=== PATIENT | female | born 1945 | race Caucasian/White ===

== ENCOUNTER 2020-04-29 12:00 | Emergency (ER) | payer MEDICARE, OTHER, SELFPAY ==
[2020-04-29] VITALS (7 sets, daily range): BP systolic 111–165; BP diastolic 67–82; PULSE 95–105; RESP 16–18; TEMP 36.4; O2SAT 97–100; BMI 23.5
--- NOTE | 2020-04-29 12:30 | CT_ITS ---
WS: [id number] CT HEAD TECHNIQUE: Noncontrast CT of the head obtained from the skullbase to the vertex. CLINICAL INFORMATION: fall COMPARISON: None. DLP: 806.[address] scans at [facility] use at least one of these dose optimization techniques: automat ed exposure control; mA and/or kV adjustment per patient size (includes targeted exams where dose is matched to clinical indication); or iterative reconstruction. FINDINGS: Tiny amount of subdural hematoma overlying the left parasagittal frontal lobe. No significant mass ef fect or midline shift. No other evidence of hemorrhage Mild small vessel changes with moderate parenchymal volume loss. Chronic lacunar infarcts in the rig ht frontal periventricular white matter. Paranasal sinuses and mastoid air cells are well aerated. .Normal visualized soft tissues. CT/CT head wo con* [id number] IMPRESSION: 1. Tiny serpiginous subdural hematoma overlying the left parasagittal frontal lobe. No mass effect or midline shift. No other visualized hemorrhage. 2. Mild small vessel changes. Moderate parenchymal volume loss. 3. Chronic lacunar infarcts in the right frontal periventricular white matter Notified MALLORIE Kirkland at 04/29/2020 1:14 PM.
--- NOTE | 2020-04-29 12:30 | ECG_ITS ---
[facility] Test Date: 2020-04-29 Pat Name: Cara Schrader Department: Room: Gender: Female Complex Manager: : 1945 Requested By: Indra Simeon Order Number: [id number] Jian MD: Og So M.D. Measurements Intervals [place] Rate: 94 P: 76 KS: 116 QRS: 67 QRSD: 133 T: 9 QT: 405 QTc: 509 Interpretive Statements SINUS RHYTHM WITH SHORT [place] INTERVAL INDETERMINATE AXIS INTRAVENTRICULAR CONDUCTION DELAY [130+ ms QRS DURATION] INFERIOR MYOCARDIAL INFARCTION , OF INDETERMINATE AGE [40+ ms Q WAVE AND/OR ST/T ABNORMALITY IN II/aVF] Compared to ECG 03/26/2016 13:47:13 Short [place] interval now present Intraventricular conduction delay now present Myocardial infarct finding now present Right bundle-branch block no longer present Electronically Signed On 04-29-2020 23:58:37 CDT by Og So M.D. [id number]
--- NOTE | 2020-04-29 12:31 | ED_ITS ---
Documented by User: MALLORIE Kirkland 04/29/20 15:56 HPI - Fall General: Chief Complaint: Fall Stated Complaint: FELL,UNSURE OF INJURIES Time Seen by Provider: 04/29/20 12:20 History of Present Illness: HPI Narrative: This pleasant lady was brought in by her granddaughter due to being found on the floor this morning in her urine. Patient denies any problems at all. Patient is emotional. Patient lost her in September and granddaughter says she has just been down and depressed since then. Patient cannot give a good reason for why she was found in her urine. She just says she can get up from floor while she was scrubbing it and get to the bathroom in time. She said she feels fine. Later on during stay patient now complain about left hip pain granddaughter said they had to help her get up in wheelchair to get here. Also has right elbow hurts MD complaint: other Onset (ago): hour(s) Severity: mild Associated symptoms-after fall: Denies abdominal pain, chest pain or headache(s) Review of Systems Narrative: Patient can give me a reason for why she was found on floor in her urine. She says she just could not get up and go to the bathroom. Which is unusual for her she has difficult time tell me story. She becomes emotional and crying when we talk about her in September Const: Denies: fever(s), chills or body aches Eyes: Denies: change in vision or blurry vision ENMT: Denies: throat pain or nasal congestion Card: Denies: chest pain or dyspnea on exertion Resp: Denies: dyspnea, productive cough or non-productive cough GI: Denies: abdominal pain, nausea or vomiting Musc: Reports: extremity pain (Right elbow) and joint pain (left hip) Skin/Breast: Denies: rash Neuro: Denies: headache(s) Psych: Reports: depression (It was shared later after exam that patient might have taken more of her te), loss of interest, change in appetite and other (Taken were temazepam that she should have, patient denies); Denies: anxiety Wang/Lymph: Denies: easy bruising Physical Exam Narrative: EXAM NARRATIVE: Slightly poor hygiene. Hair is unkept nails are thick fingernails are slightly dirty Const: COMMON NORMALS: no acute distress, average body habitus and patient oriented x3 HENMT: COMMON NORMALS: normocephalic HEAD & SCALP: normal to inspection and normocephalic FACE & SINUS: normal facial exam Eye: COMMON NORMALS: conjunctivae normal CONJUNCTIVA: Yes conjunctivae normal PUPIL: Yes Irregular pupils on the right (Chronic dilated pupil under care of Dr. Mccrary) Neck/C-Spine: COMMON NORMALS: no JVD Chest: COMMONS NORMALS: normal inspection of the chest Resp: COMMON NORMALS: normal respiratory effort and clear to auscultation bilaterally AUSCULTATION: clear to auscultation bilaterally Cardio: COMMON NORMALS: no JVD, regular rate and regular rhythm RATE: regular rate RHYTHM: regular rhythm GI: COMMON NORMALS: Normal to inspection, nondistended, normoactive bowel sounds present Extremity: COMMON NORMALS: full ROM RIGHT UPPER EXTREMITY: Yes elbow joint (No redness of swelling does have an abrasion has full range of motion) LEFT LOWER EXTREMITY: Yes hip joint (Slightly tender to palpation good range of motion) Neuro: COMMON NORMALS: patient oriented x3, CN's II-XII intact bilaterally, moves all extremities, no focal motor deficits and no sensory deficits noted Psych: COMMON NORMALS: mental status grossly normal, Normal thought process present, cooperative, normal affect, denies homicidal ideation and denies suicidal ideation APPEARANCE: Yes disheveled ATTITUDE: Yes calm ACTIVITY/MOTOR BEHAVIOR: Yes appropriate eye contact SPEECH: Yes soft MOOD & AFFECT: Yes depressed mood THOUGHT PROCESS: Normal thought process present ATTENTION/CONCENTRATION: Yes attention grossly intact MEMORY/COGNITION: Yes memory grossly intact JUDGEMENT: Good judgement present (Psych) Course Vital Signs: Vital signs: Vital Signs Temperature 97.5 F L 04/29/20 12:03 Pulse Rate 105 H 04/29/20 18:20 Respiratory Rate 16 04/29/20 18:20 Blood Pressure 111/67 04/29/20 18:20 Pulse Oximetry 100 04/29/20 18:20 MDM - Fall MDM Narrative: Medical decision making narrative: Spoke with care at the call center at [facility] after patient stated that we can either go to [facility] or [facility]. Care said neurosurgeon wanted to go ER to ER. I spoke with Dario ER physician at [facility] agrees accept patient for transfer level care not available here. Patient stable go by ground ambulance. Discussed care of patient with Dr. Pal Lab Data: Labs: Lab Results 04/29/20 04/29/20 04/29/20 Range/Units 13:20 13:20 14:08 WBC (4.0-10.0) 10^3/ uL RBC (4.1-5.3) 10^6/u L Hgb (11.5-15.3) g/dL Hct (37.0-47.0) % MCV (81-99) fL MCH (28.0-34.0) pg MCHC (30.0-36.0) g/dL RDW (12.1-15.1) % Plt Count (130-400) 10^3/c mm MPV (7.4-10.4) fL Neut % (Auto) % Lymph % (Auto) % [place] % (Auto) % Eos % (Auto) % Baso % (Auto) % Neut # (Auto) (1.8-7.7) 10^3/u L Lymph # (Auto) (0.8-4.8) 10^3/u L [place] # (Auto) (0.2-0.9) 10^3/u L Eos # (Auto) (0.0-0.8) 10^3/u L Baso # (Auto) (0.0-0.1) 10^3/u L Nucleated RBC % (a uto) % Nucleated RBCs # /100WBC Specimen Type Sample Site ABG pH (7.35-7.45) ABG pCO2 (35-45) mmHg ABG pO2 (80.0-100.0) mmH g ABG HCO3 (22-26) mmol/L ABG Base Excess (-2.0-2.0) mmol/ L Aron Test Hematocrit (37-47) % O2 Delivery Device Bill Cutter ID Sodium (136-145) mmol/L Potassium (3.5-5.1) mmol/L Chloride (98-107) mmol/L Carbon Dioxide (22-29) mmol/L Anion Gap (5-19) BUN (8-23) mg/dL Creatinine (0.5-0.9) mg/dL GFR Calculation Glucose (65-115) mg/dL POC Glucose 472 H (70-110) mg/dL Calculated Osmolal ity (285-295) mOsm/k g Lactate (0.5-2.2) mmol/L Calcium (8.5-10.5) mg/dL Total Bilirubin (0.15-1.2) mg/dL AST (0-32) U/L ALT (0-33) U/L Alkaline Phosphata se (35-105) IU/L Troponin T Baselin e (0-10) ng/L Troponin T 120 Min qagan tayagungin (0-10) ng/L Delta Troponin T (0-10) ABS# C-Reactive Protein (0.0-4.9) mg/L Total Protein (6.6-8.7) g/dL Albumin (3.5-5.2) g/dL Globulin (1.3-4.6) g/dL TSH (0.27-4.20) uIU/ mL Urine Color Yellow (Yellow) Urine Appearance Clear (CLEAR) Urine pH 5 (5-7) Ur Specific Gravit y 1.025 (1.005-1.030) Urine Protein Neg (Negative) Urine Glucose (UA) 4+ H (Normal) Urine Ketones 3+ H (Negative) Urine Blood Neg (Negative) Urine Nitrate Negative (Negative) Urine Bilirubin Neg (Negative) Urine Urobilinogen Norm (Negative) mg/dL Ur Leukocyte Mireya ase Negative (Negative) Urine Opiates Scre en Negative (Negative) ng/mL Ur Barbiturates Sc reen Negative (Negative) ng/mL Ur Phencyclidine S crn Negative (Negative) ng/mL Ur Amphetamines Sc reen Negative (Negative) ng/mL U Benzodiazepines Scrn Positive H (Negative) ng/mL Urine Cocaine Scre en Negative (Negative) ng/mL U Marijuana (THC) Screen Negative (Negative) ng/mL Serum Ketones (Negative) 04/29/20 04/29/20 04/29/20 Range/Units 14:45 14:45 14:45 WBC 17.0 H (4.0-10.0) 10^3/ uL RBC 4.55 (4.1-5.3) 10^6/u L Hgb 13.7 (11.5-15.3) g/dL Hct 42.6 (37.0-47.0) % MCV 93.6 (81-99) fL MCH 30.1 (28.0-34.0) pg MCHC 32.2 (30.0-36.0) g/dL RDW 13.0 (12.1-15.1) % Plt Count 391 (130-400) 10^3/c mm MPV 9.9 (7.4-10.4) fL Neut % (Auto) 84.1 % Lymph % (Auto) 8.7 % [place] % (Auto) 5.9 % Eos % (Auto) 0.0 % Baso % (Auto) 0.4 % Neut # (Auto) 14.28 H (1.8-7.7) 10^3/u L Lymph # (Auto) 1.5 (0.8-4.8) 10^3/u L [place] # (Auto) 1.0 H (0.2-0.9) 10^3/u L Eos # (Auto) 0.0 (0.0-0.8) 10^3/u L Baso # (Auto) 0.1 (0.0-0.1) 10^3/u L Nucleated RBC % (a uto) 0 % Nucleated RBCs # 0.0 /100WBC Specimen Type Sample Site ABG pH (7.35-7.45) ABG pCO2 (35-45) mmHg ABG pO2 (80.0-100.0) mmH g ABG HCO3 (22-26) mmol/L ABG Base Excess (-2.0-2.0) mmol/ L Aron Test Hematocrit (37-47) % O2 Delivery Device Bill Cutter ID Sodium 135 L (136-145) mmol/L Potassium 4.2 (3.5-5.1) mmol/L Chloride 99 (98-107) mmol/L Carbon Dioxide 9 L (22-29) mmol/L Anion Gap 31.2 H (5-19) BUN 16 (8-23) mg/dL Creatinine 0.7 (0.5-0.9) mg/dL GFR Calculation Not Reportable Glucose 467 H (65-115) mg/dL POC Glucose (70-110) mg/dL Calculated Osmolal ity 302 H (285-295) mOsm/k g Lactate 0.9 (0.5-2.2) mmol/L Calcium 8.5 (8.5-10.5) mg/dL Total Bilirubin 0.4 (0.15-1.2) mg/dL AST 17 (0-32) U/L ALT 11 (0-33) U/L Alkaline Phosphata se 89 (35-105) IU/L Troponin T Baselin e (0-10) ng/L Troponin T 120 Min qagan tayagungin (0-10) ng/L Delta Troponin T (0-10) ABS# C-Reactive Protein 29.2 H (0.0-4.9) mg/L Total Protein 6.8 (6.6-8.7) g/dL Albumin 3.7 (3.5-5.2) g/dL Globulin 3.1 (1.3-4.6) g/dL TSH 0.56 (0.27-4.20) uIU/ mL Urine Color (Yellow) Urine Appearance (CLEAR) Urine pH (5-7) Ur Specific Gravit y (1.005-1.030) Urine Protein (Negative) Urine Glucose (UA) (Normal) Urine Ketones (Negative) Urine Blood (Negative) Urine Nitrate (Negative) Urine Bilirubin (Negative) Urine Urobilinogen (Negative) mg/dL Ur Leukocyte Mireya ase (Negative) Urine Opiates Scre en (Negative) ng/mL Ur Barbiturates Sc reen (Negative) ng/mL Ur Phencyclidine S crn (Negative) ng/mL Ur Amphetamines Sc reen (Negative) ng/mL U Benzodiazepines Scrn (Negative) ng/mL Urine Cocaine Scre en (Negative) ng/mL U Marijuana (THC) Screen (Negative) ng/mL Serum Ketones (Negative) 04/29/20 04/29/20 04/29/20 Range/Units 14:45 14:45 15:40 WBC (4.0-10.0) 10^3/ uL RBC (4.1-5.3) 10^6/u L Hgb (11.5-15.3) g/dL Hct (37.0-47.0) % MCV (81-99) fL MCH (28.0-34.0) pg MCHC (30.0-36.0) g/dL RDW (12.1-15.1) % Plt Count (130-400) 10^3/c mm MPV (7.4-10.4) fL Neut % (Auto) % Lymph % (Auto) % [place] % (Auto) % Eos % (Auto) % Baso % (Auto) % Neut # (Auto) (1.8-7.7) 10^3/u L Lymph # (Auto) (0.8-4.8) 10^3/u L [place] # (Auto) (0.2-0.9) 10^3/u L Eos # (Auto) (0.0-0.8) 10^3/u L Baso # (Auto) (0.0-0.1) 10^3/u L Nucleated RBC % (a uto) % Nucleated RBCs # /100WBC Specimen Type Arterial Sample Site Radial, left ABG pH 7.26 L (7.35-7.45) ABG pCO2 22.0 L (35-45) mmHg ABG pO2 98.6 (80.0-100.0) mmH g ABG HCO3 9.9 L (22-26) mmol/L ABG Base Excess -15.1 L (-2.0-2.0) mmol/ L Aron Test Pos Hematocrit 44.1 (37-47) % O2 Delivery Device Room air Bill Cutter ID Gd Sodium (136-145) mmol/L Potassium (3.5-5.1) mmol/L Chloride (98-107) mmol/L Carbon Dioxide (22-29) mmol/L Anion Gap (5-19) BUN (8-23) mg/dL Creatinine (0.5-0.9) mg/dL GFR Calculation Glucose (65-115) mg/dL POC Glucose (70-110) mg/dL Calculated Osmolal ity (285-295) mOsm/k g Lactate (0.5-2.2) mmol/L Calcium (8.5-10.5) mg/dL Total Bilirubin (0.15-1.2) mg/dL AST (0-32) U/L ALT (0-33) U/L Alkaline Phosphata se (35-105) IU/L Troponin T Baselin e 20 H (0-10) ng/L Troponin T 120 Min qagan tayagung[place] (0-10) ng/L Delta Troponin T (0-10) ABS# C-Reactive Protein (0.0-4.9) mg/L Total Protein (6.6-8.7) g/dL Albumin (3.5-5.2) g/dL Globulin (1.3-4.6) g/dL TSH (0.27-4.20) uIU/ mL Urine Color (Yellow) Urine Appearance (CLEAR) Urine pH (5-7) Ur Specific Gravit y (1.005-1.030) Urine Protein (Negative) Urine Glucose (UA) (Normal) Urine Ketones (Negative) Urine Blood (Negative) Urine Nitrate (Negative) Urine Bilirubin (Negative) Urine Urobilinogen (Negative) mg/dL Ur Leukocyte Mireya ase (Negative) Urine Opiates Scre en (Negative) ng/mL Ur Barbiturates Sc reen (Negative) ng/mL Ur Phencyclidine S crn (Negative) ng/mL Ur Amphetamines Sc reen (Negative) ng/mL U Benzodiazepines Scrn (Negative) ng/mL Urine Cocaine Scre en (Negative) ng/mL U Marijuana (THC) Screen (Negative) ng/mL Serum Ketones Positive H (Negative) 04/29/20 04/29/20 Range/Units 16:37 19:10 WBC (4.0-10.0) 10^3/ uL RBC (4.1-5.3) 10^6/u L Hgb (11.5-15.3) g/dL Hct (37.0-47.0) % MCV (81-99) fL MCH (28.0-34.0) pg MCHC (30.0-36.0) g/dL RDW (12.1-15.1) % Plt Count (130-400) 10^3/c mm MPV (7.4-10.4) fL Neut % (Auto) % Lymph % (Auto) % [place] % (Auto) % Eos % (Auto) % Baso % (Auto) % Neut # (Auto) (1.8-7.7) 10^3/u L Lymph # (Auto) (0.8-4.8) 10^3/u L [place] # (Auto) (0.2-0.9) 10^3/u L Eos # (Auto) (0.0-0.8) 10^3/u L Baso # (Auto) (0.0-0.1) 10^3/u L Nucleated RBC % (a uto) % Nucleated RBCs # /100WBC Specimen Type Sample Site ABG pH (7.35-7.45) ABG pCO2 (35-45) mmHg ABG pO2 (80.0-100.0) mmH g ABG HCO3 (22-26) mmol/L ABG Base Excess (-2.0-2.0) mmol/ L Aron Test Hematocrit (37-47) % O2 Delivery Device Bill Cutter ID Sodium (136-145) mmol/L Potassium (3.5-5.1) mmol/L Chloride (98-107) mmol/L Carbon Dioxide (22-29) mmol/L Anion Gap (5-19) BUN (8-23) mg/dL Creatinine (0.5-0.9) mg/dL GFR Calculation Glucose (65-115) mg/dL POC Glucose 396 H (70-110) mg/dL Calculated Osmolal ity (285-295) mOsm/k g Lactate (0.5-2.2) mmol/L Calcium (8.5-10.5) mg/dL Total Bilirubin (0.15-1.2) mg/dL AST (0-32) U/L ALT (0-33) U/L Alkaline Phosphata se (35-105) IU/L Troponin T Baselin e (0-10) ng/L Troponin T 120 Min qagan tayagungin 20.50 H (0-10) ng/L Delta Troponin T 0.5 (0-10) ABS# C-Reactive Protein (0.0-4.9) mg/L Total Protein (6.6-8.7) g/dL Albumin (3.5-5.2) g/dL Globulin (1.3-4.6) g/dL TSH (0.27-4.20) uIU/ mL Urine Color (Yellow) Urine Appearance (CLEAR) Urine pH (5-7) Ur Specific Gravit y (1.005-1.030) Urine Protein (Negative) Urine Glucose (UA) (Normal) Urine Ketones (Negative) Urine Blood (Negative) Urine Nitrate (Negative) Urine Bilirubin (Negative) Urine Urobilinogen (Negative) mg/dL Ur Leukocyte Mireya ase (Negative) Urine Opiates Scre en (Negative) ng/mL Ur Barbiturates Sc reen (Negative) ng/mL Ur Phencyclidine S crn (Negative) ng/mL Ur Amphetamines Sc reen (Negative) ng/mL U Benzodiazepines Scrn (Negative) ng/mL Urine Cocaine Scre en (Negative) ng/mL U Marijuana (THC) Screen (Negative) ng/mL Serum Ketones (Negative) Discharge Plan Discharge Patient Disposition: Transfer to ED Clinical Impression: Acute subdural hematoma, Acute hyperglycemia Depression Qualifiers: Depression Type: reactive depression Qualified Code(s): F32.9 - Major depressive disorder, single episode, unspecified Condition: Stable Prescriptions: No Action venlafaxine 75 mg capsule,extended release 24hr 75 mg PO DAILY RF: 0 glipizide 10 mg tablet 10 mg PO BID RF: 0 temazepam 30 mg capsule 60 mg PO BEDTIME RF: 0 Lotemax 0.5 % drops,gel 1 drp ophthalmic (eye) DAILY RF: 0 Referrals: Christin Bolaños DO [Primary Care Provider] - Sign Out Sign Out Data: Patient Sign Out occurred on 04/29/20 at 17:07. Patient's care was discussed, and care was transferred from to PAPO Mukherjee. Coding Level of Care Code ED Glove Turner And Former Automatic for Chg Fwd Exam Comprehensive Documented by User: PAPO Mukherjee 04/30/20 03:01 HPI - Fall General: Chief Complaint: Fall Stated Complaint: FELL,UNSURE OF INJURIES Time Seen by Provider: 04/29/20 12:20 Course Vital Signs: Vital signs: Vital Signs Temperature 97.5 F L 04/29/20 12:03 Pulse Rate 105 H 04/29/20 18:20 Respiratory Rate 16 04/29/20 18:20 Blood Pressure 111/67 04/29/20 18:20 Pulse Oximetry 100 04/29/20 18:20 MDM - Fall MDM Narrative: Medical decision making narrative: I took over patient care from Blanco's nurse practitioner at [address] Marie was placing a central line on patient and Blanco's told me he already had transfer set up for [facility] in [place]. I was not involved in any patient care or decision making of patient. I signed up on patient, just in case patient needs some orders placed while waiting for transfer.-Sid Shelley PA-C Lab Data: Labs: Lab Results 04/29/20 04/29/20 04/29/20 Range/Units 13:20 13:20 14:08 WBC (4.0-10.0) 10^3/ uL RBC (4.1-5.3) 10^6/u L Hgb (11.5-15.3) g/dL Hct (37.0-47.0) % MCV (81-99) fL MCH (28.0-34.0) pg MCHC (30.0-36.0) g/dL RDW (12.1-15.1) % Plt Count (130-400) 10^3/c mm MPV (7.4-10.4) fL Neut % (Auto) % Lymph % (Auto) % [place] % (Auto) % Eos % (Auto) % Baso % (Auto) % Neut # (Auto) (1.8-7.7) 10^3/u L Lymph # (Auto) (0.8-4.8) 10^3/u L [place] # (Auto) (0.2-0.9) 10^3/u L Eos # (Auto) (0.0-0.8) 10^3/u L Baso # (Auto) (0.0-0.1) 10^3/u L Nucleated RBC % (a uto) % Nucleated RBCs # /100WBC Specimen Type Sample Site ABG pH (7.35-7.45) ABG pCO2 (35-45) mmHg ABG pO2 (80.0-100.0) mmH g ABG HCO3 (22-26) mmol/L ABG Base Excess (-2.0-2.0) mmol/ L Aron Test Hematocrit (37-47) % O2 Delivery Device Bill Cutter ID Sodium (136-145) mmol/L Potassium (3.5-5.1) mmol/L Chloride (98-107) mmol/L Carbon Dioxide (22-29) mmol/L Anion Gap (5-19) BUN (8-23) mg/dL Creatinine (0.5-0.9) mg/dL GFR Calculation Glucose (65-115) mg/dL POC Glucose 472 H (70-110) mg/dL Calculated Osmolal ity (285-295) mOsm/k g Lactate (0.5-2.2) mmol/L Calcium (8.5-10.5) mg/dL Total Bilirubin (0.15-1.2) mg/dL AST (0-32) U/L ALT (0-33) U/L Alkaline Phosphata se (35-105) IU/L Troponin T Baselin e (0-10) ng/L Troponin T 120 Min qagan tayagungin (0-10) ng/L Delta Troponin T (0-10) ABS# C-Reactive Protein (0.0-4.9) mg/L Total Protein (6.6-8.7) g/dL Albumin (3.5-5.2) g/dL Globulin (1.3-4.6) g/dL TSH (0.27-4.20) uIU/ mL Urine Color Yellow (Yellow) Urine Appearance Clear (CLEAR) Urine pH 5 (5-7) Ur Specific Gravit y 1.025 (1.005-1.030) Urine Protein Neg (Negative) Urine Glucose (UA) 4+ H (Normal) Urine Ketones 3+ H (Negative) Urine Blood Neg (Negative) Urine Nitrate Negative (Negative) Urine Bilirubin Neg (Negative) Urine Urobilinogen Norm (Negative) mg/dL Ur Leukocyte Mireya ase Negative (Negative) Urine Opiates Scre en Negative (Negative) ng/mL Ur Barbiturates Sc reen Negative (Negative) ng/mL Ur Phencyclidine S crn Negative (Negative) ng/mL Ur Amphetamines Sc reen Negative (Negative) ng/mL U Benzodiazepines Scrn Positive H (Negative) ng/mL Urine Cocaine Scre en Negative (Negative) ng/mL U Marijuana (THC) Screen Negative (Negative) ng/mL Serum Ketones (Negative) 04/29/20 04/29/20 04/29/20 Range/Units 14:45 14:45 14:45 WBC 17.0 H (4.0-10.0) 10^3/ uL RBC 4.55 (4.1-5.3) 10^6/u L Hgb 13.7 (11.5-15.3) g/dL Hct 42.6 (37.0-47.0) % MCV 93.6 (81-99) fL MCH 30.1 (28.0-34.0) pg MCHC 32.2 (30.0-36.0) g/dL RDW 13.0 (12.1-15.1) % Plt Count 391 (130-400) 10^3/c mm MPV 9.9 (7.4-10.4) fL Neut % (Auto) 84.1 % Lymph % (Auto) 8.7 % [place] % (Auto) 5.9 % Eos % (Auto) 0.0 % Baso % (Auto) 0.4 % Neut # (Auto) 14.28 H (1.8-7.7) 10^3/u L Lymph # (Auto) 1.5 (0.8-4.8) 10^3/u L [place] # (Auto) 1.0 H (0.2-0.9) 10^3/u L Eos # (Auto) 0.0 (0.0-0.8) 10^3/u L Baso # (Auto) 0.1 (0.0-0.1) 10^3/u L Nucleated RBC % (a uto) 0 % Nucleated RBCs # 0.0 /100WBC Specimen Type Sample Site ABG pH (7.35-7.45) ABG pCO2 (35-45) mmHg ABG pO2 (80.0-100.0) mmH g ABG HCO3 (22-26) mmol/L ABG Base Excess (-2.0-2.0) mmol/ L Aron Test Hematocrit (37-47) % O2 Delivery Device Bill Cutter ID Sodium 135 L (136-145) mmol/L Potassium 4.2 (3.5-5.1) mmol/L Chloride 99 (98-107) mmol/L Carbon Dioxide 9 L (22-29) mmol/L Anion Gap 31.2 H (5-19) BUN 16 (8-23) mg/dL Creatinine 0.7 (0.5-0.9) mg/dL GFR Calculation Not Reportable Glucose 467 H (65-115) mg/dL POC Glucose (70-110) mg/dL Calculated Osmolal ity 302 H (285-295) mOsm/k g Lactate 0.9 (0.5-2.2) mmol/L Calcium 8.5 (8.5-10.5) mg/dL Total Bilirubin 0.4 (0.15-1.2) mg/dL AST 17 (0-32) U/L ALT 11 (0-33) U/L Alkaline Phosphata se 89 (35-105) IU/L Troponin T Baselin e (0-10) ng/L Troponin T 120 Min qagan tayag[place] (0-10) ng/L Delta Troponin T (0-10) ABS# C-Reactive Protein 29.2 H (0.0-4.9) mg/L Total Protein 6.8 (6.6-8.7) g/dL Albumin 3.7 (3.5-5.2) g/dL Globulin 3.1 (1.3-4.6) g/dL TSH 0.56 (0.27-4.20) uIU/ mL Urine Color (Yellow) Urine Appearance (CLEAR) Urine pH (5-7) Ur Specific Gravit y (1.005-1.030) Urine Protein (Negative) Urine Glucose (UA) (Normal) Urine Ketones (Negative) Urine Blood (Negative) Urine Nitrate (Negative) Urine Bilirubin (Negative) Urine Urobilinogen (Negative) mg/dL Ur Leukocyte Mireya ase (Negative) Urine Opiates Scre en (Negative) ng/mL Ur Barbiturates Sc reen (Negative) ng/mL Ur Phencyclidine S crn (Negative) ng/mL Ur Amphetamines Sc reen (Negative) ng/mL U Benzodiazepines Scrn (Negative) ng/mL Urine Cocaine Scre en (Negative) ng/mL U Marijuana (THC) Screen (Negative) ng/mL Serum Ketones (Negative) 04/29/20 04/29/20 04/29/20 Range/Units 14:45 14:45 15:40 WBC (4.0-10.0) 10^3/ uL RBC (4.1-5.3) 10^6/u L Hgb (11.5-15.3) g/dL Hct (37.0-47.0) % MCV (81-99) fL MCH (28.0-34.0) pg MCHC (30.0-36.0) g/dL RDW (12.1-15.1) % Plt Count (130-400) 10^3/c mm MPV (7.4-10.4) fL Neut % (Auto) % Lymph % (Auto) % [place] % (Auto) % Eos % (Auto) % Baso % (Auto) % Neut # (Auto) (1.8-7.7) 10^3/u L Lymph # (Auto) (0.8-4.8) 10^3/u L [place] # (Auto) (0.2-0.9) 10^3/u L Eos # (Auto) (0.0-0.8) 10^3/u L Baso # (Auto) (0.0-0.1) 10^3/u L Nucleated RBC % (a uto) % Nucleated RBCs # /100WBC Specimen Type Arterial Sample Site Radial, left ABG pH 7.26 L (7.35-7.45) ABG pCO2 22.0 L (35-45) mmHg ABG pO2 98.6 (80.0-100.0) mmH g ABG HCO3 9.9 L (22-26) mmol/L ABG Base Excess -15.1 L (-2.0-2.0) mmol/ L Aron Test Pos Hematocrit 44.1 (37-47) % O2 Delivery Device Room air Bill Cutter ID Gd Sodium (136-145) mmol/L Potassium (3.5-5.1) mmol/L Chloride (98-107) mmol/L Carbon Dioxide (22-29) mmol/L Anion Gap (5-19) BUN (8-23) mg/dL Creatinine (0.5-0.9) mg/dL GFR Calculation Glucose (65-115) mg/dL POC Glucose (70-110) mg/dL Calculated Osmolal ity (285-295) mOsm/k g Lactate (0.5-2.2) mmol/L Calcium (8.5-10.5) mg/dL Total Bilirubin (0.15-1.2) mg/dL AST (0-32) U/L ALT (0-33) U/L Alkaline Phosphata se (35-105) IU/L Troponin T Baselin e 20 H (0-10) ng/L Troponin T 120 Min q[place] (0-10) ng/L Delta Troponin T (0-10) ABS# C-Reactive Protein (0.0-4.9) mg/L Total Protein (6.6-8.7) g/dL Albumin (3.5-5.2) g/dL Globulin (1.3-4.6) g/dL TSH (0.27-4.20) uIU/ mL Urine Color (Yellow) Urine Appearance (CLEAR) Urine pH (5-7) Ur Specific Gravit y (1.005-1.030) Urine Protein (Negative) Urine Glucose (UA) (Normal) Urine Ketones (Negative) Urine Blood (Negative) Urine Nitrate (Negative) Urine Bilirubin (Negative) Urine Urobilinogen (Negative) mg/dL Ur Leukocyte Mireya ase (Negative) Urine Opiates Scre en (Negative) ng/mL Ur Barbiturates Sc reen (Negative) ng/mL Ur Phencyclidine S crn (Negative) ng/mL Ur Amphetamines Sc reen (Negative) ng/mL U Benzodiazepines Scrn (Negative) ng/mL Urine Cocaine Scre en (Negative) ng/mL U Marijuana (THC) Screen (Negative) ng/mL Serum Ketones Positive H (Negative) 04/29/20 04/29/20 Range/Units 16:37 19:10 WBC (4.0-10.0) 10^3/ uL RBC (4.1-5.3) 10^6/u L Hgb (11.5-15.3) g/dL Hct (37.0-47.0) % MCV (81-99) fL MCH (28.0-34.0) pg MCHC (30.0-36.0) g/dL RDW (12.1-15.1) % Plt Count (130-400) 10^3/c mm MPV (7.4-10.4) fL Neut % (Auto) % Lymph % (Auto) % [place] % (Auto) % Eos % (Auto) % Baso % (Auto) % Neut # (Auto) (1.8-7.7) 10^3/u L Lymph # (Auto) (0.8-4.8) 10^3/u L [place] # (Auto) (0.2-0.9) 10^3/u L Eos # (Auto) (0.0-0.8) 10^3/u L Baso # (Auto) (0.0-0.1) 10^3/u L Nucleated RBC % (a uto) % Nucleated RBCs # /100WBC Specimen Type Sample Site ABG pH (7.35-7.45) ABG pCO2 (35-45) mmHg ABG pO2 (80.0-100.0) mmH g ABG HCO3 (22-26) mmol/L ABG Base Excess (-2.0-2.0) mmol/ L Aron Test Hematocrit (37-47) % O2 Delivery Device Bill Cutter ID Sodium (136-145) mmol/L Potassium (3.5-5.1) mmol/L Chloride (98-107) mmol/L Carbon Dioxide (22-29) mmol/L Anion Gap (5-19) BUN (8-23) mg/dL Creatinine (0.5-0.9) mg/dL GFR Calculation Glucose (65-115) mg/dL POC Glucose 396 H (70-110) mg/dL Calculated Osmolal ity (285-295) mOsm/k g Lactate (0.5-2.2) mmol/L Calcium (8.5-10.5) mg/dL Total Bilirubin (0.15-1.2) mg/dL AST (0-32) U/L ALT (0-33) U/L Alkaline Phosphata se (35-105) IU/L Troponin T Baselin e (0-10) ng/L Troponin T 120 Min q[place] 20.50 H (0-10) ng/L Delta Troponin T 0.5 (0-10) ABS# C-Reactive Protein (0.0-4.9) mg/L Total Protein (6.6-8.7) g/dL Albumin (3.5-5.2) g/dL Globulin (1.3-4.6) g/dL TSH (0.27-4.20) uIU/ mL Urine Color (Yellow) Urine Appearance (CLEAR) Urine pH (5-7) Ur Specific Gravit y (1.005-1.030) Urine Protein (Negative) Urine Glucose (UA) (Normal) Urine Ketones (Negative) Urine Blood (Negative) Urine Nitrate (Negative) Urine Bilirubin (Negative) Urine Urobilinogen (Negative) mg/dL Ur Leukocyte Mireya ase (Negative) Urine Opiates Scre en (Negative) ng/mL Ur Barbiturates Sc reen (Negative) ng/mL Ur Phencyclidine S crn (Negative) ng/mL Ur Amphetamines Sc reen (Negative) ng/mL U Benzodiazepines Scrn (Negative) ng/mL Urine Cocaine Scre en (Negative) ng/mL U Marijuana (THC) Screen (Negative) ng/mL Serum Ketones (Negative) Discharge Plan Discharge Patient Disposition: Transfer to ED Clinical Impression: Acute subdural hematoma, Acute hyperglycemia Depression Qualifiers: Depression Type: reactive depression Qualified Code(s): F32.9 - Major depressive disorder, single episode, unspecified Condition: Stable Prescriptions: No Action venlafaxine 75 mg capsule,extended release 24hr 75 mg PO DAILY RF: 0 glipizide 10 mg tablet 10 mg PO BID RF: 0 temazepam 30 mg capsule 60 mg PO BEDTIME RF: 0 Lotemax 0.5 % drops,gel 1 drp ophthalmic (eye) DAILY RF: 0 Referrals: Christin Bolaños DO [Primary Care Provider] - Sign Out Sign Out Data: Patient Sign Out occurred on 04/29/20 at 17:07. Patient's care was discussed, and care was transferred from to [facility] Mukherjee. Coding Level of Care Code ED Glove Turner And Former Automatic for Chg Fwd Exam Comprehensive Documented by User: Gianluca Marie DO 04/29/20 18:39 HPI - Fall General: Chief Complaint: Fall Stated Complaint: FELL,UNSURE OF INJURIES Time Seen by Provider: 04/29/20 12:20 Procedures Central Line Placement Right SC: Time Out Performed: Yes Patient Placed on Monitor/Pulse Ox: Yes MD Prep: mask, gown and gloves Central Line Prep: Chlorhexidine scrub Local Anesthetic: lidocaine 1% Amount of anesthesia used (mL): 5 Ultrasound Used for Placement: Yes Central Line Lumen Inserted: triple Additional Comments: Despite using Ativan were unable to get the patient to remain still made several attempts could visualize on ultrasound but could not cannulized subclavian vein due to continuous motion. At one point it was concerned that we had actually created a pneumothorax got what appeared to be air back in the syringe and the syringe followed when the patient jumped while we are trying to cannulized the subclavian vein. I did check of the neck for a right internal jugular however that was even more difficult to get the patient to remain still. At that point abandon attempts and contacted anesthesia to attempt venous access. Anesthesia also was unable to obtain access and ultimately put a saphenous vein IV in the leg. Course Vital Signs: Vital signs: Vital Signs Temperature 97.5 F L 04/29/20 12:03 Pulse Rate 105 H 04/29/20 18:20 Respiratory Rate 16 04/29/20 18:20 Blood Pressure 111/67 04/29/20 18:20 Pulse Oximetry 100 04/29/20 18:20 - Fall Lab Data: Labs: Lab Results 04/29/20 04/29/20 04/29/20 Range/Units 13:20 13:20 14:08 WBC (4.0-10.0) 10^3/ uL RBC (4.1-5.3) 10^6/u L Hgb (11.5-15.3) g/dL Hct (37.0-47.0) % MCV (81-99) fL MCH (28.0-34.0) pg MCHC (30.0-36.0) g/dL RDW (12.1-15.1) % Plt Count (130-400) 10^3/c mm MPV (7.4-10.4) fL Neut % (Auto) % Lymph % (Auto) % [place] % (Auto) % Eos % (Auto) % Baso % (Auto) % Neut # (Auto) (1.8-7.7) 10^3/u L Lymph # (Auto) (0.8-4.8) 10^3/u L [place] # (Auto) (0.2-0.9) 10^3/u L Eos # (Auto) (0.0-0.8) 10^3/u L Baso # (Auto) (0.0-0.1) 10^3/u L Nucleated RBC % (a uto) % Nucleated RBCs # /100WBC Specimen Type Sample Site ABG pH (7.35-7.45) ABG pCO2 (35-45) mmHg ABG pO2 (80.0-100.0) mmH g ABG HCO3 (22-26) mmol/L ABG Base Excess (-2.0-2.0) mmol/ L Aron Test Hematocrit (37-47) % O2 Delivery Device Bill Cutter ID Sodium (136-145) mmol/L Potassium (3.5-5.1) mmol/L Chloride (98-107) mmol/L Carbon Dioxide (22-29) mmol/L Anion Gap (5-19) BUN (8-23) mg/dL Creatinine (0.5-0.9) mg/dL GFR Calculation Glucose (65-115) mg/dL POC Glucose 472 H (70-110) mg/dL Calculated Osmolal ity (285-295) mOsm/k g Lactate (0.5-2.2) mmol/L Calcium (8.5-10.5) mg/dL Total Bilirubin (0.15-1.2) mg/dL AST (0-32) U/L ALT (0-33) U/L Alkaline Phosphata se (35-105) IU/L Troponin T Baselin e (0-10) ng/L Troponin T 120 Min qagan tayagungin (0-10) ng/L Delta Troponin T (0-10) ABS# C-Reactive Protein (0.0-4.9) mg/L Total Protein (6.6-8.7) g/dL Albumin (3.5-5.2) g/dL Globulin (1.3-4.6) g/dL TSH (0.27-4.20) uIU/ mL Urine Color Yellow (Yellow) Urine Appearance Clear (CLEAR) Urine pH 5 (5-7) Ur Specific Gravit y 1.025 (1.005-1.030) Urine Protein Neg (Negative) Urine Glucose (UA) 4+ H (Normal) Urine Ketones 3+ H (Negative) Urine Blood Neg (Negative) Urine Nitrate Negative (Negative) Urine Bilirubin Neg (Negative) Urine Urobilinogen Norm (Negative) mg/dL Ur Leukocyte Mireya ase Negative (Negative) Urine Opiates Scre en Negative (Negative) ng/mL Ur Barbiturates Sc reen Negative (Negative) ng/mL Ur Phencyclidine S crn Negative (Negative) ng/mL Ur Amphetamines Sc reen Negative (Negative) ng/mL U Benzodiazepines Scrn Positive H (Negative) ng/mL Urine Cocaine Scre en Negative (Negative) ng/mL U Marijuana (THC) Screen Negative (Negative) ng/mL Serum Ketones (Negative) 04/29/20 04/29/20 04/29/20 Range/Units 14:45 14:45 14:45 WBC 17.0 H (4.0-10.0) 10^3/ uL RBC 4.55 (4.1-5.3) 10^6/u L Hgb 13.7 (11.5-15.3) g/dL Hct 42.6 (37.0-47.0) % MCV 93.6 (81-99) fL MCH 30.1 (28.0-34.0) pg MCHC 32.2 (30.0-36.0) g/dL RDW 13.0 (12.1-15.1) % Plt Count 391 (130-400) 10^3/c mm MPV 9.9 (7.4-10.4) fL Neut % (Auto) 84.1 % Lymph % (Auto) 8.7 % [place] % (Auto) 5.9 % Eos % (Auto) 0.0 % Baso % (Auto) 0.4 % Neut # (Auto) 14.28 H (1.8-7.7) 10^3/u L Lymph # (Auto) 1.5 (0.8-4.8) 10^3/u L [place] # (Auto) 1.0 H (0.2-0.9) 10^3/u L Eos # (Auto) 0.0 (0.0-0.8) 10^3/u L Baso # (Auto) 0.1 (0.0-0.1) 10^3/u L Nucleated RBC % (a uto) 0 % Nucleated RBCs # 0.0 /100WBC Specimen Type Sample Site ABG pH (7.35-7.45) ABG pCO2 (35-45) mmHg ABG pO2 (80.0-100.0) mmH g ABG HCO3 (22-26) mmol/L ABG Base Excess (-2.0-2.0) mmol/ L Aron Test Hematocrit (37-47) % O2 Delivery Device Bill Cutter ID Sodium 135 L (136-145) mmol/L Potassium 4.2 (3.5-5.1) mmol/L Chloride 99 (98-107) mmol/L Carbon Dioxide 9 L (22-29) mmol/L Anion Gap 31.2 H (5-19) BUN 16 (8-23) mg/dL Creatinine 0.7 (0.5-0.9) mg/dL GFR Calculation Not Reportable Glucose 467 H (65-115) mg/dL POC Glucose (70-110) mg/dL Calculated Osmolal ity 302 H (285-295) mOsm/k g Lactate 0.9 (0.5-2.2) mmol/L Calcium 8.5 (8.5-10.5) mg/dL Total Bilirubin 0.4 (0.15-1.2) mg/dL AST 17 (0-32) U/L ALT 11 (0-33) U/L Alkaline Phosphata se 89 (35-105) IU/L Troponin T Baselin e (0-10) ng/L Troponin T 120 Min qagan tayagungin (0-10) ng/L Delta Troponin T (0-10) ABS# C-Reactive Protein 29.2 H (0.0-4.9) mg/L Total Protein 6.8 (6.6-8.7) g/dL Albumin 3.7 (3.5-5.2) g/dL Globulin 3.1 (1.3-4.6) g/dL TSH 0.56 (0.27-4.20) uIU/ mL Urine Color (Yellow) Urine Appearance (CLEAR) Urine pH (5-7) Ur Specific Gravit y (1.005-1.030) Urine Protein (Negative) Urine Glucose (UA) (Normal) Urine Ketones (Negative) Urine Blood (Negative) Urine Nitrate (Negative) Urine Bilirubin (Negative) Urine Urobilinogen (Negative) mg/dL Ur Leukocyte Mireya ase (Negative) Urine Opiates Scre en (Negative) ng/mL Ur Barbiturates Sc reen (Negative) ng/mL Ur Phencyclidine S crn (Negative) ng/mL Ur Amphetamines Sc reen (Negative) ng/mL U Benzodiazepines Scrn (Negative) ng/mL Urine Cocaine Scre en (Negative) ng/mL U Marijuana (THC) Screen (Negative) ng/mL Serum Ketones (Negative) 04/29/20 04/29/20 04/29/20 Range/Units 14:45 14:45 15:40 WBC (4.0-10.0) 10^3/ uL RBC (4.1-5.3) 10^6/u L Hgb (11.5-15.3) g/dL Hct (37.0-47.0) % MCV (81-99) fL MCH (28.0-34.0) pg MCHC (30.0-36.0) g/dL RDW (12.1-15.1) % Plt Count (130-400) 10^3/c mm MPV (7.4-10.4) fL Neut % (Auto) % Lymph % (Auto) % [place] % (Auto) % Eos % (Auto) % Baso % (Auto) % Neut # (Auto) (1.8-7.7) 10^3/u L Lymph # (Auto) (0.8-4.8) 10^3/u L [place] # (Auto) (0.2-0.9) 10^3/u L Eos # (Auto) (0.0-0.8) 10^3/u L Baso # (Auto) (0.0-0.1) 10^3/u L Nucleated RBC % (a uto) % Nucleated RBCs # /100WBC Specimen Type Arterial Sample Site Radial, left ABG pH 7.26 L (7.35-7.45) ABG pCO2 22.0 L (35-45) mmHg ABG pO2 98.6 (80.0-100.0) mmH g ABG HCO3 9.9 L (22-26) mmol/L ABG Base Excess -15.1 L (-2.0-2.0) mmol/ L Aron Test Pos Hematocrit 44.1 (37-47) % O2 Delivery Device Room air Bill Cutter ID Gd Sodium (136-145) mmol/L Potassium (3.5-5.1) mmol/L Chloride (98-107) mmol/L Carbon Dioxide (22-29) mmol/L Anion Gap (5-19) BUN (8-23) mg/dL Creatinine (0.5-0.9) mg/dL GFR Calculation Glucose (65-115) mg/dL POC Glucose (70-110) mg/dL Calculated Osmolal ity (285-295) mOsm/k g Lactate (0.5-2.2) mmol/L Calcium (8.5-10.5) mg/dL Total Bilirubin (0.15-1.2) mg/dL AST (0-32) U/L ALT (0-33) U/L Alkaline Phosphata se (35-105) IU/L Troponin T Baselin e 20 H (0-10) ng/L Troponin T 120 Min qagan tayag[place] (0-10) ng/L Delta Troponin T (0-10) ABS# C-Reactive Protein (0.0-4.9) mg/L Total Protein (6.6-8.7) g/dL Albumin (3.5-5.2) g/dL Globulin (1.3-4.6) g/dL TSH (0.27-4.20) uIU/ mL Urine Color (Yellow) Urine Appearance (CLEAR) Urine pH (5-7) Ur Specific Gravit y (1.005-1.030) Urine Protein (Negative) Urine Glucose (UA) (Normal) Urine Ketones (Negative) Urine Blood (Negative) Urine Nitrate (Negative) Urine Bilirubin (Negative) Urine Urobilinogen (Negative) mg/dL Ur Leukocyte Mireya ase (Negative) Urine Opiates Scre en (Negative) ng/mL Ur Barbiturates Sc reen (Negative) ng/mL Ur Phencyclidine S crn (Negative) ng/mL Ur Amphetamines Sc reen (Negative) ng/mL U Benzodiazepines Scrn (Negative) ng/mL Urine Cocaine Scre en (Negative) ng/mL U Marijuana (THC) Screen (Negative) ng/mL Serum Ketones Positive H (Negative) 04/29/20 04/29/20 Range/Units 16:37 19:10 WBC (4.0-10.0) 10^3/ uL RBC (4.1-5.3) 10^6/u L Hgb (11.5-15.3) g/dL Hct (37.0-47.0) % MCV (81-99) fL MCH (28.0-34.0) pg MCHC (30.0-36.0) g/dL RDW (12.1-15.1) % Plt Count (130-400) 10^3/c mm MPV (7.4-10.4) fL Neut % (Auto) % Lymph % (Auto) % [place] % (Auto) % Eos % (Auto) % Baso % (Auto) % Neut # (Auto) (1.8-7.7) 10^3/u L Lymph # (Auto) (0.8-4.8) 10^3/u L [place] # (Auto) (0.2-0.9) 10^3/u L Eos # (Auto) (0.0-0.8) 10^3/u L Baso # (Auto) (0.0-0.1) 10^3/u L Nucleated RBC % (a uto) % Nucleated RBCs # /100WBC Specimen Type Sample Site ABG pH (7.35-7.45) ABG pCO2 (35-45) mmHg ABG pO2 (80.0-100.0) mmH g ABG HCO3 (22-26) mmol/L ABG Base Excess (-2.0-2.0) mmol/ L Aron Test Hematocrit (37-47) % O2 Delivery Device Bill Cutter ID Sodium (136-145) mmol/L Potassium (3.5-5.1) mmol/L Chloride (98-107) mmol/L Carbon Dioxide (22-29) mmol/L Anion Gap (5-19) BUN (8-23) mg/dL Creatinine (0.5-0.9) mg/dL GFR Calculation Glucose (65-115) mg/dL POC Glucose 396 H (70-110) mg/dL Calculated Osmolal ity (285-295) mOsm/k g Lactate (0.5-2.2) mmol/L Calcium (8.5-10.5) mg/dL Total Bilirubin (0.15-1.2) mg/dL AST (0-32) U/L ALT (0-33) U/L Alkaline Phosphata se (35-105) IU/L Troponin T Baselin e (0-10) ng/L Troponin T 120 Min qagan tayagung[place] 20.50 H (0-10) ng/L Delta Troponin T 0.5 (0-10) ABS# C-Reactive Protein (0.0-4.9) mg/L Total Protein (6.6-8.7) g/dL Albumin (3.5-5.2) g/dL Globulin (1.3-4.6) g/dL TSH (0.27-4.20) uIU/ mL Urine Color (Yellow) Urine Appearance (CLEAR) Urine pH (5-7) Ur Specific Gravit y (1.005-1.030) Urine Protein (Negative) Urine Glucose (UA) (Normal) Urine Ketones (Negative) Urine Blood (Negative) Urine Nitrate (Negative) Urine Bilirubin (Negative) Urine Urobilinogen (Negative) mg/dL Ur Leukocyte Mireya ase (Negative) Urine Opiates Scre en (Negative) ng/mL Ur Barbiturates Sc reen (Negative) ng/mL Ur Phencyclidine S crn (Negative) ng/mL Ur Amphetamines Sc reen (Negative) ng/mL U Benzodiazepines Scrn (Negative) ng/mL Urine Cocaine Scre en (Negative) ng/mL U Marijuana (THC) Screen (Negative) ng/mL Serum Ketones (Negative) Discharge Plan Discharge Patient Disposition: Transfer to ED Clinical Impression: Acute subdural hematoma, Acute hyperglycemia Depression Qualifiers: Depression Type: reactive depression Qualified Code(s): F32.9 - Major depressive disorder, single episode, unspecified Condition: Stable Prescriptions: No Action venlafaxine 75 mg capsule,extended release 24hr 75 mg PO DAILY RF: 0 glipizide 10 mg tablet 10 mg PO BID RF: 0 temazepam 30 mg capsule 60 mg PO BEDTIME RF: 0 Lotemax 0.5 % drops,gel 1 drp ophthalmic (eye) DAILY RF: 0 Referrals: Christin Bolaños DO [Primary Care Provider] - Sign Out Sign Out Data: Patient Sign Out occurred on 04/29/20 at 17:07. Patient's care was discussed, and care was transferred from to [facility] Mukherjee. Coding Level of Care Code ED Glove Turner And Former Automatic for Chg Fwd Exam Comprehensive Documented by User: Gregg Muñoz MD 05/05/20 22:16 HPI - Fall General: Chief Complaint: Fall Stated Complaint: FELL,UNSURE OF INJURIES Time Seen by Provider: 04/29/20 12:20 Course Vital Signs: Vital signs: Vital Signs Temperature 97.5 F L 04/29/20 12:03 Pulse Rate 105 H 04/29/20 18:20 Respiratory Rate 16 04/29/20 18:20 Blood Pressure 111/67 04/29/20 18:20 Pulse Oximetry 100 04/29/20 18:20 MDM - Fall MDM Narrative: Medical decision making narrative: Toni: I followed the care of this patient after Indra arrange transfer to [facility]. Dr. Marie dealt with the central line and anesthesia finally placed a saphenous vein IV. She was given insulin and fluids and her hyperglycemia did improve some. She was also sent there for a subdural hematoma seen on CT. She was stable from that standpoint. Lab Data: Labs: Lab Results 04/29/20 04/29/20 04/29/20 Range/Units 13:20 13:20 14:08 WBC (4.0-10.0) 10^3/ uL RBC (4.1-5.3) 10^6/u L Hgb (11.5-15.3) g/dL Hct (37.0-47.0) % MCV (81-99) fL MCH (28.0-34.0) pg MCHC (30.0-36.0) g/dL RDW (12.1-15.1) % Plt Count (130-400) 10^3/c mm MPV (7.4-10.4) fL Neut % (Auto) % Lymph % (Auto) % [place] % (Auto) % Eos % (Auto) % Baso % (Auto) % Neut # (Auto) (1.8-7.7) 10^3/u L Lymph # (Auto) (0.8-4.8) 10^3/u L [place] # (Auto) (0.2-0.9) 10^3/u L Eos # (Auto) (0.0-0.8) 10^3/u L Baso # (Auto) (0.0-0.1) 10^3/u L Nucleated RBC % (a uto) % Nucleated RBCs # /100WBC Specimen Type Sample Site ABG pH (7.35-7.45) ABG pCO2 (35-45) mmHg ABG pO2 (80.0-100.0) mmH g ABG HCO3 (22-26) mmol/L ABG Base Excess (-2.0-2.0) mmol/ L Aron Test Hematocrit (37-47) % O2 Delivery Device Bill Cutter ID Sodium (136-145) mmol/L Potassium (3.5-5.1) mmol/L Chloride (98-107) mmol/L Carbon Dioxide (22-29) mmol/L Anion Gap (5-19) BUN (8-23) mg/dL Creatinine (0.5-0.9) mg/dL GFR Calculation Glucose (65-115) mg/dL POC Glucose 472 H (70-110) mg/dL Calculated Osmolal ity (285-295) mOsm/k g Lactate (0.5-2.2) mmol/L Calcium (8.5-10.5) mg/dL Total Bilirubin (0.15-1.2) mg/dL AST (0-32) U/L ALT (0-33) U/L Alkaline Phosphata se (35-105) IU/L Troponin T Baselin e (0-10) ng/L Troponin T 120 Min qagan tayag[place] (0-10) ng/L Delta Troponin T (0-10) ABS# C-Reactive Protein (0.0-4.9) mg/L Total Protein (6.6-8.7) g/dL Albumin (3.5-5.2) g/dL Globulin (1.3-4.6) g/dL TSH (0.27-4.20) uIU/ mL Urine Color Yellow (Yellow) Urine Appearance Clear (CLEAR) Urine pH 5 (5-7) Ur Specific Gravit y 1.025 (1.005-1.030) Urine Protein Neg (Negative) Urine Glucose (UA) 4+ H (Normal) Urine Ketones 3+ H (Negative) Urine Blood Neg (Negative) Urine Nitrate Negative (Negative) Urine Bilirubin Neg (Negative) Urine Urobilinogen Norm (Negative) mg/dL Ur Leukocyte Mireya ase Negative (Negative) Urine Opiates Scre en Negative (Negative) ng/mL Ur Barbiturates Sc reen Negative (Negative) ng/mL Ur Phencyclidine S crn Negative (Negative) ng/mL Ur Amphetamines Sc reen Negative (Negative) ng/mL U Benzodiazepines Scrn Positive H (Negative) ng/mL Urine Cocaine Scre en Negative (Negative) ng/mL U Marijuana (THC) Screen Negative (Negative) ng/mL Serum Ketones (Negative) 04/29/20 04/29/20 04/29/20 Range/Units 14:45 14:45 14:45 WBC 17.0 H (4.0-10.0) 10^3/ uL RBC 4.55 (4.1-5.3) 10^6/u L Hgb 13.7 (11.5-15.3) g/dL Hct 42.6 (37.0-47.0) % MCV 93.6 (81-99) fL MCH 30.1 (28.0-34.0) pg MCHC 32.2 (30.0-36.0) g/dL RDW 13.0 (12.1-15.1) % Plt Count 391 (130-400) 10^3/c mm MPV 9.9 (7.4-10.4) fL Neut % (Auto) 84.1 % Lymph % (Auto) 8.7 % [place] % (Auto) 5.9 % Eos % (Auto) 0.0 % Baso % (Auto) 0.4 % Neut # (Auto) 14.28 H (1.8-7.7) 10^3/u L Lymph # (Auto) 1.5 (0.8-4.8) 10^3/u L [place] # (Auto) 1.0 H (0.2-0.9) 10^3/u L Eos # (Auto) 0.0 (0.0-0.8) 10^3/u L Baso # (Auto) 0.1 (0.0-0.1) 10^3/u L Nucleated RBC % (a uto) 0 % Nucleated RBCs # 0.0 /100WBC Specimen Type Sample Site ABG pH (7.35-7.45) ABG pCO2 (35-45) mmHg ABG pO2 (80.0-100.0) mmH g ABG HCO3 (22-26) mmol/L ABG Base Excess (-2.0-2.0) mmol/ L Aron Test Hematocrit (37-47) % O2 Delivery Device Bill Cutter ID Sodium 135 L (136-145) mmol/L Potassium 4.2 (3.5-5.1) mmol/L Chloride 99 (98-107) mmol/L Carbon Dioxide 9 L (22-29) mmol/L Anion Gap 31.2 H (5-19) BUN 16 (8-23) mg/dL Creatinine 0.7 (0.5-0.9) mg/dL GFR Calculation Not Reportable Glucose 467 H (65-115) mg/dL POC Glucose (70-110) mg/dL Calculated Osmolal ity 302 H (285-295) mOsm/k g Lactate 0.9 (0.5-2.2) mmol/L Calcium 8.5 (8.5-10.5) mg/dL Total Bilirubin 0.4 (0.15-1.2) mg/dL AST 17 (0-32) U/L ALT 11 (0-33) U/L Alkaline Phosphata se 89 (35-105) IU/L Troponin T Baselin e (0-10) ng/L Troponin T 120 Min qagan t[place] (0-10) ng/L Delta Troponin T (0-10) ABS# C-Reactive Protein 29.2 H (0.0-4.9) mg/L Total Protein 6.8 (6.6-8.7) g/dL Albumin 3.7 (3.5-5.2) g/dL Globulin 3.1 (1.3-4.6) g/dL TSH 0.56 (0.27-4.20) uIU/ mL Urine Color (Yellow) Urine Appearance (CLEAR) Urine pH (5-7) Ur Specific Gravit y (1.005-1.030) Urine Protein (Negative) Urine Glucose (UA) (Normal) Urine Ketones (Negative) Urine Blood (Negative) Urine Nitrate (Negative) Urine Bilirubin (Negative) Urine Urobilinogen (Negative) mg/dL Ur Leukocyte Mireya ase (Negative) Urine Opiates Scre en (Negative) ng/mL Ur Barbiturates Sc reen (Negative) ng/mL Ur Phencyclidine S crn (Negative) ng/mL Ur Amphetamines Sc reen (Negative) ng/mL U Benzodiazepines Scrn (Negative) ng/mL Urine Cocaine Scre en (Negative) ng/mL U Marijuana (THC) Screen (Negative) ng/mL Serum Ketones (Negative) 04/29/20 04/29/2021 Range/Units 14:45 14:45 15:40 WBC (4.0-10.0) 10^3/ uL RBC (4.1-5.3) 10^6/u L Hgb (11.5-15.3) g/dL Hct (37.0-47.0) % MCV (81-99) fL MCH (28.0-34.0) pg MCHC (30.0-36.0) g/dL RDW (12.1-15.1) % Plt Count (130-400) 10^3/c mm MPV (7.4-10.4) fL Neut % (Auto) % Lymph % (Auto) % [place] % (Auto) % Eos % (Auto) % Baso % (Auto) % Neut # (Auto) (1.8-7.7) 10^3/u L Lymph # (Auto) (0.8-4.8) 10^3/u L [place] # (Auto) (0.2-0.9) 10^3/u L Eos # (Auto) (0.0-0.8) 10^3/u L Baso # (Auto) (0.0-0.1) 10^3/u L Nucleated RBC % (a uto) % Nucleated RBCs # /100WBC Specimen Type Arterial Sample Site Radial, left ABG pH 7.26 L (7.35-7.45) ABG pCO2 22.0 L (35-45) mmHg ABG pO2 98.6 (80.0-100.0) mmH g ABG HCO3 9.9 L (22-26) mmol/L ABG Base Excess -15.1 L (-2.0-2.0) mmol/ L Aron Test Pos Hematocrit 44.1 (37-47) % O2 Delivery Device Room air Bill Cutter ID Gd Sodium (136-145) mmol/L Potassium (3.5-5.1) mmol/L Chloride (98-107) mmol/L Carbon Dioxide (22-29) mmol/L Anion Gap (5-19) BUN (8-23) mg/dL Creatinine (0.5-0.9) mg/dL GFR Calculation Glucose (65-115) mg/dL POC Glucose (70-110) mg/dL Calculated Osmolal ity (285-295) mOsm/k g Lactate (0.5-2.2) mmol/L Calcium (8.5-10.5) mg/dL Total Bilirubin (0.15-1.2) mg/dL AST (0-32) U/L ALT (0-33) U/L Alkaline Phosphata se (35-105) IU/L Troponin T Baselin e 20 H (0-10) ng/L Troponin T 120 Min qagan tayagung[place] (0-10) ng/L Delta Troponin T (0-10) ABS# C-Reactive Protein (0.0-4.9) mg/L Total Protein (6.6-8.7) g/dL Albumin (3.5-5.2) g/dL Globulin (1.3-4.6) g/dL TSH (0.27-4.20) uIU/ mL Urine Color (Yellow) Urine Appearance (CLEAR) Urine pH (5-7) Ur Specific Gravit y (1.005-1.030) Urine Protein (Negative) Urine Glucose (UA) (Normal) Urine Ketones (Negative) Urine Blood (Negative) Urine Nitrate (Negative) Urine Bilirubin (Negative) Urine Urobilinogen (Negative) mg/dL Ur Leukocyte Mireya ase (Negative) Urine Opiates Scre en (Negative) ng/mL Ur Barbiturates Sc reen (Negative) ng/mL Ur Phencyclidine S crn (Negative) ng/mL Ur Amphetamines Sc reen (Negative) ng/mL U Benzodiazepines Scrn (Negative) ng/mL Urine Cocaine Scre en (Negative) ng/mL U Marijuana (THC) Screen (Negative) ng/mL Serum Ketones Positive H (Negative) 04/29/20 04/29/20 Range/Units 16:37 19:10 WBC (4.0-10.0) 10^3/ uL RBC (4.1-5.3) 10^6/u L Hgb (11.5-15.3) g/dL Hct (37.0-47.0) % MCV (81-99) fL MCH (28.0-34.0) pg MCHC (30.0-36.0) g/dL RDW (12.1-15.1) % Plt Count (130-400) 10^3/c mm MPV (7.4-10.4) fL Neut % (Auto) % Lymph % (Auto) % [place] % (Auto) % Eos % (Auto) % Baso % (Auto) % Neut # (Auto) (1.8-7.7) 10^3/u L Lymph # (Auto) (0.8-4.8) 10^3/u L [place] # (Auto) (0.2-0.9) 10^3/u L Eos # (Auto) (0.0-0.8) 10^3/u L Baso # (Auto) (0.0-0.1) 10^3/u L Nucleated RBC % (a uto) % Nucleated RBCs # /100WBC Specimen Type Sample Site ABG pH (7.35-7.45) ABG pCO2 (35-45) mmHg ABG pO2 (80.0-100.0) mmH g ABG HCO3 (22-26) mmol/L ABG Base Excess (-2.0-2.0) mmol/ L Aron Test Hematocrit (37-47) % O2 Delivery Device Bill Cutter ID Sodium (136-145) mmol/L Potassium (3.5-5.1) mmol/L Chloride (98-107) mmol/L Carbon Dioxide (22-29) mmol/L Anion Gap (5-19) BUN (8-23) mg/dL Creatinine (0.5-0.9) mg/dL GFR Calculation Glucose (65-115) mg/dL POC Glucose 396 H (70-110) mg/dL Calculated Osmolal ity (285-295) mOsm/k g Lactate (0.5-2.2) mmol/L Calcium (8.5-10.5) mg/dL Total Bilirubin (0.15-1.2) mg/dL AST (0-32) U/L ALT (0-33) U/L Alkaline Phosphata se (35-105) IU/L Troponin T Baselin e (0-10) ng/L Troponin T 120 Min qagan [place] 20.50 H (0-10) ng/L Delta Troponin T 0.5 (0-10) ABS# C-Reactive Protein (0.0-4.9) mg/L Total Protein (6.6-8.7) g/dL Albumin (3.5-5.2) g/dL Globulin (1.3-4.6) g/dL TSH (0.27-4.20) uIU/ mL Urine Color (Yellow) Urine Appearance (CLEAR) Urine pH (5-7) Ur Specific Gravit y (1.005-1.030) Urine Protein (Negative) Urine Glucose (UA) (Normal) Urine Ketones (Negative) Urine Blood (Negative) Urine Nitrate (Negative) Urine Bilirubin (Negative) Urine Urobilinogen (Negative) mg/dL Ur Leukocyte Mireya ase (Negative) Urine Opiates Scre en (Negative) ng/mL Ur Barbiturates Sc reen (Negative) ng/mL Ur Phencyclidine S crn (Negative) ng/mL Ur Amphetamines Sc reen (Negative) ng/mL U Benzodiazepines Scrn (Negative) ng/mL Urine Cocaine Scre en (Negative) ng/mL U Marijuana (THC) Screen (Negative) ng/mL Serum Ketones (Negative) Discharge Plan Discharge Patient Disposition: Transfer to ED Clinical Impression: Acute subdural hematoma, Acute hyperglycemia Depression Qualifiers: Depression Type: reactive depression Qualified Code(s): F32.9 - Major depressive disorder, single episode, unspecified Condition: Stable Prescriptions: No Action venlafaxine 75 mg capsule,extended release 24hr 75 mg PO DAILY RF: 0 glipizide 10 mg tablet 10 mg PO BID RF: 0 temazepam 30 mg capsule 60 mg PO BEDTIME RF: 0 Lotemax 0.5 % drops,gel 1 drp ophthalmic (eye) DAILY RF: 0 Referrals: Christin Bolaños DO [Primary Care Provider] - Sign Out Sign Out Data: Patient Sign Out occurred on 04/29/20 at 17:07. Patient's care was discussed, and care was transferred from to PAPO Mukherjee. Coding Level of Care Code ED Glove Turner And Former Automatic for Veronika Fwmisty Exam Comprehensive
--- NOTE | 2020-04-29 13:53 | XR_ITS ---
WS: [id number] XR hip LT 2-3V wo/w pel* [id number] REASON FOR EXAM: pain FINDINGS: No fracture or dislocation of the proximal femur. Superior pubic ramus and inferior pubic ramus are i ntact. There is mild narrowing of the joint space with mild spurring of the acetabulum and femoral head. XR/XR hip LT 2-3V wo/w pel* [id number] IMPRESSION: No acute abnormality. Mild changes of osteoarthropathy.
[2020-04-29 14:23] LABS: Add Urine Microscopic? NO
[2020-04-29 14:29] LABS: Bilirubin Urine Neg (Negative); Blood Urine Neg (Negative); Glucose Urine UA 4+ (Normal); Ketones Urine 3+ (Negative); Leukocyte Esterase Urine Negative (Negative); Nitrate Urine Negative (Negative); Protein Urine Neg (Negative); Specific Gravity, Urine 1.025 (1.005-1.030); Urine Appearance Clear (CLEAR); Urine Color Yellow (Yellow); Urobilinogen Urine Norm (Negative); pH Urine 5 (5-7)
[2020-04-29 14:54] LABS: Basophils # 0.1 10^3/uL (0.0-0.1); Basophils % 0.4 %; Hematocrit 42.6 % (37.0-47.0); Hemoglobin 13.7 g/dL (11.5-15.3); Lymphocytes # 1.5 10^3/uL (0.8-4.8); Lymphocytes % 8.7 %; Mean Corpuscular HGB Conc 32.2 g/dL (30.0-36.0); Mean Corpuscular Hemoglobin 30.1 pg (28.0-34.0); Mean Corpuscular Volume 93.6 fL (81-99); Mean Platelet Volume 9.9 fL (7.4-10.4); Monocytes % 5.9 %; Neutrophils # 14.28 10^3/uL (1.8-7.7); Neutrophils % 84.1 %; Nucleated Red Blood Cells % 0 %; Platelet Count 391 10^3/cmm (130-400); Red Blood Count 4.55 10^6/uL (4.1-5.3)
[2020-04-29 15:14] LABS: Lactate (Lactic Acid level) 0.9 mmol/L (0.5-2.2)
[2020-04-29 15:16] LABS: Troponin(5th) Baseline 20 ng/L (0-10)
[2020-04-29 15:24] LABS: Alanine Aminotransferase 11 U/L (0-33); Albumin Level 3.7 g/dL (3.5-5.2); Alkaline Phosphatase 89 IU/L (35-105); Anion Gap 31.2 (5-19); Aspartate Amino Transferase 17 U/L (0-32); Blood Urea Nitrogen 16 mg/dL (8-23); C Reactive Protein 29.2 mg/L (0.0-4.9); Calcium 8.5 mg/dL (8.5-10.5); Chloride 99 mmol/L (98-107); Creatinine Clr Calc Pharmacy 56.1748; Globulin 3.1 g/dL (1.3-4.6); Glucose 467 mg/dL (65-115); Osmolality Calculated 302 mOsm/kg (285-295); Potassium 4.2 mmol/L (3.5-5.1); Sodium 135 mmol/L (136-145); Thyroid Stimulating Hormone 0.56 uIU/mL (0.27-4.20); Total Bilirubin 0.4 mg/dL (0.15-1.2); Total Protein 6.8 g/dL (6.6-8.7)
[2020-04-29 15:26] LABS: Carbon Dioxide 9 mmol/L (22-29)
--- NOTE | 2020-04-29 15:27 | ECG_ITS ---
[facility] Test Date: 2020-04-29 Pat Name: Cara Schrader Department: Room: Gender: Female Resolution Analyst: : 1945 Requested By: Indra Simeon Order Number: [id number] Jian MD: Courtney Carrera M.D. Measurements Intervals Isabella Rate: 101 P: 81 NC: 140 QRS: 71 QRSD: 133 T: 23 QT: 374 QTc: 485 Interpretive Statements SINUS TACHYCARDIA POSSIBLE LEFT ATRIAL ENLARGEMENT [-0.1mV P WAVE IN V1/V2] INDETERMINATE AXIS RIGHT BUNDLE BRANCH BLOCK [120+ ms QRS DURATION, UPRIGHT V1, 40+ ms S IN I/aVL/V4/V5/V6] Compared to ECG 04/29/2020 13:22:20 Right bundle-branch block now present Sinus rhythm no longer present Short NC interval no longer present Intraventricular conduction delay no longer present Myocardial infarct finding no longer present Electronically Signed On 05-01-2020 8:02:37 CDT by Courtney Carrera M.D. [id number]
[2020-04-29 15:41] LABS: Glucose Point of Care 472 mg/dL (70-110)
[2020-04-29 15:55] LABS: ABG PH Result 7.26 (7.35-7.45); Arterial Blood Gas Hematocrit 44.1 % (37-47); Base Excess ABG -15.1 mmol/L (-2.0-2.0); Blood Gas Allen Test Pos; Blood Gas Operator Identificat GD; Blood Gas Sample Site Radial, left; Blood Gas Sample Type Arterial; HCO3 ABG 9.9 mmol/L (22-26); Oxygen Device ROOM AIR; PO2 ABG 98.6 mmHg (80.0-100.0)
[2020-04-29 15:59] LABS: Amphetamines Screen Urine Negative (Negative); Barbiturates Screen Urine Negative (Negative); Benzodiazepines Screen Urine Positive (Negative); Cocaine Screen Urine Negative (Negative); Opiate Screen Urine Negative (Negative); PCP Screen Urine Negative (Negative); THC Screen Urine Negative (Negative)
[2020-04-29 16:31] LABS: Ketone (Acetest) Serum Positive (Negative)
[2020-04-29 16:41] LABS: Glucose Point of Care 396 mg/dL (70-110)
[2020-04-29] MEDS: sodium chloride 0.9% 1,000 ML 999 ML IV (17:19)
[2020-04-29] MEDS: LORazepam 2 mg/mL INJ 1 mL 1 MG IVP (17:20)
--- NOTE | 2020-04-29 17:22 | PC.NURSE ---
Physician at bedside attempting central line placement. Unable to place US guided IV after multiple attempts and unable to obtain peripheral IVs.
--- NOTE | 2020-04-29 17:35 | XR_ITS ---
WS: [id number] XR chest 1V portable [id number] REASON FOR EXAM: post procedure FINDINGS: Mild tortuosity of the thoracic aorta without aneurysmal dilatation. Moderate hiatal hernia. Normal h eart size. Calcified granulomatous disease in both hemithoraces. No active pulmonary parenchymal disease. Blunting of the right costophrenic angle which may be associated with a fracture of the right eighth rib anteriorly. XR/XR chest 1V portable [id number] IMPRESSION: Possible subacute right rib fracture with pleural reaction and a small amount o f pleural fluid. The findings could be chronic in nature and clinical correlati on should be made.
--- NOTE | 2020-04-29 18:21 | PC.NURSE ---
After several unsuccessful attempts at a central line by anesthesia, anesthesia placed an IV to the right ankle.
--- NOTE | 2020-04-29 18:24 | ANES.PROC ---
Anesthesia Procedures Procedure/Date: 04/29/20 PIV insertion Procedure Narrative: Multiple sticks to LUE, success with 18g 1.5 right saphenous vein. Flushed and taped. Patient tolerated well.
[2020-04-29] MEDS: insulin regular-human 100 units/1 mL 5 UNIT IVP (20:01)
[2020-04-29 20:03] LABS: Troponin 5 2HR Delta 0.5 ABS# (0-10)
== END 2020-04-29 20:03 ==
PROVIDERS: Emergency Provider Nurse Practitioner Family; PCP Family Medicine
DX: F32.9 Major depressive disorder, single episode, unspecified (principal); S06.5X9A Traumatic subdural hemorrhage with loss of consciousness of unspecified duration, initial encounter; W19.XXXA Unspecified fall, initial encounter; R73.9 Hyperglycemia, unspecified
CPT/HCPCS: 36410; 36416; 36600; 70450; 71045; 73502; 80053; 80306; 81003; 82009; 82803; 82962; 83605; 84443; 84484; 85025; 86140; 93005; 96361; 96372; 96374; 96375; 99285; J1815; J2060; J7030

== ENCOUNTER → 2020-12-16 13:53 | Outpatient (BNVA) | payer MEDICARE, OTHER, SELFPAY | PROVIDERS: PCP Family Medicine; Visit Provider Internal Medicine | DX: E11.40 Type 2 diabetes mellitus with diabetic neuropathy, unspecified (principal); E11.65 Type 2 diabetes mellitus with hyperglycemia; E16.0 Drug-induced hypoglycemia without coma; T38.3X5A Adverse effect of insulin and oral hypoglycemic [antidiabetic] drugs, initial encounter; Z86.39 Personal history of other endocrine, nutritional and metabolic disease; Z79.4 Long term (current) use of insulin; Z87.891 Personal history of nicotine dependence | CPT/HCPCS: 36415; 80061; 83036; 99214 ==

== ENCOUNTER 2020-12-16 15:53 | Outpatient (CLI) | payer MEDICARE, OTHER, SELFPAY ==
[2020-12-16 17:07] LABS: Estmated Average Glucose 252; Hemoglobin A1C 10.4 % (4.0-6.0)
[2020-12-16 17:28] LABS: Chol HDL Ratio 2.67 mg/dL (0.0-4.40); Cholesterol 176 mg/dL (0-200); HDL Cholesterol 66 mg/dL (60-100); LDL Cholesterol Calculated 89 mg/dL (50-129); LDL HDL Ratio 1.35 RATIO (0.00-3.22); Triglycerides 105 mg/dL (0-150)
== END 2020-12-16 15:54 | disposition home or self-care (01) ==
LOC: LAB 15:59
PROVIDERS: PCP Family Medicine; Visit Provider Internal Medicine
DX: E11.40 Type 2 diabetes mellitus with diabetic neuropathy, unspecified (principal)
CPT/HCPCS: 36415; 80061; 83036

== ENCOUNTER 2021-01-15 14:01 | Outpatient (CLI) | payer MEDICARE, OTHER, SELFPAY ==
--- NOTE | 2021-01-15 18:38 | ONC CON_ITS ---
Dr. Mata New Patient Note Patient: Cara Schrader Unit #: [id number]: 1945 Dicatated By: Bereket Mata M.D.Date of Visit: Jan 15, 2021 Onc MED New Patient/Consult Referring Physician: Dr. PHILIP GOMEZ MD Chief Complaint: Colon cancer. 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 She has type 2 diabetes with peripheral neuropathy. On 12/29/2020 she was admitted to the [facility] with evidence of large bowel obstruction. She had presented to the emergency room with a 1 to 2-week history of recurrent vomiting. Her CT abdomen/pelvis showed irregular nodule short segment thickening of the hepatic flexure extending for a length of 4 cm. There was associated proximal dilatation of the cecal pole and small bowel, consistent with colonic malignancy causing upstream bowel obstruction. There was associated stranding of the adjacent pericolonic fat concerning for peritoneal involvement. Small volume pericolonic lymph nodes were noted and a borderline enlarged lymph node was noted at the area of caval region. There was no other evidence for metastatic disease. On 12/30/2020 she underwent exploratory laparotomy with right hemicolectomy and with primary [id number] anastomosis. The operative findings included an obstructing colon mass at the hepatic flexure. The tumor was densely attached to the duodenum and right kidney, but it was able to be dissected free of those structures. Enlarged lymph nodes at the ascending colon mesentery were removed en bloc. There is no evidence of other metastatic disease. Pathology showed moderately differentiated mucinous adenocarcinoma (grade 2) measuring 5.5 cm in greatest dimension. There was invasion through the muscularis propria into the pericolorectal tissue. The margins were noted to be negative, but with the mesenteric margin measuring less than 1 mm. There was involvement in 12/17 lymph nodes, the largest measuring up to 1.2 x 1 x 1 cm. Pathologic staging was pT3, pN2b. She had uneventful postop recovery. Her further evaluation in the hospital included a staging chest CT which showed moderate upper lobe predominant centrilobular and paraseptal emphysema with small bilateral pleural effusions. Patchy multifocal airspace opacities were noted, predominantly in the lower lobes bilaterally, felt to be suspicious for aspiration or pneumonia. A borderline enlarged right hilar lymph node measuring 1.2 cm appeared to be likely reactive. Overall there was no definite CT evidence for metastatic disease in the chest. She is seen for further management of the colon cancer. She has been feeling much better since her surgery. She still has limited activity, but she is up and around, and she says she is getting her strength back. Her ECOG score is 2. She has good appetite, though her weight is still down in the range of 10 to 15 pounds. She does not have fever or night sweats. She has not had sore mouth or throat, and she does not have difficulty swallowing. She does not complain of cough, and she has not had shortness of breath or chest pain. She currently has no GI or complaints. In particular, she is having no problems with bowel function. She had not been aware of having any blood in the stool. 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 She has no other joint or bone pain. She has neuropathy in her legs and feet, which has been significant enough to limit her activity. She has chronic anxiety and chronic insomnia. She has had some depression following the of her a year and a half ago. They had been for 50 years. Past Medical History: Her medical history includes chronic anxiety, chronic insomnia, peripheral neuropathy, and type II diabetes. She has a history of ascending cholangitis. Past Surgical History: She underwent exploratory laparotomy with right hemicolectomy and with primary [id number] anastomosis on 12/30/2020. Her other surgical/procedural history includes appendectomy, bilateral cataract excisions, cholecystectomy, left ankle surgery, right arm surgery, and right wrist surgery. Medications: HumaLOG Subcutaneous PRN, Lantus 15 Unit(s) (of 100 Units/mL) Subcutaneous daily, Temazepam 1 Capsule (of 30 mg) Oral at bedtime Allergies: Cyclobenzaprine HCl, Methocarbamol, traMADol HCl, and traZODone HCl. Social History: Ms. Schrader is . She has a history of smoking 1 pack daily for about 55 years. She quit smoking a couple of years ago. She does not drink alcohol, and she has had just very occasional alcohol use in the past. Family History: Father in a motor vehicle accident at age 61. Mother with kidney cancer at age 81. A brother with mesothelioma and a sister with complications of diabetes. A son also has diabetes. Review Of Symptoms: Constitutional - She has felt much better generally since her surgery. She still has limited activity, but she is up and around and she is starting to get her strength back. Her appetite is good, though her weight is down in the range of 10 to 15 pounds. She does not have fever or night sweats. 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 She sees Dr. Mccrary, [facility] - No hearing loss or tinnitus. No sinus congestion/drainage. No mouth sores. No sore throat or difficulty swallowing, Hematologic/Lymphatic - No abnormal bruising or bleeding, Respiratory - No shortness of breath. No cough. No pleuritic pain or hemoptysis, Cardiovascular - No angina pain. No palpitations, Gastrointestinal - No nausea or vomiting. No heartburn or acid reflux. Bowel function is okay now. She has not been aware of any blood in the stool or black stools, Genitourinary (F) - No dysuria or hematuria. No urinary frequency. No urgency or incontinence, Musculoskeletal - She has arthritis pain in both knees, Integumentary - No skin rash or other skin changes, Neurologic - No headache or dizziness. She has neuropathy in her legs and feet, Psychiatric - She has chronic anxiety and she has chronic insomnia. She has had some depression since her a year and a half ago. Vital Signs: Performed on Jan 15, 2021 15:31: 2, 0, 22.96, 1.61 sq.m, 63 in, 98 %, 100 /min, 20 /min, 165/79 mm(hg) (HIGH), 98.7 F, and 129.6 lbs (HIGH). Physical Examination: Constitutional - She appears somewhat frail generally. She has limited mobility, Eyes - Sclerae nonicteric. Conjunctivae clear, ENMT - No lesions noted in the oral cavity, Neck - No mass or thyromegaly, Hematologic/Lymphatic - No cervical, clavicular, or axillary adenopathy, Respiratory - Lungs are clear with good air movement bilaterally, Cardiovascular - Heart rhythm is regular. There is no murmur, gallop, or rub noted, Abdomen - Soft. She does have some tenderness in the incisional area, but it appears well-healed. Liver and spleen are not enlarged. There is no abdominal mass or ascites noted and there is no inguinal adenopathy, Back/Spine - No spine or CVA tenderness noted, Extremities - No edema. Pedal pulses are palpable bilaterally, Integumentary - No rashes. No suspicious skin lesions noted, Neurologic - She is tremulous. There is some weakness and some muscle atrophy in the lower legs. Problem List: 1. 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 2. Type 2 diabetes. 3. Peripheral neuropathy. 4. Chronic anxiety. 5. Chronic insomnia. 6. History of ascending cholangitis. 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 She had presented with large bowel obstruction. She underwent exploratory laparotomy with right hemicolectomy and with primary anastomosis on 12/30/2020. Her tumor was locally advanced. It showed invasion into the pericolonic fat and was densely attached to the duodenum and right kidney. It was able to be completely resected, but there was involvement in 12/17 lymph nodes and the mesenteric margin was less than 1 mm. There was no evidence, though, of metastatic disease. The pathology findings were reviewed with the patient and her family, and we discussed the clinic implications. Given the extent of lymph node involvement and the close surgical margin, she is at significant risk for recurrence of the colon cancer, and she would potentially benefit with adjuvant chemotherapy. However, she does have underlying diabetes and peripheral neuropathy which will potentially put her at increased risk for chemotherapy related toxicities. The neuropathy appears to be significant enough to preclude any consideration for use of an oxaliplatin based regimen. With that in mind, I think the best option for her would be single agent capecitabine. I reviewed anticipated side effects with that treatment which may include nausea/vomiting, weakness/fatigue, mucositis, diarrhea, low blood counts, and hand/foot syndrome, among others. We discussed the fact that some patients can be very sensitive to the effects of capecitabine, so that in some cases the toxicities may be quite severe. We also discussed the fact that even with treatment there will still be significant risk for recurrence of the cancer, but that the highest risk period for that will be in the range of 2 to 3 years from now. As such, expectant management may not be a bad option in her situation. At least for now she will be given additional time for recovery from the surgery. Her rafaela are being removed today, as her incision does appear to be well-healed. She will be scheduled for a follow-up visit in 2 weeks. She will have baseline laboratory studies at that time to include CBC, comprehensive metabolic profile, and CEA level, and we will then have further discussion regarding her adjuvant chemotherapy. Signed By: Bereket Mata M.D. <<Signature on File>>
== END 2021-01-15 14:02 | disposition home or self-care (01) ==
LOC: ONCMED 14:11
PROVIDERS: PCP Family Medicine; Visit Provider Internal Medicine Medical Oncology
DX: C18.3 Malignant neoplasm of hepatic flexure (principal); E11.42 Type 2 diabetes mellitus with diabetic polyneuropathy; F41.9 Anxiety disorder, unspecified; F51.04 Psychophysiologic insomnia; K83.09 Other cholangitis; Z79.899 Other long term (current) drug therapy
CPT/HCPCS: 99205

== ENCOUNTER 2021-01-28 12:39 | Outpatient (CLI) | payer MEDICARE, OTHER, SELFPAY ==
[2021-01-28 13:37] LABS: Basophils # 0.1 10^3/uL (0.0-0.1); Basophils % 0.7 %; Eosinophils # 0.2 10^3/uL (0.0-0.8); Eosinophils % 2.8 %; Hematocrit 37.5 % (37.0-47.0); Hemoglobin 12.4 g/dL (11.5-15.3); Lymphocytes # 2.7 10^3/uL (0.8-4.8); Lymphocytes % 37.1 %; Mean Corpuscular HGB Conc 33.1 g/dL (30.0-36.0); Mean Corpuscular Hemoglobin 28.8 pg (28.0-34.0); Mean Platelet Volume 10.7 fL (7.4-10.4); Monocytes # 0.6 10^3/uL (0.2-0.9); Monocytes % 8.9 %; Neutrophils % 49.9 %; Nucleated Red Blood Cells % 0 %; Platelet Count 305 10^3/cmm (130-400); Red Blood Count 4.31 10^6/uL (4.1-5.3); Red Cell Distribution Width 13.7 % (12.1-15.1); White Blood Count 7.2 10^3/uL (4.0-10.0)
[2021-01-28 14:08] LABS: Carcinoembryonic Antigen 2.1 ng/mL (0.0-4.7)
[2021-01-28 14:19] LABS: Alanine Aminotransferase < 5 U/L (0-33); Albumin Level 3.9 g/dL (3.5-5.2); Alkaline Phosphatase 62 IU/L (35-105); Anion Gap 17.4 (5-19); Aspartate Amino Transferase 10 U/L (0-32); Blood Urea Nitrogen 11 mg/dL (8-23); Calcium 8.9 mg/dL (8.5-10.5); Carbon Dioxide 22 mmol/L (22-29); Chloride 101 mmol/L (98-107); Glucose 213 mg/dL (65-115); Osmolality Calculated 288 mOsm/kg (285-295); Potassium 4.4 mmol/L (3.5-5.1); Sodium 136 mmol/L (136-145); Total Bilirubin 0.2 mg/dL (0.15-1.2); Total Protein 6.9 g/dL (6.6-8.7)
--- NOTE | 2021-01-29 07:19 | ONC FU_ITS ---
Dr. Mata Patient Follow-Up Note Patient: Cara Schrader Unit #: [id number]: 1945 Dicatated By: Bereket Mata M.D.Date of Visit:Jan 28, 2021 Onc Med Follow-up/Prog Note Chief Complaint: Colon cancer. 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 She has type 2 diabetes and peripheral neuropathy. On 12/29/2020 she was admitted to the [facility] with evidence of large bowel obstruction. She had presented to the emergency room with a 1 to 2-week history of recurrent vomiting. Her CT abdomen/pelvis showed irregular nodule short segment thickening of the hepatic flexure extending for a length of 4 cm. There was associated proximal dilatation of the cecal pole and small bowel, consistent with colonic malignancy causing upstream bowel obstruction. There was associated stranding of the adjacent pericolonic fat concerning for peritoneal involvement. Small volume pericolonic lymph nodes were noted and a borderline enlarged lymph node was noted at the area of caval region. There was no other evidence for metastatic disease. On 12/30/2020 she underwent exploratory laparotomy with right hemicolectomy and with primary [id number] anastomosis. The operative findings included an obstructing colon mass at the hepatic flexure. The tumor was densely attached to the duodenum and right kidney, but it was able to be dissected free of those structures. Enlarged lymph nodes at the ascending colon mesentery were removed en bloc. There is no evidence of other metastatic disease. Pathology showed moderately differentiated mucinous adenocarcinoma (grade 2) measuring 5.5 cm in greatest dimension. There was invasion through the muscularis propria into the pericolorectal tissue. The margins were noted to be negative, but with the mesenteric margin measuring less than 1 mm. There was involvement in 12/17 lymph nodes, the largest measuring up to 1.2 x 1 x 1 cm. Pathologic staging was pT3, pN2b. She had uneventful postop recovery. Her further evaluation in the hospital included a staging chest CT which showed moderate upper lobe predominant centrilobular and paraseptal emphysema with small bilateral pleural effusions. Patchy multifocal airspace opacities were noted, predominantly in the lower lobes bilaterally, felt to be suspicious for aspiration or pneumonia. A borderline enlarged right hilar lymph node measuring 1.2 cm appeared to be likely reactive. Overall there was no definite CT evidence for metastatic disease in the chest. I had seen her initially on 01/15/2021. I reviewed options for further management. As her peripheral neuropathy appeared to be severe enough to preclude any consideration of an oxaliplatin based adjuvant chemotherapy regimen, I discussed the possibility of adjuvant therapy with Xeloda versus observation/expectant management. Her medical illnesses, in addition to the diabetes and peripheral neuropathy, include chronic anxiety and chronic insomnia. She has a history of a sending cholangitis. She has a history of smoking 1 pack of cigarettes daily for about 55 years. She quit smoking a couple of years ago. She is seen now for a follow-up visit. She has been feeling a little better generally with gradual improvement in her activity tolerance. She is able to do some light work now. ECOG score is 1. Her appetite is pretty good, but her weight is down another pound. She does not have fever or night sweats. She has not had sore mouth or throat. She does not complain of cough, and she has not been having shortness of breath or chest pain. She currently has no GI or complaints. Bowel function is good now. She has some pain in her right wrist, which is chronic. She has no other joint or bone pain. She has numbness in her legs and feet associated with the neuropathy, and she says her balance is very poor. Medications: HumaLOG Subcutaneous PRN, Lantus 15 Unit(s) (of 100 Units/mL) Subcutaneous daily, Temazepam 1 Capsule (of 30 mg) Oral at bedtime Allergies: Cyclobenzaprine HCl, Methocarbamol, traMADol HCl, and traZODone HCl. Vital Signs: Performed on Jan 28, 2021 16:02 Height - 63.00 in Weight - 128.4 lbs (LOW) BSA - 1.60 sq.m BMI - 22.75 Temperature - 97.6 F (LOW) Pulse - 96 /min Respiration - 16 /min BP - 159/78 mm(hg) (HIGH) O2 Sat - 99 % Pain - 0 Fatigue - 2 Physical Examination: Constitutional - She still appears somewhat frail generally, Eyes - Sclerae nonicteric. Conjunctivae clear, ENMT - No lesions noted in the oral cavity, Hematologic/Lymphatic - No cervical, clavicular, or axillary adenopathy, Respiratory - Lungs are clear with good air movement bilaterally, Cardiovascular - Heart rhythm is regular. There is no murmur, gallop, or rub noted, Abdomen - Soft. The incision appears well-healed. Liver and spleen are not enlarged. There is no abdominal mass or ascites noted and there is no inguinal adenopathy, Extremities - No edema, Neurologic - There is some weakness and some muscle atrophy in the lower legs. Lab/Imaging: CBC shows hemoglobin 12.4 g, white blood cell count 7200, and platelet count 305,000. Comprehensive metabolic profile shows normal renal function with BUN 11 and creatinine 0.5 mg/dL. Bilirubin and liver enzymes are normal. The CEA level is 2.1 ng/mL. Problem List: 1. 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 2. Type 2 diabetes. 3. Peripheral neuropathy. 4. Chronic anxiety. 5. Chronic insomnia. 6. History of ascending cholangitis. 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 She had presented with large bowel obstruction. She underwent exploratory laparotomy with right hemicolectomy and with primary anastomosis on 12/30/2020. Her tumor was locally advanced. It showed invasion into the pericolonic fat and was densely attached to the duodenum and right kidney. It was able to be completely resected, but there was involvement in 12/17 lymph nodes and the mesenteric margin was less than 1 mm. There was no evidence, though, of metastatic disease. Since her initial visit, she has been showing some improvement in her activity tolerance/performance status. I again reviewed options for further management of the colon cancer. With her underlying peripheral neuropathy, I would not consider use of an oxaliplatin based adjuvant chemotherapy regimen. She would, though, have the option to try adjuvant chemotherapy with capecitabine, administered on a 2 weeks on/1 week off schedule for up to 8 cycles. The potential side effects would include nausea/vomiting, weakness/fatigue, mouth sores, diarrhea, low blood counts, and hand/foot syndrome, among others. The other option is to just continue with expectant management. She has going to take some additional time to discuss this with her family before she makes a decision. If she does opt for treatment, I anticipate starting it sometime after the . Signed By: Bereket Mata M.D. <<Signature on File>>
== END 2021-01-28 12:40 | disposition home or self-care (01) ==
PROVIDERS: PCP Family Medicine; Visit Provider Nurse Practitioner Family
DX: C18.3 Malignant neoplasm of hepatic flexure (principal); G62.9 Polyneuropathy, unspecified; E11.42 Type 2 diabetes mellitus with diabetic polyneuropathy; F41.9 Anxiety disorder, unspecified; G47.00 Insomnia, unspecified; Z79.4 Long term (current) use of insulin; Z79.899 Other long term (current) drug therapy; Z87.891 Personal history of nicotine dependence
CPT/HCPCS: 36415; 80053; 82378; 85025; 99214

== ENCOUNTER 2021-05-13 12:28 | Outpatient (CLI) | payer MEDICARE, OTHER, SELFPAY ==
[2021-05-13 13:02] LABS: Basophils # 0.1 10^3/uL (0.0-0.1); Basophils % 0.5 %; Eosinophils # 0.2 10^3/uL (0.0-0.8); Eosinophils % 1.7 %; Hematocrit 36.8 % (37.0-47.0); Hemoglobin 12.2 g/dL (11.5-15.3); Lymphocytes # 2.3 10^3/uL (0.8-4.8); Lymphocytes % 23.6 %; Mean Corpuscular HGB Conc 33.2 g/dL (30.0-36.0); Mean Corpuscular Hemoglobin 28.9 pg (28.0-34.0); Mean Corpuscular Volume 87.2 fl (81-99); Mean Platelet Volume 9.2 fL (7.4-10.4); Monocytes # 0.7 10^3/uL (0.2-0.9); Monocytes % 7.3 %; Neutrophils # 6.57 10^3/uL (1.8-7.7); Neutrophils % 66.5 %; Nucleated Red Blood Cells % 0 %; Platelet Count 397 10^3/cmm (130-400); Red Blood Count 4.22 10^6/uL (4.1-5.3); Red Cell Distribution Width 13.5 % (12.1-15.1); White Blood Count 9.9 10^3/uL (4.0-10.0)
[2021-05-13 13:38] LABS: Carcinoembryonic Antigen 2.8 ng/mL (0.0-4.7)
[2021-05-13 13:49] LABS: Alanine Aminotransferase 7 U/L (0-33); Albumin Level 4.3 g/dL (3.5-5.2); Alkaline Phosphatase 70 IU/L (35-105); Aspartate Amino Transferase 10 U/L (0-32); Blood Urea Nitrogen 16 mg/dL (8-23); Calcium 9.6 mg/dL (8.5-10.5); Carbon Dioxide 22 mmol/L (22-29); Chloride 100 mmol/L (98-107); Globulin 3.3 g/dL (1.3-4.6); Glucose 253 mg/dL (65-115); Osmolality Calculated 282 mOsm/kg (285-295); Sodium 131 mmol/L (136-145); Total Bilirubin 0.2 mg/dL (0.15-1.2); Total Protein 7.6 g/dL (6.6-8.7)
--- NOTE | 2021-05-13 15:41 | ONC FU_ITS ---
Ami Gerard Progress Note Patient: aCra Schrader Unit #: [id number]: 1945 Dicatated By: Ami Gerard N.P.Date of Visit:May 13, 2021 Onc MED Follow-up/Prog Note Chief Complaint: Colon cancer. 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 She has type 2 diabetes and peripheral neuropathy. On 12/29/2020 she was admitted to the [facility] with evidence of large bowel obstruction. She had presented to the emergency room with a 1 to 2-week history of recurrent vomiting. Her CT abdomen/pelvis showed irregular nodule short segment thickening of the hepatic flexure extending for a length of 4 cm. There was associated proximal dilatation of the cecal pole and small bowel, consistent with colonic malignancy causing upstream bowel obstruction. There was associated stranding of the adjacent pericolonic fat concerning for peritoneal involvement. Small volume pericolonic lymph nodes were noted and a borderline enlarged lymph node was noted at the area of caval region. There was no other evidence for metastatic disease. On 12/30/2020 she underwent exploratory laparotomy with right hemicolectomy and with primary hgzc-sj-bepi anastomosis. The operative findings included an obstructing colon mass at the hepatic flexure. The tumor was densely attached to the duodenum and right kidney, but it was able to be dissected free of those structures. Enlarged lymph nodes at the ascending colon mesentery were removed en bloc. There is no evidence of other metastatic disease. Pathology showed moderately differentiated mucinous adenocarcinoma (grade 2) measuring 5.5 cm in greatest dimension. There was invasion through the muscularis propria into the pericolorectal tissue. The margins were noted to be negative, but with the mesenteric margin measuring less than 1 mm. There was involvement in 12/17 lymph nodes, the largest measuring up to 1.2 x 1 x 1 cm. Pathologic staging was pT3, pN2b. She had uneventful postop recovery. Her further evaluation in the hospital included a staging chest CT which showed moderate upper lobe predominant centrilobular and paraseptal emphysema with small bilateral pleural effusions. Patchy multifocal airspace opacities were noted, predominantly in the lower lobes bilaterally, felt to be suspicious for aspiration or pneumonia. A borderline enlarged right hilar lymph node measuring 1.2 cm appeared to be likely reactive. Overall there was no definite CT evidence for metastatic disease in the chest. I had seen her initially on 01/15/2021. I reviewed options for further management. As her peripheral neuropathy appeared to be severe enough to preclude any consideration of an oxaliplatin based adjuvant chemotherapy regimen, I discussed the possibility of adjuvant therapy with Xeloda versus observation/expectant management. Her medical illnesses, in addition to the diabetes and peripheral neuropathy, include chronic anxiety and chronic insomnia. She has a history of a sending cholangitis. She has a history of smoking 1 pack of cigarettes daily for about 55 years. She quit smoking a couple of years ago. Patient presents today for follow-up of her colon cancer. She was offered adjuvant therapy in January 2021 but did not return for follow-up appointment. She states that she is feeling fine. Her appetite has been good. She denies fever, chills, night sweats. No sinus drainage or sore throat. No shortness of breath, cough, chest pain. No nausea or vomiting. No heartburn. Her bowel function is good without diarrhea or constipation. No complaints of urinary problems. No joint or muscle pain. No headaches or dizziness. She does have some neuropathy in her bilateral lower extremities. Review Of Symptoms: See above. Past Medical History: Chronic anxiety Chronic insomnia History of ascending cholangitis Peripheral neuropathy Type II diabetes Past Surgical History: Appendectomy Bilateral cataract excisions Cholecystectomy Left ankle surgery Right arm surgery Right wrist surgery Exploratory laparotomy with right hemicolectomy and with primary esin-it-hqgr anastomosis in 2020 Allergies: Cyclobenzaprine HCl, Methocarbamol, traMADol HCl, and traZODone HCl. Medications: HumaLOG Subcutaneous PRN Lantus 15 Unit(s) (of 100 Units/mL) Subcutaneous daily Temazepam 1 Capsule (of 30 mg) Oral at bedtime Family History: Ms. Schrader's mother at age 81: renal cancer. Ms. Schrader's father at age 61: motor vehicle accident. Ms. Schrader has 1 sister who is : type ii diabetes. Social History: Ms. Shcrader is . Ms. Schrader no longer smokes. She has no history of drinking. She has a history of smoking 1 pack daily for about 55 years. She quit smoking a couple of years ago. She does not drink alcohol, and she has had just very occasional alcohol use in the past. Physical Examination: Performed on May 13, 2021 14:25: Height - 63.00 in, Weight - 144.8 lbs (HIGH), BSA - 1.69 sq.m, BMI - 25.65, Temperature - 97.8 F (LOW), Pulse - 88 /min, Respiration - 16 /min, BP - 204/79 mm(hg) (HIGH), O2 Sat - 90 % (LOW), Pain - 0, and Fatigue - 0. Performance Status: 1 - No physically strenuous activity, but ambulatory and able to carry out light or sedentary work (e.g. office work, light house work). (ECOG) Constitutional Alert, cooperative, oriented. Mood and affect appropriate. Appears close to chronological age. Well nourished. Well developed. Head Normocephalic; no scars. Respiratory Lungs are clear to auscultation without rhonchi or wheezing. Cardiovascular Regular rate and rhythm of heart without murmurs, gallops or rubs. Abdomen Non-tender, non-distended, no masses, ascites or hepatosplenomegaly. Good bowel sounds. No guarding or rebound tenderness. Musculoskeletal No tenderness or swelling, normal range of motion without obvious weakness. Psychiatric Alert and oriented times three. Coherent speech. Verbalizes understanding of our discussions today. Laboratory: Test performed on May 13, 2021 12:53 Sodium 131 mmol/L Potassium 4.0 mmol/L Chloride 100 mmol/L CO2 22 mmol/L Anion Gap 13.0 BUN 16 mg/dL Creatinine 0.5 mg/dL Cr Clearance (Est) 100.80 mL/min Glucose 253 mg/dL Osmolality - Calculated 282 mOsm/kg Calcium 9.6 mg/dL Protein, Total 7.6 g/dL Albumin 4.3 g/dL Globulin 3.3 g/dL Bilirubin, Total 0.2 mg/dL ALT (SGPT) 7 U/L AST (SGOT) 10 U/L Alkaline Phosphatase 70 IU/L WBC 9.9 10 3/uL RBC 4.22 10 6/uL HGB 12.2 g/dL HCT 36.8 % MCV 87.2 fl MCH 28.9 pg MCHC 33.2 g/dL RDW 13.5 % Platelet Count 397 10 3/cmm MPV 9.2 fL Neutrophils 6.57 10 3/uL Lymphocytes 2.3 10 3/uL Monocytes 0.7 10 3/uL Eosinophils 0.2 10 3/uL Basophils 0.1 10 3/uL Neutrophil % 66.5 % Lymphocyte % 23.6 % Monocyte % 7.3 % Eosinophil % 1.7 % Basophils % 0.5 % NRBC % 0 % CEA 2.8 ng/mL Test performed on Jan 28, 2021 00:00 Manual Diff DUP ORDER Impression: 1. 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 2. Type 2 diabetes. 3. Peripheral neuropathy. 4. Chronic anxiety. 5. Chronic insomnia. 6. History of ascending cholangitis. 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 She had presented with large bowel obstruction. She underwent exploratory laparotomy with right hemicolectomy and with primary anastomosis on 12/30/2020. Her tumor was locally advanced. It showed invasion into the pericolonic fat and was densely attached to the duodenum and right kidney. It was able to be completely resected, but there was involvement in 12/17 lymph nodes and the mesenteric margin was less than 1 mm. There was no evidence, though, of metastatic disease. Patient presents today for follow-up and wants to know if her cancer is gone. She did not return for follow-up for adjuvant therapy. She states she does not want any type of treatment but wants to know if she has cancer. Her CEA at this visit is 2.8. She is not showing any signs of disease progression. We will obtain a CT scan of the abdomen pelvis and she will return in 1 month to discuss results. If everything looks good with the CT scan she will follow-up in 6 months with CBC CMP and CEA for surveillance. Signed By: Ami Gerard N.P. <<Signature on File>>
== END 2021-05-13 12:29 | disposition home or self-care (01) ==
PROVIDERS: PCP Family Medicine; Visit Provider Nurse Practitioner Family
DX: C18.3 Malignant neoplasm of hepatic flexure (principal); E11.42 Type 2 diabetes mellitus with diabetic polyneuropathy; F41.9 Anxiety disorder, unspecified; F51.04 Psychophysiologic insomnia; Z79.899 Other long term (current) drug therapy; Z79.4 Long term (current) use of insulin
CPT/HCPCS: 36415; 80053; 82378; 85025; 99214

== ENCOUNTER 2021-06-05 13:56 | Outpatient (CLI) | payer MEDICARE, OTHER, SELFPAY ==
--- NOTE | 2021-06-05 14:13 | CT_ITS ---
WS: [id number] CT ABDOMEN AND PELVIS WITH CONTRAST HISTORY: COLON CANCER TECHNIQUE: Imaging performed of the abdomen and pelvis with IV contrast. Single phase imaging of the abdomen. Coronal and sagittal reformats are submitted. All CT scans at [facility] use at [address] one of these dose optimization techniques: automated exposure control; mA and/or kV adjustment per patient size (includes targeted exams where dose is matched to clinical indication); or iterative re construction. IV CONTRAST: Omnipaque 350; 95 mL IV. Oral contrast: Yes. DLP: 1132.19 mGy.cm COMPARISON: None available. No prior evaluations by CT abdomen and pelvis are available for review. Lower thorax: Lung bases are clear. Heart is normal size. Large hiatal hernia. Approximately 50% of t he stomach is intrathoracic. Liver/biliary system: Normal size with no intrahepatic dilatation. Gallbladder: Prior cholecystectomy. There is significant amount of beam hardening artifact from numer ous clips at the gallbladder fossa. This is obscuring detail at the gallbladder fossa. The portal vei n is normal. Pancreas: Mild diffuse atrophy of the pancreas. No duct dilatation. Spleen: Normal size spleen. No mass or infarct. Adrenal glands: Normal. Right kidney: Normal. Left kidney: Normal. Aorta: Moderate atherosclerotic plaque within the abdominal aorta. There is intimal thickening and sc attered plaque. No aneurysm. Moderate atherosclerotic plaque continues into the proximal SMA. There i s no thrombus or occlusion at this time although there is a mild stenosis. Splenic artery is moderate ly calcified. Lymphadenopathy: None. Free fluid: None. GI tract: Stomach is not distended. The appendix has been removed. No small bowel obstruction. Surgic al anastomosis noted within the RIGHT abdomen. The anastomotic site there is some very mild wall thickening which will need additional evaluation. T he distal colon is moderately distended with fecal material. Tortuous colon with numerous diverticula distally. Abdominal wall: Unremarkable abdominal wall. No hernia. Pelvis: No free fluid in the pelvis. Markedly abnormal appearance to the uterus. The uterus is globul ar and of variable density. There is fluid distention of the endometrium and variable density within the endometrial cavity extending to the endocervical region. Neither ovary is definitely identified. Minimally distended urinary bladder. Bones: Mild anterior wedging of L3 and L5. CT/CT abdomen pelvis w con* [id number] IMPRESSION: 1. Abnormal uterus and endometrium. Variable density distending the endometriu m. Differential includes endometrial neoplasm. Recommend follow-up transvaginal pelvic ultrasound for further evaluation. 2. Minimal mucosal thickening at the site of the ileocolic anastomosis in the RIGHT abdomen which will need further evaluation. Follow-up by colonoscopy or s hort-term CT evaluation is recommended. 3. Moderate constipation and fecal retention and diverticular disease througho ut the remaining colon. 4. Status post cholecystectomy. 5. Moderate size hiatal hernia. 6. Atherosclerosis aorta and mesenteric arteries.
[2021-06-05] MEDS: iohexol 350 mg/mL 100 mL Btl IV (15:42)
== END 2021-06-05 13:57 | disposition home or self-care (01) ==
LOC: RAD 14:08
PROVIDERS: PCP Family Medicine; Visit Provider Nurse Practitioner Family
DX: C18.3 Malignant neoplasm of hepatic flexure (principal); K59.00 Constipation, unspecified; Z90.49 Acquired absence of other specified parts of digestive tract; K44.9 Diaphragmatic hernia without obstruction or gangrene; I70.0 Atherosclerosis of aorta
CPT/HCPCS: 74177

== ENCOUNTER 2021-06-13 12:27 | Outpatient (CLI) | payer MEDICARE, OTHER, SELFPAY ==
--- NOTE | 2021-06-13 12:42 | US_ITS ---
WS: [id number] TRANSABDOMINAL PELVIC AND TRANSVAGINAL PELVIC ULTRASOUND HISTORY: MALIGNANT neoplasm hepatic flexure, ENDOMETRIUM IS ABNORMAL. COMPARISON: CT 06/05/2021 Uterus: 10.1 cm x 6.3 cm x 5.9 cm. Uterus is anteverted and enlarged. The entire uterus and endometri um are poorly visualized. There is a large amount shadowing on the transvaginal imaging probably due to fibroids and the calcifications in the periphery of the uterus. Endometrium: The endometrium is abnormal as also described by CT. There are solid and cystic componen ts as seen on transabdominal imaging. Approximately 2.3 cm in diameter is the endometrium. There is m ore focal soft tissue towards the endocervical region which may be a mass obstructing the canal of th e endometrium. Neither ovary is identified. No adnexal mass.No free fluid. US/US pelvic with transvaginal IMPRESSION: 1. Extremely limited evaluation of the uterus and adnexa. 2. The endometrium is abnormal as noted on a prior CT. There is both fluid com ponent and increased soft tissue. Evaluation for possible endometrial neoplasm should be obtained.
== END 2021-06-13 12:28 | disposition home or self-care (01) ==
LOC: RAD 12:33
PROVIDERS: PCP Family Medicine; Visit Provider Nurse Practitioner Family
DX: C18.3 Malignant neoplasm of hepatic flexure (principal); R93.89 Abnormal findings on diagnostic imaging of other specified body structures
CPT/HCPCS: 76830; 76856

== ENCOUNTER → 2021-06-24 13:17 | Outpatient (BNVA) | payer MEDICARE, OTHER, SELFPAY | PROVIDERS: PCP Family Medicine; Referring Provider Internal Medicine Medical Oncology; Visit Provider Surgery | DX: C18.9 Malignant neoplasm of colon, unspecified (principal) | CPT/HCPCS: 99203 ==

== ENCOUNTER 2021-07-18 16:08 | Inpatient (IN) | payer MEDICARE, OTHER, SELFPAY ==
[2021-07-18] VITALS (8 sets, daily range): BP systolic 158–219; BP diastolic 72–107; PULSE 79–94; RESP 16–20; TEMP 36.8–37; O2SAT 96–98; BMI 23.8
--- NOTE | 2021-07-18 16:09 | W.ED.FALL ---
HPI - Fall General: Chief Complaint: Extremity Injury, Lower Stated Complaint: TRIPPED/FALL Time Seen by Provider: 07/18/21 16:08 History of Present Illness: Ms Schrader is a 75-year-old lady with history of diabetes who presents to the emergency department due to fall. She reports she was carrying milk into her home when she tripped over the small lip on a ramp into her home. She fell landing on her right side. She adamantly denies head strike or loss of consciousness. She is not on anticoagulation. She called for help but no one heard her for approximately 1 hour. She was unable to ambulate. Intensity symptoms is severe and mildly improved with EMS administered fentanyl. Symptoms are worse with movement and palpation. No other specific changes in health, exacerbating, or alleviating factors identified. Onset (ago): hour(s) Fall from: standing Place fall occurred: home Loss of consciousness: None Prolonged down time: hour(s) (1) Symptoms prior to fall: none Context: tripped/slipped Location of injury - extremities: Right: thigh Severity: severe Quality: sharp, aching and spasming Review of Systems General: Reports: 10 or more systems reviewed and unremarkable except in HPI and below PFSH ED PFSH: Medical History Ascending cholangitis Colon cancer Depression with anxiety Diabetes mellitus with ketoacidosis without coma Diabetic neuropathy Gallstone H/O fracture of ankle left History of diabetic ketoacidosis Nail fungus Neuropathy Surgical History H/O partial resection of colon H/O wrist surgery right S/P appendectomy S/P cholecystectomy S/P tonsillectomy Family History Family/Other Diabetes maternal side, female Son Diabetes Father Heart disease Mother Thyroid disease Daughter Thyroid disease Other Hypertension Denies family history of Colon cancer Ovarian cancer Clotting disorder Hypercholesteremia Breast cancer Anesthesia complication Bleeding disorder Uterine cancer Stroke Social History Smoking and tobacco status: former smoker Physical Exam Const: COMMON NORMALS: alert GENERAL APPEARANCE: cooperative, well developed and ill appearing (Pain) HENMT: COMMON NORMALS: normocephalic and atraumatic HEAD & SCALP: normocephalic and atraumatic Eye: COMMON NORMALS: conjunctivae normal CONJUNCTIVA: Yes conjunctivae normal SCLERA: sclerae normal Neck/C-Spine: COMMON NORMALS: supple GENERAL: Yes trachea midline Resp: COMMON NORMALS: normal respiratory effort and clear to auscultation bilaterally EFFORT & INSPECTION: Yes able to speak in complete sentences AUSCULTATION: clear to auscultation bilaterally Cardio: COMMON NORMALS: regular rate and regular rhythm RATE: regular rate RHYTHM: regular rhythm GI: COMMON NORMALS: Soft to palpation PALPATION: Yes Soft to palpation and No Tenderness to palpation present (GI) PERCUSSION: normal to percussion Extremity: NARRATIVE EXTREMITY EXAM: Limited exam secondary to pain with likely deformity to mid to proximal right femur versus soft tissue swelling. Distal CMS is intact. GENERAL: Yes normal exam except as noted and No edema Neuro: COMMON NORMALS: moves all extremities SENSORIUM/ORIENTATION: Yes alert and No Orientation impaired Psych: COMMON NORMALS: mental status grossly normal and Normal thought process present THOUGHT PROCESS: Normal thought process present Course ED course: - Patient was seen and evaluated by me at bedside - Patient placed on cardiac monitors, IV access obtained - Initial evaluation notable for exam as above - Labs and xrays personally interpreted by me -Analgesia given - Labs notable for cytosis which is likely reactive, normocytic anemia. INR normal. Metabolic panel with evidence of ARNALDO and dehydration. - Imaging notable for right-sided intertrochanteric fracture - Upon serial reexamination after treatment the patient was transiently improved with analgesia - Based on patient history, evaluation, and testing as interpreted the most likely cause of the patient's condition is fall with a fracture. Discussed with orthopedics. - The results of ED evaluation were discussed with the patient including plan for admission due to requirement for level of care not available if discharged to prevent significant worsening/deterioration. - Admitting service was contacted and Dr Soto with the hospitalist service agreed to admit the patient - Patient was admitted without further deterioration or significant events. Note: Click bubbles or prepopulated khan in note writing are used for assistance with data collection and billing and are inherently more limited than narrative and other text portions of this note. Please use narrative for additional clinical history and defer to narrative/free test for any case of contradictory information. If information appears in only free text or click bubble it should be considered present or absent as reported. Please contact note television writer for clarifications of clinical information or contradictory information. MDM is a brief summary, contradictory or erroneous seeming information should be clarified and full note should be reviewed. Vital Signs: Vital signs: Vital Signs Temperature 97.9 F 07/22/21 13:19 Pulse Rate 92 07/22/21 13:19 Respiratory Rate 18 07/22/21 13:19 Blood Pressure 120/71 07/22/21 13:19 Pulse Oximetry 95 07/22/21 13:19 MDM - Fall Medical Decision Making 75-year-old lady presenting due to fall found to have right sided hip fracture. Admitted for further management. Medical Records I reviewed the patient's medical records. Lab Data I reviewed the patient's lab results. : 07/22/21 02:10 07/22/21 02:10 Radiology Impressions Femur X-Ray 07/18/21 16:26 IMPRESSION: Right inter trochanteric fracture. No fracture of the mid/distal femur. Limited single view exam. Hip/Pelvis X-Ray 07/19/21 00:00 IMPRESSION: Images obtained for intraoperative purposes. Laboratory Results WBC 13.8 10^3/uL (4.0-10.0) H 07/18/21 17:45 Corrected WBC Cancelled 07/18/21 16:45 RBC 3.75 10^6/uL (4.1-5.3) L 07/18/21 17:45 Hgb 10.6 g/dL (11.5-15.3) L 07/18/21 17:45 Hct 32.5 % (37.0-47.0) L 07/18/21 17:45 MCV 86.7 fl (81-99) 07/18/21 17:45 MCH 28.3 pg (28.0-34.0) 07/18/21 17:45 MCHC 32.6 g/dL (30.0-36.0) 07/18/21 17:45 RDW 12.4 % (12.1-15.1) 07/18/21 17:45 Plt Count 377 10^3/cmm (130-400) 07/18/21 17:45 MPV 9.4 fL (7.4-10.4) 07/18/21 17:45 Gran % Cancelled 07/18/21 16:45 Neut % (Auto) 87.7 % 07/18/21 17:45 Lymph % (Auto) 7.5 % 07/18/21 17:45 Blaine % (Auto) 3.5 % 07/18/21 17:45 Eos % (Auto) 0.3 % 07/18/21 17:45 Baso % (Auto) 0.4 % 07/18/21 17:45 Neut # (Auto) 12.13 10^3/uL (1.8-7.7) H 07/18/21 17:45 Lymph # (Auto) 1.0 10^3/uL (0.8-4.8) 07/18/21 17:45 Blaine # (Auto) 0.5 10^3/uL (0.2-0.9) 07/18/21 17:45 Eos # (Auto) 0.0 10^3/uL (0.0-0.8) 07/18/21 17:45 Baso # (Auto) 0.1 10^3/uL (0.0-0.1) 07/18/21 17:45 Absolute Gran (auto) Cancelled 07/18/21 16:45 Nucleated RBC % (auto) 0 % 07/18/21 17:45 Nucleated RBCs # 0.0 /100WBC 07/18/21 17:45 PT 12.80 SECONDS (12.1-14.9) 07/18/21 17:45 INR 0.93 (0.8-1.2) 07/18/21 17:45 Sodium 133 mmol/L (136-145) L 07/18/21 16:45 Potassium 4.1 mmol/L (3.5-5.1) 07/18/21 16:45 Chloride 96 mmol/L (98-107) L 07/18/21 16:45 Carbon Dioxide 20 mmol/L (22-29) L 07/18/21 16:45 Anion Gap 21.1 (5-19) H 07/18/21 16:45 BUN 45 mg/dL (8-23) H 07/18/21 16:45 Creatinine 1.5 mg/dL (0.5-0.9) H 07/18/21 16:45 GFR Calculation Not Reportable 07/18/21 16:45 Glucose 302 mg/dL (65-115) H 07/18/21 16:45 Calculated Osmolality 299 mOsm/kg (285-295) H 07/18/21 16:45 Calcium 9.0 mg/dL (8.5-10.5) 07/18/21 16:45 Iron 16 ug/dL (37-145) L 07/18/21 16:45 TIBC 290 mcg/dl 07/18/21 16:45 % Saturation 5.5 % (20-50) L 07/18/21 16:45 Unsat Iron Binding 274 ug/dL (112-347) 07/18/21 16:45 Total Bilirubin 0.2 mg/dL (0.15-1.2) 07/18/21 16:45 AST 11 U/L (0-32) 07/18/21 16:45 ALT 8 U/L (0-33) 07/18/21 16:45 Alkaline Phosphatase 95 IU/L (35-105) 07/18/21 16:45 Creatine Kinase 96 U/L (26-192) 07/18/21 16:45 Total Protein 7.4 g/dL (6.6-8.7) 07/18/21 16:45 Albumin 3.8 g/dL (3.5-5.2) 07/18/21 16:45 Globulin 3.6 g/dL (1.3-4.6) 07/18/21 16:45 Procalcitonin 0.16 ng/mL (0-0.5) 07/18/21 16:45 TSH 4.82 uIU/mL (0.27-4.20) H 07/18/21 16:45 Serum Ketones Positive (Negative) H 07/18/21 18:01 Discharge Plan Discharge Patient Disposition: Admitted As Inpatient Admit Provider: Isra Garcia Clinical Impression: Closed intertrochanteric fracture, ARNALDO (acute kidney injury) Condition: Stable Discharge Diet: Diabetic Discharge Activity: As per PT/OT instructions Coding Level of Care Code ED [place] [employer] Supervisor for [employer]enny[employer] Fwd Exam Comprehensive
--- NOTE | 2021-07-18 16:21 | XRR_ITS ---
PROCEDURE INFORMATION: Exam: XR Right Hip Exam date and time: 07/18/2021 4:45 PM Age: 75 years old Clinical indication: Injury or trauma; Fall; Blunt trauma (contusions or hematomas); Right; Hip; Additional info: Fall, pain, include pelvis TECHNIQUE: Imaging protocol: XR Right hip. Views: 1 view hip with pelvis when performed. COMPARISON: CT abdomen pelvis w con* [id number] 06/05/2021 3:38 PM FINDINGS: Bones/joints: Osteopenia. Acute comminuted right-sided inter trochanteric fracture with slight displacement. No dislocation. Well preserved hip joint space on this nonweightbearing exam. Minimal acetabular spurring bilaterally suggesting early degenerative disease. Soft tissues: Unremarkable. Other findings: Two views submitted. XR/XR hip RT 2-3V wo/w pel* [id number] IMPRESSION: Right-sided intratrochanteric fracture of femur.
--- NOTE | 2021-07-18 16:26 | XRR_ITS ---
PROCEDURE INFORMATION: Exam: XR Right Femur Exam date and time: 07/18/2021 4:45 PM Age: 75 years old Clinical indication: Injury or trauma; Fall; Blunt trauma; Thigh or upper leg; Right; Additional info: Fall, pain TECHNIQUE: Imaging protocol: XR Right femur. Views: 2 views. COMPARISON: CT abdomen pelvis w con* [id number] 06/05/2021 3:38 PM FINDINGS: Bones/joints: Osteopenia. No acute fracture dislocation of the mid/distal femur. Partially visualized inter trochanteric fracture of the right proximal femur as described on pelvis exam report. Soft tissues: Unremarkable. Other findings: Single view submitted. Arterial calcifications. XR/XR femur RT 1V [id number] IMPRESSION: Right inter trochanteric fracture. No fracture of the mid/distal femur. Limited single view exam.
[2021-07-18] MEDS: fentaNYL 50 mcg/mL INJ 2mL IVP (16:30)
[2021-07-18] MEDS: HYDROmorphone 1 mg/mL INJ 1 mL 0.5 MG IVP ×3 (17:19→19:33)
[2021-07-18 17:33] LABS: Alanine Aminotransferase 8 U/L (0-33); Albumin Level 3.8 g/dL (3.5-5.2); Alkaline Phosphatase 95 IU/L (35-105); Anion Gap 21.1 (5-19); Aspartate Amino Transferase 11 U/L (0-32); Blood Urea Nitrogen 45 mg/dL (8-23); Carbon Dioxide 20 mmol/L (22-29); Chloride 96 mmol/L (98-107); Creatine Phosphokinase 96 U/L (26-192); Globulin 3.6 g/dL (1.3-4.6); Glucose 302 mg/dL (65-115); Osmolality Calculated 299 mOsm/kg (285-295); Potassium 4.1 mmol/L (3.5-5.1); Sodium 133 mmol/L (136-145); Total Bilirubin 0.2 mg/dL (0.15-1.2); Total Protein 7.4 g/dL (6.6-8.7)
[2021-07-18 17:59] LABS: Basophils # 0.1 10^3/uL (0.0-0.1); Basophils % 0.4 %; Eosinophils % 0.3 %; Hematocrit 32.5 % (37.0-47.0); Hemoglobin 10.6 g/dL (11.5-15.3); Lymphocytes % 7.5 %; Mean Corpuscular HGB Conc 32.6 g/dL (30.0-36.0); Mean Corpuscular Hemoglobin 28.3 pg (28.0-34.0); Mean Corpuscular Volume 86.7 fl (81-99); Mean Platelet Volume 9.4 fL (7.4-10.4); Monocytes # 0.5 10^3/uL (0.2-0.9); Monocytes % 3.5 %; Neutrophils # 12.13 10^3/uL (1.8-7.7); Neutrophils % 87.7 %; Nucleated Red Blood Cells % 0 %; Platelet Count 377 10^3/cmm (130-400); Red Blood Count 3.75 10^6/uL (4.1-5.3); Red Cell Distribution Width 12.4 % (12.1-15.1); White Blood Count 13.8 10^3/uL (4.0-10.0)
[2021-07-18 18:15] LABS: INR 0.93 (0.8-1.2)
--- NOTE | 2021-07-18 18:38 | P.HP_ITS ---
Providers/Chief Complaint Primary Care Provider: Christin Bolaños DO Chief Complaint: TRIPPED/FALL History of Present Illness Cara Schrader is a 75 year old female with past medical history significant for colon cancer last year, postresection, type 2 diabetes mellitus who is due for colonoscopy and D&C to rule out uterine cancer for postmenopausal bleeding oncoming redness today presents to the ER today after having a mechanical fall at home while she was trying to go up a ramp and tripping. Post fall she started complaining of pain in the right leg so present to the ER. In the in the ER she was found to have closed intertrochanteric fracture of the right hip so hospital service was consulted for admission. Orthopedics and has been consulted from the ER. Blood work in the ER showed a white count 13.8, hemoglobin of 10.6, INR of 0.9, sodium 133, potassium of 4, BUN of 45, creatinine of 1.5 with UA concerning for 1+ leuk esterase. Blood glucose was 302. Review of Systems General: Reports: 10 or more systems reviewed and unremarkable except in HPI and below Const: Denies: fever(s), chills, body aches, change in appetite, change in weight, malaise, night sweats, diaphoresis, change in sleep pattern, daytime sleepiness or snoring Eyes: Denies: change in vision, blurry vision, photophobia, eye discomfort or eye discharge ENMT: Denies: throat pain, enlarged tonsils, hoarseness, mouth pain, oral sores, dry mouth, tinnitus, nasal congestion or post nasal drip Card: Denies: chest pain, palpitations, irregular heart rhythm, edema, swelling of feet/ankles, lightheadedness, syncope, pre-syncope, dyspnea on exert ion, orthopnea, leg pain with exertion or acrocyanosis Resp: Denies: dyspnea, productive cough, non-productive cough, wheezing, stridor, pain on inspiration, change in phlegm color, hemoptysis or chest congestion GI: Denies: abdominal pain, nausea, vomiting, hematemesis, coffee ground emesis, dysphagia, heartburn, diarrhea, constipation, bloating, GI cramping, change in bowel habits, pain on defecation, hematochezia or melena : Denies: flank pain, dysuria, urinary frequency, urinary urgency, urinary hesitancy, nocturia or hematuria Musc: Denies: neck pain, back pain, extremity pain, joint pain, joint swelling, joint redness, joint stiffness or limited range of motion Neuro: Denies: headache(s), numbness in extremities, weakness in extremities, sensory changes, lack of coordination, difficulty walking, frequent falls, dizziness, vertigo, confusion, Slurred speech present, difficulty communicating thoughts or seizure-like activity Psych: Denies: anxiety, depression, mood swings, panic attacks, hopelessness or irritability Endo: Denies: polyuria, polydipsia, tired all the time, cold intolerance, excessive sweating, flushing or heat intolerance Wang/Lymph: Denies: easy bruising or easy bleeding All/Imm: Denies: tongue swelling, facial swelling or acute wheezing Medications/Allergies Home Medications Medication Instructions Recorded Confirmed Last Taken Type temazepam 30 mg capsule 60 mg PO BEDTIME 04/29/20 07/18/21 07/17/21 History Diabetic shoes with 3 pairs of #1 ea 06/28/20 07/18/21 Unknown Rx inserts insulin lispro 100 unit/mL See Rx Instructions .ROUTE .COMPLEX 09/18/20 07/18/21 07/18/21 History subcutaneous solution (Humalog U-100 Insulin) blood-glucose meter,continuous #1 ea 06/16/21 07/18/21 Unknown Rx (Dexcom G6 Band Saw Operator Cake Cutting) blood-glucose sensor (Dexcom G6 #3 ea 06/16/21 07/18/21 Unknown Rx Sensor) blood-glucose transmitter (Dexcom #1 ea 06/16/21 07/18/21 Unknown Rx G6 Transmitter) acetaminophen 500 mg tablet 1,000 mg PO Q6H PRN tab 06/23/21 07/18/21 Unknown History (Tylenol Extra Strength) insulin glargine 100 unit/mL (3 20 unit SUBCUT DAILY ml 06/23/21 07/18/21 07/18/21 History mL) subcutaneous pen (Lantus Solostar U-100 Insulin) Allergies Allergy/AdvReac Type Severity Reaction Status Date / Time ketorolac [From Toradol] Allergy Severe see Verified 07/18/21 17:14 comment methocarbamol [From Robaxin] Allergy Intermediate see Verified 07/18/21 17:14 comment trazodone Allergy Intermediate see Verified 07/18/21 17:14 comment cyclobenzaprine Allergy see Verified 07/18/21 17:14 [From Flexeril] comment tramadol Allergy see Verified 07/18/21 17:14 comment PFSH Acute PFSH: Medical History (Updated 07/18/21 @ 18:41 by Isra Garcia MD) Ascending cholangitis Colon cancer Depression with anxiety Diabetes mellitus with ketoacidosis without coma Diabetic neuropathy Gallstone H/O fracture of ankle left History of diabetic ketoacidosis Nail fungus Neuropathy Surgical History (Updated 07/18/21 @ 18:41 by Isra Garcia MD) H/O partial resection of colon H/O wrist surgery right S/P appendectomy S/P cholecystectomy S/P tonsillectomy Family History Family/Other Diabetes maternal side, female Son Diabetes Father Heart disease Mother Thyroid disease Daughter Thyroid disease Other Hypertension Denies family history of Colon cancer Ovarian cancer Clotting disorder Hypercholesteremia Breast cancer Anesthesia complication Bleeding disorder Uterine cancer Stroke Social History Smoking and tobacco status: former smoker Vitals/I&O/Wt Last Vital Signs Temp 98.2 F 07/18/21 16:16 Pulse 93 07/18/21 16:16 Resp 18 07/18/21 18:32 BP 219/107 07/18/21 16:16 Pulse Ox 98 07/18/21 16:16 Weight last 48 hrs Weight 63.049 kg Physical Exam Narrative: General: AOx3, acute distress because of right hip pain HEENT: PERRLA, pupils bilaterally equal and reactive Chest: Normal vesicular breath sounds, no added sounds, equal good air entry bilaterally CVS: S1-S2 regular, no murmurs, no tachycardia, no gallops, no rubs Abdomen: Soft, nontender, no organomegaly, bowel sounds present Neuro: No focal deficits, no facial deformity, AO x3, power 5/5 in all limbs Extremity: Right leg externally rotated, bilateral pulses equal. Data : 07/18/21 17:45 07/18/21 16:45 A&P Assessment and plan (1) Closed intertrochanteric fracture: Orthopedics has been consulted from the ER. Plan for ORIF. Physical therapy, anticoagulation, pain medication as per OR team. Will monitor hemoglobin. Status: Acute (2) ARNALDO (acute kidney injury): Most likely secondary to dehydration. Normal saline at 75 cc/h. Monitor BMP daily. Urine lites, urine creatinine, urine eosinophils, renal ultrasound. Status: Acute (3) Uncontrolled type 2 diabetes mellitus: Check A1c. Continue with home dose of Lantus. Seeing sliding scale at moderate dose protocol. History of DKA. Status: Acute Plan Leukocytosis: Might be secondary to UTI. Patient denies dysuria. UA concerning with 1+ leuk esterase. Follow-up urine culture, blood culture. For now start patient on Rocephin. Analgesia: Mcintyre 5 mg every 6 hours as needed, morphine 2 mg every 4 hours as needed Glycemic control: Lantus, insulin sliding scale Nutrition: Diabetic diet, n.p.o. after midnight CODE STATUS: Full code PUD prophylaxis: Pepcid DVT prophylaxis: SCDs in view of OR. Discharge planning: Home with home health versus SNF depending on physical therapy postoperatively. Admit to [facility]. Attestations Medical Necessity Statement*: Admission for more than 2 midnights for m anagement of right hip fracture, acute kidney injury Time Spent in Patient Care: Greater than 35 minutes Coding Level of Care Code Acute Communications Advisor for [facility] Fwd Diagnoses Closed intertrochanteric fracture S72.143A ARNALDO (acute kidney injury) N17.9 Uncontrolled type 2 diabetes mellitus E11.65
[2021-07-18] MEDS: sodium chloride 0.9% 1,000 ML 999 ML IV (18:41)
[2021-07-18 19:13] LABS: Ketone (Acetest) Serum Positive (Negative)
[2021-07-18 19:31] LABS: Thyroid Stimulating Hormone 4.82 uIU/mL (0.27-4.20)
[2021-07-18] MEDS: diphenhydrAMINE 50 mg/mL SDV 1mL 25 MG IVP (19:33)
[2021-07-18 19:58] LABS: Influenza A by IFA Negative (Negative); Influenza B by IFA Negative (Negative)
[2021-07-18 19:59] LABS: Iron 16 ug/dL (37-145); Percent Saturation 5.5 % (20-50); Procalcitonin 0.16 ng/mL (0-0.5); Total Iron Binding Capacity 290 mcg/dl; Unsaturated Iron Binding 274 ug/dL (112-347)
[2021-07-18 20:01] LABS: Potassium, Radom Urine 49 mmol/L; SARS Covid-2 Antigen Negative (Negative); Urine Creatinine 114 mg/dL (28-217); Urine Random Chloride 33 mmol/L; Urine Random Sodium 58 mmol/L
[2021-07-18 20:28] LABS: Eosinophil Urine No Eosinophils Seen; Urine Eosinophil Count 0 (0-0)
[2021-07-18 21:01] LABS: Glucose Point of Care 331 mg/dL (70-110)
--- NOTE | 2021-07-18 21:14 | PC.PHAR ---
pharmacy concern over dose of Temazepam. Lillie stated granddaughter said she was on #2 capsules of Temazepam 30mg nightly. I did send a Voalte to Dr. Garcia about concern. Her EMR shows #60 quantity with a 60 day supply. Temazepam use in elderly not recommended as below. Dosing: Older Adult Insomnia: Oral: Initial: 7.5 mg once daily, as needed, at bedtime in elderly or debilitated patients. Avoid use (Beers Criteria [AGS 2019]) Thank you, [facility]
[2021-07-18] MEDS: sodium chloride 0.9% 1,000 ML 75 ML IV (21:26)
[2021-07-18] MEDS: cefTRIAXone 1,000 MG in sodium chloride 0.9% (plus) 50 ML 100 MG IV (21:28)
[2021-07-18] MEDS: temazepam 15 mg Capsule 60 MG PO (21:29)
[2021-07-18] MEDS: insulin lispro 100 unit/1 mL SUBCUT (21:29)
[2021-07-18] MEDS: HYDROcodone-acetaminophen 5-325 mg Tablet 1 TAB PO (21:37)
[2021-07-18] MEDS: insulin glargine 100 units/1 mL 10 UNIT SUBCUT (21:37)
[2021-07-18] MEDS: famotidine 20 mg/2 mL INJ IVP (21:49)
[2021-07-19] VITALS (21 sets, daily range): BP systolic 113–167; BP diastolic 36–90; PULSE 75–172; RESP 12–20; TEMP 36.4–38.1; O2SAT 96–100
--- NOTE | 2021-07-19 | XR_ITS ---
WS: [id number] INTRAOPERATIVE TECHNIQUE: 5 Spot fluoroscopic images for intraoperative purposes. FLUOROSCOPY TIME: 57.6 seconds CLINICAL INFORMATION: FX, ORIF RT HIP COMPARISON: None. FINDINGS: Intramedullary chayo and screw fixation RIGHT hip extending into the distal femur. XR/XR hip RT 2-3V wo/w pel* [id number] IMPRESSION: Images obtained for intraoperative purposes.
--- NOTE | 2021-07-19 | SCC_ITS ---
Procedure done: Open reduction internal fixation right hip with intramedullary device 57.6 seconds of fluoroscopic guidance, for a cumulative dose of 3.27 mGy, was provided to Dr. Conde by the radiology department. C-arm images of the RIGHT hip were saved for the patient's permanent record. [facility]
[2021-07-19] MEDS: morphine 4 mg/mL SDV 1 mL 1 MG IVP (03:38)
[2021-07-19] MEDS: HYDROcodone-acetaminophen 5-325 mg Tablet 1 TAB PO ×3 (03:39→20:55)
[2021-07-19 06:11] LABS: Basophils % 0.4 %; Eosinophils # 0.1 10^3/uL (0.0-0.8); Eosinophils % 1.6 %; Hematocrit 27.9 % (37.0-47.0); Hemoglobin 9.2 g/dL (11.5-15.3); Lymphocytes # 2.4 10^3/uL (0.8-4.8); Lymphocytes % 28.5 %; Mean Corpuscular Hemoglobin 28.3 pg (28.0-34.0); Mean Corpuscular Volume 85.8 fl (81-99); Mean Platelet Volume 10.6 fL (7.4-10.4); Monocytes # 0.8 10^3/uL (0.2-0.9); Monocytes % 9.6 %; Neutrophils # 4.96 10^3/uL (1.8-7.7); Neutrophils % 59.5 %; Nucleated Red Blood Cells % 0 %; Platelet Count 101 10^3/cmm (130-400); Red Blood Count 3.25 10^6/uL (4.1-5.3); Red Cell Distribution Width 12.4 % (12.1-15.1); White Blood Count 8.3 10^3/uL (4.0-10.0)
[2021-07-19 06:18] LABS: Alanine Aminotransferase 6 U/L (0-33); Albumin Level 3.2 g/dL (3.5-5.2); Alkaline Phosphatase 64 IU/L (35-105); Anion Gap 14.4 (5-19); Aspartate Amino Transferase 8 U/L (0-32); Blood Urea Nitrogen 37 mg/dL (8-23); Calcium 8.1 mg/dL (8.5-10.5); Carbon Dioxide 21 mmol/L (22-29); Chloride 104 mmol/L (98-107); Chol HDL Ratio 3.22 mg/dL (0.0-4.40); Cholesterol 119 mg/dL (0-200); Glucose 134 mg/dL (65-115); HDL Cholesterol 37 mg/dL (60-100); LDL Cholesterol Calculated 58 mg/dL (50-129); Magnesium 2.1 mg/dL (1.7-2.3); Osmolality Calculated 293 mOsm/kg (285-295); Phosphorus 3.6 mg/dL (2.5-4.5); Potassium 3.4 mmol/L (3.5-5.1); Sodium 136 mmol/L (136-145); Total Bilirubin 0.2 mg/dL (0.15-1.2); Total Protein 6.2 g/dL (6.6-8.7); Triglycerides 120 mg/dL (0-150); VLDL Cholestrol Calculation 24 mg/dL (0-30)
[2021-07-19 06:19] LABS: Glucose Point of Care 147 mg/dL (70-110)
[2021-07-19 07:37] LABS: Estmated Average Glucose 220; Hemoglobin A1C 9.3 % (4.0-6.0)
--- NOTE | 2021-07-19 09:11 | ANES.PREANE2 ---
Pre-Anesthetic Assessment Height/Weight: Height 1.63 m Weight 70.398 kg Temp Pulse Resp BP Pulse Ox 97.7 F 81 12 127/61 98 07/19/21 07:47 07/19/21 07:47 07/19/21 07:47 07/19/21 07:47 07/19/21 07:47 Preop Diagnosis: Right intertrochanteric hip fracture Operation Date: 07/19/21 10:40 Proposed Procedures p Trochanteric Femoral Nail(Right) - Harsha Conde MD Familial anesthetic complications: none Was Beta Mattie taken within 24 hours: N/A Was Clonidine taken within 24 hours: N/A Last intake: Intake Last Liquid Date 07/18/21 Last Liquid Time 23:30 Last Solid Date 07/18/21 Last Solid Time 12:00 Social No alcohol and No tobacco Exam alert, oriented x 3, clear to auscultation bilaterally and regular rate & rhythm Airway Submandibular: within normal limits Cervical ROM: within normal limits Mallampati: Class I Dentition: false Pulmonary None reported CV/HEM Anemia thickened endometrium ARNALDO Hepatic None reported GI gallstones hx of ascending cholangitis Metabolic Diabetes Mellitus [facility] [place] Lower Back Pain and Osteoarthritis/DJD acute fx no LOC Neuropsych Anxiety, Depression and Neuropathy (d/t DM ) Anesthetic Plan ASA status: 3 (75 year old female with hx of DM, depression and anxiety now with acute hip fx and ARNALDO ) Anesthesia: Anesthesia Evaluation and General Other: Discussed anesthetic with daughter and granddaughter as well as patient. We discussed risk and benefits of general anesthesia including PONV, sore throat (sometimes severe), corneal abrasion, positioning and peripheral nerve injuries, life threatening allergic reaction, post operative ICU admission requiring prolonged intubation, stroke, heart attack, , and rare incidences of recall. Patient consents to proceed with general anesthesia. Risk of > 500 ml blood loss (7ml/kg in children): No Medications/Allergies Home Medications Medication Instructions Recorded Confirmed Last Taken Type temazepam 30 mg capsule 60 mg PO BEDTIME 04/29/20 07/18/21 07/17/21 History Diabetic shoes with 3 pairs of #1 ea 06/28/20 07/18/21 Unknown Rx inserts insulin lispro 100 unit/mL See Rx Instructions .ROUTE .COMPLEX 09/18/20 07/18/21 07/18/21 History subcutaneous solution (Humalog U-100 Insulin) blood-glucose meter,continuous #1 ea 06/16/21 07/18/21 Unknown Rx (Dexcom G6 Box Car Loader) blood-glucose sensor (Dexcom G6 #3 ea 06/16/21 07/18/21 Unknown Rx Sensor) blood-glucose transmitter (Dexcom #1 ea 06/16/21 07/18/21 Unknown Rx G6 Transmitter) acetaminophen 500 mg tablet 1,000 mg PO Q6H PRN tab 06/23/21 07/18/21 Unknown History (Tylenol Extra Strength) insulin glargine 100 unit/mL (3 20 unit SUBCUT DAILY ml 06/23/21 07/18/21 07/18/21 History mL) subcutaneous pen (Lantus Solostar U-100 Insulin) Allergies Allergy/AdvReac Type Severity Reaction Status Date / Time ketorolac [From Toradol] Allergy Severe see Verified 07/18/21 17:14 comment methocarbamol [From Robaxin] Allergy Intermediate see Verified 07/18/21 17:14 comment trazodone Allergy Intermediate see Verified 07/18/21 17:14 comment cyclobenzaprine Allergy see Verified 07/18/21 17:14 [From Flexeril] comment tramadol Allergy see Verified 07/18/21 17:14 comment Current Medications Generic Name Dose Route Start Last Admin Trade Name Freq PRN Reason Stop Dose Admin Hydrocodone Bitart/Acetaminophen 1 tab 07/18/21 20:00 07/19/21 03:39 Hydrocodone-Acetaminophen 5-325 Mg Tablet PO 1 tab Q6H PRN Administration MODERATE TO SEVERE PAIN Famotidine 20 mg 07/18/21 20:00 07/18/21 21:49 Famotidine 20 Mg/2 Ml Inj IVP 20 mg Q12H NIURKA Administration Ceftriaxone Sodium 1,000 mg/ 50 mls @ 100 mls/hr 07/18/21 21:00 07/18/21 22:32 Sodium Chloride IV Infused Q24H NIURKA Infusion Protocol Sodium Chloride 1,000 mls @ 75 mls/hr 07/18/21 20:00 07/18/21 21:26 Sodium Chloride 0.9% IV 75 mls/hr .[id number] NIURKA Administration Insulin Glargine 10 unit 07/18/21 21:00 07/18/21 21:37 Insulin Glargine 100 Units/1 Ml SUBCUT 10 unit BEDTIME NIURKA Administration Insulin Human Lispro 0 unit 07/18/21 21:00 07/18/21 21:29 Insulin Lispro 100 Unit/1 Ml SUBCUT 12 unit WM&BEDTIME NIURKA Administration Protocol Morphine Sulfate 1 mg 07/18/21 20:00 07/19/21 03:38 Morphine 4 Mg/Ml Sdv 1 Ml IVP 1 mg Q4H PRN Administration SEVERE PAIN Temazepam 60 mg 07/18/21 21:20 07/18/21 21:29 Temazepam 15 Mg Capsule PO 60 mg BEDTIME NIURKA Administration PFSH Anesthesia Medical History Ascending cholangitis Colon cancer Depression with anxiety Diabetes mellitus with ketoacidosis without coma Diabetic neuropathy Gallstone H/O fracture of ankle left History of diabetic ketoacidosis Nail fungus Neuropathy Surgical History H/O partial resection of colon H/O wrist surgery right S/P appendectomy S/P cholecystectomy S/P tonsillectomy Family History Family/Other Diabetes maternal side, female Son Diabetes Father Heart disease Mother Thyroid disease Daughter Thyroid disease Other Hypertension Denies family history of Colon cancer Ovarian cancer Clotting disorder Hypercholesteremia Breast cancer Anesthesia complication Bleeding disorder Uterine cancer Stroke Social History Smoking and tobacco status: former smoker Data Anesthesia : 07/19/21 05:35 07/19/21 05:35 Short CBC 07/18/21 07/18/21 07/19/21 Range/Units 16:45 17:45 05:35 WBC Cancelled 13.8 H 8.3 Hgb Cancelled 10.6 L 9.2 L Hct Cancelled 32.5 L 27.9 L MCV Cancelled 86.7 85.8 Plt Count Cancelled 377 101 L D Neut % (Auto) Cancelled 87.7 59.5 Neut # (Auto) Cancelled 12.13 H 4.96 BMP 07/18/21 07/19/21 16:45 05:35 Sodium 133 L 136 Potassium 4.1 3.4 L Chloride 96 L 104 Carbon Dioxide 20 L 21 L BUN 45 H 37 H Creatinine 1.5 H 0.9 Glucose 302 H 134 H Calcium 9.0 8.1 L Cardiac Enzymes 07/18/21 Range/Units 16:45 Creatine Kinase 96 (26-192) U/L Liver Function 07/18/21 07/19/21 Range/Units 16:45 05:35 Total Bilirubin 0.2 0.2 (0.15-1.2) mg/dL AST 11 8 (0-32) U/L ALT 8 6 (0-33) U/L Alkaline Phosphatase 95 64 (35-105) IU/L Albumin 3.8 3.2 L (3.5-5.2) g/dL COVID Results 07/18/21 19:25 SARS-CoV-2 Ag (Rapid) Negative Coags 07/18/21 17:45 PT 12.80 INR 0.93 Microbiology 07/18/21 19:25 Bacterial Antigens - Final Urine Kidney 07/18/21 19:25 Legionella Urinary Antigen - Final Unknown Source Cardiac Studies: No Data to Display
[2021-07-19] MEDS: diphenhydrAMINE 50 mg/mL SDV 1mL 12.5 MG IVP (09:50)
--- NOTE | 2021-07-19 10:07 | SUR.PHASEI ---
0915 PT TO OPS BAY 8 PER BED PT AWAKE ALERT TALKATIVE,CONCERNED ABOUT BEING MOVED BEFORE GOING TO SLEEP , PT REASSURED WE WILL KEEP HER COMFORTABLE, PT 'S DAUGHTER AND GRANDDAUGHTER AT BEDSIDE, IV TO LT FOREARM #22 PATENT PIID, FLUSHED WITH 10 ML NS, DR WASHBURN AT BEDSIDE. 0930 VERBAL ORDERS RECIEVED FOR TYPE AND SCREEN AND GIVE BENEDRYL IV 12.5MG NOW IN OPS AND 0.3MG DILAUDID AFTER DR FALCON HAS SEEN PT. . DR WASHBURN REQUESTED A LARGER IV BE PLACED. PT WITH MULTIPLE POST IV SITE STICKS, BRUISING, PT STATES SHE IS A HARD STICK AND THAT THE NURSES TRIED MULTIPLE TIMES ON FLOOR. 0950 FLUIDS PULLED AND BENEDRYL GIVEN ORDERED.
--- NOTE | 2021-07-19 10:12 | PM.CONSULT ---
Providers/Reason For Consult Consulting Physician/Specialty*: Harsha Conde MD; orthopedic surgery Reason for Consult*: Right intratrochanteric hip fracture Attending Physician: Isra Garcia MD Primary Care Provider: Christin Bolaños DO History of Present Illness History of Present Illness Cara Schrader is a 75 year old female sustained a mechanical fall at home yesterday afternoon. The family reports that she was carrying a gallon of milk and lost her balance and a fall. She has peripheral neuropathy and poor balance. She has walkers and canes at home but does not use them. She had immediate right hip pain. She was seen in our emergency room where radiographs revealed a right intratrochanteric hip fracture. She is admitted for management of the fracture. She is here with daughter and granddaughter. She apparently lives alone. There is family in town but no one that can be with her continuously after discharge Medications/Allergies Home Medications Medication Instructions Recorded Confirmed Last Taken Type temazepam 30 mg capsule 60 mg PO BEDTIME 04/29/20 07/18/21 07/17/21 History Diabetic shoes with 3 pairs of #1 ea 06/28/20 07/18/21 Unknown Rx inserts insulin lispro 100 unit/mL See Rx Instructions .ROUTE .COMPLEX 09/18/20 07/18/21 07/18/21 History subcutaneous solution (Humalog U-100 Insulin) blood-glucose meter,continuous #1 ea 06/16/21 07/18/21 Unknown Rx (Dexcom G6 Supplier Quality Specialist) blood-glucose sensor (Dexcom G6 #3 ea 06/16/21 07/18/21 Unknown Rx Sensor) blood-glucose transmitter (Dexcom #1 ea 06/16/21 07/18/21 Unknown Rx G6 Transmitter) acetaminophen 500 mg tablet 1,000 mg PO Q6H PRN tab 06/23/21 07/18/21 Unknown History (Tylenol Extra Strength) insulin glargine 100 unit/mL (3 20 unit SUBCUT DAILY ml 06/23/21 07/18/21 07/18/21 History mL) subcutaneous pen (Lantus Solostar U-100 Insulin) Allergies Allergy/AdvReac Type Severity Reaction Status Date / Time ketorolac [From Toradol] Allergy Severe see Verified 07/18/21 17:14 comment methocarbamol [From Robaxin] Allergy Intermediate see Verified 07/18/21 17:14 comment trazodone Allergy Intermediate see Verified 07/18/21 17:14 comment cyclobenzaprine Allergy see Verified 07/18/21 17:14 [From Flexeril] comment tramadol Allergy see Verified 07/18/21 17:14 comment Current Medications Generic Name Dose Route Start Last Admin Trade Name Freq PRN Reason Stop Dose Admin Hydrocodone Bitart/Acetaminophen 1 tab 07/18/21 20:00 07/19/21 03:39 Hydrocodone-Acetaminophen 5-325 Mg Tablet PO 1 tab Q6H PRN Administration MODERATE TO SEVERE PAIN Diphenhydramine HCl 12.5 mg 07/19/21 09:45 07/19/21 09:50 Diphenhydramine 50 Mg/Ml Sdv 1ml IVP 07/19/21 09:46 12.5 mg ONCE ONE Administration Famotidine 20 mg 07/18/21 20:00 07/18/21 21:49 Famotidine 20 Mg/2 Ml Inj IVP 20 mg Q12H NIURKA Administration Ceftriaxone Sodium 1,000 mg/ 50 mls @ 100 mls/hr 07/18/21 21:00 07/18/21 22:32 Sodium Chloride IV Infused Q24H NIURKA Infusion Protocol Sodium Chloride 1,000 mls @ 75 mls/hr 07/18/21 20:00 07/18/21 21:26 Sodium Chloride 0.9% IV 75 mls/hr .[id number] NIURKA Administration Insulin Glargine 10 unit 07/18/21 21:00 07/18/21 21:37 Insulin Glargine 100 Units/1 Ml SUBCUT 10 unit BEDTIME NIURKA Administration Insulin Human Lispro 0 unit 07/18/21 21:00 07/18/21 21:29 Insulin Lispro 100 Unit/1 Ml SUBCUT 12 unit WM&BEDTIME NIURKA Administration Protocol Morphine Sulfate 1 mg 07/18/21 20:00 07/19/21 03:38 Morphine 4 Mg/Ml Sdv 1 Ml IVP 1 mg Q4H PRN Administration SEVERE PAIN Temazepam 60 mg 07/18/21 21:20 07/18/21 21:29 Temazepam 15 Mg Capsule PO 60 mg BEDTIME NIURKA Administration PFSH Acute PFSH: Medical History Ascending cholangitis Colon cancer Depression with anxiety Diabetes mellitus with ketoacidosis without coma Diabetic neuropathy Gallstone H/O fracture of ankle left History of diabetic ketoacidosis Nail fungus Neuropathy Surgical History H/O partial resection of colon H/O wrist surgery right S/P appendectomy S/P cholecystectomy S/P tonsillectomy Family History Family/Other Diabetes maternal side, female Son Diabetes Father Heart disease Mother Thyroid disease Daughter Thyroid disease Other Hypertension Denies family history of Colon cancer Ovarian cancer Clotting disorder Hypercholesteremia Breast cancer Anesthesia complication Bleeding disorder Uterine cancer Stroke Social History Smoking and tobacco status: former smoker Vitals/I&O/Wt Last Vital Signs Temp 98.6 F 07/19/21 09:15 Pulse 85 07/19/21 09:15 Resp 16 07/19/21 09:15 BP 157/61 07/19/21 09:15 Pulse Ox 96 07/19/21 09:15 07/18/21 07/19/21 07/19/21 22:59 06:59 14:59 Intake Total 1050 / 1050 300 / 1350 Output Total 1000 / 1000 Balance 1050 / 1050 -700 / 350 Weight last 48 hrs Weight 155 lb 3.2 oz Weight 139 lb Physical Exam Narrative: Patient has clear shortening external rotation of the right lower extremity She has exquisite pain with motion of the right hip I cannot feel a palpable dorsalis pedis or tibialis posterior pulse on either side although her toes are well-perfused. She will flex and extend her toes and ankle although she is limited on the right due to pain. Sensation is grossly intact to light touch Urinary Catheter Management: Boss: Cath Placed During This Visit: yes Reason for Continuing Indwelling Catheter: Perioperative Use in Selected Surgeries Urinary Catheter Date of Insertion: 07/18/21 Data : 07/19/21 05:35 07/19/21 05:35 Micro: Microbiology 07/18/21 19:25 MRSA Culture - Final Nose 07/18/21 19:25 Bacterial Antigens - Final Urine Kidney 07/18/21 19:25 Legionella Urinary Antigen - Final Unknown Source Xray Ortho: My impression: I reviewed radiographs of the right hip from 07/18/2021. The patient has a comminuted right intratrochanteric hip fracture with slight varus alignment and a 3 lesser trochanteric fragment A&P Assessment and plan (1) Closed intertrochanteric fracture: Options are discussed with Cara and her daughter and granddaughter. Cara was previously fully ambulatory. She has considerable pain. I discussed options with the patient.. I told the patient we could treat this nonoperatively but certainly they would be at risk for medical problems without surgery. They would have problems with pain that would require narcotics for pain control. They would require a long period of bedrest integrative medicine physician risk for pneumonia and skin breakdown. I discussed surgical intervention with the patient. I told them with open reduction internal fixation they should be able to be mobilized and resume ambulatory status. We can eliminate the problems associated with prolonged bed rest and would have better control of pain. Certainly there would be inherent risk with surgery. These would would include the risk of cardiac complications, stroke, infection, and even . I discussed risk of any orthopedic implant including nonunion, malunion, a component failure. I discussed the possible need for component removal. I discussed risk of deep venous thromboses and pulmonary emboli that are present with any treatment and the importance of DVT prophylaxis. The patient expressed good understanding of alternative treatments, seem to comprehend, and agrees to surgical intervention. Status: Acute Qualifiers: Encounter type: initial encounter Fracture alignment: displaced Laterality: right Qualified Code(s): S72.141A - Displaced intertrochanteric fracture of right femur, initial encounter for closed fracture Coding Level of Care Code Acute Hostel Parent for [facility] Diagnoses Closed intertrochanteric fracture S72.141A Encounter type: initial encounter Fracture alignment: displaced Laterality: right
--- NOTE | 2021-07-19 10:13 | SUR.PREOP ---
1006 PT READIED TO GO TO OR, DR FALCON TALKED WITH PT, KEON HELD PER A.HEIDI TRACK SERVICE WORKER,DILAUDID GIVEN TO TRACK SERVICE WORKER TO GIVE IN OR ROOM PER TRACK SERVICE WORKER REQUEST, PT TO OR PER BED FAMILY TO WAITING AREA.
--- NOTE | 2021-07-19 11:04 | PM.OP ---
Operative Report Date of procedure: July 19, 2021 Pre-op diagnosis: Preop Diagnosis Right intertrochanteric hip fracture Post-op diagnosis: same Post-op diagnosis: Same Procedure done: Open reduction internal fixation right hip with intramedullary device Implants: Phuong Gamma nail 11 mm x 340 mm, 10.5mm by 95 lag screw Pathology: none sent Surgeon: Harsha Conde Anesthesia: General Estimated blood loss (mL): 100 Complications: None Findings: The patient had a calm intratrochanteric fracture with a free lesser trochanteric fragment with varus displacement of the head and neck Condition: stable Disposition: PACU Procedure: The patient was taken to the operating room. They were given 1 g of Ancef. They were positioned on the fracture table with the right lower extremity in gentle traction. A timeout was performed. A 2 cm long incision was made proximal to the greater trochanter scalpel blade. Dissection was carried down to tip the greater trochanter. A guidepin was passed manually from the tip of the trochanter down the shaft. The proximal reamer was utilized to open up the proximal canal. An 11 mm by 340 Phuong gamma nail was passed down the canal without difficulty. Under visualization of fluoroscopy a guidepin was driven up into the head and neck at 125? angle. It was measured at 95 mm in length and a lag screw similar length was then placed and locked into place with the proximal locking screw. Intraoperative imaging was obtained verifying satisfactory position of the hardware and reduction of the fracture. Deep tissues were closed with 0 Vicryl as were subcutaneous tissues. The skin was closed with running 4-0 subcutaneous Monocryl suture. Sterile dressings were applied. The patient was extubated and taken to recovery room in stable condition.
[2021-07-19] MEDS: fentaNYL 50 mcg/mL INJ 2mL IVP (11:28)
--- NOTE | 2021-07-19 11:39 | SUR.PHASEI ---
1114 PT TO PACU 5 PT AWAKES ,ORAL AIRWAY OUT, GOOD RESP EFFORT NOTED PT MARY OUT WITH PAIN, STATING (OH IT HURTS) FACE SCALE 8/10 RT HIP DRESSING X 2 WITH OPSITE, UPPER DRESSING WITH APPROX GOLF SIZED SWELLING NOTED AROUND DRESSING BUT NO OBVIOUS BLEEDING OR SKIN BRUISING, DR FALCON CALLED WITH ABOVE INFORMATION, ORDERS RECIEVED TO KEEP AN EYE ON IT , ICE TO RT HIP SITES, DISTAL FOOT PINK WARM WITH PULSE NOTED +1 PT ABLE TO MOVE TOES TO COMMAND, CRESPO TO DD WITH STATLOCK TO LT INNER THIGH, YELLOW URINE NOTED TO TUBING AND BAG, IV TO LT WRIST PIID #[id number], IV TO RT WRIST #20 WITH NS 350ML UP AT MOD RATE,
--- NOTE | 2021-07-19 12:32 | ANE.PACU2 ---
Inpatient post-anesthesia follow up: Airway intact: Yes Vital signs: Temperature 97.5 F Pulse Rate 80 Respiratory Rate 12 Blood Pressure 116/65 Pulse Oximetry 100 Oxygen Delivery Me thod Nasal Cannula Oxygen Flow Rate 3 Fraction of Inspir ed Oxygen 21 Hydration adequate: Yes Nausea and vomiting: No Pain level: 2 Mental status: Baseline
[2021-07-19 12:54] LABS: Glucose Point of Care 183 mg/dL (70-110)
--- NOTE | 2021-07-19 14:28 | PC.NURSE ---
Hold lunch insulin for patient due to no lunch eaten and patient back from surgery after 12.
--- NOTE | 2021-07-19 14:59 | P.PN_ITS ---
Subjective Subjective: Seen postoperatively. Denies any nausea vomiting, headache. Tolerated procedure well. Hemodynamically stable and afebrile. Vitals/I&O/Wt Last Vital Signs Temp 97.6 F 07/19/21 14:05 Pulse 85 07/19/21 14:05 Resp 16 07/19/21 14:05 BP 120/64 07/19/21 14:05 Pulse Ox 98 07/19/21 14:05 07/18/21 07/19/21 07/19/21 22:59 06:59 14:59 Intake Total 1050 / 1050 300 / 1350 50 / 50 Output Total 1000 / 1000 125 / 125 Balance 1050 / 1050 -700 / 350 -75 / -75 Weight last 48 hrs Weight 70.398 kg Weight 63.049 kg Physical Exam Narrative: General: AOx3, no acute distress, slightly drowsy postoperatively HEENT: PERRLA, pupils bilaterally equal and reactive Chest: Normal vesicular breath sounds, no added sounds, equal good air entry bilaterally CVS: S1-S2 regular, no murmurs, no tachycardia, no gallops, no rubs Abdomen: Soft, nontender, no organomegaly, bowel sounds present Neuro: No focal deficits, no facial deformity, AO x3, power 5/5 in all limbs Extremity: Right hip surgically dressed. Urinary Catheter Management: Boss: Cath Placed During This Visit: yes Reason for Continuing Indwelling Catheter: Perioperative Use in Selected Surgeries Urinary Catheter Date of Insertion: 07/18/21 Data : 07/19/21 05:35 07/19/21 05:35 Micro: Microbiology 07/18/21 19:25 MRSA Culture - Final Nose 07/18/21 19:25 Bacterial Antigens - Final Urine Kidney 07/18/21 19:25 Legionella Urinary Antigen - Final Unknown Source A&P Assessment and plan (1) Closed intertrochanteric fracture: Post-ORIF day 0 Physical therapy, anticoagulation, pain medication as per OR team. Will monitor hemoglobin. Status: Acute Qualifiers: Encounter type: initial encounter Fracture alignment: displaced Laterality: right Qualified Code(s): S72.141A - Displaced intertrochanteric fracture of right femur, initial encounter for closed fracture (2) ARNALDO (acute kidney injury): Resolved. Most likely secondary to dehydration. Continue with normal saline at 75 cc/h. We will stop tomorrow if patient is taking oral well. Monitor BMP daily. Status: Acute (3) Uncontrolled type 2 diabetes mellitus: A1c more than 9. Continue with home dose of Lantus. Seeing sliding scale at moderate dose protocol. History of DKA. Status: Acute Plan Leukocytosis: Might be secondary to UTI. Patient denies dysuria. UA concerning with 1+ leuk esterase. Follow-up urine culture, blood culture. Continue with Rocephin. Analgesia: Hustler 5 mg every 6 hours as needed, Tylenol Glycemic control: Lantus, insulin sliding scale Nutrition: Diabetic diet, CODE STATUS: Full code PUD prophylaxis: Pepcid DVT prophylaxis: Lovenox postoperatively Discharge planning: Home with home health versus SNF depending on physical therapy postoperatively. [facility] Necessity Statement*: Requires further hospitalization of post-ORIF care Time Spent in Patient Care: Greater than 35 minutes Coding Level of Care Code Acute Supervisor Color Paste Mixing for [facility] Fwd Diagnoses Closed intertrochanteric fracture S72.141A Encounter type: initial encounter Fracture alignment: displaced Laterality: right ARNALDO (acute kidney injury) N17.9 Uncontrolled type 2 diabetes mellitus E11.65
[2021-07-19 16:58] LABS: Free T4 Free Thyroxine 1.03 ng/dL (0.82-1.77); T3 Free 2.5 PG/ML (2.0-4.4)
[2021-07-19] MEDS: ferrous gluconate 324 mg Tablet PO (18:42)
[2021-07-19] MEDS: docusate sodium 100 mg Capsule PO (18:42)
[2021-07-19] MEDS: temazepam 15 mg Capsule 30 MG PO (20:54)
[2021-07-19] MEDS: famotidine 20 mg/2 mL INJ IVP (21:03)
[2021-07-19 22:18] LABS: Glucose Point of Care 231 mg/dL (70-110)
[2021-07-19] MEDS: insulin lispro 100 unit/1 mL SUBCUT (22:22)
[2021-07-19] MEDS: sodium chloride 0.9% 1,000 ML 75 ML IV (23:40)
[2021-07-20] VITALS (20 sets, daily range): BP systolic 111–149; BP diastolic 57–71; PULSE 92–102; RESP 16–18; TEMP 36.6–37.7; O2SAT 96–99
[2021-07-20] MEDS: HYDROcodone-acetaminophen 5-325 mg Tablet 1 TAB PO ×3 (03:32→16:08)
[2021-07-20 05:42] LABS: Basophils % 0.3 %; Eosinophils % 0.3 %; Hematocrit 22.6 % (37.0-47.0); Hemoglobin 7.2 g/dL (11.5-15.3); Lymphocytes # 1.3 10^3/uL (0.8-4.8); Lymphocytes % 14.6 %; Mean Corpuscular HGB Conc 31.9 g/dL (30.0-36.0); Mean Corpuscular Hemoglobin 28.2 pg (28.0-34.0); Mean Corpuscular Volume 88.6 fl (81-99); Mean Platelet Volume 9.5 fL (7.4-10.4); Monocytes # 0.5 10^3/uL (0.2-0.9); Monocytes % 5.5 %; Neutrophils # 6.86 10^3/uL (1.8-7.7); Neutrophils % 78.8 %; Nucleated Red Blood Cells % 0 %; Platelet Count 294 10^3/cmm (130-400); Red Blood Count 2.55 10^6/uL (4.1-5.3); Red Cell Distribution Width 12.8 % (12.1-15.1); White Blood Count 8.7 10^3/uL (4.0-10.0)
[2021-07-20 06:01] LABS: Alanine Aminotransferase 6 U/L (0-33); Albumin Level 2.8 g/dL (3.5-5.2); Alkaline Phosphatase 60 IU/L (35-105); Anion Gap 13.7 (5-19); Aspartate Amino Transferase 9 U/L (0-32); Blood Urea Nitrogen 22 mg/dL (8-23); Calcium 7.7 mg/dL (8.5-10.5); Carbon Dioxide 20 mmol/L (22-29); Chloride 109 mmol/L (98-107); Globulin 3.2 g/dL (1.3-4.6); Glucose 144 mg/dL (65-115); Osmolality Calculated 294 mOsm/kg (285-295); Potassium 3.7 mmol/L (3.5-5.1); Sodium 139 mmol/L (136-145); Total Bilirubin 0.2 mg/dL (0.15-1.2)
[2021-07-20 06:50] LABS: Glucose Point of Care 156 mg/dL (70-110)
[2021-07-20] MEDS: docusate sodium 100 mg Capsule PO ×2 (08:46→18:41)
[2021-07-20] MEDS: famotidine 20 mg/2 mL INJ IVP ×2 (08:46→21:53)
[2021-07-20] MEDS: ferrous gluconate 324 mg Tablet PO ×2 (08:46→18:41)
[2021-07-20] MEDS: insulin lispro 100 unit/1 mL SUBCUT ×3 (08:47→17:53)
[2021-07-20] MEDS: insulin glargine 100 units/1 mL 10 UNIT SUBCUT (08:48)
[2021-07-20] MEDS: enoxaparin 40 mg/0.4 mL Syringe SUBCUT (09:49)
[2021-07-20 11:43] LABS: Glucose Point of Care 198 mg/dL (70-110)
[2021-07-20] MEDS: magnesium hydroxide 30 mL UDC PO (12:10)
--- NOTE | 2021-07-20 13:29 | P.PN_ITS ---
Subjective Subjective: Documents overnight. Underwent ORIF yesterday. Today morning. With physical therapy. Complaining of pain. During physical therapy complaining of mild dizziness. Family at bedside. Denies any nausea vomiting, headache. Vitals/I&O/Wt Last Vital Signs Temp 98.4 F 07/20/21 13:18 Pulse 98 07/20/21 13:18 Resp 18 07/20/21 13:18 BP 136/70 07/20/21 13:16 Pulse Ox 97 07/20/21 12:03 07/19/21 07/20/21 07/20/21 22:59 06:59 14:59 Intake Total 1530 / 1580 50 / 1630 480 / 480 Output Total 625 / 750 Balance 1530 / 1455 -575 / 880 480 / 480 Weight last 48 hrs Weight 70.398 kg Weight 63.049 kg Physical Exam Narrative: General: AOx3, no acute distress, pallor present HEENT: PERRLA, pupils bilaterally equal and reactive Chest: Normal vesicular breath sounds, no added sounds, equal good air entry bilaterally CVS: S1-S2 regular, no murmurs, no tachycardia, no gallops, no rubs Abdomen: Soft, nontender, no organomegaly, bowel sounds present Neuro: No focal deficits, no facial deformity, AO x3, power 5/5 in all limbs Extremity: Right hip surgically dressed. Urinary Catheter Management: Boss: Cath Placed During This Visit: yes, but has since been removed by the nurse Reason for Continuing Indwelling Catheter: Decision to DC Catheter Urinary Catheter Date of Insertion: 07/18/21 Date Urinary Catheter Removed: 07/20/21 Time Urinary Catheter Discontinued: 06:42 Data : 07/20/21 05:20 07/20/21 05:20 Micro: Microbiology 07/18/21 19:25 Urine Culture - Preliminary Urine,Voided 07/18/21 19:25 MRSA Culture - Final Nose 07/18/21 19:25 Bacterial Antigens - Final Urine Kidney A&P Assessment and plan (1) Closed intertrochanteric fracture: Post-ORIF day 1 [place] 5 mg every 6 hours as needed. Lovenox for DVT prophylaxis. Hemoglobin 7.2 today. Most likely postoperative recuperation. No active GI bleed. Transfuse 2 unit of PRBC. Status: Acute Qualifiers: Encounter type: initial encounter Fracture alignment: displaced Laterality: right Qualified Code(s): S72.141A - Displaced intertrochanteric fracture of right femur, initial encounter for closed fracture (2) ARNALDO (acute kidney injury): Resolved. Most likely secondary to dehydration. Stop IV fluids. Patient taking orally well. Monitor BMP daily. Status: Acute (3) Uncontrolled type 2 diabetes mellitus: A1c more than 9. Continue with home dose of Lantus. Insulin sliding scale at moderate dose protocol. History of DKA. Status: Acute Plan Leukocytosis: Resolved. Might be secondary to UTI. Patient denies dysuria. UA concerning with 1+ leuk esterase. Follow-up urine culture, blood culture. Continue with Rocephin to finish a 3-day course. Analgesia: [place] 5 mg every 6 hours as needed, Tylenol Glycemic control: Lantus, insulin sliding scale Nutrition: Diabetic diet, CODE STATUS: Full code PUD prophylaxis: Pepcid DVT prophylaxis: Lovenox 40 mg subcu daily. Discharge planning: PT recommends SNF placement. Family wants patient to be placed to SNF for further rehabitation. Case management alerted[facility] Medical Necessity Statement*: Requires further hospitalization for post-ORIF care while safe discharge planning is sought, postoperative anemia requiring blood transfusion Time Spent in Patient Care: Greater than 35 minutes Coding Level of Care Code Acute Spray Dyer for [facility] Diagnoses Closed intertrochanteric fracture S72.141A Encounter type: initial encounter Fracture alignment: displaced Laterality: right ARNALDO (acute kidney injury) N17.9 Uncontrolled type 2 diabetes mellitus E11.65
[2021-07-20 17:34] LABS: Glucose Point of Care 322 mg/dL (70-110)
[2021-07-20] MEDS: sodium chloride 0.9% (100 ml) 100 ML 125 ML (20:14)
[2021-07-20] MEDS: temazepam 15 mg Capsule 30 MG PO (21:10)
--- NOTE | 2021-07-20 21:19 | P.PN_ITS ---
Subjective Subjective: Patient with some breakthrough pain hydrocodone Vitals/I&O/Wt Last Vital Signs Temp 97.8 F 07/20/21 20:00 Pulse 97 07/20/21 20:18 Resp 16 07/20/21 20:18 BP 127/62 07/20/21 20:00 Pulse Ox 97 07/20/21 20:18 07/20/21 07/20/21 07/20/21 06:59 14:59 22:59 Intake Total 50 / 1630 1530 / 1530 100 / 1630 Output Total 625 / 750 Balance -575 / 880 1530 / 1530 100 / 1630 Weight last 48 hrs Weight 155 lb 3.2 oz Physical Exam Narrative: Right hip dressings clean and dry. Minimal swelling right thigh Urinary Catheter Management: Boss: Cath Placed During This Visit: yes, but has since been removed by the nurse Reason for Continuing Indwelling Catheter: Decision to DC Catheter Urinary Catheter Date of Insertion: 07/18/21 Date Urinary Catheter Removed: 07/20/21 Time Urinary Catheter Discontinued: 06:42 Data : 07/20/21 05:20 07/20/21 05:20 Micro: Microbiology 07/18/21 19:25 Urine Culture - Preliminary Urine,Voided A&P Assessment and plan (1) Closed intertrochanteric fracture: Status: Acute Qualifiers: Encounter type: initial encounter Fracture alignment: displaced Laterality: right Qualified Code(s): S72.141A - Displaced intertrochanteric fracture of right femur, initial encounter for closed fracture (2) Status post open reduction with internal fixation of fracture: Continue to mobilize with therapy. Will need residential. Status: Acute (3) Anemia, blood loss: Received 2 units packed red blood cells today. Status: Acute Attestations Medical Necessity Statement*: Will need residential placement Coding Level of Care Code Acute Scale Balancer for g Fwd Diagnoses Status post open reduction with internal fixation of fracture Z98.890; Z87.81 Closed intertrochanteric fracture S72.141A Encounter type: initial encounter Fracture alignment: displaced Laterality: right Anemia, blood loss D50.0
[2021-07-20 21:51] LABS: Glucose Point of Care 130 mg/dL (70-110)
[2021-07-21] VITALS (11 sets, daily range): BP systolic 103–152; BP diastolic 57–76; PULSE 84–107; RESP 16–18; TEMP 36.4–37.8; O2SAT 95–97
[2021-07-21] MEDS: oxyCODONE 5 mg IR Tab/Cap PO ×4 (00:17→18:40)
[2021-07-21 03:41] LABS: Basophils # 0.1 10^3/uL (0.0-0.1); Basophils % 0.4 %; Eosinophils % 0.3 %; Hematocrit 29.8 % (37.0-47.0); Hemoglobin 9.6 g/dL (11.5-15.3); Lymphocytes # 1.7 10^3/uL (0.8-4.8); Lymphocytes % 14.7 %; Mean Corpuscular HGB Conc 32.2 g/dL (30.0-36.0); Mean Corpuscular Hemoglobin 28.4 pg (28.0-34.0); Mean Corpuscular Volume 88.2 fl (81-99); Mean Platelet Volume 9.9 fL (7.4-10.4); Monocytes # 0.8 10^3/uL (0.2-0.9); Monocytes % 7.3 %; Neutrophils # 8.65 10^3/uL (1.8-7.7); Neutrophils % 76.2 %; Nucleated Red Blood Cells % 0 %; Platelet Count 286 10^3/cmm (130-400); Red Blood Count 3.38 10^6/uL (4.1-5.3); Red Cell Distribution Width 13.1 % (12.1-15.1); White Blood Count 11.4 10^3/uL (4.0-10.0)
[2021-07-21 06:26] LABS: Glucose Point of Care 210 mg/dL (70-110)
[2021-07-21] MEDS: ferrous gluconate 324 mg Tablet PO ×2 (10:07→17:32)
[2021-07-21] MEDS: insulin glargine 100 units/1 mL 10 UNIT SUBCUT (10:08)
[2021-07-21] MEDS: docusate sodium 100 mg Capsule PO ×2 (10:08→17:32)
[2021-07-21] MEDS: acetaminophen 500 mg Tablet 1000 MG PO ×2 (10:08→18:44)
[2021-07-21] MEDS: famotidine 20 mg/2 mL INJ IVP ×2 (10:08→20:34)
[2021-07-21] MEDS: insulin lispro 100 unit/1 mL SUBCUT ×4 (10:09→21:21)
[2021-07-21] MEDS: enoxaparin 40 mg/0.4 mL Syringe SUBCUT (10:15)
[2021-07-21 11:10] LABS: Glucose Point of Care 371 mg/dL (70-110)
[2021-07-21] MEDS: ALPRAZolam 0.5 mg Tablet PO (11:32)
--- NOTE | 2021-07-21 16:01 | PC.SOCIAL ---
IMM Update pg 2 of IMM updated and reviewed w/ patient and family. Copy provided and copy in chart updated.
[2021-07-21 17:06] LABS: Glucose Point of Care 242 mg/dL (70-110)
--- NOTE | 2021-07-21 20:25 | P.PN_ITS ---
Subjective Subjective: Chest feeling quite anxious and tremulous when trying to work with physical therapy, and says sometimes gets tremulous even at rest. In the past reportedly used to take Xanax as needed for anxiety. Feels anxiety has been quite significant exacerbated by her current condition, and that she would get better subsequently. Discussed risks with her and her daughter regarding benzodiazepine use, especially long-term use. Discussed follow-up with [facility] to follow-up for continued management of anxiety. Vitals/I&O/Wt Last Vital Signs Temp 97.9 F 07/21/21 15:55 Pulse 84 07/21/21 15:55 Resp 18 07/21/21 18:40 BP 103/57 07/21/21 15:55 Pulse Ox 96 07/21/21 15:55 07/21/21 07/21/21 07/21/21 06:59 14:59 22:59 Intake Total 720 / 2700 240 / 240 120 / 360 Output Total 0 / 0 Balance 720 / 2700 240 / 240 120 / 360 Physical Exam Narrative: Family at bedside Const: COMMON NORMALS: alert GENERAL APPEARANCE: cooperative and anxious ORIENTATION/CONSCIOUSNESS: Yes awake HENMT: COMMON NORMALS: normocephalic, EAC's normal, Normal external nose present and moist oral mucous membranes HEAD & SCALP: normocephalic NOSE: Normal external nose present EXTERNAL AUDITORY CANAL: EAC's normal Neck/C-Spine: COMMON NORMALS: no meningeal signs Chest: CHEST: Yes Symmetrical chest wall rise Resp: COMMON NORMALS: clear to auscultation bilaterally AUSCULTATION: clear to auscultation bilaterally Cardio: COMMON NORMALS: regular rate, regular rhythm and No murmurs present (Cardio) RATE: regular rate RHYTHM: regular rhythm GI: COMMON NORMALS: Normal to inspection, nondistended, normoactive bowel sounds present, Soft to palpation and non-tender PALPATION: Yes Soft to palpation Extremity: COMMON NORMALS: no pedal edema Neuro: COMMON NORMALS: moves all extremities SENSORIUM/ORIENTATION: Yes alert MENINGEAL SIGNS: Yes no meningeal signs Psych: COMMON NORMALS: mental status grossly normal Skin: COMMON NORMALS: no wounds RASHES: no rashes Urinary Catheter Management: Boss: Cath Placed During This Visit: yes, but has since been removed by the nurse Reason for Continuing Indwelling Catheter: Decision to DC Catheter Urinary Catheter Date of Insertion: 07/18/21 Date Urinary Catheter Removed: 07/20/21 Time Urinary Catheter Discontinued: 06:42 Data : 07/21/21 02:30 07/20/21 05:20 Micro: Microbiology 07/18/21 19:25 Urine Culture - Final Urine,Voided A&P Assessment and plan (1) Closed intertrochanteric fracture: Anxious, with intermittent severe anxiety attacks especially trying to work with therapy. Discussed with her risks of long-term benzodiazepine use, other alternatives, encouraged follow-up with [facility]. For now is Xanax as needed for severe anxiety. Continue temazepam. Continue to mobilize with PT. Pain control. Reassess hemoglobin, responded to blood transfusion. Continue arrangements for rehabilitation after discharge at SNF. Lovenox for DVT prophylaxis. Status: Acute Qualifiers: Encounter type: initial encounter Fracture alignment: displaced Laterality: right Qualified Code(s): S72.141A - Displaced intertrochanteric fracture of right femur, initial encounter for closed fracture (2) ARNALDO (acute kidney injury): Resolved. Most likely secondary to dehydration. Stop IV fluids. Patient taking orally well. Monitor BMP daily. Status: Acute (3) Uncontrolled type 2 diabetes mellitus: A1c more than 9. Continue with home dose of Lantus. Insulin sliding scale at moderate dose protocol. History of DKA. Status: Acute Plan Leukocytosis: Mild. Follow-up urine culture. So far without growth. Completed with Rocephin to finish a 3-day course. Attestations Medical Necessity Statement*: Continue care following hip fracture and ORIF, management of severe episodic anxiety, disposition planning and arrangements. Coding Level of Care Code Acute Public Health Informatician for Veron[facility] Spann Diagnoses Closed intertrochanteric fracture S72.141A Encounter type: initial encounter Fracture alignment: displaced Laterality: right ARNALDO (acute kidney injury) N17.9 Uncontrolled type 2 diabetes mellitus E11.65
[2021-07-21] MEDS: temazepam 15 mg Capsule 30 MG PO (20:36)
--- NOTE | 2021-07-21 20:44 | PC.NURSE ---
Patient assisted to bedside commode with 2 assist and gait belt. Patient screaming due to pain in right hip and refuses to move right leg. Patient asking for Morphine for pain stating her pain is 10/10. Dr. Vasquez notified. One time Morphine ordered. Went in patient room to give Morphine. Patient is sitting on the site of the bed. Patient does not appear to be in as much pain currently as she was when she was going to [facility]. Patient still rates her pain 10/10, but is refusing Morphine at this time.
[2021-07-21] MEDS: morphine 4 mg/mL SDV 1 mL 2 MG IVP (21:19)
[2021-07-21] MEDS: ondansetron 2 mg/ML SDV 2 mL 4 MG IVP (21:19)
[2021-07-21 21:23] LABS: Glucose Point of Care 214 mg/dL (70-110)
--- NOTE | 2021-07-21 22:34 | PC.NURSE ---
clinical nurse specialist in room with primary RN to assess patient's surgical site and distal. Pedal pulses absent bilaterally, however all other assessments distal to site WNL.
[2021-07-22] VITALS (8 sets, daily range): BP systolic 120–153; BP diastolic 65–72; PULSE 92–108; RESP 14–18; TEMP 36.5–36.9; O2SAT 93–98
--- NOTE | 2021-07-22 01:03 | PC.NURSE ---
Patient is currently resting in bed with eyes closed.
[2021-07-22 03:09] LABS: Basophils % 0.3 %; Eosinophils # 0.1 10^3/uL (0.0-0.8); Eosinophils % 1.2 %; Hematocrit 26.8 % (37.0-47.0); Hemoglobin 8.8 g/dL (11.5-15.3); Lymphocytes % 19.4 %; Mean Corpuscular HGB Conc 32.8 g/dL (30.0-36.0); Mean Corpuscular Hemoglobin 28.5 pg (28.0-34.0); Mean Corpuscular Volume 86.7 fl (81-99); Mean Platelet Volume 9.8 fL (7.4-10.4); Monocytes # 0.8 10^3/uL (0.2-0.9); Monocytes % 7.4 %; Neutrophils # 7.36 10^3/uL (1.8-7.7); Neutrophils % 71.1 %; Nucleated Red Blood Cells % 0 %; Platelet Count 337 10^3/cmm (130-400); Red Blood Count 3.09 10^6/uL (4.1-5.3); White Blood Count 10.4 10^3/uL (4.0-10.0)
--- NOTE | 2021-07-22 03:10 | PC.NURSE ---
Pedal pulses currently present bilaterally via doppler.
[2021-07-22 03:41] LABS: Anion Gap 13.8 (5-19); Blood Urea Nitrogen 21 mg/dL (8-23); Calcium 7.9 mg/dL (8.5-10.5); Carbon Dioxide 23 mmol/L (22-29); Chloride 104 mmol/L (98-107); Glucose 125 mg/dL (65-115); Osmolality Calculated 288 mOsm/kg (285-295); Potassium 3.8 mmol/L (3.5-5.1); Sodium 137 mmol/L (136-145)
[2021-07-22 06:05] LABS: Glucose Point of Care 215 mg/dL (70-110)
--- NOTE | 2021-07-22 08:05 | PM.PN ---
Subjective Subjective: Patient concerned that she is not getting her temazepam. She is able to pass urine when nurses get her up. Some p.o. intake. Complains of abdominal discomfort this morning Vitals/I&O/Wt Last Vital Signs Temp 98.4 F 07/22/21 07:39 Pulse 108 H 07/22/21 07:39 Resp 15 07/22/21 07:39 BP 153/72 07/22/21 07:39 Pulse Ox 93 07/22/21 07:39 07/21/21 07/22/21 07/22/21 22:59 06:59 14:59 Intake Total 120 / 360 Balance 120 / 360 Physical Exam Narrative: Right hip dressing clean and dry. Minimal swelling right thigh. Urinary Catheter Management: Boss: Cath Placed During This Visit: yes, but has since been removed by the nurse Reason for Continuing Indwelling Catheter: Decision to DC Catheter Urinary Catheter Date of Insertion: 07/18/21 Date Urinary Catheter Removed: 07/20/21 Time Urinary Catheter Discontinued: 06:42 Data : 07/22/21 02:10 07/22/21 02:10 Micro: Microbiology 07/18/21 19:25 Urine Culture - Final Urine,Voided A&P Assessment and plan (1) Status post open reduction with internal fixation of fracture: No orthopedic issues. Continue to mobilize with therapy. Awaiting snf placement. Status: Acute Attestations Medical Necessity Statement*: Awaiting snf Coding Level of Care Code Acute [employer] Machine Operator for [facility]on[facility] Fwmisty Diagnoses Status post open reduction with internal fixation of fracture Z98.890; Z87.81
[2021-07-22] MEDS: insulin glargine 100 units/1 mL 10 UNIT SUBCUT (08:31)
[2021-07-22] MEDS: insulin lispro 100 unit/1 mL SUBCUT ×2 (08:31→11:18)
[2021-07-22] MEDS: ALPRAZolam 0.5 mg Tablet PO (08:32)
[2021-07-22] MEDS: acetaminophen 500 mg Tablet 1000 MG PO (08:32)
[2021-07-22] MEDS: oxyCODONE 5 mg IR Tab/Cap PO ×2 (08:32→12:52)
[2021-07-22] MEDS: docusate sodium 100 mg Capsule PO (08:33)
[2021-07-22] MEDS: famotidine 20 mg/2 mL INJ IVP (08:33)
[2021-07-22] MEDS: ferrous gluconate 324 mg Tablet PO (08:33)
[2021-07-22] MEDS: enoxaparin 40 mg/0.4 mL Syringe SUBCUT (10:46)
[2021-07-22 10:51] LABS: Glucose Point of Care 299 mg/dL (70-110)
--- NOTE | 2021-07-22 11:15 | P.DS_ITS ---
Discharge Providers Date of Admission: 07/18/21 18:02 Date of Discharge: July 22, 2021 Attending Provider at Admission: Isra Garcia MD Attending Provider at Discharge: Zaki Murillo Primary Care Provider: Christin Bolaños DO Diagnoses at Discharge Discharge Diagnosis (1) Status post open reduction with internal fixation of fracture: Status: Acute Reason for Visit Reason for Visit: TRIPPED/FALL Hospital Course Hospital Course Pleasant 75-year-old lady with history of diabetes, colon cancer, recent work-up to rule out uterine cancer with D&C, sustained a mechanical fall, with resultant right hip fracture, status post ORIF in the hospital, on admission with acute kidney injury which had resolved. With fracture, preoperative hemoglobin decreased required 2 units of RBC transfusion. Please follow-up hemoglobin on Wednesday, and at subsequent appointment. Follow-up renal function at appointment to confirm resolution of ARNALDO. During hospitalization also with noted significant anxiety, possibly related to acute illness, however, in case not resolving, please refer for additional follow-up with [facility]. Wean off Xanax after 1 week. Attempt to avoid long-term benzodiazepines. Consider gradually weaning off and discontinue temazepam if possible. Physical Exam Narrative: Up in chair Const: COMMON NORMALS: alert GENERAL APPEARANCE: cooperative ORIENTATION/CONSCIOUSNESS: Yes awake OTHER: Today she is much calmer, in better spirits. HENMT: COMMON NORMALS: normocephalic, EAC's normal, Normal external nose present and moist oral mucous membranes HEAD & SCALP: normocephalic NOSE: Normal external nose present EXTERNAL AUDITORY CANAL: EAC's normal Eye: OTHER: Chronic anisocoria, chronic right eye blindness Neck/C-Spine: COMMON NORMALS: no meningeal signs Chest: CHEST: Yes Symmetrical chest wall rise Resp: COMMON NORMALS: clear to auscultation bilaterally AUSCULTATION: clear to auscultation bilaterally Cardio: COMMON NORMALS: regular rate, regular rhythm and No murmurs present (Cardio) RATE: regular rate RHYTHM: regular rhythm GI: COMMON NORMALS: Normal to inspection, nondistended, normoactive bowel sounds present, Soft to palpation and non-tender PALPATION: Yes Soft to palpation Extremity: COMMON NORMALS: no pedal edema Neuro: COMMON NORMALS: moves all extremities SENSORIUM/ORIENTATION: Yes alert MENINGEAL SIGNS: Yes no meningeal signs Psych: COMMON NORMALS: mental status grossly normal Skin: COMMON NORMALS: no wounds RASHES: no rashes Urinary Catheter Management: Boss: Cath Placed During This Visit: yes, but has since been removed by the nurse Reason for Continuing Indwelling Catheter: Decision to DC Catheter Urinary Catheter Date of Insertion: 07/18/21 Date Urinary Catheter Removed: 07/20/21 Time Urinary Catheter Discontinued: 06:42 Discharge Data Studies Completed and Pending Completed Studies During Hospitalization Category Date Time Status XR femur RT 1V [id number] Stat Exams 07/18/21 16:26 Completed XR hip RT 2-3V wo/w pel* [id number] Routine Exams 07/19/21 Completed XR hip RT 2-3V wo/w pel* [id number] Stat Exams 07/18/21 16:21 Completed Pending at discharge Category Date Time Status Basic Metabolic Panel AM LABS Lab 07/23/21 04:00 Ordered Basic Metabolic Panel AM LABS Lab 07/24/21 04:00 Ordered Complete Blood Count w/Auto AM LABS Lab 07/23/21 04:00 Ordered Complete Blood Count w/Auto AM LABS Lab 07/24/21 04:00 Ordered Radiology Impressions Femur X-Ray 07/18/21 16:26 IMPRESSION: Right inter trochanteric fracture. No fracture of the mid/distal femur. Limited single view exam. Hip/Pelvis X-Ray 07/19/21 00:00 IMPRESSION: Images obtained for intraoperative purposes. Laboratory Results WBC 10.4 10^3/uL (4.0-10.0) H 07/22/21 02:10 Corrected WBC Cancelled 07/18/21 16:45 RBC 3.09 10^6/uL (4.1-5.3) L 07/22/21 02:10 Hgb 8.8 g/dL (11.5-15.3) L 07/22/21 02:10 Hct 26.8 % (37.0-47.0) L 07/22/21 02:10 MCV 86.7 fl (81-99) 07/22/21 02:10 MCH 28.5 pg (28.0-34.0) 07/22/21 02:10 MCHC 32.8 g/dL (30.0-36.0) 07/22/21 02:10 RDW 13.0 % (12.1-15.1) 07/22/21 02:10 Plt Count 337 10^3/cmm (130-400) 07/22/21 02:10 MPV 9.8 fL (7.4-10.4) 07/22/21 02:10 Gran % Cancelled 07/18/21 16:45 Neut % (Auto) 71.1 % 07/22/21 02:10 Lymph % (Auto) 19.4 % 07/22/21 02:10 [place] % (Auto) 7.4 % 07/22/21 02:10 Eos % (Auto) 1.2 % 07/22/21 02:10 Baso % (Auto) 0.3 % 07/22/21 02:10 Neut # (Auto) 7.36 10^3/uL (1.8-7.7) 07/22/21 02:10 Lymph # (Auto) 2.0 10^3/uL (0.8-4.8) 07/22/21 02:10 [place] # (Auto) 0.8 10^3/uL (0.2-0.9) 07/22/21 02:10 Eos # (Auto) 0.1 10^3/uL (0.0-0.8) 07/22/21 02:10 Baso # (Auto) 0.0 10^3/uL (0.0-0.1) 07/22/21 02:10 Absolute Gran (auto) Cancelled 07/18/21 16:45 Nucleated RBC % (auto) 0 % 07/22/21 02:10 Nucleated RBCs # 0.0 /100WBC 07/22/21 02:10 PT 12.80 SECONDS (12.1-14.9) 07/18/21 17:45 INR 0.93 (0.8-1.2) 07/18/21 17:45 Sodium 137 mmol/L (136-145) 07/22/21 02:10 Potassium 3.8 mmol/L (3.5-5.1) 07/22/21 02:10 Chloride 104 mmol/L (98-107) 07/22/21 02:10 Carbon Dioxide 23 mmol/L (22-29) 07/22/21 02:10 Anion Gap 13.8 (5-19) 07/22/21 02:10 BUN 21 mg/dL (8-23) 07/22/21 02:10 Creatinine 0.5 mg/dL (0.5-0.9) 07/22/21 02:10 GFR Calculation Not Reportable 07/22/21 02:10 Glucose 125 mg/dL (65-115) H 07/22/21 02:10 POC Glucose 299 mg/dL (70-110) H 07/22/21 10:42 Estimat Average Glucose 220 07/19/21 05:35 Estimat Average Glucose Cancelled 07/19/21 05:35 Hemoglobin A1c 9.3 % (4.0-6.0) H 07/19/21 05:35 Hemoglobin A1c Cancelled 07/19/21 05:35 Calculated Osmolality 288 mOsm/kg (285-295) 07/22/21 02:10 Calcium 7.9 mg/dL (8.5-10.5) L 07/22/21 02:10 Phosphorus 3.6 mg/dL (2.5-4.5) 07/19/21 05:35 Magnesium 2.1 mg/dL (1.7-2.3) 07/19/21 05:35 Iron 16 ug/dL (37-145) L 07/18/21 16:45 TIBC 290 mcg/dl 07/18/21 16:45 % Saturation 5.5 % (20-50) L 07/18/21 16:45 Unsat Iron Binding 274 ug/dL (112-347) 07/18/21 16:45 Total Bilirubin 0.2 mg/dL (0.15-1.2) 07/20/21 05:20 AST 9 U/L (0-32) 07/20/21 05:20 ALT 6 U/L (0-33) 07/20/21 05:20 Alkaline Phosphatase 60 IU/L (35-105) 07/20/21 05:20 Creatine Kinase 96 U/L (26-192) 07/18/21 16:45 Total Protein 6.0 g/dL (6.6-8.7) L 07/20/21 05:20 Albumin 2.8 g/dL (3.5-5.2) L 07/20/21 05:20 Globulin 3.2 g/dL (1.3-4.6) 07/20/21 05:20 Triglycerides 120 mg/dL (0-150) 07/19/21 05:35 Cholesterol 119 mg/dL (0-200) 07/19/21 05:35 LDL Cholesterol, Calc 58 mg/dL (50-129) 07/19/21 05:35 Total VLDL Cholesterol 24 mg/dL (0-30) 07/19/21 05:35 HDL Cholesterol 37 mg/dL (60-100) L 07/19/21 05:35 Cholesterol/HDL Ratio 3.22 mg/dL (0.0-4.40) 07/19/21 05:35 Procalcitonin 0.16 ng/mL (0-0.5) 07/18/21 16:45 TSH 4.82 uIU/mL (0.27-4.20) H 07/18/21 16:45 Free T4 1.03 ng/dL (0.82-1.77) 07/19/21 05:35 Free T3 2.5 PG/ML (2.0-4.4) 07/19/21 05:35 Ur Eosinophil Smear 0 (0-0) 07/18/21 19:25 Urine Eosinophils No eosinophils seen 07/18/21 19:25 Ur Random Sodium 58 mmol/L 07/18/21 19:25 Ur Random Potassium 49 mmol/L 07/18/21 19:25 Ur Random Chloride 33 mmol/L 07/18/21 19:25 Urine Creatinine 114 mg/dL (28-217) 07/18/21 19:25 Serum Ketones Positive (Negative) H 07/18/21 18:01 Influenza Type A Ag Negative (Negative) 07/18/21 19:25 Influenza Type B Ag Negative (Negative) 07/18/21 19:25 SARS-CoV-2 Ag (Rapid) Negative (Negative) 07/18/21 19:25 Blood Type A Positive 07/19/21 05:35 Rho(D) Type Positive 07/19/21 05:35 Antibody Screen Negative 07/19/21 05:35 Crossmatch See Detail 07/19/21 05:35 Vitals Last Vital Signs Temp 98.4 F 07/22/21 07:39 Pulse 108 H 07/22/21 07:39 Resp 18 07/22/21 08:32 BP 153/72 07/22/21 07:39 Pulse Ox 93 07/22/21 07:39 Discharge Plan Discharge Patient Disposition: Xfer SNF Condition: Stable Prescriptions: New enoxaparin 40 mg/0.4 mL Syringe 40 mg SUBCUT Q24H 14 Days Qty: 5.6 0RF hydrocodone-acetaminophen 5-325 mg tablet 1 tab PO Q6H PRN (Reason: pain) Qty: 10 0RF alprazolam 0.5 mg Tablet 0.5 mg PO DAILY PRN (Reason: Anxiety) 7 Days Qty: 7 0RF Continued insulin lispro [Humalog U-100 Insulin] 100 unit/mL solution See Rx Instructions .ROUTE .COMPLEX 0RF Rx Instructions: per sliding scale Lantus Solostar U-100 Insulin 100 unit/mL (3 mL) insulin pen 20 unit SUBCUT DAILY 0RF acetaminophen [Tylenol Extra Strength] 500 mg tablet 1,000 mg PO Q6H PRN (Reason: Pain, Mild) 0RF (DME) Diabetic shoes with 3 pairs of inserts See Rx Instructions .Route .MEDSUPPLY Qty: 1 0RF Rx Instructions: As [place] [facility] [place] Dexcom G6 Salesforce Consultant Misc See Rx Instructions .Route Qty: 1 0RF Rx Instructions: As directed [place] Dexcom G6 Sensor Device See Rx Instructions .Route Qty: 3 3RF Rx Instructions: Change every 10 days. (DME) Dexcom G6 Transmitter Device See Rx Instructions .Route Qty: 1 3RF Rx Instructions: Change every 90 days. Changed temazepam 30 mg capsule 30 mg PO BEDTIME Qty: 7 0RF Lantus Solostar U-100 Insulin 100 unit/mL (3 mL) insulin pen 13 unit SUBCUT DAILY Qty: 0 0RF Discharge Orders: Discharge Order (Routine); Ordered 07/22/21 Ordered By: Zaki Murillo Referrals: [facility] [Outside] Harsha Conde MD [Physician] - 1 month Christin Bolaños DO [Primary Care Provider] - Discharge Diet: Diabetic Discharge Activity: As per PT/OT instructions Patient Instructions: Hydrocodone/Acetaminophen (By mouth), Alprazolam (By mouth), Enoxaparin (By injection), Opioid Safety Activity Restrictions/Additional Instructions: Leave dressings in place Okay to shower or bathe May weight-bear as tolerated operative hip Follow-up with primary provider in 4-7 days. Recheck hemoglobin on Wednesday for anemia. Follow-up renal function at next appointment with primary provider to confirm resolution of acute kidney injury. Avoid NSAIDs. Follow-up with your primary doctor regarding suboptimally controlled diabetes, A1c more than 9. Continue insulin. Diabetic diet. Please follow-up with behavioral health care in case anxiety persist beyond recovery from acute illness. Avoid long-term benzodiazepine use if possible. Discussed with your primary doctor if possible consideration of weaning down and off of temazepam. Stop Xanax after 1 week. Discharge Attestations Time Spent in Discharge Care*: greater than 30 min Quality Metrics Clinical Quality Measures [ No reported AMI, CVA or VTE this stay] Coding Level of Care Code Acute [facility] note Diagnoses Status post open reduction with internal fixation of fracture Z98.890; Z87.81
== END 2021-07-22 15:40 | disposition skilled nursing facility (03) | DRG 481 ==
LOC: ER 18:23 → MEDSURG 19:35
PROVIDERS: Orthopaedic Surgery; Admitting Provider Student in an Organized Health Care Education/Training Program; Emergency Provider Emergency Medicine; PCP Family Medicine; Visit Provider Internal Medicine
PROC: 0QS606Z Reposition Right Upper Femur with Intramedullary Internal Fixation Device, Open Approach (ICD-10-PCS; CPT 27245; principal; 2021-07-19 10:00)
DX: S72.141A Displaced intertrochanteric fracture of right femur, initial encounter for closed fracture (principal); C18.9 Malignant neoplasm of colon, unspecified; N17.9 Acute kidney failure, unspecified; W01.0XXA Fall on same level from slipping, tripping and stumbling without subsequent striking against object, initial encounter; Z90.49 Acquired absence of other specified parts of digestive tract; E11.65 Type 2 diabetes mellitus with hyperglycemia; E11.42 Type 2 diabetes mellitus with diabetic polyneuropathy; F41.8 Other specified anxiety disorders; Z87.891 Personal history of nicotine dependence; E86.0 Dehydration; D50.0 Iron deficiency anemia secondary to blood loss (chronic); Z79.4 Long term (current) use of insulin
CPT/HCPCS: 36415; 36416; 36430; 51702; 73502; 73551; 76000; 80048; 80053; 80061; 81000; 82009; 82436; 82550; 82570; 82962; 83036; 83540; 83550; 83735; 84100; 84133; 84145; 84300; 84439; 84443; 84481; 85025; 85610; 85999; 86403; 86850; 86900; 86920; 87086; 87426; 87449; 87641; 87804; 94664; 96372; 96374; 96375; 96376; 97110; 97162; 97165; 97530; 97535; 99285; C1713; C1776; J0696; J1170; J1200; J1650; J1815 ×2; J2270; J2405; J2704; J3010; J3490; J7030; P9016

== ENCOUNTER 2021-07-23 06:00 | Day surgery (SDC) | payer MEDICARE, OTHER, SELFPAY ==
[2021-07-18 08:29] VITALS: BMI 23.5
--- NOTE | 2021-07-18 08:32 | ECG_ITS ---
[facility] Test Date: 2021-07-18 Pat Name: Cara Schrader Department: Room: Gender: Female Prn Physical Therapist: : 1945 Requested By: Castillo Espana Order Number: [id number] Jian MD: Elmer Olguin M.D. Measurements Intervals Waterfall Rate: 89 P: 78 HI: 120 QRS: 85 QRSD: 140 T: 0 QT: 401 QTc: 489 Interpretive Statements SINUS RHYTHM RIGHT BUNDLE BRANCH BLOCK [120+ ms QRS DURATION, UPRIGHT V1, 40+ ms S IN I/aVL/V4/V5/V6] Compared to ECG 04/29/2020 15:43:49 Sinus tachycardia no longer present Indeterminate axis no longer present Electronically Signed On 07-18-2021 22:38:18 CDT by Elmer Olguin M.D. [id number]
--- NOTE | 2021-07-18 14:40 | ANES.PREANE2 ---
Pre-Anesthetic Assessment Height/Weight: Height 1.63 m Weight 62.142 kg Preop Diagnosis: Evaluation for neoplasm, colonoscopy Operation Date: 07/23/21 09:35 Proposed Procedures p Hysteroscopy, dilation and curettage with Myosure 31547, 37828, 10564/R93.89(Not Applicable) - Charbel Rhodes MD s Dilation And Curettage (D&C)(Not Applicable) - Charbel Rhodes MD s Colonoscopy 69230/C18.9(Not Applicable) - Ramirez Sultana MD Familial anesthetic complications: none Was Beta Mattie taken within 24 hours: N/A Was Clonidine taken within 24 hours: N/A Social No alcohol and No tobacco Exam alert, oriented x 3, clear to auscultation bilaterally and regular rate & rhythm Airway Submandibular: within normal limits Cervical ROM: within normal limits Mallampati: Class I Dentition: false Pulmonary None reported CV/HEM None reported thickened endometrium Hepatic None reported GI Gallstones Ascending cholangitis Metabolic Diabetes Mellitus Musc/skel Lower Back Pain and Osteoarthritis/DJD Neuropsych Neuropathy (Diabeticy neuropathy ) Anesthetic Plan ASA status: 2 Anesthesia: Anesthesia Evaluation and General Other: We discussed risk and benefits of general anesthesia including PONV, sore throat (sometimes severe), corneal abrasion, positioning and peripheral nerve injuries, life threatening allergic reaction, post operative ICU admission requiring prolonged intubation, stroke, heart attack, , and rare incidences of recall. Patient consents to proceed with general anesthesia. Risk of > 500 ml blood loss (7ml/kg in children): No Medications/Allergies Home Medications Medication Instructions Recorded Confirmed Last Taken Type temazepam 30 mg capsule 60 mg PO BEDTIME 04/29/20 07/18/21 04/28/20 History Diabetic shoes with 3 pairs of #1 ea 06/28/20 07/18/21 Unknown Rx inserts insulin lispro 100 unit/mL 5 unit SUBCUT TID 09/18/20 07/18/21 Unknown History subcutaneous solution (Humalog U-100 Insulin) blood-glucose meter,continuous #1 ea 06/16/21 07/18/21 Unknown Rx (Dexcom G6 [employer]) blood-glucose sensor (Dexcom G6 #3 ea 06/16/21 07/18/21 Unknown Rx Sensor) blood-glucose transmitter (Dexcom #1 ea 06/16/21 07/18/21 Unknown Rx G6 Transmitter) acetaminophen 500 mg tablet 1,000 mg PO Q6H PRN tab 06/23/21 07/18/21 Unknown History (Tylenol Extra Strength) insulin glargine 100 unit/mL (3 20 unit SUBCUT DAILY ml 06/23/21 07/18/21 Unknown History mL) subcutaneous pen (Lantus Solostar U-100 Insulin) Allergies Allergy/AdvReac Type Severity Reaction Status Date / Time ketorolac [From Toradol] Allergy Severe see Verified 07/18/21 11:36 comment methocarbamol [From Robaxin] Allergy Intermediate see Verified 07/18/21 11:36 comment trazodone Allergy Intermediate see Verified 07/18/21 11:36 comment cyclobenzaprine Allergy see Verified 07/18/21 11:36 [From Flexeril] comment tramadol Allergy see Verified 07/18/21 11:36 comment PFS Anesthesia Medical History Ascending cholangitis Colon cancer Depression with anxiety Diabetes mellitus with ketoacidosis without coma Gallstone H/O fracture of ankle left Nail fungus Neuropathy Surgical History H/O partial resection of colon H/O wrist surgery right S/P appendectomy S/P cholecystectomy S/P tonsillectomy Family History Family/Other Diabetes maternal side, female Son Diabetes Father Heart disease Mother Thyroid disease Daughter Thyroid disease Other Hypertension Denies family history of Colon cancer Ovarian cancer Clotting disorder Hypercholesteremia Breast cancer Anesthesia complication Bleeding disorder Uterine cancer Stroke Social History Smoking and tobacco status: former smoker Data Anesthesia : 07/18/21 08:57 BMP 07/18/21 08:57 Sodium Cancelled Potassium Cancelled Chloride Cancelled Carbon Dioxide Cancelled BUN Cancelled Creatinine Cancelled Glucose Cancelled Calcium Cancelled Cardiac Studies: No Data to Display
== END 2021-07-23 06:01 | disposition home or self-care (01) ==
LOC: OR 11-24 19:30
PROVIDERS: PCP Family Medicine; Visit Provider Obstetrics & Gynecology
DX: Z01.818 Encounter for other preprocedural examination (principal)
CPT/HCPCS: 93005

== ENCOUNTER 2021-08-05 18:20 | Inpatient (IN) | payer MEDICARE, OTHER, SELFPAY ==
[2021-08-05 18:25] VITALS: BP 134/90; PULSE 106; RESP 18; TEMP 36.6; O2SAT 92; BMI 23.1
--- NOTE | 2021-08-05 18:25 | CTR_ITS ---
PROCEDURE INFORMATION: Exam: CT Abdomen And Pelvis Without Contrast Exam date and time: 08/05/2021 6:37 PM Age: 75 years old Clinical indication: Abdominal tenderness and bloating; Prior surgery; Surgery date: 6+ months; Surgery type: Colon surgery, recent hip repair; Additional info: Abd pain TECHNIQUE: Imaging protocol: Computed tomography of the abdomen and pelvis without contrast. Radiation optimization: All CT scans at this facility use at least one of these dose optimization techniques: automated exposure control; mA and/or kV adjustment per patient size (includes targeted exams where dose is matched to clinical indication); or iterative reconstruction. COMPARISON: CT abdomen pelvis w con* [id number] 06/05/2021 3:38 PM RADIATION DOSE METRICS: Total DLP (mGy-cm): 1229.15 FINDINGS: Lungs: There is mild ill-defined opacity in the right lower lobe. Diaphragm: There is a moderate size sliding-type hiatal hernia. Liver: Normal. No mass. Gallbladder and bile ducts: The gallbladder is absent. There is ectasia of the common bile duct and central intrahepatic ducts. Pancreas: There is moderate atrophy of the pancreas. Spleen: The spleen is unremarkable. Adrenal glands: The adrenal glands are unremarkable. Kidneys and ureters: The kidneys are unremarkable. No hydronephrosis or stones. No ureteral dilation. Stomach and bowel: The stomach is fluid distended. Proximal to mid small bowel is diffusely dilated and fluid-filled. There is abrupt transition to decompressed small bowel in the deep pelvis adjacent to the uterus. The distal ileum is completely decompressed. Right hemicolectomy with unremarkable ileocolic anastomosis. There is mild descending colonic diverticulosis without evidence of diverticulitis. Appendix: The appendix is absent. Intraperitoneal space: There is no free air or significant intraperitoneal free fluid. Vasculature: There is moderate aortic atherosclerotic disease. Lymph nodes: There is no lymphadenopathy in the retroperitoneum, mesentery, pelvis or inguinal regions. Urinary bladder: The urinary bladder is unremarkable. Reproductive: There is central hypodensity in the uterus with probable thickening of the endometrium. There is no adnexal mass or large cyst. Bones/joints: There is a comminuted fracture of the right proximal femur transfixed by dynamic compression screw. There is a mild age-indeterminate compression fracture at L5. There is a mild age-indeterminate compression fracture at L3. There is moderate degenerative disease in the lumbar spine. Soft tissues: The abdominal wall is intact. Edema lateral to the right hip. 3 cm intramuscular hematoma lateral to the right hip. CT/CT abdomen pelvis wo con [id number] IMPRESSION: 1. High-grade obstruction in the mid small bowel. Transition point is located in the deep pelvis adjacent to the uterus. 2. Suspect thickened endometrium. Possible hypertrophy or neoplasm. Recommend nonemergent follow-up ultrasound. 3. Right lower lobe pulmonary opacity. Possible infection. 4. Incidental findings above.
--- NOTE | 2021-08-05 18:27 | W.ED.GENADLT ---
HPI - General Adult General: Chief complaint: Nausea/Vomiting/Diarrhea Stated complaint: N/V POSSIBLE BOWEL OBSTRUCTION Time Seen by Provider: 08/05/21 18:25 History of Present Illness: Patient 75-year-old female with history of DNR, right-sided hip fracture status postrepair currently at [facility] for rehabilitation presenting to the emergency room for concerns of increased nausea and vomiting x3 days. Patient denies having any abdominal pain but reports significant nausea and vomiting. Patient has a history of prior colectomy earlier this year. She denies any stooling or flatus. Patient denies any diarrhea melena/hematochezia. She denies any fever/chills, cough, runny nose sore throat, chest pain, palpitations or shortness of breath. Onset:3 days ago Duration:3 days Location:home Severity:moderate Associated symptoms: Reports nausea and vomiting; Deny chest pain, dyspnea, rash or palpitations Review of Systems Const: Denies: fever(s) or chills Eyes: Denies: change in vision ENMT: Denies: mouth pain Card: Denies: chest pain or palpitations Resp: Denies: dyspnea or non-productive cough GI: Reports: nausea and vomiting; Denies: abdominal pain or diarrhea : Denies: dysuria Musc: Denies: extremity pain Skin/Breast: Denies: rash or new lesions Neuro: Denies: weakness in extremities Psych: Reports: other (Normal mood) Wang/Lymph: Denies: easy bruising PFSH ED PFSH: Medical History ARNALDO (acute kidney injury) Ascending cholangitis Closed intertrochanteric fracture Colon cancer Depression with anxiety Diabetes mellitus with ketoacidosis without coma Diabetic neuropathy Gallstone H/O fracture of ankle left History of diabetic ketoacidosis Nail fungus Neuropathy Surgical History H/O partial resection of colon H/O wrist surgery right S/P appendectomy S/P cholecystectomy S/P tonsillectomy Family History Family/Other Diabetes maternal side, female Son Diabetes Father Heart disease Mother Thyroid disease Daughter Thyroid disease Other Hypertension Denies family history of Colon cancer Ovarian cancer Clotting disorder Hypercholesteremia Breast cancer Anesthesia complication Bleeding disorder Uterine cancer Stroke Social History Smoking and tobacco status: former smoker Physical Exam Const: COMMON NORMALS: alert HENMT: COMMON NORMALS: atraumatic HEAD & SCALP: atraumatic MOUTH: moist mucous membranes not abnormal Eye: COMMON NORMALS: EOMs intact bilaterally and conjunctivae normal CONJUNCTIVA: Yes conjunctivae normal OTHER: +R pupil enlarged at baseline Neck/C-Spine: COMMON NORMALS: full ROM and supple Resp: COMMON NORMALS: normal respiratory effort and clear to auscultation bilaterally AUSCULTATION: clear to auscultation bilaterally Cardio: COMMON NORMALS: regular rate RATE: regular rate GI: COMMON NORMALS: Soft to palpation and non-tender PALPATION: Yes Soft to palpation OTHER: +mild abd distension No focal TTP. NO guarding rebound, guarding, rigidity. No CVA tenderness to percussion. Neg Bush/Neg McBurney's point tenderness, no suprabupic tenderness to palpation. Extremity: COMMON NORMALS: full ROM Neuro: SENSORIUM/ORIENTATION: Yes alert MOTOR EXAM: No Abnormal motor strength present and Other motor observations present (no focal motor deficits) Psych: COMMON NORMALS: speech normal SPEECH: Yes normal speech MOOD & AFFECT: Yes euthymic mood Course Vital Signs: Vital signs: Vital Signs Temperature 98.7 F 08/10/21 08:00 Pulse Rate 84 08/10/21 09:00 Respiratory Rate 18 08/10/21 09:00 Blood Pressure 133/73 08/10/21 08:00 Pulse Oximetry 97 08/10/21 09:00 [facility] - General Adult Medical Decision Making 75-year-old female history of prior colectomy presenting to the emergency room for concerns of increased nausea vomiting and decreased stooling x3 days. On exam, patient had mild abdominal distention. No focal tenderness palpation. No guarding or rebound tenderness. CT abdomen showed high grade small bowel obstruction. Patient had NG tube that was placed. I discussed case with Dr. Powell who will follow patient, Family at this time elects to reverse patient's DNR status. Ptaient received ativan and IVF for anxiety and rehydration. Zofran for nausea/vomiting. Disposition: admission Lab Data : 08/10/21 04:30 08/10/21 04:30 Radiology Impressions Abdomen/Pelvis CT 08/05/21 18:25 IMPRESSION: 1. High-grade obstruction in the mid small bowel. Transition point is located in the deep pelvis adjacent to the uterus. 2. Suspect thickened endometrium. Possible hypertrophy or neoplasm. Recommend nonemergent follow-up ultrasound. 3. Right lower lobe pulmonary opacity. Possible infection. 4. Incidental findings above. ADDENDUM: 08/05/21 1950 THIS REPORT CONTAINS FINDINGS THAT MAY BE CRITICAL TO PATIENT CARE. The findings were verbally communicated via telephone conference with the referring physician at 7:47 PM CDT on 08/05/2021. The findings were acknowledged and understood. Chest X-Ray 08/06/21 15:03 IMPRESSION: 1. Left-sided PICC line probably ends in the region of the medial left subclavian vein. 2. Mild interstitial infiltrate in the right lower lung zone. 3. Prominent pulmonary vita. This is unchanged. Pelvis Ultrasound 08/07/21 05:04 IMPRESSION: 1. Abnormal endometrium as previously described on 06/13/2021. This study was obtained preoperatively. 2. Neither ovary identified. KUB X-Ray 08/10/21 04:00 IMPRESSION: 1. High-grade partial small bowel obstruction versus at the ileus pattern. 2. Interim increased caliber of the small bowel in the mid abdomen. Laboratory Results WBC 18.4 10^3/uL (4.0-10.0) H 08/05/21 20:56 RBC 4.08 10^6/uL (4.1-5.3) L 08/05/21 20:56 Hgb 11.8 g/dL (11.5-15.3) 08/05/21 20:56 Hct 34.8 % (37.0-47.0) L 08/05/21 20:56 MCV 85.3 fl (81-99) 08/05/21 20:56 MCH 28.9 pg (28.0-34.0) 08/05/21 20:56 MCHC 33.9 g/dL (30.0-36.0) 08/05/21 20:56 RDW 13.9 % (12.1-15.1) 08/05/21 20:56 Plt Count 604 10^3/cmm (130-400) H 08/05/21 20:56 MPV 9.1 fL (7.4-10.4) 08/05/21 20:56 Neut % (Auto) 84.8 % 08/05/21 20:56 Lymph % (Auto) 9.3 % 08/05/21 20:56 [place] % (Auto) 4.7 % 08/05/21 20:56 Eos % (Auto) 0.1 % 08/05/21 20:56 Baso % (Auto) 0.5 % 08/05/21 20:56 Neut # (Auto) 15.57 10^3/uL (1.8-7.7) H 08/05/21 20:56 Lymph # (Auto) 1.7 10^3/uL (0.8-4.8) 08/05/21 20:56 [place] # (Auto) 0.9 10^3/uL (0.2-0.9) 08/05/21 20:56 Eos # (Auto) 0.0 10^3/uL (0.0-0.8) 08/05/21 20:56 Baso # (Auto) 0.1 10^3/uL (0.0-0.1) 08/05/21 20:56 Nucleated RBC % (auto) 0 % 08/05/21 20:56 Nucleated RBCs # 0.0 /100WBC 08/05/21 20:56 Sodium 131 mmol/L (136-145) L 08/05/21 20:56 Potassium 4.0 mmol/L (3.5-5.1) 08/05/21 20:56 Chloride 86 mmol/L (98-107) L 08/05/21 20:56 Carbon Dioxide 30 mmol/L (22-29) H 08/05/21 20:56 Anion Gap 19.0 (5-19) 08/05/21 20:56 BUN 32 mg/dL (8-23) H 08/05/21 20:56 Creatinine 0.8 mg/dL (0.5-0.9) 08/05/21 20:56 GFR Calculation Not Reportable 08/05/21 20:56 Glucose 197 mg/dL (65-115) H 08/05/21 20:56 POC Glucose 211 mg/dL (70-110) H 08/05/21 22:01 Calculated Osmolality 284 mOsm/kg (285-295) L 08/05/21 20:56 Lactate 1.5 mmol/L (0.5-2.2) 08/05/21 20:56 Calcium 8.7 mg/dL (8.5-10.5) 08/05/21 20:56 Total Bilirubin 0.8 mg/dL (0.15-1.2) 08/05/21 20:56 AST 11 U/L (0-32) 08/05/21 20:56 ALT < 5 U/L (0-33) 08/05/21 20:56 Alkaline Phosphatase 131 IU/L (35-105) H 08/05/21 20:56 Total Protein 7.6 g/dL (6.6-8.7) 08/05/21 20:56 Albumin 3.4 g/dL (3.5-5.2) L 08/05/21 20:56 Globulin 4.2 g/dL (1.3-4.6) 08/05/21 20:56 Lipase 142 U/L (13-60) H 08/05/21 20:56 Urine Color Yellow (Yellow) 08/05/21 20:18 Urine Appearance Hazy (CLEAR) A 08/05/21 20:18 Urine pH 5 (5-7) 08/05/21 20:18 Ur Specific [place] 1.020 (1.005-1.030) 08/05/21 20:18 Urine Protein Neg (Negative) 08/05/21 20:18 Urine Glucose (UA) Norm (Normal) 08/05/21 20:18 Urine Ketones 1+ (Negative) H 08/05/21 20:18 Urine Blood Neg (Negative) 08/05/21 20:18 Urine Nitrate Negative (Negative) 08/05/21 20:18 Urine Bilirubin 1+ (Negative) H 08/05/21 20:18 Urine Urobilinogen 1 mg/dL (Negative) H 08/05/21 20:18 Ur Leukocyte Esterase Negative (Negative) 08/05/21 20:18 Urine RBC 0-4 /hpf (0-2) H 08/05/21 20:18 Urine WBC 0-4 /hpf (0-5) H 08/05/21 20:18 Ur Squamous Epith Cells 0-4 /hpf (0-5) H 08/05/21 20:18 Amorphous Sediment Not Reportable 08/05/21 20:18 Urine Bacteria 4+ /hpf (NONE) H 08/05/21 20:18 Imaging Data Other Imaging: Radiologist's impression: [address] [place] [address] CT Scan Report Signed with Addenda Patient: Cara Schrader Unit #: [id number] : 1945 Age/Sex: 75 / F ADM Date: 08/05/21 Loc: ER Room/Bed: Attending Dr: Ordering Provider/Ordering MD: Yao Ward MD Date of Service: 08/05/21 Procedure(s): CT abdomen pelvis wo con [id number] Accession Number(s): [id number] Report Number: [id number]/CT abdomen pelvis wo con [id number] THIS REPORT CONTAINS FINDINGS THAT MAY BE CRITICAL TO PATIENT CARE. The findings were verbally communicated via telephone conference with the referring physician at 7:47 PM CDT on 08/05/2021. The findings were acknowledged and understood. ? Addendum Dictated By: ?Marshall Whitehead MD Addendum Signed By: ?Marshall Whitehead MD Signed Date/Time: 08/05/211949 Addendum Cosigned By: ? PROCEDURE INFORMATION: Exam: CT Abdomen And Pelvis Without Contrast Exam date and time: 08/05/2021 6:37 PM Age: 75 years old Clinical indication: Abdominal tenderness and bloating; Prior surgery; Surgery date: 6+ months; Surgery type: Colon surgery, recent hip repair; Additional info: Abd pain TECHNIQUE: Imaging protocol: Computed tomography of the abdomen and pelvis without contrast. Radiation optimization: All CT scans at this facility use at least one of these dose optimization techniques: automated exposure control; mA and/or kV adjustment per patient size (includes targeted exams where dose is matched to clinical indication); or iterative reconstruction. COMPARISON: CT abdomen pelvis w con* [id number] 06/05/2021 3:38 PM RADIATION DOSE METRICS: Total DLP (mGy-cm): 1229.15 FINDINGS: Lungs: There is mild ill-defined opacity in the right lower lobe. Diaphragm: There is a moderate size sliding-type hiatal hernia. Liver: Normal. No mass. Gallbladder and bile ducts: The gallbladder is absent. There is ectasia of the common bile duct and central intrahepatic ducts. Pancreas: There is moderate atrophy of the pancreas. Spleen: The spleen is unremarkable. Adrenal glands: The adrenal glands are unremarkable. Kidneys and ureters: The kidneys are unremarkable. No hydronephrosis or stones. No ureteral dilation. Stomach and bowel: The stomach is fluid distended. Proximal to mid small bowel is diffusely dilated and fluid-filled. There is abrupt transition to decompressed small bowel in the deep pelvis adjacent to the uterus. The distal ileum is completely decompressed. Right hemicolectomy with unremarkable ileocolic anastomosis. There is mild descending colonic diverticulosis without evidence of diverticulitis. Appendix: The appendix is absent. Intraperitoneal space: There is no free air or significant intraperitoneal free fluid. Vasculature: There is moderate aortic atherosclerotic disease. Lymph nodes: There is no lymphadenopathy in the retroperitoneum, mesentery, pelvis or inguinal regions. Urinary bladder: The urinary bladder is unremarkable. Reproductive: There is central hypodensity in the uterus with probable thickening of the endometrium. There is no adnexal mass or large cyst. Bones/joints: There is a comminuted fracture of the right proximal femur transfixed by dynamic compression screw. There is a mild age-indeterminate compression fracture at L5. There is a mild age-indeterminate compression fracture at L3. There is moderate degenerative disease in the lumbar spine. Soft tissues: The abdominal wall is intact. Edema lateral to the right hip. 3 cm intramuscular hematoma lateral to the right hip. CT/CT abdomen pelvis wo con [id number] IMPRESSION: 1. High-grade obstruction in the mid small bowel. Transition point is located in the deep pelvis adjacent to the uterus. 2. Suspect thickened endometrium. Possible hypertrophy or neoplasm. Recommend nonemergent follow-up ultrasound. 3. Right lower lobe pulmonary opacity. Possible infection. 4. Incidental findings above. ? Dictated By: Marshall Whitehead MD Signed By: Marshall Whitehead MD Signed Date/Time: 08/05/211945 DD/ 36 Discharge Plan Discharge Patient Disposition: Admitted As Inpatient Admit Provider: Ajay Vasquez Clinical Impression: Small bowel obstruction, Nausea & vomiting Condition: Stable Coding Level of Care Code ED Varnish Filterer for Chg Fwd Exam Comprehensive
[2021-08-05] MEDS: sodium chloride 0.9% 500 ML IV (19:28)
[2021-08-05] MEDS: LORazepam 2 mg/mL INJ 1 mL 1 MG IVP ×2 (19:28→22:00)
[2021-08-05 21:07] LABS: Basophils # 0.1 10^3/uL (0.0-0.1); Basophils % 0.5 %; Eosinophils % 0.1 %; Hematocrit 34.8 % (37.0-47.0); Hemoglobin 11.8 g/dL (11.5-15.3); Lymphocytes # 1.7 10^3/uL (0.8-4.8); Lymphocytes % 9.3 %; Mean Corpuscular HGB Conc 33.9 g/dL (30.0-36.0); Mean Corpuscular Hemoglobin 28.9 pg (28.0-34.0); Mean Corpuscular Volume 85.3 fl (81-99); Mean Platelet Volume 9.1 fL (7.4-10.4); Monocytes # 0.9 10^3/uL (0.2-0.9); Monocytes % 4.7 %; Neutrophils # 15.57 10^3/uL (1.8-7.7); Neutrophils % 84.8 %; Nucleated Red Blood Cells % 0 %; Platelet Count 604 10^3/cmm (130-400); Red Blood Count 4.08 10^6/uL (4.1-5.3); Red Cell Distribution Width 13.9 % (12.1-15.1); White Blood Count 18.4 10^3/uL (4.0-10.0)
[2021-08-05 21:12] VITALS: BP 130/78; PULSE 98; RESP 18; TEMP 36.7; O2SAT 94
--- NOTE | 2021-08-05 21:16 | PM.HP ---
Providers/Chief Complaint Primary Care Provider: Christin Bolaños DO Chief Complaint: N/V POSSIBLE BOWEL OBSTRUCTION History of Present Illness Cara Schrader is a 75 year old female with past medical history of diabetes, CA colon last year s/p resection, postmenopausal bleeding with endometrial thickening on ultrasound, awaiting D&C for malignancy work-up, was brought in with chief complaint of nausea vomiting Pertinent imaging studies done in the ER: CT abdomen and pelvis without contrast: Is suggestive of high- grade small bowel obstruction. Right lower lobe pulmonary opacity. Pertinent labs: WBC 18.4 H&H 11.8 / 34.8 , PLT : 6.04 , Urinalysis: 4+ bacteria, negative leukocyte Estrace and nitrate, urine WBC 0-4 Review of Systems General: Reports: 10 or more systems reviewed and unremarkable except in HPI and below Const: Denies: fever(s), chills, body aches, change in appetite or diaphoresis Card: Denies: palpitations, edema, swelling of feet/ankles, dyspnea on exertion, orthopnea or leg pain with exertion Resp: Denies: dyspnea, productive cough, wheezing or pain on inspiration GI: Denies: abdominal pain, nausea, vomiting, diarrhea or constipation : Denies: flank pain Musc: Denies: back pain, extremity pain or extremity swelling Neuro: Denies: headache(s), difficulty walking or confusion Medications/Allergies Home Medications Medication Instructions Recorded Confirmed Last Taken Type Diabetic shoes with 3 pairs of #1 ea 06/28/20 07/18/21 Unknown Rx inserts insulin lispro 100 unit/mL See Rx Instructions .ROUTE .COMPLEX 09/18/20 07/18/21 07/18/21 History subcutaneous solution (Humalog U-100 Insulin) blood-glucose meter,continuous #1 ea 06/16/21 07/18/21 Unknown Rx (Dexcom G6 Resource Center Teacher) blood-glucose sensor (Dexcom G6 #3 ea 06/16/21 07/18/21 Unknown Rx Sensor) blood-glucose transmitter (Dexcom #1 ea 06/16/21 07/18/21 Unknown Rx G6 Transmitter) acetaminophen 500 mg tablet 1,000 mg PO Q6H PRN tab 06/23/21 07/18/21 Unknown History (Tylenol Extra Strength) hydrocodone 5 mg-acetaminophen 325 1 tab PO Q6H PRN #10 tab 07/22/21 Unknown Rx mg tablet insulin glargine 100 unit/mL (3 13 unit (0.13 mL) SUBCUT DAILY #0 07/22/21 07/18/21 07/18/21 Rx mL) subcutaneous pen (Lantus ml Solostar U-100 Insulin) temazepam 30 mg capsule 30 mg PO BEDTIME #7 cap 07/22/21 Unknown Rx Allergies Allergy/AdvReac Type Severity Reaction Status Date / Time ketorolac [From Toradol] Allergy Severe see Verified 07/18/21 17:14 comment methocarbamol [From Robaxin] Allergy Intermediate see Verified 07/18/21 17:14 comment trazodone Allergy Intermediate see Verified 07/18/21 17:14 comment cyclobenzaprine Allergy see Verified 07/18/21 17:14 [From Flexeril] comment tramadol Allergy see Verified 07/18/21 17:14 comment PFSH Acute PFSH: Medical History ARNALDO (acute kidney injury) Ascending cholangitis Closed intertrochanteric fracture Colon cancer Depression with anxiety Diabetes mellitus with ketoacidosis without coma Diabetic neuropathy Gallstone H/O fracture of ankle left History of diabetic ketoacidosis Nail fungus Neuropathy Surgical History H/O partial resection of colon H/O wrist surgery right S/P appendectomy S/P cholecystectomy S/P tonsillectomy Family History Family/Other Diabetes maternal side, female Son Diabetes Father Heart disease Mother Thyroid disease Daughter Thyroid disease Other Hypertension Denies family history of Colon cancer Ovarian cancer Clotting disorder Hypercholesteremia Breast cancer Anesthesia complication Bleeding disorder Uterine cancer Stroke Social History Smoking and tobacco status: former smoker Vitals/I&O/Wt Last Vital Signs Temp 97.9 F 08/05/21 18:25 Pulse 106 H 08/05/21 18:25 Resp 18 08/05/21 18:25 BP 134/90 08/05/21 18:25 Pulse Ox 92 08/05/21 18:25 Weight last 48 hrs Weight 61.235 kg Physical Exam Const: COMMON NORMALS: patient oriented x3 HENMT: COMMON NORMALS: normocephalic and atraumatic HEAD & SCALP: normocephalic and atraumatic Resp: COMMON NORMALS: normal respiratory effort, No retractions, No use of accessory muscles and clear to auscultation bilaterally EFFORT & INSPECTION: Yes symmetric chest movement AUSCULTATION: clear to auscultation bilaterally Cardio: COMMON NORMALS: regular rate, regular rhythm, S1 normal heart sound present, S2 normal heart sound present, No gallops present (Cardio), No murmurs present (Cardio), No rub (Cardio) and Peripheral pulses 2+ throughout RATE: regular rate RHYTHM: regular rhythm HEART SOUNDS: S1 normal heart sound present and S2 normal heart sound present PERIPHERAL PULSES: Peripheral pulses 2+ throughout GI: COMMON NORMALS: Normal to inspection, nondistended, normoactive bowel sounds present, Soft to palpation, non-tender, No hepatosplenomegaly present and no masses AUSCULTATION: Yes normoactive bowel sounds PALPATION: Yes Soft to palpation RECTAL EXAM: deferred Extremity: COMMON NORMALS: no clubbing, cyanosis or edema and no pedal edema Neuro: COMMON NORMALS: patient oriented x3 Data : 08/05/21 20:56 08/05/21 20:56 A&P Assessment and plan (1) Small bowel obstruction: Status: Acute (2) Nausea & vomiting: Status: Acute (3) Endometrial thickening on ultrasound: Status: Acute (4) Enlarged uterus: Status: Acute (5) Postmenopausal bleeding: Status: Acute (6) Colon cancer: Status: Acute (7) Diabetes: Status: Acute (8) Hyponatremia: Status: Acute Plan 75 year old female with past medical history of diabetes, CA colon last year s/p resection, postmenopausal bleeding with endometrial thickening on ultrasound, awaiting D&C for malignancy work-up, was brought in with chief complaint of nausea vomiting. Assessment: Small bowel obstruction Diabetes History of CA colon s/p resection Hyponatremia Plan: NG tube in place hooked to suction Surgery on board LDSSI,FSG, N.p.o. except for meds I.V Hydration with normal saline 75cc/hr Monitor BMP CODE STATUS: Full code DVT prophylaxis: Lovenox Attestations Medical Necessity Statement*: Patient is to be in hospital for management of small bowel obstruction.Anticipated length of stay greater than 2 midnights. Time Spent in Patient Care: Greater than 35 minutes (>than 50% of time spent in counselling and/or direct pt care on unit). Coding Level of Care Code Acute Finished Goods Stock Clerk for Yennyg Fwd Exam Detailed Diagnoses Small bowel obstruction K56.609 Nausea & vomiting R11.2 Endometrial thickening on ultrasound R93.89 Enlarged uterus N85.2 Postmenopausal bleeding N95.0 Colon cancer C18.9 Diabetes E11.9 Hyponatremia E87.1
[2021-08-05 21:18] LABS: Add Urine Culture? Yes; Add Urine Microscopic? YES; Bacteria Urine 4+ /hpf; Bilirubin Urine 1+ (Negative); Blood Urine Neg (Negative); Glucose Urine UA Norm (Normal); Ketones Urine 1+ (Negative); Leukocyte Esterase Urine Negative (Negative); Nitrate Urine Negative (Negative); Protein Urine Neg (Negative); RBC Urine 0-4 /hpf (0-2); Squamous Epithelial Cell Urine 0-4 /hpf (0-5); Urine Appearance Hazy (CLEAR); Urine Color Yellow (Yellow); Urobilinogen Urine 1 mg/dL (Negative); WBC Urine 0-4 /hpf (0-5); pH Urine 5 (5-7)
[2021-08-05 21:46] LABS: Alanine Aminotransferase < 5 U/L (0-33); Albumin Level 3.4 g/dL (3.5-5.2); Alkaline Phosphatase 131 IU/L (35-105); Aspartate Amino Transferase 11 U/L (0-32); Blood Urea Nitrogen 32 mg/dL (8-23); Calcium 8.7 mg/dL (8.5-10.5); Carbon Dioxide 30 mmol/L (22-29); Chloride 86 mmol/L (98-107); Globulin 4.2 g/dL (1.3-4.6); Glucose 197 mg/dL (65-115); Lipase 142 U/L (13-60); Osmolality Calculated 284 mOsm/kg (285-295); Sodium 131 mmol/L (136-145); Total Bilirubin 0.8 mg/dL (0.15-1.2); Total Protein 7.6 g/dL (6.6-8.7)
[2021-08-05 21:47] LABS: Lactate (Lactic Acid level) 1.5 mmol/L (0.5-2.2)
[2021-08-05] MEDS: enoxaparin 40 mg/0.4 mL Syringe SUBCUT (22:13)
[2021-08-05] MEDS: sodium chloride 0.9% 1,000 ML 75 ML IV (22:13)
[2021-08-05 22:22] VITALS: BP 117/59; PULSE 99; RESP 16; TEMP 36.7; O2SAT 96
[2021-08-06] VITALS (9 sets, daily range): BP systolic 110–138; BP diastolic 48–74; PULSE 82–93; RESP 16–20; TEMP 36.4–37; O2SAT 90–96
[2021-08-06 05:27] LABS: Basophils # 0.1 10^3/uL (0.0-0.1); Basophils % 0.5 %; Eosinophils # 0.1 10^3/uL (0.0-0.8); Eosinophils % 0.5 %; Hematocrit 29.5 % (37.0-47.0); Hemoglobin 10.4 g/dL (11.5-15.3); Lymphocytes # 1.7 10^3/uL (0.8-4.8); Lymphocytes % 16.2 %; Mean Corpuscular HGB Conc 35.3 g/dL (30.0-36.0); Mean Corpuscular Hemoglobin 29.2 pg (28.0-34.0); Mean Corpuscular Volume 82.9 fl (81-99); Mean Platelet Volume 9.7 fL (7.4-10.4); Monocytes # 0.6 10^3/uL (0.2-0.9); Monocytes % 5.8 %; Neutrophils # 8.24 10^3/uL (1.8-7.7); Neutrophils % 76.6 %; Nucleated Red Blood Cells % 0 %; Platelet Count 410 10^3/cmm (130-400); Red Blood Count 3.56 10^6/uL (4.1-5.3); Red Cell Distribution Width 13.8 % (12.1-15.1); White Blood Count 10.7 10^3/uL (4.0-10.0)
[2021-08-06 05:47] LABS: Anion Gap 16.1 (5-19); Blood Urea Nitrogen 35 mg/dL (8-23); Calcium 7.9 mg/dL (8.5-10.5); Carbon Dioxide 31 mmol/L (22-29); Chloride 85 mmol/L (98-107); Glucose 215 mg/dL (65-115); Magnesium 2.9 mg/dL (1.7-2.3); Osmolality Calculated 280 mOsm/kg (285-295); Potassium 4.1 mmol/L (3.5-5.1); Sodium 128 mmol/L (136-145)
[2021-08-06 07:02] LABS: Glucose Point of Care 211 mg/dL (70-110)
--- NOTE | 2021-08-06 07:03 | P.PN_ITS ---
Subjective Subjective: Patient was examined, family was at the bedside, I did review CT scan with them, there is concern of extrinsic compression of small bowel causing obstruction, 900 mL of bile content in the container Appreciate general surgery recommendations I have started her on treatment for pneumonia Check MRSA PCR start cefepime and Zosyn Discontinue D5 as sodium is low Start normal saline, sugar is high she is diabetic I also spoke with Dr. Rhodes who is plan to see the patient in the afternoon he is recommending D&C first for histopathological diagnosis and if it is cancer related then she might need to go to [place] [facility] Vitals/I&O/Wt Last Vital Signs Temp 97.5 F L 08/06/21 04:00 Pulse 84 08/06/21 04:00 Resp 18 08/06/21 04:00 BP 124/69 08/06/21 04:00 Pulse Ox 93 08/06/21 04:00 08/05/21 08/06/21 08/06/21 22:59 06:59 14:59 Output Total 2200 / 2200 Balance -2200 / -2200 Weight last 48 hrs Weight 59.557 kg Weight 61.235 kg Physical Exam Narrative: Malnourished cachectic female Currently laying supine in bed asking for food NG to suction 900 mL in the container Abdomen soft no guarding rigidity or tenderness, tenderness on deep palpation in midepigastric and left lower quadrant No signs of edema She is awake and alert Nonfocal neuro exam Family at the bedside Data : 08/06/21 05:17 08/06/21 05:17 A&P Assessment and plan (1) Hyponatremia: Status: Acute (2) Diabetes: Status: Acute (3) Small bowel obstruction: Status: Acute (4) Nausea & vomiting: Status: Acute (5) Anemia, blood loss: Status: Acute (6) Endometrial thickening on ultrasound: Status: Acute (7) Enlarged uterus: Status: Acute (8) Postmenopausal bleeding: Status: Acute (9) Colon cancer: Status: Acute Plan High-grade small bowel Dr. Rhodes to see her this afternoon Appreciate general surgery recommendations Continue NG to suction 900 mL of bile content noticed She will need histopathological diagnosis first and if it is cancer related then she will need to be transferred to [place] for radical hysterectomy and lymph node dissection For SBO conservative management for now with NG to suction, discontinue D5, start normal saline Hyponatremia related to high blood sugar and use of D5, it would use normal saline for now Community-acquired pneumonia Would use cefepime and Zosyn, check MRSA PCR She is afebrile She is full code N.p.o. DVT prophylaxis Lovenox, DC Lovenox if plan for D&C tomorrow Attestations Medical Necessity Statement*: Continue medical management Spent 3035-minute Coding Level of Care Code Acute Commercial Production Editor for [facility] Fwd Diagnoses Hyponatremia E87.1 Diabetes E11.9 Small bowel obstruction K56.609 Nausea & vomiting R11.2 Anemia, blood loss D50.0 Endometrial thickening on ultrasound R93.89 Enlarged uterus N85.2 Postmenopausal bleeding N95.0 Colon cancer C18.9
--- NOTE | 2021-08-06 07:05 | PM.CONSULT ---
Providers/Reason For Consult Consulting Physician/Specialty*: Luis F Powell MD Reason for Consult*: Bowel obstruction Requesting Physician: Dr. Ward Attending Physician: Ajay Vasquez MD Primary Care Provider: Christin Bolaños DO History of Present Illness History of Present Illness This Cara Schrader is a pleasant 75 year old female presented to the ER with worsening nausea and vomiting per ER team description. Patient is a shelter resident and had recent hip surgery back in 07/19/2021 in the form of open reduction internal fixation of the right hip. Patient had previous exploratory laparotomy back in December 2020 for bowel obstruction that showed hepatic flexure mass and was found to have 14 lymph nodes out of 17 were positive for cancer. Patient was treated conservatively per oncology service. Further work-up in the ER showed WBC count of 15.4, hemoglobin of 11.8, platelet count 604. Likely patient is dehydrated. Sodium 131, lactic acid 1.5 and serum creatinine 0.[address] of the abdomen pelvis was done that did show 1. High-grade obstruction in the mid small bowel. Transition point is located in the deep pelvis adjacent to the uterus. 2. Suspect thickened endometrium. Possible hypertrophy or neoplasm. Recommend nonemergent follow-up ultrasound. 3. Right lower lobe pulmonary opacity. Possible infection. 4. Incidental findings above. General surgery was consulted for further evaluation. Patient had an NG placed in the ER and showed about 2 L out. Patient received Ativan to have the NG in and she seems to be confused this morning when I interacted with her. Patient reports that her last bowel movement was 3 days ago and she passed gas yesterday. Review of Systems General: Reports: 10 or more systems reviewed and unremarkable except in HPI and below Medications/Allergies Home Medications Medication Instructions Recorded Confirmed Last Taken Type Diabetic shoes with 3 pairs of #1 ea 06/28/20 07/18/21 Unknown Rx inserts insulin lispro 100 unit/mL See Rx Instructions .ROUTE .COMPLEX 09/18/20 07/18/21 07/18/21 History subcutaneous solution (Humalog U-100 Insulin) blood-glucose meter,continuous #1 ea 06/16/21 07/18/21 Unknown Rx (Dexcom G6 Solar Hot Water Installer) blood-glucose sensor (Dexcom G6 #3 ea 06/16/21 07/18/21 Unknown Rx Sensor) blood-glucose transmitter (Dexcom #1 ea 06/16/21 07/18/21 Unknown Rx G6 Transmitter) acetaminophen 500 mg tablet 1,000 mg PO Q6H PRN tab 06/23/21 07/18/21 Unknown History (Tylenol Extra Strength) hydrocodone 5 mg-acetaminophen 325 1 tab PO Q6H PRN #10 tab 07/22/21 Unknown Rx mg tablet insulin glargine 100 unit/mL (3 13 unit (0.13 mL) SUBCUT DAILY #0 07/22/21 07/18/21 07/18/21 Rx mL) subcutaneous pen (Lantus ml Solostar U-100 Insulin) temazepam 30 mg capsule 30 mg PO BEDTIME #7 cap 07/22/21 Unknown Rx Allergies Allergy/AdvReac Type Severity Reaction Status Date / Time ketorolac [From Toradol] Allergy Severe see Verified 08/06/21 07:10 comment methocarbamol [From Robaxin] Allergy Intermediate see Verified 08/06/21 07:10 comment trazodone Allergy Intermediate see Verified 08/06/21 07:10 comment cyclobenzaprine Allergy see Verified 08/06/21 07:10 [From Flexeril] comment tramadol Allergy see Verified 08/06/21 07:10 comment Current Medications Generic Name Dose Route Start Last Admin Trade Name Freq PRN Reason Stop Dose Admin Enoxaparin Sodium 40 mg 08/05/21 21:15 08/05/21 22:13 Enoxaparin 40 Mg/0.4 Ml Syringe SUBCUT 40 mg Q24H NIURKA Administration Sodium Chloride 1,000 mls @ 75 mls/hr 08/05/21 21:15 08/05/21 22:13 Sodium Chloride 0.9% IV 75 mls/hr .[id number] NIURKA Administration PFSH Acute PFSH: Medical History ARNALDO (acute kidney injury) Ascending cholangitis Closed intertrochanteric fracture Colon cancer Depression with anxiety Diabetes mellitus with ketoacidosis without coma Diabetic neuropathy Gallstone H/O fracture of ankle left History of diabetic ketoacidosis Nail fungus Neuropathy Surgical History H/O partial resection of colon H/O wrist surgery right S/P appendectomy S/P cholecystectomy S/P tonsillectomy Family History Family/Other Diabetes maternal side, female Son Diabetes Father Heart disease Mother Thyroid disease Daughter Thyroid disease Other Hypertension Denies family history of Colon cancer Ovarian cancer Clotting disorder Hypercholesteremia Breast cancer Anesthesia complication Bleeding disorder Uterine cancer Stroke Social History Smoking and tobacco status: former smoker Vitals/I&O/Wt Last Vital Signs Temp 97.5 F L 08/06/21 04:00 Pulse 84 08/06/21 04:00 Resp 18 08/06/21 04:00 BP 124/69 08/06/21 04:00 Pulse Ox 93 08/06/21 04:00 08/05/21 08/06/21 08/06/21 22:59 06:59 14:59 Output Total 2200 / 2200 Balance -2200 / -2200 Weight last 48 hrs Weight 131 lb 4.8 oz Weight 135 lb Physical Exam Const: COMMON NORMALS: no acute distress and alert; negative for patient oriented x3 (Patient seems to be confused) GENERAL APPEARANCE: cooperative ORIENTATION/CONSCIOUSNESS: Yes awake, Yes oriented to person, Yes oriented to place and Yes oriented to time HENMT: COMMON NORMALS: normocephalic (NG in place) HEAD & SCALP: normocephalic (NG in place) Eye: COMMON NORMALS: Equal, round and reactive pupils present and no scleral icterus PUPIL: Yes Equal, round and reactive pupils present Lymph: LYMPHATIC: no lymphadenopathy noted Chest: COMMONS NORMALS: normal inspection of the chest Resp: COMMON NORMALS: normal respiratory effort and clear to auscultation bilaterally AUSCULTATION: clear to auscultation bilaterally Cardio: COMMON NORMALS: S1 normal heart sound present and S2 normal heart sound present; negative for No murmurs present (Cardio) HEART SOUNDS: S1 normal heart sound present and S2 normal heart sound present GI: COMMON NORMALS: Soft to palpation; negative for No hepatosplenomegaly present INSPECTION: No normal to inspection and Yes scar (Midline scar) PALPATION: Yes Soft to palpation, No Firmness to palpation present (GI), No Tenderness to palpation present (GI), No Guarding due to palpation present (GI), No Rigid due to palpation and No No hepatosplenomegaly present Extremity: NARRATIVE EXTREMITY EXAM: Right hip dressing in place Neuro: COMMON NORMALS: negative for patient oriented x3 (Patient seems to be confused) SENSORIUM/ORIENTATION: Yes alert, Yes oriented to person, Yes oriented to place and Yes oriented to time Psych: COMMON NORMALS: mental status grossly normal Skin: COMMON NORMALS: no rashes or lesions noted GENERAL SKIN EXAM: no rashes or lesions noted Data : 08/06/21 05:17 08/06/21 05:17 A&P Assessment and plan (1) Small bowel obstruction: After limited history taking physical examination and reviewing the chart and images with my personal interpretation, certainly the patient does have bowel obstruction and large burden of stool in her colon with dilated small bowel loops. Also she does have large urinary bladder with urinary retention. From surgical standpoint of view: 1-NG to low intermittent wall suction 2-strict I's and O 3-insert Boss catheter to help with accurate monitoring of urine output 4-repeated physical examination 5-notify Ortho about patient's readmission for recommendation regarding mobility 6-pharmacologic DVT prophylaxis 7-incentive spirometer every hour 8-we will pursue conservative measures for now 9-we will plan to update the family Thank you for consulting general surgery to participate taking care of Ms. Schrader Status: Acute Consult Attestations Medical Necessity Statement: Per admitting service Coding Level of Care Code Acute Carrier Washer for Veronika Spann Diagnoses Small bowel obstruction K56.609
--- NOTE | 2021-08-06 08:23 | PC.PHAR ---
PT IS FROM [facility] FROM [facility] SENT PTS MEDICATION MAR OVER- MEDICATIONS ENTERED ARE FROM THE [facility]
[2021-08-06 08:46] LABS: Glucose Point of Care 246 mg/dL (70-110)
[2021-08-06] MEDS: insulin lispro 100 unit/1 mL SUBCUT ×2 (09:00→17:10)
[2021-08-06] MEDS: cefepime 1,000 MG in sodium chloride 0.9% (plus) 50 ML 100 MG IV ×2 (09:04→20:40)
[2021-08-06] MEDS: morphine 4 mg/mL SDV 1 mL 2 MG IVP (10:40)
[2021-08-06] MEDS: sodium chloride 0.9% 1,000 ML 75 ML IV (10:45)
[2021-08-06] MEDS: piperacillin-tazobactam 3.375 GM in sodium chloride 0.9% (plus) 50 ML IV ×2 (10:46→18:33)
--- NOTE | 2021-08-06 15:03 | XR_ITS ---
WS: [id number] Exam: XR chest 1V portable [id number] Date/Time of Exam: 08/06/2021 3:03 PM Reason For Exam: PICC placement Comparison 12/29/2020. Left-sided PICC line is in place probably ending in the medial aspect of the left subclavian vein. Th e lungs are fully expanded. Mild interstitial infiltrate in the right base. Normal cardiomediastinal silhouette. Prominent bilateral pulmonary vita. No pleural effusions or pneumothorax. Bony structures are intact. An enteric tube extends below the diaphragm and enters the stomach but the tip is not vi sible. XR/XR chest 1V portable [id number] IMPRESSION: 1. Left-sided PICC line probably ends in the region of the medial left subclavi an vein. 2. Mild interstitial infiltrate in the right lower lung zone. 3. Prominent pulmonary vita. This is unchanged.
[2021-08-06] MEDS: diphenhydrAMINE 50 mg/mL SDV 1mL 12.5 MG IVP ×2 (15:40→20:33)
[2021-08-06] MEDS: HYDROmorphone 1 mg/mL INJ 1 mL 0.2 MG IVP ×2 (15:40→20:33)
[2021-08-06 21:27] LABS: Glucose Point of Care 199 mg/dL (70-110)
[2021-08-06 21:27] LABS: Glucose Point of Care 136 mg/dL (70-110)
[2021-08-06 21:27] LABS: Glucose Point of Care 147 mg/dL (70-110)
[2021-08-07] VITALS (15 sets, daily range): BP systolic 100–157; BP diastolic 53–74; PULSE 72–94; RESP 12–20; TEMP 36.1–37.8; O2SAT 92–99
[2021-08-07] MEDS: sodium chloride 0.9% 1,000 ML 75 ML IV ×2 (00:17→00:25)
[2021-08-07 00:18] LABS: Glucose Point of Care 252 mg/dL (70-110)
[2021-08-07] MEDS: insulin glargine 100 units/1 mL 10 UNIT SUBCUT (01:12)
[2021-08-07] MEDS: HYDROmorphone 1 mg/mL INJ 1 mL 0.2 MG IVP ×2 (01:21→09:39)
[2021-08-07] MEDS: diphenhydrAMINE 50 mg/mL SDV 1mL 12.5 MG IVP ×3 (01:23→16:09)
[2021-08-07] MEDS: piperacillin-tazobactam 3.375 GM in sodium chloride 0.9% (plus) 50 ML IV ×2 (02:49→10:46)
--- NOTE | 2021-08-07 03:31 | PC.NURSE ---
Called MD robotics application engineer Dr. Vasquez at 08/06/211999 pt. was unable to do vagnil ultrasound due to pain and fx. No new orders DrGareth's will address in morning. Also called Dr. Vasquez with blood results at midnight and new orders given . Also informed him pt. plans to have procedure done today. NPO . Pt. rested after pain med's given tonight. Call light in reach.
[2021-08-07 04:06] LABS: Glucose Point of Care 343 mg/dL (70-110)
[2021-08-07] MEDS: insulin lispro 100 unit/1 mL SUBCUT (04:28)
[2021-08-07 04:50] LABS: Basophils # 0.1 10^3/uL (0.0-0.1); Basophils % 0.6 %; Eosinophils # 0.1 10^3/uL (0.0-0.8); Eosinophils % 0.9 %; Hematocrit 30.3 % (37.0-47.0); Hemoglobin 9.7 g/dL (11.5-15.3); Lymphocytes # 1.4 10^3/uL (0.8-4.8); Lymphocytes % 12.9 %; Mean Corpuscular Hemoglobin 28.8 pg (28.0-34.0); Mean Corpuscular Volume 89.9 fl (81-99); Mean Platelet Volume 9.4 fL (7.4-10.4); Monocytes # 0.8 10^3/uL (0.2-0.9); Monocytes % 7.2 %; Neutrophils # 8.19 10^3/uL (1.8-7.7); Neutrophils % 77.5 %; Nucleated Red Blood Cells % 0 %; Platelet Count 404 10^3/cmm (130-400); Red Blood Count 3.37 10^6/uL (4.1-5.3); White Blood Count 10.6 10^3/uL (4.0-10.0)
--- NOTE | 2021-08-07 05:00 | PM.OBGYCN ---
Providers/Reason for Consult Consulting Physican/Specialty*: My name WEB CONTENT & SOCIAL MEDIA MANAGER Reason for Consult*: Enlarged uterus with thick endometrium Requesting Physcian: Teodoro Attending Physician: Sara Valerio MD Primary WEB CONTENT & SOCIAL MEDIA MANAGER: Charbel Rhodes MD Primary Care Provider: Christin Bolaños DO WEB CONTENT & SOCIAL MEDIA MANAGER Consult HPI History of Present Illness Cara Schrader is a 75 year old female with a LMP at age 53 who had previously been seen for posmenopausal bleeding and an abnormal pelvic imaging suggesting thicken endometrium and she was sscheduled for dialtion and curettage. She states that she has been having lower pelvic pain for the past six months. She states that the pain has doubled her over. She states that she feels like she has to hold pressure against her pelvis when she stands up. She denies any current vaginal bleeding or discharge. She states that she has had a pink tint when she wiped when she went to the bathroom. She was taken to her PCP and she did not have a UTI. She states that she was diagnosed with colon cancer in December of last year. Past medical history significant for cancer with partial resection of colon. Review of Systems General: Reports: 10 or more systems reviewed and unremarkable except in HPI and below Const: Denies: fever(s), chills, body aches, change in appetite or diaphoresis Card: Denies: palpitations, edema, swelling of feet/ankles, dyspnea on exertion, orthopnea or leg pain with exertion Resp: Denies: dyspnea, productive cough, wheezing or pain on inspiration GI: Denies: abdominal pain, nausea, vomiting, diarrhea or constipation : Reports: flank pain and pelvic pain; Denies: vaginal bleeding Musc: Denies: back pain, extremity pain or extremity swelling Neuro: Denies: headache(s), difficulty walking or confusion Medications/Allergies Home Medications Medication Instructions Recorded Confirmed Last Taken Type Diabetic shoes with 3 pairs of #1 ea 06/28/20 08/06/21 Unknown Rx inserts blood-glucose meter,continuous #1 06/16/21 08/06/21 Unknown Rx (Dexcom G6 Refrigerator Glazier) blood-glucose sensor (Dexcom G6 #3 ea 06/16/21 08/06/21 Unknown Rx Sensor) blood-glucose transmitter (Dexcom #1 06/16/21 08/06/21 Unknown Rx G6 Transmitter) acetaminophen 500 mg tablet 1,000 mg PO Q6H PRN tab 06/23/21 08/06/21 Unknown History (Tylenol Extra Strength) temazepam 30 mg capsule 30 mg PO BEDTIME #7 cap 07/22/21 08/06/21 Unknown Rx alprazolam 0.5 mg tablet (Xanax) 0.5 mg PO Q24H PRN 08/06/21 08/06/21 Unknown History aluminum-mag hydroxide-simethicone 30 ml PO Q4H PRN 08/06/21 08/06/21 Unknown History 200 mg-200 mg-20 mg/5 mL oral susp hydrocodone 5 mg-acetaminophen 325 1 tab PO Q4H PRN 08/06/21 08/06/21 Unknown History mg tablet insulin glargine-yfgn 100 unit/mL 20 unit SUBCUT DAILY 08/06/21 08/06/21 Unknown History (3 mL) subcutaneous pen insulin lispro 100 unit/mL See Rx Instructions .ROUTE .COMPLEX 08/06/21 08/06/21 Unknown History subcutaneous cartridge mirtazapine 15 mg tablet (Remeron) 15 mg PO BEDTIME 08/06/21 08/06/21 Unknown History ondansetron HCl 4 mg tablet 4 mg PO Q4H PRN 08/06/21 08/06/21 Unknown History polyethylene glycol 3350 17 gram 17 g PO QAM 08/06/21 08/06/21 Unknown History oral powder packet (Miralax) Allergies Allergy/AdvReac Type Severity Reaction Status Date / Time ketorolac [From Toradol] Allergy Severe see Verified 08/06/21 08:06 comment methocarbamol [From Robaxin] Allergy Intermediate see Verified 08/06/21 08:06 comment trazodone Allergy Intermediate see Verified 08/06/21 08:06 comment cyclobenzaprine Allergy see Verified 08/06/21 08:06 [From Flexeril] comment tramadol Allergy see Verified 08/06/21 08:06 comment Current Medications Generic Name Dose Route Start Last Admin Trade Name Freq PRN Reason Stop Dose Admin Diphenhydramine HCl 12.5 mg 08/06/21 13:39 08/07/21 01:23 Diphenhydramine 50 Mg/Ml Sdv 1ml IVP 12.5 mg Q4H PRN Administration ALLERGIC REACTION Enoxaparin Sodium 40 mg 08/05/21 21:15 08/05/21 22:13 Enoxaparin 40 Mg/0.4 Ml Syringe SUBCUT 40 mg Q24H NIURKA Administration Hydromorphone HCl 0.2 mg 08/06/21 13:39 08/07/21 01:21 Hydromorphone 1 Mg/Ml Inj 1 Ml IVP 0.2 mg Q4H PRN Administration PAIN Sodium Chloride 1,000 mls @ 75 mls/hr 08/05/21 21:15 08/07/21 00:25 Sodium Chloride 0.9% IV 75 mls/hr .[id number] NIURKA Administration Cefepime HCl 1,000 mg/ Sodium 50 mls @ 100 mls/hr 08/06/21 09:00 08/06/21 23:30 Chloride IV Infused Q12H NIURKA Infusion Protocol Piperacillin Sod/Tazobactam 50 mls @ 12.5 mls/hr 08/06/21 10:00 08/07/21 02:49 Sod 3.375 gm/ Sodium Chloride IV 12.5 mls/hr Q8H NIURKA Administration Protocol Sodium Chloride 1,000 mls @ 75 mls/hr 08/06/21 09:15 08/07/21 00:17 Sodium Chloride 0.9% IV 75 mls/hr .[id number] NIURKA Administration Multivitamins 10 ml/ Amino 1,010 mls @ 42 mls/hr 08/06/21 11:30 08/06/21 15:47 Acids/Electrolytes IV 42 mls/hr .Q24H NIURKA Administration Fat Emulsion Intravenous 125 mls @ 10.417 mls/hr 08/06/21 11:30 08/07/21 04:08 Intralipid 20% IV Infused Q24H NIURKA Infusion Insulin Human Lispro 0 unit 08/06/21 08:00 08/07/21 04:28 Insulin Lispro 100 Unit/1 Ml SUBCUT 10 unit WM&BEDTIME NIURKA Administration Protocol Morphine Sulfate 2 mg 08/06/21 09:00 08/06/21 10:40 Morphine 4 Mg/Ml Sdv 1 Ml IVP 2 mg Q4H PRN Administration SEVERE PAIN PFSH WEB CONTENT & SOCIAL MEDIA MANAGER PFSH: Medical History ARNALDO (acute kidney injury) Ascending cholangitis Closed intertrochanteric fracture Colon cancer Depression with anxiety Diabetes mellitus with ketoacidosis without coma Diabetic neuropathy Gallstone H/O fracture of ankle left History of diabetic ketoacidosis Nail fungus Neuropathy Surgical History H/O partial resection of colon H/O wrist surgery right S/P appendectomy S/P cholecystectomy S/P tonsillectomy Family History Family/Other Diabetes maternal side, female Son Diabetes Father Heart disease Mother Thyroid disease Daughter Thyroid disease Other Hypertension Denies family history of Colon cancer Ovarian cancer Clotting disorder Hypercholesteremia Breast cancer Anesthesia complication Bleeding disorder Uterine cancer Stroke Social History Smoking and tobacco status: former smoker Vitals/I&O/Wt Last Vital Signs Temp 98.1 F 08/07/21 04:00 Pulse 87 08/07/21 04:00 Resp 20 H 08/07/21 04:00 BP 121/62 08/07/21 04:00 Pulse Ox 94 08/07/21 04:00 08/06/21 08/06/21 08/07/21 14:59 22:59 06:59 Intake Total 100 / 100 2225 / 2325 Output Total 900 / 900 Balance 100 / 100 -900 / -800 2225 / 1425 Weight last 48 hrs Weight 59.557 kg Weight 61.235 kg Physical Exam Narrative: Document: Consult Note Physical Exam Const COMMON NORMALS: no acute distress and alert; negative for patient oriented x3 (Patient seems to be confused) GENERAL APPEARANCE: cooperative ORIENTATION/CONSCIOUSNESS: Yes awake, Yes oriented to person, Yes oriented to place and Yes oriented to time HENMT COMMON NORMALS: normocephalic (NG in place) HEAD & SCALP: normocephalic (NG in place) Eye COMMON NORMALS: Equal, round and reactive pupils present and no scleral icterus PUPIL: Yes Equal, round and reactive pupils present Lymph Nose: NG tube in place LYMPHATIC: no lymphadenopathy noted Chest COMMONS NORMALS: normal inspection of the chest Resp COMMON NORMALS: normal respiratory effort and clear to auscultation bilaterally AUSCULTATION: clear to auscultation bilaterally Cardio COMMON NORMALS: S1 normal heart sound present and S2 normal heart sound present; negative for No murmurs present (Cardio) HEART SOUNDS: S1 normal heart sound present and S2 normal heart sound present GI COMMON NORMALS: Soft to palpation; negative for No hepatosplenomegaly present INSPECTION: No normal to inspection and Yes scar (Midline scar) PALPATION: Yes Soft to palpation, No Firmness to palpation present (GI), No Tenderness to palpation present (GI), No Guarding due to palpation present (GI), No Rigid due to palpation and No No hepatosplenomegaly present Extremity NARRATIVE EXTREMITY EXAM: Right hip dressing in place Neuro COMMON NORMALS: negative for patient oriented x3 (Patient seems to be confused) SENSORIUM/ORIENTATION: Yes alert, Yes oriented to person, Yes oriented to place and Yes oriented to time Psych COMMON NORMALS: mental status grossly normal Skin COMMON NORMALS: no rashes or lesions noted GENERAL SKIN EXAM: no rashes or lesions noted Urinary Catheter Management: Boss: Cath Placed During This Visit: yes Reason for Continuing Indwelling Catheter: Required Immobilization for Trauma or Surgery or Anesthesia Urinary Catheter Date of Insertion: 08/06/21 Urinary Catheter Time of Insertion: 08:05 Data : 08/07/21 04:42 08/06/21 05:17 A&P Assessment and plan (1) Endometrial thickening on ultrasound: Mrs. Schrader was counseled again regarding thickened endometrium concerning in postmenopausal women with postmenopausal bleeding. She was referred due to incidental finding of thickened endometrium. Patient was counseled regarding a symptomatic thickened endometrium. When asymptomatic thickened endometrium is found incidentally, a hysteroscopy and biopsy is not warranted if the thickness is between 4 mm and 10.5 mm. However ultrasound reports and endometrial thickening of 23 mm, and a hysteroscopy and endometrial biopsy is recommended. In a recent article in the [employer] Journal from Obstetrics & Gynecology Science 2019 showed that most frequently detected focal intrauterine lesions in asymptomatic women were endometrial polyps, which were diagnosed in 168 (63.1%) cases. Twenty-four (9%) patients were diagnosed as having simple hyperplasia, 4 (1%) atypical hyperplasia, and 8 (3%) endometrial adenocarcinoma. They suggest 10.5 mm as the cutoff value for endometrial thickness and recommend hysteroscopy with endometrial sampling recommended. The patient was informed of the risks and benefits of a hysteroscopy with dilation and curettage. Risks included but were not limited to bleeding, infection, injury to the vulva, vagina, or cervix, and uterine perforation. The patient expressed understanding of the risks involved, all questions were answered, and the patient consented to the procedure and signed the consent. The had requested a hysterectomy however endometrial sampling before hysterectomy is warranted to rule out endometrial carcinoma as [facility] the same as a type hysterectomy for benign reasons. If endometrial sampling shows endometrial carcinoma referral to [facility]OW[facility] MANA[facility] oncology in [place] with Dr. Schwartz is recommended. Status: Acute (2) Enlarged uterus: By US the latest uterus is normal size. Due to the patient past medical history, comorbidities and history of colon cancer cancer, do not believe that the uterus is the cause for her bowel obstruction as the obstruction. May be at the level of the bowel anastomosis from previous surgery. Status: Acute (3) Postmenopausal bleeding: Status: Acute (4) Small bowel obstruction: Status: Acute Coding Level of Care Code Acute Collection Card Clerk for [facility] Fwd Diagnoses Endometrial thickening on ultrasound R93.89 Enlarged uterus N85.2 Postmenopausal bleeding N95.0 Small bowel obstruction K56.609
--- NOTE | 2021-08-07 05:04 | US_ITS ---
WS: [id number] TRANSABDOMINAL PELVIC ULTRASOUND HISTORY: Preop evaluation of the endometrium. COMPARISON: 06/13/2021 Uterus: 7.2 cm x 4.6 cm x 4.3 cm. Difficult to visualize uterus as the bladder is not distended and o nly transabdominal imaging is performed. Very similar in appearance to the prior ultrasound. Endometrium: Entire endometrium is not well visualized. Variable echogenicity throughout the endometr ium. Endometrium is thickened heterogeneous and there may be fluid present. Endometrium measures appr oximately 1.9 cm. Neither ovary is identified. No free fluid in the cul-de-sac. US/US pelvic complete* [id number] IMPRESSION: 1. Abnormal endometrium as previously described on 06/13/2021. This study was o btained preoperatively. 2. Neither ovary identified.
[2021-08-07 05:11] LABS: Blood Urea Nitrogen 32 mg/dL (8-23); Calcium 7.5 mg/dL (8.5-10.5); Carbon Dioxide 29 mmol/L (22-29); Chloride 89 mmol/L (98-107); Glucose 334 mg/dL (65-115); Osmolality Calculated 296 mOsm/kg (285-295); Sodium 133 mmol/L (136-145)
[2021-08-07 05:18] LABS: Anion Gap 18.8 (5-19); Potassium 3.8 mmol/L (3.5-5.1)
--- NOTE | 2021-08-07 06:15 | PM.PN ---
Subjective Subjective: Patient overall seems to be feeling better, still NG to low intermittent wall suction, half of the canister is full. Patient is passing gas. Patient is seen by gynecology service and plan for surgery today to obtain a biopsy from the endometrial lining. Medications: Reviewed: Yes Vitals/I&O/Wt Last Vital Signs Temp 98.1 F 08/07/21 04:00 Pulse 87 08/07/21 04:00 Resp 20 H 08/07/21 04:00 BP 121/62 08/07/21 04:00 Pulse Ox 94 08/07/21 04:00 08/06/21 08/06/21 08/07/21 14:59 22:59 06:59 Intake Total 100 / 100 2225 / 2325 Output Total 900 / 900 Balance 100 / 100 -900 / -800 2225 / 1425 Weight last 48 hrs Weight 131 lb 4.8 oz Weight 135 lb Physical Exam Narrative: Patient is conscious alert oriented X3 No apparent distress BMI 22.5 Head and neck examination PERRLA no masses no cervical lymphadenopathy no jaundice NG in place with bilious Abdomen nontender nondistended soft no organomegaly guarding or rigidity/no signs of peritonitis Extremities no cyanosis no clubbing no edema Urinary Catheter Management: Boss: Cath Placed During This Visit: yes Reason for Continuing Indwelling Catheter: Required Immobilization for Trauma or Surgery or Anesthesia Urinary Catheter Date of Insertion: 08/06/21 Urinary Catheter Time of Insertion: 08:05 Data : 08/07/21 04:42 08/07/21 04:42 A&P Assessment and plan (1) Small bowel obstruction: After limited history taking physical examination and reviewing the chart and images with my personal interpretation, certainly the patient does have bowel obstruction and large burden of stool in her colon with dilated small bowel loops. Also she does have large urinary bladder with urinary retention. From surgical standpoint of view: 1-continue NG to low intermittent wall suction 2-strict I's and O 3-repeated physical examination 5-pharmacologic DVT prophylaxis 6-incentive spirometer every hour 7-family update Thank you for consulting general surgery to participate taking care of Ms. Schrader Status: Acute Attestations Medical Necessity Statement*: Per admitting service Coding Level of Care Code Acute Aviation Maintenance Technician for [facility] Diagnoses Small bowel obstruction K56.609
--- NOTE | 2021-08-07 08:55 | PC.CHAP ---
Pastoral Care Encounter/Spiritual Assessment Type of Contact [] Declined motor bike mechanic visit [x] Patient/Family/Request visit [] Outpatient visit [] Follow-up visit [] Physician referral [] Code/Alert [] Routine visit [] Staff referral [] Actively dying [] Patient sleeping [] Family support [] [] Out of room [] Palliative care [] [] Receiving care in room [] Pre-surgical visit [] Trauma [] Long length of stay [] ICU visit [] Other: Relational/Emotional Strength [x] Patient feels connected with others/family/visitors/staff [] Distress [] Loneliness/isolation [] Abandonment Spirituality of Patient [x] Person of Shannon [x] Attends Mandaeism of their Shannon [x] Believes in Prayer [x] Reads Bible or Sabianism materials [] There are Spiritual issues to be addressed Nurse Sane Interventions [x] Prayer [x] Active listening [x] Non-anxious presence [x] Spiritual/emotional support [] Crisis/trauma care [] Spiritual counseling [] Bereavement support [] Provided bereavement packet [] Provided Bible/devotional materials [] Provided toy/stuffed animal, coloring book to patient or family member [] Provided Communion [] Anointing/[place] [] Salvation [x] Completed spiritual assessment [] Other: Impact on Illness or Injury [] Angry [] Fearful [] Anxious [] Often cries [] Exhaustion [] Unable to work [] Unable to attend sikhism [] Unable to walk/stand [] Unable to read [] Unable to drive [] Unable to eat/drink [] Unable to sleep [] Unable to be with family [] Patient intubated [] Other: Summary Patient and family request prayer, two daughters by her bedside. Nurse Sane prayed for patient and inquired of any other needs, none at this time. Time spent with patient 15 min
[2021-08-07] MEDS: cefepime 1,000 MG in sodium chloride 0.9% (plus) 50 ML 100 MG IV (09:44)
--- NOTE | 2021-08-07 10:26 | PC.CHAP ---
Pastoral Care Encounter/Spiritual Assessment Type of Contact [] Declined scraper tender visit [] Patient/Family/Request visit [] Outpatient visit [] Follow-up visit [] Physician referral [] Code/Alert [x] Routine visit [] Staff referral [] Actively dying [] Patient sleeping [] Family support [] [] Out of room [] Palliative care [] [x] Receiving care in room [] Pre-surgical visit [] Trauma [x] Long length of stay [] ICU visit [] Other: Relational/Emotional Strength [x] Patient feels connected with others/family/visitors/staff [] Distress [] Loneliness/isolation [] Abandonment Spirituality of Patient [x] Person of Shannon [] Attends Orthodoxy of their Shannon [x] Believes in Prayer [] Reads Bible or Jehovah'S Witness materials [] There are Spiritual issues to be addressed Fiber Optic Assembler Interventions [x] Prayer [x] Active listening [x] Non-anxious presence [x] Spiritual/emotional support [] Crisis/trauma care [x] Spiritual counseling [] Bereavement support [] Provided bereavement packet [] Provided Bible/devotional materials [] Provided toy/stuffed animal, coloring book to patient or family member [] Provided Communion [] Anointing/[place] [] Salvation [x] Completed spiritual assessment [] Other: Impact on Illness or Injury [] Angry [] Fearful [x] Anxious [] Often cries [] Exhaustion [x] Unable to work [] Unable to attend protestant [] Unable to walk/stand [] Unable to read [] Unable to drive [] Unable to eat/drink [] Unable to sleep [] Unable to be with family [] Patient intubated [] Other: Summary N/V alexwed up not suer about the condistion of her at this time +2 family Time spent with patient 10 mins
--- NOTE | 2021-08-07 12:05 | PM.PN ---
Subjective Subjective: Patient is endorsing back pain, I have requested nurse to give her Dilaudid right now at 930 her last dose was at 5:30 AM Plan for biopsy hysteroscopy NG tube actively draining bile High output from NG Patient has TPN going via left arm PICC line Monitor for signs of contraction alkalosis, electrolyte imbalance Vitals/I&O/Wt Last Vital Signs Temp 97.7 F 08/07/21 12:00 Pulse 87 08/07/21 12:00 Resp 16 08/07/21 12:00 BP 146/67 08/07/21 12:00 Pulse Ox 93 08/07/21 12:00 08/06/21 08/07/21 08/07/21 22:59 06:59 14:59 Intake Total 2275 / 2375 50 / 50 Output Total 900 / 900 500 / 1400 Balance -900 / -800 1775 / 975 50 / 50 Weight last 48 hrs Weight 59.557 kg Weight 61.235 kg Physical Exam Narrative: Patient is in distress because of back pain NG tube draining bile High output noted Uterine enlargement Tender uterine enlargement Cachectic, malnourished Dehydrated TPN running at the bedside Family is also sympathetic No new focal deficit Saturating well on room air Hemodynamically stable Urinary Catheter Management: Boss: Cath Placed During This Visit: yes Reason for Continuing Indwelling Catheter: Required Immobilization for Trauma or Surgery or Anesthesia Urinary Catheter Date of Insertion: 08/06/21 Urinary Catheter Time of Insertion: 08:05 Data : 08/07/21 04:42 08/07/21 04:42 Micro: Microbiology 08/05/21 20:18 Urine Culture - Final Urine,Clean Catch A&P Assessment and plan (1) Hyponatremia: Status: Acute (2) Diabetes: Status: Acute (3) Small bowel obstruction: Status: Acute (4) Nausea & vomiting: Status: Acute (5) Anemia, blood loss: Status: Acute (6) Endometrial thickening on ultrasound: Status: Acute (7) Enlarged uterus: Status: Acute (8) Postmenopausal bleeding: Status: Acute (9) Colon cancer: Status: Acute Plan Small bowel obstruction secondary to enlarged uterus Biopsy by Dr. Rhodes today This most likely is cancer related I have updated pathologist, hope to see the results within 24 hours, in case of cancer related etiology she will need to be transferred to [place] Continue TPN High NG output Monitor for potential contraction alkalosis and electrolyte imbalance Family is aware, all of the questions were answered to the satisfaction Patient is full code Currently doing well on room air NG has to stay in because of high output noted I will supplement TPN with IV fluids and potassium Hyperglycemia noted I will add low-dose sliding scale continue normal saline Attestations Medical Necessity Statement*: Hopefully I will be able to see the call the result by tomorrow so I could arrange transfer Time Spent in Patient Care: 30 Coding Level of Care Code Acute Medical Claims Manager for [facility] Fwd Diagnoses Hyponatremia E87.1 Diabetes E11.9 Small bowel obstruction K56.609 Nausea & vomiting R11.2 Anemia, blood loss D50.0 Endometrial thickening on ultrasound R93.89 Enlarged uterus N85.2 Postmenopausal bleeding N95.0 Colon cancer C18.9
[2021-08-07 12:49] LABS: Basophils % 0.4 %; Eosinophils # 0.1 10^3/uL (0.0-0.8); Eosinophils % 1.1 %; Hematocrit 29.4 % (37.0-47.0); Hemoglobin 9.6 g/dL (11.5-15.3); Lymphocytes # 1.3 10^3/uL (0.8-4.8); Lymphocytes % 13.9 %; Mean Corpuscular HGB Conc 32.7 g/dL (30.0-36.0); Mean Corpuscular Hemoglobin 28.7 pg (28.0-34.0); Mean Platelet Volume 9.2 fL (7.4-10.4); Monocytes # 0.8 10^3/uL (0.2-0.9); Monocytes % 8.4 %; Neutrophils # 7.18 10^3/uL (1.8-7.7); Neutrophils % 75.8 %; Nucleated Red Blood Cells % 0 %; Platelet Count 425 10^3/cmm (130-400); Red Blood Count 3.34 10^6/uL (4.1-5.3); Red Cell Distribution Width 13.8 % (12.1-15.1); White Blood Count 9.5 10^3/uL (4.0-10.0)
[2021-08-07] MEDS: ondansetron 2 mg/ML SDV 2 mL 4 MG IVP (15:44)
[2021-08-07] MEDS: scopolamine 1.5 Patch 1 PATCH TRANSDERMA (15:46)
[2021-08-07] MEDS: enoxaparin 30 mg/0.3 mL Syringe SUBCUT (15:51)
[2021-08-07] MEDS: sodium chloride 0.9% 1,000 ML 30 ML IV (15:54)
[2021-08-07] MEDS: HYDROmorphone 1 mg/mL INJ 1 mL 0.5 MG IVP (15:58)
[2021-08-07 16:20] LABS: Glucose Point of Care 340 mg/dL (70-110)
--- NOTE | 2021-08-07 16:31 | P.ANESASSM_ITS ---
Pre-Anesthetic Assessment Height/Weight: Height 1.63 m Weight 59.557 kg Temp Pulse Resp BP Pulse Ox 97 F L 89 16 144/66 94 08/07/21 16:15 08/07/21 16:15 08/07/21 16:15 08/07/21 16:15 08/07/21 16:15 Preop Diagnosis: Postmenopausal bleeding, endometrial thickness, Enlarged uterus Operation Date: 08/07/21 15:50 Proposed Procedures p Dilation And Curettage (D&C)(Not Applicable) - Charbel Rhodes MD Familial anesthetic complications: None Was Beta Mattie taken within 24 hours: N/A Was Clonidine taken within 24 hours: N/A Social No alcohol and No tobacco Exam alert, oriented x 3, clear to auscultation bilaterally and regular rate & rhythm Airway Submandibular: within normal limits Cervical ROM: within normal limits Mallampati: Class II Dentition: false CV/HEM Anemia GI Bowel obstruction Metabolic Diabetes Mellitus (poorly controlled) Neuropsych Anxiety, Depression and Neuropathy Anesthetic Plan ASA status: 3 Anesthesia: General (Mod RSI) Medications/Allergies Home Medications Medication Instructions Recorded Confirmed Last Taken Type Diabetic shoes with 3 pairs of #1 ea 06/28/20 08/06/21 Unknown Rx inserts blood-glucose meter,continuous #1 ea 06/16/21 08/06/21 Unknown Rx (Dexcom G6 Trailer Truck Driver) blood-glucose sensor (Dexcom G6 #3 ea 06/16/21 08/06/21 Unknown Rx Sensor) blood-glucose transmitter (Dexcom #1 ea 06/16/21 08/06/21 Unknown Rx G6 Transmitter) acetaminophen 500 mg tablet 1,000 mg PO Q6H PRN tab 06/23/21 08/06/21 Unknown History (Tylenol Extra Strength) temazepam 30 mg capsule 30 mg PO BEDTIME #7 cap 07/22/21 08/06/21 Unknown Rx alprazolam 0.5 mg tablet (Xanax) 0.5 mg PO Q24H PRN 08/06/21 08/06/21 Unknown History aluminum-mag hydroxide-simethicone 30 ml PO Q4H PRN 08/06/21 08/06/21 Unknown History 200 mg-200 mg-20 mg/5 mL oral susp hydrocodone 5 mg-acetaminophen 325 1 tab PO Q4H PRN 08/06/21 08/06/21 Unknown History mg tablet insulin glargine-yfgn 100 unit/mL 20 unit SUBCUT DAILY 08/06/21 08/06/21 Unknown History (3 mL) subcutaneous pen insulin lispro 100 unit/mL See Rx Instructions .ROUTE .COMPLEX 08/06/21 08/06/21 Unknown History subcutaneous cartridge mirtazapine 15 mg tablet (Remeron) 15 mg PO BEDTIME 08/06/21 08/06/21 Unknown History ondansetron HCl 4 mg tablet 4 mg PO Q4H PRN 08/06/21 08/06/21 Unknown History polyethylene glycol 3350 17 gram 17 g PO QAM 08/06/21 08/06/21 Unknown History oral powder packet (Miralax) Allergies Allergy/AdvReac Type Severity Reaction Status Date / Time ketorolac [From Toradol] Allergy Severe see Verified 08/06/21 08:06 comment methocarbamol [From Robaxin] Allergy Intermediate see Verified 08/06/21 08:06 comment trazodone Allergy Intermediate see Verified 08/06/21 08:06 comment cyclobenzaprine Allergy see Verified 08/06/21 08:06 [From Flexeril] comment tramadol Allergy see Verified 08/06/21 08:06 comment Current Medications Generic Name Dose Route Start Last Admin Trade Name Freq PRN Reason Stop Dose Admin Diphenhydramine HCl 12.5 mg 08/06/21 13:39 08/07/21 09:36 Diphenhydramine 50 Mg/Ml Sdv 1ml IVP 12.5 mg Q4H PRN Administration ALLERGIC REACTION Diphenhydramine HCl 12.5 mg 08/07/21 15:05 08/07/21 16:09 Diphenhydramine 50 Mg/Ml Sdv 1ml IVP 12.5 mg ONCE PRN Administration ANESTHESIA Enoxaparin Sodium 40 mg 08/05/21 21:15 08/05/21 22:13 Enoxaparin 40 Mg/0.4 Ml Syringe SUBCUT 40 mg Q24H NIURKA Administration Hydromorphone HCl 0.2 mg 08/06/21 13:39 08/07/21 09:39 Hydromorphone 1 Mg/Ml Inj 1 Ml IVP 0.2 mg Q4H PRN Administration PAIN Sodium Chloride 1,000 mls @ 75 mls/hr 08/05/21 21:15 08/07/21 00:25 Sodium Chloride 0.9% IV 75 mls/hr .[id number] NIURKA Administration Piperacillin Sod/Tazobactam 50 mls @ 12.5 mls/hr 08/06/21 10:00 08/07/21 10:46 Sod 3.375 gm/ Sodium Chloride IV 12.5 mls/hr Q8H NIURKA Administration Protocol Sodium Chloride 1,000 mls @ 75 mls/hr 08/06/21 09:15 08/07/21 00:17 Sodium Chloride 0.9% IV 75 mls/hr .[id number] NIURKA Administration Multivitamins 10 ml/ Amino 1,010 mls @ 42 mls/hr 08/06/21 11:30 08/06/21 15:47 Acids/Electrolytes IV 42 mls/hr .Q24H NIURKA Administration Fat Emulsion Intravenous 125 mls @ 10.417 mls/hr 08/06/21 11:30 08/07/21 04:08 Intralipid 20% IV Infused Q24H NIURKA Infusion Sodium Chloride 1,000 mls @ 30 mls/hr 08/07/21 15:15 08/07/21 15:54 Sodium Chloride 0.9% IV 08/08/21 15:14 30 mls/hr .Q24H NIURKA Administration Insulin Human Lispro 0 unit 08/06/21 08:00 08/07/21 04:28 Insulin Lispro 100 Unit/1 Ml SUBCUT 10 unit WM&BEDTIME NIURKA Administration Protocol Morphine Sulfate 2 mg 08/06/21 09:00 08/06/21 10:40 Morphine 4 Mg/Ml Sdv 1 Ml IVP 2 mg Q4H PRN Administration SEVERE PAIN Ondansetron HCl 4 mg 08/07/21 15:05 08/07/21 15:44 Ondansetron 2 Mg/Ml Sdv 2 Ml IVP 4 mg Q5M PRN Administration NAUSEA AND VOMITING PFSH Anesthesia Medical History ARNALDO (acute kidney injury) Ascending cholangitis Closed intertrochanteric fracture Colon cancer Depression with anxiety Diabetes mellitus with ketoacidosis without coma Diabetic neuropathy Gallstone H/O fracture of ankle left History of diabetic ketoacidosis Nail fungus Neuropathy Surgical History H/O partial resection of colon H/O wrist surgery right S/P appendectomy S/P cholecystectomy S/P tonsillectomy Family History Family/Other Diabetes maternal side, female Son Diabetes Father Heart disease Mother Thyroid disease Daughter Thyroid disease Other Hypertension Denies family history of Colon cancer Ovarian cancer Clotting disorder Hypercholesteremia Breast cancer Anesthesia complication Bleeding disorder Uterine cancer Stroke Social History Smoking and tobacco status: former smoker Data Anesthesia : 08/07/21 12:30 08/07/21 04:42 Short CBC 08/05/21 08/06/21 08/07/21 Range/Units 20:56 05:17 04:42 WBC 18.4 H 10.7 H 10.6 H (4.0-10.0) 10^3/uL Hgb 11.8 10.4 L 9.7 L (11.5-15.3) g/dL Hct 34.8 L 29.5 L 30.3 L (37.0-47.0) % MCV 85.3 82.9 89.9 D (81-99) fl Plt Count 604 H 410 H D 404 H (130-400) 10^3/cmm Neut % (Auto) 84.8 76.6 77.5 % Neut # (Auto) 15.57 H 8.24 H 8.19 H (1.8-7.7) 10^3/uL 08/07/21 Range/Units 12:30 WBC 9.5 (4.0-10.0) 10^3/uL Hgb 9.6 L (11.5-15.3) g/dL Hct 29.4 L (37.0-47.0) % MCV 88.0 (81-99) fl Plt Count 425 H (130-400) 10^3/cmm Neut % (Auto) 75.8 % Neut # (Auto) 7.18 (1.8-7.7) 10^3/uL BMP 08/05/21 08/06/21 08/07/21 20:56 05:17 04:42 Sodium 131 L 128 L 133 L Potassium 4.0 4.1 3.8 Chloride 86 L 85 L 89 L Carbon Dioxide 30 H 31 H 29 BUN 32 H 35 H 32 H Creatinine 0.8 0.7 0.7 Glucose 197 H 215 H 334 H Calcium 8.7 7.9 L 7.5 L Liver Function 08/05/21 Range/Units 20:56 Total Bilirubin 0.8 (0.15-1.2) mg/dL AST 11 (0-32) U/L ALT < 5 (0-33) U/L Alkaline Phosphatase 131 H (35-105) IU/L Albumin 3.4 L (3.5-5.2) g/dL Urine 08/05/21 Range/Units 20:18 Urine Color Yellow (Yellow) Urine Appearance Hazy A (CLEAR) Urine pH 5 (5-7) Ur Specific [place] 1.020 (1.005-1.030) Urine Protein Neg (Negative) Urine Glucose (UA) Norm (Normal) Urine Ketones 1+ H (Negative) Urine Nitrate Negative (Negative) Urine Bilirubin 1+ H (Negative) Ur Leukocyte Esterase Negative (Negative) Urine RBC 0-4 H (0-2) /hpf Urine WBC 0-4 H (0-5) /hpf Microbiology 08/05/21 20:18 Urine Culture - Final Urine,Clean Catch Cardiac Studies: No Data to Display
--- NOTE | 2021-08-07 16:49 | W.PM.OPSUD ---
Surgery/Procedure H&P Update DATE OF PROCEDURE: August 07, 2021 DATE H&P PERFORMED: 08/07/21 H&P UPDATE INFORMATION: I have reviewed H&P completed within last 30 days, I have examined patient prior to procedure and No changes to prior documentation PREOP DIAGNOSIS: Postmenopausal bleeding, endometrial thickness, Enlarged uterus PLANNED PROCEDURE: Operation Date: 08/07/21 15:50 Proposed Procedures p Dilation And Curettage (D&C)(Not Applicable) - Charbel Rhodes MD
[2021-08-07] MEDS: ceFOXitin 2,000 MG in sodium chloride 0.9% (plus) 50 ML 100 MG IV (17:05)
--- NOTE | 2021-08-07 17:49 | PM.OP ---
Operative Report Date of procedure: August 07, 2021 Pre-op diagnosis: Preop Diagnosis Postmenopausal bleeding, endometrial thickness, Enlarged uterus Post-op diagnosis: Thickened endometrium Procedure done: Dilation and curettage Specimens removed/disposition: Endometrial curettings Surgeon: Charbel Rhodes MD Estimated blood loss (mL): 5 IV fluids (mL): 150 Complications: none Procedure: Under general anaesthetic in a dorsal lithotomy position, the patient was prepped and draped in the usual sterile manner. Bimanual exam prior to prepping revealed a mobile, anteverted non-enlarged uterus. An in and out catheterization was performed. A weighted speculum was placed in the vagina and with the help of a right angle retractor the anterior lip of the cervix was grasped with a single toothed tinaculum and brought forward. Taking care not to perforate the uterus, a sound was passed inside to measure the length of the uterus. A series of Hegar dilators were then inserted sequentially into the cervical os up to a size of 8 mm. The smallest curette available was then used to perform the curettage. In a sequential order, being sure to cover all regions of the uterine cavity, sweeps with the curette were performed to obtain tissue. The tissue samples were collected and sent to pathology. The tenaculum was then removed and the cervix examined for hemostasis which was achieved. Finally the weighted speculum was removed. The patient tolerated the procedure well and was brought to the recovery room in a stable condition. At the end of the procedure all sponges and instruments were counted and correct. The blood loss was minimal and there were no complications.
[2021-08-07 18:03] LABS: Glucose Point of Care 295 mg/dL (70-110)
--- NOTE | 2021-08-07 18:04 | ANE.PACU2 ---
Inpatient post-anesthesia follow up: Airway intact: Yes Vital signs: Temperature 97 F Pulse Rate 89 Respiratory Rate 16 Blood Pressure 144/66 Pulse Oximetry 94 Oxygen Delivery Me thod Room Air Oxygen Flow Rate Fraction of Inspir ed Oxygen Hydration adequate: Yes Nausea and vomiting: No Pain level: 3 Mental status: Baseline
[2021-08-07] MEDS: enoxaparin 40 mg/0.4 mL Syringe SUBCUT (20:53)
[2021-08-07] MEDS: dextrose 5%-lactated ringers 1,000 ML 125 ML IV (20:59)
[2021-08-07] MEDS: HYDROcodone-acetaminophen 5-325 mg Tablet PO (22:27)
[2021-08-08] VITALS (7 sets, daily range): BP systolic 112–135; BP diastolic 55–65; PULSE 78–88; RESP 16–24; TEMP 36.7–37.4; O2SAT 92–97
[2021-08-08 04:57] LABS: Basophils % 0.5 %; Eosinophils # 0.1 10^3/uL (0.0-0.8); Eosinophils % 0.6 %; Hematocrit 28.5 % (37.0-47.0); Hemoglobin 9.3 g/dL (11.5-15.3); Lymphocytes # 1.2 10^3/uL (0.8-4.8); Lymphocytes % 13.7 %; Mean Corpuscular HGB Conc 32.6 g/dL (30.0-36.0); Mean Corpuscular Hemoglobin 28.4 pg (28.0-34.0); Mean Corpuscular Volume 86.9 fl (81-99); Mean Platelet Volume 9.4 fL (7.4-10.4); Monocytes # 0.6 10^3/uL (0.2-0.9); Monocytes % 6.8 %; Neutrophils # 6.81 10^3/uL (1.8-7.7); Neutrophils % 78.1 %; Nucleated Red Blood Cells % 0 %; Platelet Count 375 10^3/cmm (130-400); Red Blood Count 3.28 10^6/uL (4.1-5.3); Red Cell Distribution Width 13.7 % (12.1-15.1); White Blood Count 8.7 10^3/uL (4.0-10.0)
[2021-08-08 05:20] LABS: Blood Urea Nitrogen 24 mg/dL (8-23); Calcium 7.8 mg/dL (8.5-10.5); Carbon Dioxide 32 mmol/L (22-29); Chloride 92 mmol/L (98-107); Glucose 425 mg/dL (65-115); Osmolality Calculated 300 mOsm/kg (285-295); Sodium 134 mmol/L (136-145)
[2021-08-08 05:26] LABS: Anion Gap 13.5 (5-19); Potassium 3.5 mmol/L (3.5-5.1)
--- NOTE | 2021-08-08 06:21 | PM.PN ---
Subjective Subjective: Patient overall seems to be doing better, continues to pass gas, still producing considerable amount per NG tube. Patient undergone D&C per gynecology service yesterday pending pathology. I did get the chance to talk with the patient and her daughter yesterday about the bowel obstruction from general surgery standpoint of view, as we continue to pursue conservative management for now and we will continue coordinating care with hospitalist and gynecology service. Perhaps the underlying adhesive component of bowel obstruction could be malignancy related. Medications: Reviewed: Yes Vitals/I&O/Wt Last Vital Signs Temp 98.1 F 08/08/21 04:31 Pulse 84 08/08/21 04:31 Resp 16 08/08/21 04:31 BP 135/62 08/08/21 04:31 Pulse Ox 95 08/08/21 04:31 08/07/21 08/07/21 08/08/21 14:59 22:59 06:59 Intake Total 50 / 50 250 / 300 1000 / 1300 Output Total 900 / 900 5 / 905 550 / 1455 Balance -850 / -850 245 / -605 450 / -155 Physical Exam Narrative: Patient is conscious alert oriented X3 No apparent distress NG in place with bilious output BMI 22.5 Head and neck examination PERRLA no masses no cervical lymphadenopathy no jaundice Abdomen nontender nondistended soft no organomegaly guarding or rigidity/no signs of peritonitis Boss catheter in place with clear urine Extremities no cyanosis no clubbing no edema Urinary Catheter Management: Boss: Cath Placed During This Visit: yes Reason for Continuing Indwelling Catheter: Required Immobilization for Trauma or Surgery or Anesthesia Urinary Catheter Date of Insertion: 08/06/21 Urinary Catheter Time of Insertion: 08:05 Data : 08/08/21 04:27 08/08/21 04:27 Micro: Microbiology 08/05/21 20:18 Urine Culture - Final Urine,Clean Catch A&P Assessment and plan (1) Small bowel obstruction: Assessment 75 years old female patient with adhesive bowel obstruction Plan 1-continue NG to low intermittent wall suction for now. May consider clamping NG tube through the day 2-strict I's and O 3-repeated physical examination 5-pharmacologic DVT prophylaxis 6-incentive spirometer every hour 7-we will continue coordinating with hospitalist and gynecology service Thank you for consulting general surgery to participate taking care of Ms. Schrader Status: Acute Attestations Medical Necessity Statement*: Per admitting service Coding Level of Care Code Acute Business Continuity Consultant for [facility] Fwd Diagnoses Small bowel obstruction K56.609
[2021-08-08 06:30] LABS: Glucose Point of Care 350 mg/dL (70-110)
[2021-08-08 06:30] LABS: Glucose Point of Care 418 mg/dL (70-110)
--- NOTE | 2021-08-08 08:52 | PC.SOCIAL ---
Pg 2 IMM Explained to pt Pg 2 IMM. No questions voiced. Provided pt a copy. Initialed, dated, & timed a copy & placed in chart.
[2021-08-08] MEDS: dextrose 5%-lactated ringers 1,000 ML 125 ML IV (09:49)
[2021-08-08 11:19] LABS: Glucose Point of Care 456 mg/dL (70-110)
--- NOTE | 2021-08-08 11:34 | P.PN_ITS ---
Subjective Subjective: Patient stating that she is passing gas, M no bilious content in the container, she wanted to try some coffee today Will do KUB erect and supine Did speak with Dr. Bowie and Dr. Powell today Dr. Rhodes would not recommend transfer until we see the biopsy result Dr. Powell is managing SBO conservatively KUB today, He will reevaluate the patient in the evening Vitals/I&O/Wt Last Vital Signs Temp 98.1 F 08/08/21 04:31 Pulse 86 08/08/21 08:33 Resp 18 08/08/21 08:33 BP 135/62 08/08/21 04:31 Pulse Ox 96 08/08/21 08:33 08/07/21 08/08/21 08/08/21 22:59 06:59 14:59 Intake Total 250 / 300 1000 / 1300 Output Total 5 550 / 1455 Balance 245 / -605 450 / -155 Physical Exam Narrative: Patient is resting comfortably in her bed NG to suction Bowel content 900 mL Abdomen protuberant due to uterine enlargement No active peritonitis Dehydrated S1, S2 Saturating well on room air Awake and alert Nonfocal neuro exam Urinary Catheter Management: Boss: Cath Placed During This Visit: yes Reason for Continuing Indwelling Catheter: Required Immobilization for Trauma or Surgery or Anesthesia Urinary Catheter Date of Insertion: 08/06/21 Urinary Catheter Time of Insertion: 08:05 Data : 08/08/21 04:27 08/08/21 04:27 Micro: Microbiology 08/05/21 20:18 Urine Culture - Final Urine,Clean Catch A&P Assessment and plan (1) Hyponatremia: Status: Acute (2) Diabetes: Status: Acute (3) Small bowel obstruction: Status: Acute (4) Nausea & vomiting: Status: Acute (5) Endometrial thickening on ultrasound: Status: Acute (6) Enlarged uterus: Status: Acute Plan Small bowel obstruction Conservative management High output from NG 900ml bile in the container Uterine enlargement Biopsy has been sent, report to be back by Wednesday Will not plan to transfer her until we see the biopsy results Repeat KUB this morning for SBO evaluation Patient is passing gas She wanted to try coffee this morning She is full code DVT prophylaxis on board Hyperglycemia secondary to initiation of D5 by Dr. Rhodes, I have discontinue D5 LR, start TPN, use normal saline we will give her Humalog and 10 units of regular insulin check sugar every 4 hours Nurses aware Attestations Medical Necessity Statement*: Continue medical management Time Spent in Patient Care: 30 Coding Level of Care Code Acute Deboning Team Leader for [facility] Fwd Diagnoses Hyponatremia E87.1 Diabetes E11.9 Small bowel obstruction K56.609 Nausea & vomiting R11.2 Endometrial thickening on ultrasound R93.89 Enlarged uterus N85.2
--- NOTE | 2021-08-08 11:38 | XR_ITS ---
WS: [id number] Exam: XR KUB portable [id number] Date/Time of Exam: 08/08/2021 11:38 AM Reason For Exam: supine and erect No bowel obstruction or free air. Large amount retained stool throughout the colon. An enteric tube i s noted in the stomach probably ending near the region of the gastric antrum.. Surgical clips and sut ures in the right abdomen. Organ margins are obscured. Hardware in the proximal right femur. XR/XR KUB portable [id number] IMPRESSION: 1. No acute abdominal process. 2. Enteric tube is hearing to be in good position probably ending near the mehrdad sánchez antrum. 3. Constipation. Postsurgical changes in the right abdomen.
[2021-08-08] MEDS: insulin regular-human 10 UNIT in SYRINGE 1 EACH IVP (12:15)
[2021-08-08] MEDS: insulin lispro 100 unit/1 mL SUBCUT ×2 (12:16→18:51)
[2021-08-08] MEDS: sodium chloride 0.9% 1,000 ML 75 ML IV ×2 (12:19→18:52)
[2021-08-08 13:37] LABS: Glucose Point of Care 352 mg/dL (70-110)
[2021-08-08] MEDS: HYDROmorphone 1 mg/mL INJ 1 mL 0.2 MG IVP (15:37)
[2021-08-08] MEDS: diphenhydrAMINE 50 mg/mL SDV 1mL 12.5 MG IVP (15:37)
--- NOTE | 2021-08-08 17:30 | PM.PN ---
Subjective Subjective: Mrs. cShrader 75-year-old female admitted due to bowel obstruction. Initially thought uterus may have been the etiology of bowel obstruction. But ultrasounds showed uterus with normal size. Most likely bowel obstruction may be related to opioid use after hip replacement surgery. Vitals/I&O/Wt Last Vital Signs Temp 98.3 F 08/08/21 16:00 Pulse 84 08/08/21 16:00 Resp 16 08/08/21 16:00 BP 115/65 08/08/21 16:00 Pulse Ox 94 08/08/21 16:00 08/08/21 08/08/21 08/08/21 06:59 14:59 22:59 Intake Total 1000 / 2300 0.1 / 0.1 Output Total 550 / 1455 Balance 450 / 845 0.1 / 0.1 Physical Exam Narrative: GA: Alert and oriented ?3. HEENT: WNL. Heart: Regular rate and rhythm. Lungs: Clear to auscultation bilaterally. Abdomen: no bowel sounds present, nontender SALON PROFESSIONAL: spotting bleeding. Extremities: No edema, no cyanosis, no calves pain. Urinary Catheter Management: Boss: Cath Placed During This Visit: yes Reason for Continuing Indwelling Catheter: Required Immobilization for Trauma or Surgery or Anesthesia Urinary Catheter Date of Insertion: 08/06/21 Urinary Catheter Time of Insertion: 08:05 Data : 08/08/21 04:27 08/08/21 04:27 A&P Assessment and plan (1) Postmenopausal bleeding: Mrs. Schrader 75-year-old female status post dilation and curettage 1 day ago. Procedure was performed without complications. Pathology report is pending. As he was discussed with the pathology he wants to do a specific markers and estimated final report may be available Wednesday on Wednesday. Status: Acute (2) Endometrial thickening on ultrasound: Status: Acute (3) Small bowel obstruction: Status: Acute Attestations Medical Necessity Statement*: In my professional opinion per admitting diagnosis Coding Level of Care Code Acute Neurosurgery Spine Physician for Chg Fwd Diagnoses Postmenopausal bleeding N95.0 Endometrial thickening on ultrasound R93.89 Small bowel obstruction K56.609
[2021-08-08 17:47] LABS: Glucose Point of Care 246 mg/dL (70-110)
[2021-08-08] MEDS: piperacillin-tazobactam 3.375 GM in sodium chloride 0.9% (plus) 50 ML IV (18:49)
[2021-08-08] MEDS: insulin glargine 100 units/1 mL 10 UNIT SUBCUT (20:53)
[2021-08-08] MEDS: enoxaparin 40 mg/0.4 mL Syringe SUBCUT (20:53)
[2021-08-08 21:42] LABS: Glucose Point of Care 183 mg/dL (70-110)
[2021-08-08] MEDS: HYDROcodone-acetaminophen 5-325 mg Tablet PO (23:05)
[2021-08-09] VITALS (10 sets, daily range): BP systolic 121–145; BP diastolic 63–73; PULSE 72–86; RESP 16–24; TEMP 36.4–37.2; O2SAT 92–97
[2021-08-09] MEDS: piperacillin-tazobactam 3.375 GM in sodium chloride 0.9% (plus) 50 ML IV ×3 (03:01→17:54)
[2021-08-09 03:57] LABS: Basophils # 0.1 10^3/uL (0.0-0.1); Basophils % 0.5 %; Eosinophils # 0.1 10^3/uL (0.0-0.8); Eosinophils % 1.1 %; Hematocrit 31.6 % (37.0-47.0); Hemoglobin 10.2 g/dL (11.5-15.3); Lymphocytes # 1.5 10^3/uL (0.8-4.8); Lymphocytes % 15.8 %; Mean Corpuscular HGB Conc 32.3 g/dL (30.0-36.0); Mean Corpuscular Hemoglobin 28.9 pg (28.0-34.0); Mean Corpuscular Volume 89.5 fl (81-99); Mean Platelet Volume 9.3 fL (7.4-10.4); Monocytes # 0.7 10^3/uL (0.2-0.9); Monocytes % 7.5 %; Neutrophils # 7.24 10^3/uL (1.8-7.7); Neutrophils % 74.7 %; Nucleated Red Blood Cells % 0 %; Platelet Count 409 10^3/cmm (130-400); Red Blood Count 3.53 10^6/uL (4.1-5.3); Red Cell Distribution Width 13.8 % (12.1-15.1); White Blood Count 9.7 10^3/uL (4.0-10.0)
--- NOTE | 2021-08-09 04:00 | XRR_ITS ---
PROCEDURE INFORMATION: Exam: XR Abdomen Exam date and time: 08/09/2021 5:35 AM Age: 75 years old Clinical indication: Prior surgery; Surgery type: Colon. Gb. Appy. Patient HX: F/u for sbo. TECHNIQUE: Imaging protocol: Radiologic exam of the abdomen. Views: Frontal supine view of the abdomen. 1 View. COMPARISON: CR XR KUB portable [id number] 08/08/2021 12:07 PM FINDINGS: Tubes, catheters and devices: Feeding tube is in satisfactory position. Gastrointestinal tract: There is multiple dilated loops of small bowel. No air-fluid levels seen. Organs: Cholecystectomy clips project over the right upper quadrant. Bones/joints: Degenerative changes of the spine seen. Right hip ORIF hardware and fracture deformity noted. XR/XR KUB portable [id number] IMPRESSION: Nonspecific imaging findings, which can be seen with obstruction or adynamic ileus.
[2021-08-09 04:22] LABS: Anion Gap 13.4 (5-19); Blood Urea Nitrogen 18 mg/dL (8-23); Calcium 7.9 mg/dL (8.5-10.5); Carbon Dioxide 36 mmol/L (22-29); Chloride 93 mmol/L (98-107); Glucose 328 mg/dL (65-115); Osmolality Calculated 303 mOsm/kg (285-295); Potassium 3.4 mmol/L (3.5-5.1); Sodium 139 mmol/L (136-145)
[2021-08-09 06:51] LABS: Glucose Point of Care 381 mg/dL (70-110)
--- NOTE | 2021-08-09 07:09 | PM.PN ---
Subjective Subjective: Patient seems to be doing well. Responded to milk and molasses enema. KUB was done senior court office assistant today Medications: Reviewed: Yes Vitals/I&O/Wt Last Vital Signs Temp 97.6 F 08/09/21 04:00 Pulse 79 08/09/21 04:00 Resp 24 H 08/09/21 04:00 BP 134/70 08/09/21 04:00 Pulse Ox 93 08/09/21 04:00 08/08/21 08/09/21 08/09/21 22:59 06:59 14:59 Intake Total 1791.25 / 1791.35 4060 / 5851.35 Output Total 800 / 800 950 / 1750 Balance 991.25 / 991.35 3110 / 4101.35 Physical Exam Narrative: Patient is conscious alert oriented X3 No apparent distress NG in place with bilious output BMI 22.5 Head and neck examination PERRLA no masses no cervical lymphadenopathy no jaundice Abdomen nontender nondistended soft no organomegaly guarding or rigidity/no signs of peritonitis Boss catheter in place with clear urine Extremities no cyanosis no clubbing no edema Urinary Catheter Management: Boss: Cath Placed During This Visit: yes Reason for Continuing Indwelling Catheter: Required Immobilization for Trauma or Surgery or Anesthesia Urinary Catheter Date of Insertion: 08/06/21 Urinary Catheter Time of Insertion: 08:05 Data : 08/09/21 03:42 08/09/21 03:42 A&P Assessment and plan (1) Small bowel obstruction: Assessment 75 years old female patient with adhesive bowel obstruction Plan I did review the KUB of yesterday and today and appears that the patient has a large burden of stools in her colon, responded fairly well to milk and molasses enema. Likely the high output of the NG related that the NG is far advanced postpyloric. 1-we will clamp NG tube for 2 hours and check residuals afterwards, if less than 200 mL we will plan to DC NG tube and start the patient slowly on clear liquid diet. 2-strict I's and O 3-repeated physical examination 5-pharmacologic DVT prophylaxis 6-incentive spirometer every hour 7-we will continue coordinating with hospitalist and gynecology service Thank you for consulting general surgery to participate taking care of Ms. Schrader Status: Acute Attestations Medical Necessity Statement*: Per admitting service Coding Level of Care Code Acute Shoe Designer for Chg Fwd Diagnoses Small bowel obstruction K56.609
[2021-08-09] MEDS: insulin lispro 100 unit/1 mL SUBCUT ×4 (10:10→21:22)
[2021-08-09] MEDS: lidocaine 1% 5 ML in potassium chloride premix 100 ML 25 ML IV (10:52)
[2021-08-09 11:02] LABS: Glucose Point of Care 450 mg/dL (70-110)
--- NOTE | 2021-08-09 11:37 | PM.PN ---
Subjective Subjective: Patient is afraid that last time her suction was discontinued for just a few minutes and she experienced an episode of emesis, she does not want to clamp her NG tube today 500 mL of bile content obtained in 4 hours, She is passing gas, had bowel movement with enema KUB reviewed She still hyperglycemic, I have increased the dose of Lantus, will give her IV 10 units of regular insulin Keep her on normal saline along with TPN She is also on sliding scale Vitals/I&O/Wt Last Vital Signs Temp 98.0 F 08/09/21 11:24 Pulse 77 08/09/21 11:24 Resp 18 08/09/21 11:24 BP 127/68 08/09/21 11:24 Pulse Ox 96 08/09/21 11:24 08/08/21 08/09/21 08/09/21 22:59 06:59 14:59 Intake Total 1791.25 / 1791.35 4060 / 5851.35 125 / 125 Output Total 800 / 800 950 / 1750 875 / 875 Balance 991.25 / 991.35 3110 / 4101.35 -750 / -750 Physical Exam Narrative: Pt laying supine No active back pain S1 S2 Abd soft Bowel soft are present Non focal neuro exam Ng has bile being suctioned Urinary Catheter Management: Boss: Cath Placed During This Visit: yes Reason for Continuing Indwelling Catheter: Required Immobilization for Trauma or Surgery or Anesthesia Urinary Catheter Date of Insertion: 08/06/21 Urinary Catheter Time of Insertion: 08:05 Data : 08/09/21 03:42 08/09/21 03:42 A&P Assessment and plan (1) Hyponatremia: Status: Acute (2) Diabetes: Status: Acute (3) Small bowel obstruction: Status: Acute (4) Nausea & vomiting: Status: Acute (5) Uncontrolled type 2 diabetes mellitus: Status: Acute (6) Alkalosis: Status: Acute (7) Hypokalemia: Status: Acute Plan SBO Patient is reluctant to clamp her NG tube High output from NG tube still being noticed Potassium is low because of high output Signs of contraction alkalosis evident I would add normal saline along TPN General surgery recommendations reviewed Potassium repleted Patient is showing signs of contraction alkalosis/dehydration Hyperglycemia Uncontrolled blood sugar This likely is related to tpn I have increased her dose of Lantus, will give her 10 units of regular IV insulin start normal saline Uterine endometrium thickening, status post D&C/biopsy Awaiting for results Serial abdominal exam Serial KUB Conservative management Patient is full code N.p.o. Attestations Medical Necessity Statement*: Continue medical management Time Spent in Patient Care: 20 Coding Level of Care Code Acute Automotive Design Drafter for Chg Fwd Diagnoses Hyponatremia E87.1 Diabetes E11.9 Small bowel obstruction K56.609 Nausea & vomiting R11.2 Uncontrolled type 2 diabetes mellitus E11.65 Alkalosis E87.3 Hypokalemia E87.6
[2021-08-09] MEDS: insulin regular-human 10 UNIT in SYRINGE 1 EACH IVP (12:35)
--- NOTE | 2021-08-09 13:43 | P.PN_ITS ---
Subjective Subjective: Mrs. Schrader 75-year-old female admitted due to bowel obstruction. Refers felling somewhat better. She is tolerating liquids. Vitals/I&O/Wt Last Vital Signs Temp 98.0 F 08/09/21 11:24 Pulse 77 08/09/21 11:24 Resp 18 08/09/21 11:24 BP 127/68 08/09/21 11:24 Pulse Ox 96 08/09/21 11:24 08/08/21 08/09/21 08/09/21 22:59 06:59 14:59 Intake Total 1791.25 / 1791.35 4060 / 5851.35 295.1 / 295.1 Output Total 800 / 800 950 / 1750 875 / 875 Balance 991.25 / 991.35 3110 / 4101.35 -579.9 / -579.9 Physical Exam Narrative: GA: Alert and oriented ?3. HEENT: WNL. Ng tube in plsce: no bili noted Heart: Regular rate and rhythm. Lungs: Clear to auscultation bilaterally. Abdomen: no bowel sounds present, nontender ROLLER STITCHER: scant bleeding. Extremities: No edema, no cyanosis, no calves pain. Urinary Catheter Management: Boss: Cath Placed During This Visit: yes Reason for Continuing Indwelling Catheter: Required Immobilization for Trauma or Surgery or Anesthesia Urinary Catheter Date of Insertion: 08/06/21 Urinary Catheter Time of Insertion: 08:05 Data : 08/09/21 03:42 08/09/21 03:42 A&P Assessment and plan (1) Postmenopausal bleeding: Mrs. Schrader 75-year-old female status post dilation and curettage 2 day ago. Procedure was performed without complications. Pathology report is pending. Postop recovery uneventful. Had positive response to the enema and she is starting to tolerate liquids. From OBGYN she may be discharge from service and F/U at the clinic for possible referral depending on pathology report. Status: Acute (2) Endometrial thickening on ultrasound: Status: Acute (3) Small bowel obstruction: Status: Acute Attestations Medical Necessity Statement*: In mty professional opinion per admitting diagnosis Coding Level of Care Code Acute Garage Door Service Technician for [facility] Fwd Diagnoses Postmenopausal bleeding N95.0 Endometrial thickening on ultrasound R93.89 Small bowel obstruction K56.609
[2021-08-09] MEDS: sodium chloride 0.9% 1,000 ML 100 ML IV (15:39)
[2021-08-09 17:07] LABS: Glucose Point of Care 188 mg/dL (70-110)
[2021-08-09] MEDS: docusate sodium 100 mg Capsule PO (17:50)
--- NOTE | 2021-08-09 19:25 | PC.NURSE ---
Per Dr Powell, TPN to be half dosed to titrate since patient is returning to clear liquid diet. TPN titrated to 21 ml/hr.
[2021-08-09] MEDS: HYDROmorphone 1 mg/mL INJ 1 mL 0.2 MG IVP (20:26)
[2021-08-09] MEDS: enoxaparin 40 mg/0.4 mL Syringe SUBCUT (20:27)
[2021-08-09] MEDS: diphenhydrAMINE 50 mg/mL SDV 1mL 12.5 MG IVP (20:27)
[2021-08-09 20:56] LABS: Glucose Point of Care 163 mg/dL (70-110)
[2021-08-09] MEDS: insulin glargine 100 units/1 mL 20 UNIT SUBCUT (21:23)
[2021-08-10] VITALS (7 sets, daily range): BP systolic 104–144; BP diastolic 61–99; PULSE 65–89; RESP 16–19; TEMP 36.4–37.1; O2SAT 87–97
[2021-08-10] MEDS: piperacillin-tazobactam 3.375 GM in sodium chloride 0.9% (plus) 50 ML IV ×3 (01:34→18:14)
--- NOTE | 2021-08-10 04:00 | XRR_ITS ---
PROCEDURE INFORMATION: Exam: XR Abdomen Exam date and time: 08/10/2021 5:27 AM Age: 75 years old Clinical indication: Prior surgery; Surgery type: Colon. Appy. Hip. Patient HX: F/u for sbo. TECHNIQUE: Imaging protocol: Radiologic exam of the abdomen. Views: Frontal supine view of the abdomen. 1 View. COMPARISON: CR (ABDOMEN, ) 08/09/2021 5:35 AM FINDINGS: Tubes, catheters and devices: The nasogastric tube has been removed. The feeding tube is not identified. There is a new large bore tube overlying the left hemipelvis. Gastrointestinal tract: There is interim worsening dilatation of the small bowel. However, there is gas and stool in the splenic flexure and small amount of gas in the descending colon, minimally decreased in volume since the comparison study. Intraperitoneal space: No evidence of free air. Bones/joints: Intertrochanteric fracture and postoperative changes of the right femur, unchanged. XR/XR KUB portable [id number] IMPRESSION: 1. High-grade partial small bowel obstruction versus at the ileus pattern. 2. Interim increased caliber of the small bowel in the mid abdomen.
[2021-08-10 04:44] LABS: Basophils % 0.5 %; Eosinophils # 0.2 10^3/uL (0.0-0.8); Eosinophils % 2.9 %; Hematocrit 35.6 % (37.0-47.0); Hemoglobin 11.3 g/dL (11.5-15.3); Lymphocytes % 23.2 %; Mean Corpuscular HGB Conc 31.7 g/dL (30.0-36.0); Mean Corpuscular Hemoglobin 28.5 pg (28.0-34.0); Mean Corpuscular Volume 89.9 fl (81-99); Mean Platelet Volume 9.5 fL (7.4-10.4); Monocytes # 0.6 10^3/uL (0.2-0.9); Monocytes % 7.5 %; Neutrophils # 5.48 10^3/uL (1.8-7.7); Neutrophils % 65.1 %; Nucleated Red Blood Cells % 0 %; Platelet Count 259 10^3/cmm (130-400); Red Blood Count 3.96 10^6/uL (4.1-5.3); Red Cell Distribution Width 13.7 % (12.1-15.1); White Blood Count 8.4 10^3/uL (4.0-10.0)
[2021-08-10 05:07] LABS: Anion Gap 12.4 (5-19); Blood Urea Nitrogen 15 mg/dL (8-23); Calcium 8.7 mg/dL (8.5-10.5); Carbon Dioxide 34 mmol/L (22-29); Chloride 93 mmol/L (98-107); Glucose 153 mg/dL (65-115); Osmolality Calculated 286 mOsm/kg (285-295); Potassium 3.4 mmol/L (3.5-5.1); Sodium 136 mmol/L (136-145)
[2021-08-10 05:18] LABS: Slide Review Slide Review Perform
--- NOTE | 2021-08-10 05:44 | P.PN_ITS ---
Subjective Subjective: Blood sugar is improved Patient tolerated clear liquid diet however KUB showing ileus, distention of small bowel, she had 1 small episode of emesis, otherwise she tolerated her clear liquid NG was removed yesterday, she is not interested in another NG tube placement today Hemodynamically stable No fever She can follow-up outpatient with Dr. Carmelo Britton results pending Vitals/I&O/Wt Last Vital Signs Temp 97.5 F L 08/10/21 03:54 Pulse 65 08/10/21 03:54 Resp 17 08/10/21 03:54 BP 104/61 08/10/21 03:54 Pulse Ox 92 08/10/21 03:54 08/09/21 08/09/21 08/10/21 14:59 22:59 06:59 Intake Total 295.1 / 295.1 1258.767 / 1553.867 330 / 1883.867 Output Total 875 / 875 400 / 1275 Balance -579.9 / -579.9 1258.767 / 678.867 -70 / 608.867 Weight last 48 hrs Weight 60.056 kg Physical Exam Narrative: Patient lying supine Complaining of back pain Signs of dehydration Currently saturating well on room air Nonfocal neuro exam Abdomen is soft no signs of peritonitis Abdominal protuberance due to uterine enlargement Nonfocal neuro exam EOMI, PERRLA Pleasant and cooperative Urinary Catheter Management: Boss: Cath Placed During This Visit: yes Reason for Continuing Indwelling Catheter: Acute Urinary Retention or Ob struction Urinary Catheter Date of Insertion: 08/06/21 Urinary Catheter Time of Insertion: 08:05 Data : 08/10/21 04:30 08/10/21 04:30 A&P Assessment and plan (1) Hypokalemia: Status: Acute (2) Alkalosis: Status: Acute (3) Hyponatremia: Status: Acute (4) Diabetes: Status: Acute (5) Small bowel obstruction: Status: Acute Plan Her blood sugar has improved, discontinue TPN Patient tolerated clear liquid diet, particularly as recommended continue clear liquid for now because of 1 small episode of emesis however she did not experience recurrent episode when she had rest of her clear liquid diet this morning we have decided to continue clear liquid for now and in case of any recurrence of episodes we should get another NG tube to low intermittent suction Contraction alkalosis improving Signs of dehydration improving as well Hypokalemia: Repleted Uterine enlargement, will touch base with Dr. Rhodes if patient can be discharged home she can follow-up with RN MATERNAL CHILD oncologist outpatient DVT prophylaxis on board Continue IV fluids Uncontrolled type 2 diabetes She will need higher dose of Lantus at home Attestations Medical Necessity Statement*: Patient can be discharged later today/tomorrow Time Spent in Patient Care: 20 Coding Level of Care Code Acute Permastone Installer for Chg Fwd Diagnoses Hypokalemia E87.6 Alkalosis E87.3 Hyponatremia E87.1 Diabetes E11.9 Small bowel obstruction K56.609
[2021-08-10 06:45] LABS: Glucose Point of Care 192 mg/dL (70-110)
--- NOTE | 2021-08-10 07:48 | PM.PN ---
Subjective Subjective: Apparently the patient threw up this morning. A KUB was obtained at 4:00 in the morning and showed 1. High-grade partial small bowel obstruction versus at the ileus pattern. 2. Interim increased caliber of the small bowel in the mid abdomen. Patient continues to pass gas and having bowel movements Medications: Reviewed: Yes Vitals/I&O/Wt Last Vital Signs Temp 97.5 F L 08/10/21 03:54 Pulse 65 08/10/21 03:54 Resp 17 08/10/21 03:54 BP 104/61 08/10/21 03:54 Pulse Ox 92 08/10/21 03:54 08/09/21 08/10/21 08/10/21 22:59 06:59 14:59 Intake Total 1258.767 / 1553.867 419.438 / 1973.305 Output Total 400 / 1275 Balance 1258.767 / 678.867 19.438 / 698.305 Weight last 48 hrs Weight 132 lb 6.4 oz Physical Exam Narrative: Patient is conscious alert oriented X3 In mild distress and appears anxious BMI 23 Bedside bin contains bilious vomitus Head and neck examination PERRLA no masses no cervical lymphadenopathy no jaundice Abdomen nontender nondistended soft no organomegaly guarding or rigidity/no signs of peritonitis Extremities no cyanosis no clubbing no edema Urinary Catheter Management: Boss: Cath Placed During This Visit: yes Reason for Continuing Indwelling Catheter: Acute Urinary Retention or Obstruction Urinary Catheter Date of Insertion: 08/06/21 Urinary Catheter Time of Insertion: 08:05 Data : 08/10/21 04:30 08/10/21 04:30 A&P Assessment and plan (1) Small bowel obstruction: Assessment 75 years old female patient with adhesive bowel obstruction Plan The patient vomited again. We may reinsert the NG tube the patient is not interested at the moment. 1. N.p.o. and IV fluid 2-strict I's and O 3-repeated physical examination 5-pharmacologic DVT prophylaxis 6-incentive spirometer every hour 7-we will continue coordinating with hospitalist and gynecology service Thank you for consulting general surgery to participate taking care of Ms. Schrader Status: Acute Attestations Medical Necessity Statement*: Patient requiring inpatient hospitalization passing 2 midnights for management of small bowel obstruction Coding Level of Care Code Acute Traveling Crane Operator for g Fwd Diagnoses Small bowel obstruction K56.563
[2021-08-10] MEDS: insulin lispro 100 unit/1 mL SUBCUT ×4 (09:10→21:27)
[2021-08-10] MEDS: sodium chloride 0.9% 1,000 ML 100 ML IV ×3 (09:10→21:26)
[2021-08-10] MEDS: docusate sodium 100 mg Capsule PO ×2 (09:12→18:20)
[2021-08-10] MEDS: HYDROcodone-acetaminophen 5-325 mg Tablet PO (09:25)
[2021-08-10] MEDS: ondansetron 2 mg/ML SDV 2 mL 4 MG IVP ×3 (09:26→19:18)
--- NOTE | 2021-08-10 10:17 | PC.SOCIAL ---
IMM update IMM updated with patient. Verbalized an understanding. Copy Pg 2 provided. Initialled, dated, timed, and placed in chart.
[2021-08-10 11:19] LABS: Glucose Point of Care 194 mg/dL (70-110)
[2021-08-10] MEDS: potassium chloride ER 20 mEq Tablet 40 MEQ PO (14:46)
[2021-08-10 17:23] LABS: Glucose Point of Care 172 mg/dL (70-110)
[2021-08-10] MEDS: scopolamine 1.5 Patch 1 PATCH TRANSDERMA (18:14)
--- NOTE | 2021-08-10 19:27 | PC.NURSE ---
Patient resting in bed complaining of nausea with emesis. Noted patient to have ~500ml of dark green fluid in basin. Bowel sounds slow to absent in all quadrants. Daughter at bedside with questions regarding possible needs. Patient refusing to have NG placed at this time. Zofran given as ordered. Patient c/o continued nausea and anxiety. Informed Dr Vasquez and received telephone order for Reglan 5mg IVP q6h PRN for uncontrolled nausea/vomiting.
--- NOTE | 2021-08-10 19:33 | PC.NURSE ---
Spoke with Dr Vasquez and received additional order for Haldol 5mg IVP onetime. RBVO
[2021-08-10] MEDS: haloperidol inj 5 mg/mL INJ 1 mL IVP (19:40)
[2021-08-10 21:22] LABS: Glucose Point of Care 167 mg/dL (70-110)
[2021-08-10] MEDS: insulin glargine 100 units/1 mL 20 UNIT SUBCUT (21:27)
[2021-08-11] MEDS: piperacillin-tazobactam 3.375 GM in sodium chloride 0.9% (plus) 50 ML IV ×3 (02:14→17:16)
[2021-08-11 03:41] LABS: Basophils # 0.1 10^3/uL (0.0-0.1); Basophils % 0.4 %; Eosinophils # 0.2 10^3/uL (0.0-0.8); Eosinophils % 1.3 %; Hematocrit 33.1 % (37.0-47.0); Hemoglobin 10.8 g/dL (11.5-15.3); Lymphocytes # 1.2 10^3/uL (0.8-4.8); Lymphocytes % 7.5 %; Mean Corpuscular HGB Conc 32.6 g/dL (30.0-36.0); Mean Corpuscular Hemoglobin 28.4 pg (28.0-34.0); Mean Corpuscular Volume 87.1 fl (81-99); Mean Platelet Volume 9.3 fL (7.4-10.4); Monocytes # 0.8 10^3/uL (0.2-0.9); Monocytes % 4.7 %; Neutrophils # 14.12 10^3/uL (1.8-7.7); Neutrophils % 85.4 %; Nucleated Red Blood Cells % 0 %; Platelet Count 410 10^3/cmm (130-400); Red Cell Distribution Width 13.8 % (12.1-15.1); White Blood Count 16.5 10^3/uL (4.0-10.0)
[2021-08-11 03:42] VITALS: BP 124/57; PULSE 88; RESP 20; TEMP 36.9; O2SAT 85
[2021-08-11] MEDS: metoclopramide 5 mg/mL SDV 2 mL IVP (03:53)
--- NOTE | 2021-08-11 04:00 | XR_ITS ---
WS: [id number] XR KUB portable [id number] REASON FOR EXAM: ileus FINDINGS: Post cholecystectomy. Multiple small anastomotic rafaela in the right lower abdomen. Dilated small bowel seen on 08/10/2021 no longer identifiable. Gas throughout the colon and rectum. No free air or retroperitoneal air. XR/XR KUB portable [id number] IMPRESSION: Resolving small bowel distention.
[2021-08-11 04:07] LABS: Blood Urea Nitrogen 15 mg/dL (8-23); Calcium 8.4 mg/dL (8.5-10.5); Carbon Dioxide 33 mmol/L (22-29); Chloride 95 mmol/L (98-107); Glucose 180 mg/dL (65-115); Osmolality Calculated 291 mOsm/kg (285-295); Sodium 138 mmol/L (136-145)
--- NOTE | 2021-08-11 04:51 | PC.NURSE ---
Patient c/o nausea. Reglan was given as ordered and documented. Patient has had ~300ml of emesis in the floor. Patient has had decreased urine output, bowel sounds very hypoactive to absent to all quadrants. Patient has not had any relief from nausea using Zofran and Reglan. Patient was given Haldol 5mg IVP shortly after shift change last night which helped her rest and relieved the nausea. Informed Dr Vasquez and received order to replace NG tube. Patient is refusing this at this time. Reinforced education on the need for NG to help control her nausea and allow her bowels to rest. Patient verbalized understanding however continues to refuse to have NG placed. Supplie are at bedside at such time she may change her mind . Dr Vasquez notified of her refusal at this time. Will continue to monitor.
--- NOTE | 2021-08-11 05:38 | PC.NURSE ---
Patient continues to feel sick to her stomach. Reinforced teaching of NG tube. Patient stated, I just want to go home. Let me talk to the doctor first. Will continue to monitor.
[2021-08-11] MEDS: lidocaine 1% 5 ML in potassium chloride premix 100 ML 25 ML IV (05:46)
--- NOTE | 2021-08-11 05:57 | PC.NURSE ---
Spoke with Dr Day this morning and provided patient update. Doctor to view recent KUB and come to see patient.
[2021-08-11 06:03] LABS: Magnesium 2.4 mg/dL (1.7-2.3)
[2021-08-11] MEDS: sodium chloride 0.9% 1,000 ML 100 ML IV ×2 (06:40→17:18)
[2021-08-11 08:18] LABS: Glucose Point of Care 208 mg/dL (70-110)
--- NOTE | 2021-08-11 09:12 | P.PN_ITS ---
Subjective Subjective: Patient has intermittent vomiting but continues to pass gas and having bowel movements. She seems to be very anxious about the pathology results. Medications: Reviewed: Yes Vitals/I&O/Wt Last Vital Signs Temp 98.5 F 08/11/21 03:42 Pulse 88 08/11/21 03:42 Resp 20 H 08/11/21 03:42 BP 124/57 08/11/21 03:42 Pulse Ox 85 L 08/11/21 03:42 08/10/21 08/11/21 08/11/21 22:59 06:59 14:59 Intake Total 1561.35 / 2258.016 1050 / 3308.016 Output Total 725 / 725 150 / 875 Balance 836.35 / 1533.016 900 / 2433.016 Weight last 48 hrs Weight 132 lb 6.4 oz Physical Exam Narrative: Patient is conscious alert oriented X3 No apparent distress BMI 23 Head and neck examination PERRLA no masses no cervical lymphadenopathy no jaundice Abdomen nontender nondistended soft no organomegaly guarding or rigidity/no signs of peritonitis Urinary Catheter Management: Boss: Cath Placed During This Visit: yes Reason for Continuing Indwelling Catheter: Acute Urinary Retention or Obstruction Urinary Catheter Date of Insertion: 08/06/21 Urinary Catheter Time of Insertion: 08:05 Data : 08/11/21 03:10 08/11/21 03:10 A&P Assessment and plan (1) Small bowel obstruction: Assessment 75 years old female patient with adhesive bowel obstruction Plan I did review the images with my personal interpretation and I do not see any indication of bowel obstruction. I am concerned that the patient's vomiting is mostly anxiety related to 1. Continue clear liquid diet gently and add protein shakes 2-strict I's and O 3-repeated physical examination 5-pharmacologic DVT prophylaxis 6-incentive spirometer every hour 7-we will continue coordinating with hospitalist and gynecology service Will follow on the pathology report Thank you for consulting general surgery to participate taking care of Ms. Schrader Status: Acute Attestations Medical Necessity Statement*: Per admitting service Coding Level of Care Code Acute Monorail Charger Operator for [facility] Diagnoses Small bowel obstruction K56.609
[2021-08-11] MEDS: insulin lispro 100 unit/1 mL SUBCUT ×4 (09:37→21:04)
[2021-08-11] MEDS: docusate sodium 100 mg Capsule PO (09:39)
--- NOTE | 2021-08-11 10:41 | PC.CHAP ---
Pastoral Care Encounter/Spiritual Assessment Type of Contact [] Declined sifter and miller visit [] Patient/Family/Request visit [] Outpatient visit [] Follow-up visit [] Physician referral [] Code/Alert [x] Routine visit [] Staff referral [] Actively dying [] Patient sleeping [] Family support [] [] Out of room [] Palliative care [] [x] Receiving care in room [] Pre-surgical visit [] Trauma [] Long length of stay [] ICU visit [] Other: Relational/Emotional Strength [] Patient feels connected with others/family/visitors/staff [] Distress [] Loneliness/isolation [] Abandonment Spirituality of Patient [] Person of Shannon [] Attends Religious of their [place] [] Believes in Prayer [] Reads Bible or Christian materials [] There are Spiritual issues to be addressed Direct Chill Casting Operator Interventions [] Prayer [] Active listening [] Non-anxious presence [] Spiritual/emotional support [] Crisis/trauma care [] Spiritual counseling [] Bereavement support [] Provided bereavement packet [] Provided Bible/devotional materials [] Provided toy/stuffed animal, coloring book to patient or family member [] Provided Communion [] Anointing/[place] [] Salvation [x] Completed spiritual assessment [] Other: Impact on Illness or Injury [] Angry [] Fearful [] Anxious [] Often cries [] Exhaustion [] Unable to work [] Unable to attend orthodoxy [] Unable to walk/stand [] Unable to read [] Unable to drive [] Unable to eat/drink [] Unable to sleep [] Unable to be with family [] Patient intubated [] Other: Summary Time spent with patient
[2021-08-11 11:56] LABS: Glucose Point of Care 204 mg/dL (70-110)
[2021-08-11 12:00] VITALS: BP 149/71; PULSE 95; RESP 16; TEMP 37.1; O2SAT 91
--- NOTE | 2021-08-11 13:44 | P.PN_ITS ---
Subjective Subjective: Patient was seen multiple times today She did not tolerate her breakfast She is still refusing NG tube placement KUB reviewed Case discussed with Dr. Rhodes, pathologist and Dr. Powell Third visit was done in front of her family She did very well with physical therapy today, Initially she refused shelter but now she is agreeable while family is at the bedside She is agreeable to keep her self n.p.o. for now and in case of further episodes of vomiting will place NG tube and confirmed with chest x-ray Continue TPN and IV fluids, potassium repleted Pathology results positive for adenocarcinoma, pathologist was concerned if it is related to colon cancer. Asked me about colon cancer history, he has sent immunohistochemical staining to differentiate between endometrial versus colon cancer Vitals/I&O/Wt Last Vital Signs Temp 98.8 F 08/11/21 12:00 Pulse 95 08/11/21 12:00 Resp 16 08/11/21 12:00 BP 149/71 08/11/21 12:00 Pulse Ox 91 08/11/21 12:00 08/10/21 08/11/21 08/11/21 22:59 06:59 14:59 Intake Total 1561.35 / 2258.016 1050 / 3308.016 105 / 105 Output Total 725 / 725 150 / 875 Balance 836.35 / 1533.016 900 / 2433.016 105 / 105 Weight last 48 hrs Weight 60.056 kg Physical Exam Narrative: Patient looked dehydrated She worked with physical therapist today Abdomen is soft Bowel sounds present, hyperactive in in both right and left quadrants however diminished in midepigastric region She is awake and alert however very forgetful, suffering from short-term memory loss Nonfocal neuro exam Weak and lethargic Saturating well on room air Urinary Catheter Management: Boss: Cath Placed During This Visit: yes Reason for Continuing Indwelling Catheter: Acute Urinary Retention or Obstr uction Urinary Catheter Date of Insertion: 08/06/21 Urinary Catheter Time of Insertion: 08:05 Data : 08/11/21 03:10 08/11/21 03:10 A&P Assessment and plan (1) Hypokalemia: Status: Acute (2) Alkalosis: Status: Acute (3) Hyponatremia: Status: Acute (4) Diabetes: Status: Acute (5) Small bowel obstruction: Status: Acute (6) Nausea & vomiting: Status: Acute (7) Endometrial thickening on ultrasound: Status: Acute (8) Adenocarcinoma: Status: Acute (9) Colon cancer: Status: Acute (10) Uncontrolled type 2 diabetes mellitus: Status: Acute Plan Mild protein calorie malnourishment Dehydration Contraction alkalosis Hypokalemia Ileus SBO . adenocarcinoma. . Immunohistochemical stain will take 2 more days, Dr. Rhodes will speak with Dr. Paul davis today Recurrent vomiting, we will make her n.p.o. strictly, in case of another episode of vomiting we will place another NG tube, patient and family in agreement, I did recommend placement of NG right away however patient is reluctant and agreeable with above-mentioned plan Continue TPN and IV fluids Hypokalemia: Repleted Magnesium above 2 Repeat KUB, serial abdominal exams She is agreeable to go to shelter for short-term rehab, I have notified her case mgr today, Chari will talk to the family as well Full code Strict n.p.o. will update her nurse Attestations Medical Necessity Statement*: Continue medical management Time Spent in Patient Care: 45 Coding Level of Care Code Acute Plug Making Operator for Chg Fwd Diagnoses Hypokalemia E87.6 Alkalosis E87.3 Hyponatremia E87.1 Diabetes E11.9 Small bowel obstruction K56.609 Nausea & vomiting R11.2 Endometrial thickening on ultrasound R93.89 Adenocarcinoma C80.1 Colon cancer C18.9 Uncontrolled type 2 diabetes mellitus E11.65
[2021-08-11 15:47] VITALS: BP 129/67; PULSE 84; RESP 17; TEMP 37; O2SAT 90
[2021-08-11] MEDS: ondansetron 2 mg/ML SDV 2 mL 4 MG IVP (17:15)
[2021-08-11 17:23] LABS: Glucose Point of Care 171 mg/dL (70-110)
[2021-08-11] MEDS: HYDROcodone-acetaminophen 5-325 mg Tablet PO (17:32)
--- NOTE | 2021-08-11 17:57 | PC.NURSE ---
THIS NURSE CONTACTED DR. HOOVER, PER DR. HOOVER, HE WANTS THE NG TUBE LEFT OUT AT THIS TIME. HE STATED IT WILL NOT BENEFIT THE PATIENT AT THIS TIME.
[2021-08-11 20:00] VITALS: BP 119/63; PULSE 81; RESP 13; TEMP 36.6; O2SAT 92
[2021-08-11] MEDS: enoxaparin 40 mg/0.4 mL Syringe SUBCUT (20:41)
[2021-08-11] MEDS: insulin glargine 100 units/1 mL 20 UNIT SUBCUT (21:02)
[2021-08-11 21:07] LABS: Glucose Point of Care 155 mg/dL (70-110)
[2021-08-11 23:50] VITALS: BP 126/63; PULSE 85; RESP 13; TEMP 36.6; O2SAT 93
[2021-08-12] VITALS (8 sets, daily range): BP systolic 116–174; BP diastolic 63–78; PULSE 76–93; RESP 15–28; TEMP 36.5–37.3; O2SAT 90–97
[2021-08-12] MEDS: sodium chloride 0.9% 1,000 ML 100 ML IV ×3 (00:17→20:47)
[2021-08-12] MEDS: piperacillin-tazobactam 3.375 GM in sodium chloride 0.9% (plus) 50 ML IV ×3 (02:09→18:09)
[2021-08-12 04:12] LABS: Basophils # 0.1 10^3/uL (0.0-0.1); Basophils % 0.6 %; Eosinophils # 0.3 10^3/uL (0.0-0.8); Eosinophils % 1.8 %; Hematocrit 30.6 % (37.0-47.0); Hemoglobin 10.2 g/dL (11.5-15.3); Lymphocytes # 1.6 10^3/uL (0.8-4.8); Lymphocytes % 10.9 %; Mean Corpuscular HGB Conc 33.3 g/dL (30.0-36.0); Mean Corpuscular Volume 86.9 fl (81-99); Mean Platelet Volume 9.1 fL (7.4-10.4); Monocytes # 0.8 10^3/uL (0.2-0.9); Monocytes % 5.8 %; Neutrophils % 80.4 %; Nucleated Red Blood Cells % 0 %; Platelet Count 330 10^3/cmm (130-400); Red Blood Count 3.52 10^6/uL (4.1-5.3); White Blood Count 14.4 10^3/uL (4.0-10.0)
[2021-08-12 04:32] LABS: Anion Gap 10.9 (5-19); Blood Urea Nitrogen 17 mg/dL (8-23); Calcium 8.3 mg/dL (8.5-10.5); Carbon Dioxide 33 mmol/L (22-29); Chloride 98 mmol/L (98-107); Glucose 103 mg/dL (65-115); Magnesium 2.4 mg/dL (1.7-2.3); Osmolality Calculated 290 mOsm/kg (285-295); Sodium 139 mmol/L (136-145)
[2021-08-12 04:54] LABS: Potassium 2.9 mmol/L (3.5-5.1)
[2021-08-12] MEDS: lidocaine 1% 5 ML in potassium chloride premix 100 ML 25 ML IV (06:05)
[2021-08-12] MEDS: HYDROmorphone 1 mg/mL INJ 1 mL 0.2 MG IVP ×3 (06:23→18:49)
[2021-08-12 06:45] LABS: Glucose Point of Care 105 mg/dL (70-110)
--- NOTE | 2021-08-12 07:43 | XR_ITS ---
WS: [id number] XR KUB portable [id number] REASON FOR EXAM: ileus FINDINGS: The abdomen is unchanged compared to the prior day. There is no free air or retroperitoneal air. Large amount of stool contained within the colon. No distended small bowel identified. XR/XR KUB portable [id number] IMPRESSION: Unchanged abdomen as above.
[2021-08-12] MEDS: docusate sodium 100 mg Capsule PO ×2 (08:08→18:09)
[2021-08-12] MEDS: lidocaine 1% 5 ML in potassium chloride premix 100 ML 50 ML IV (10:21)
--- NOTE | 2021-08-12 10:52 | PM.PN ---
Subjective Subjective: Patient is awaiting transfer No vomiting Vitals/I&O/Wt Last Vital Signs Temp 98.2 F 08/13/21 08:00 Pulse 90 08/13/21 08:00 Resp 16 08/13/21 08:00 BP 159/72 08/13/21 08:00 Pulse Ox 90 08/13/21 08:00 08/12/21 08/13/21 08/13/21 22:59 06:59 14:59 Intake Total 1613.1 / 2853.1 1170 / 4023.1 Output Total 300 / 300 450 / 750 Balance 1313.1 / 2553.1 720 / 3273.1 Physical Exam Narrative: Abdomen is soft Dehydrated TPN IV fluids running S1, S2 Awake and alert Nonfocal neuro exam Saturating well on room air Urinary Catheter Management: Boss: Cath Placed During This Visit: yes Reason for Continuing Indwelling Catheter: Acute Urinary Retention or Obstruction Urinary Catheter Date of Insertion: 08/06/21 Urinary Catheter Time of Insertion: 08:05 Data : 08/12/21 04:00 08/13/21 10:07 A&P Assessment and plan (1) Adenocarcinoma: Status: Acute (2) Hypokalemia: Status: Acute (3) Alkalosis: Status: Acute (4) Diabetes: Status: Acute (5) Small bowel obstruction: Status: Acute (6) Nausea & vomiting: Status: Acute (7) Ileus: Status: Acute Plan Awaiting transfer Continue IV fluids and TPN Keep an eye on her blood sugar We are in touch with [facility] transfer line Patient is reluctant to start clear liquids because of her abdominal cramps and retching No active emesis Attestations Medical Necessity Statement*: Transfer tomorrow Time Spent in Patient Care: 30 Coding Level of Care Code Acute Drafter Directional Survey for [facility] Fwd Diagnoses Adenocarcinoma C80.1 Hypokalemia E87.6 Alkalosis E87.3 Diabetes E11.9 Small bowel obstruction K56.609 Nausea & vomiting R11.2 Ileus K56.7
--- NOTE | 2021-08-12 11:32 | PC.SOCIAL ---
IMM Updated Updated pt on IMM. No questions voiced. Provided pt a copy. Initialed, dated, & timed copy in chart.
[2021-08-12] MEDS: metoclopramide 5 mg/mL SDV 2 mL 10 MG IVP (11:39)
[2021-08-12 12:00] LABS: Glucose Point of Care 109 mg/dL (70-110)
[2021-08-12 17:18] LABS: Glucose Point of Care 176 mg/dL (70-110)
[2021-08-12] MEDS: insulin lispro 100 unit/1 mL SUBCUT ×2 (18:08→23:49)
[2021-08-12] MEDS: enoxaparin 40 mg/0.4 mL Syringe SUBCUT (20:44)
[2021-08-12] MEDS: insulin glargine 100 units/1 mL 20 UNIT SUBCUT (20:45)
[2021-08-12] MEDS: ondansetron 2 mg/ML SDV 2 mL 4 MG IVP (21:52)
[2021-08-12] MEDS: morphine 4 mg/mL SDV 1 mL 2 MG IVP (21:55)
[2021-08-13] VITALS (7 sets, daily range): BP systolic 116–168; BP diastolic 72–86; PULSE 74–109; RESP 16–18; TEMP 36.1–36.8; O2SAT 90–98
[2021-08-13] MEDS: acetaminophen 325 mg Tablet 650 MG PO (01:56)
[2021-08-13] MEDS: piperacillin-tazobactam 3.375 GM in sodium chloride 0.9% (plus) 50 ML IV ×2 (02:15→12:36)
[2021-08-13] MEDS: morphine 4 mg/mL SDV 1 mL 2 MG IVP ×3 (02:24→12:20)
[2021-08-13 05:21] LABS: Glucose Point of Care 190 mg/dL (70-110)
[2021-08-13] MEDS: sodium chloride 0.9% 1,000 ML 100 ML IV (06:47)
[2021-08-13 07:48] LABS: Glucose Point of Care 216 mg/dL (70-110)
[2021-08-13] MEDS: insulin lispro 100 unit/1 mL SUBCUT (08:31)
[2021-08-13] MEDS: docusate sodium 100 mg Capsule PO (08:31)
--- NOTE | 2021-08-13 08:43 | XR_ITS ---
WS: [id number] XR KUB portable [id number] REASON FOR EXAM: ileus FINDINGS: No free air or retroperitoneal air. Bowel gas pattern is unchanged compared to 08/12/2021 with moderate amount of stool in the colon and r ectum. No distended small bowel identified. XR/XR KUB portable [id number] IMPRESSION: Stable abdomen as above.
[2021-08-13 09:19] LABS: Alanine Aminotransferase 23 U/L (0-33); Albumin Level 2.9 g/dL (3.5-5.2); Alkaline Phosphatase 118 IU/L (35-105); Anion Gap 17.5 (5-19); Aspartate Amino Transferase 30 U/L (0-32); Blood Urea Nitrogen 20 mg/dL (8-23); Calcium 8.1 mg/dL (8.5-10.5); Carbon Dioxide 25 mmol/L (22-29); Chloride 92 mmol/L (98-107); Globulin 3.8 g/dL (1.3-4.6); Osmolality Calculated 305 mOsm/kg (285-295); Potassium 5.5 mmol/L (3.5-5.1); Sodium 129 mmol/L (136-145); Total Bilirubin 0.7 mg/dL (0.15-1.2); Total Protein 6.7 g/dL (6.6-8.7)
[2021-08-13 09:39] LABS: Glucose 717 mg/dL (65-115)
--- NOTE | 2021-08-13 09:48 | PC.NURSE ---
Notified Dr. Valerio in Person of Blood Sugar 717. Dr. Valerio ordered a stat repeat blood sugar
--- NOTE | 2021-08-13 09:48 | PC.NURSE ---
Dr. Valerio also stated to Stop Clinimax
[2021-08-13 10:40] LABS: Glucose 214 mg/dL (65-115)
--- NOTE | 2021-08-13 10:52 | PM.TDS ---
Transfer Summary Providers Date of Admission: 08/05/21 23:24 Date of Discharge/Transfer: 08/13/21 Attending Provider at Admission: Ajay Vasquez MD Attending Provider at Transfer: Sara Valerio MD Primary Care Provider: Christin Bolaños DO Transfer Plans: Anticipated date of transfer: 08/13/21. Diagnoses at Discharge Discharge Diagnosis (1) Hypokalemia: Status: Acute (2) Alkalosis: Status: Acute (3) Hyponatremia: Status: Acute (4) Diabetes: Status: Acute (5) Small bowel obstruction: Status: Acute (6) Nausea & vomiting: Status: Acute (7) Endometrial thickening on ultrasound: Status: Acute (8) Adenocarcinoma: Status: Acute (9) Colon cancer: Status: Acute (10) Uncontrolled type 2 diabetes mellitus: Status: Acute Reason for Visit Reason for Visit N/V POSSIBLE BOWEL OBSTRUCTION Hospital Course Hospital Course 75-year-old female who was admitted for management of endometrial hyperplasia, SBO/ileus. General surgery managed ileus conservatively. For endometrial hyperplasia Dr. Rhodes was consulted who did biopsy/D&C, our pathologist reported adenocarcinoma however he is not sure whether colon cancer adenocarcinoma metastatic lesion are present or not, he has sent immunohistochemical staining to differentiate which will take 1 more day to come back. Case was presented to the nurse of Dr. Bernard in [place] on 08/11. [facility] accepted Ms. Schrader as an direct admit. On 08/12 [facility] transfer line got a hold of me and asked me to fax a facesheet to find a bed for her. Regarding ileus: -NG tube was placed on day of admission, she was started on TPN right away, serial abdominal exam and repeat KUB did not show obstructive pattern, patient is passing gas and having small bowel movements, today I have given her Reglan as scheduled dose before her clear liquid meals. General surgery was also following along and agreed with conservative management. Her electrolytes were replenished on daily basis. Today magnesium 2.4. Potassium 2.9. She was given 60 mEq IV potassium. She remained hemodynamically stable. Signs of contraction alkalosis secondary to dehydration and high NG output improved. Hemoglobin stable around 10.2, she had leukocytosis around 14,000. She remained afebrile. Cultures negative to date. She was treated for possible community-acquired pneumonia with antibiotics. Physical Exam Narrative: elderly female Currently laying supine Was able to work with PT yesterday Currently on room air Signs of dehydration positive Abdomen soft, bowel sound present Uterus is tender to palpate Muscle mass loss Mild protein calorie malnourishment Awake and alert Nonfocal neuro exam Urinary Catheter Management: Boss: Cath Placed During This Visit: yes Reason for Continuing Indwelling Catheter: Other Urinary Catheter Date of Insertion: 08/06/21 Urinary Catheter Time of Insertion: 08:05 TS Data Studies Completed and Pending Pending at discharge Category Date Time Status Complete Blood Count w/Auto Routine Lab 08/07/21 15:16 Uncollected Comprehensive Metabolic Panel Routine Lab 08/07/21 15:16 Uncollected MRSA by PCR Routine Lab 08/06/21 08:59 Uncollected Type and Screen Routine Lab 08/07/21 15:16 Uncollected Pathology: Surgical [PTH] Routine Pth 08/07/21 17:57 Received Labs from last 24 hours 08/12/21 08/12/21 08/12/21 06:34 04:00 04:00 WBC 14.4 H RBC 3.52 L Hgb 10.2 L Hct 30.6 L MCV 86.9 MCH 29.0 MCHC 33.3 RDW 14.0 Plt Count 330 MPV 9.1 Neut % (Auto) 80.4 Lymph % (Auto) 10.9 [place] % (Auto) 5.8 Eos % (Auto) 1.8 Baso % (Auto) 0.6 Neut # (Auto) 11.60 H Lymph # (Auto) 1.6 [place] # (Auto) 0.8 Eos # (Auto) 0.3 Baso # (Auto) 0.1 Nucleated RBC % (auto) 0 Nucleated RBCs # 0.0 Sodium 139 Potassium 2.9 L Chloride 98 Carbon Dioxide 33 H Anion Gap 10.9 BUN 17 Creatinine 0.5 GFR Calculation Not Reportable Glucose 103 POC Glucose 105 Calculated Osmolality 290 Calcium 8.3 L Magnesium 2.4 H 08/11/21 08/11/21 08/11/21 20:59 17:11 11:46 WBC RBC Hgb Hct MCV MCH MCHC RDW Plt Count MPV Neut % (Auto) Lymph % (Auto) [place] % (Auto) Eos % (Auto) Baso % (Auto) Neut # (Auto) Lymph # (Auto) [place] # (Auto) Eos # (Auto) Baso # (Auto) Nucleated RBC % (auto) Nucleated RBCs # Sodium Potassium Chloride Carbon Dioxide Anion Gap BUN Creatinine GFR Calculation Glucose POC Glucose 155 H 171 H 204 H Calculated Osmolality Calcium Magnesium Completed Studies During Hospitalization Category Date Time Status CT abdomen pelvis wo con [id number] Urgent Cat Scan 08/05/21 18:25 Completed XR KUB portable [id number] Routine Exams 08/08/21 11:38 Completed XR KUB portable [id number] Routine Exams 08/09/21 04:00 Completed XR KUB portable [id number] Routine Exams 08/10/21 04:00 Completed XR KUB portable [id number] Routine Exams 08/11/21 04:00 Completed XR KUB portable [id number] Routine Exams 08/12/21 07:43 Completed XR chest 1V portable [id number] Routine Exams 08/06/21 15:03 Completed US pelvic complete* [id number] Urgent Ultrasound 08/07/21 05:04 Completed Laboratory Last Values WBC 14.4 10^3/uL (4.0-10.0) H 08/12/21 04:00 RBC 3.52 10^6/uL (4.1-5.3) L 08/12/21 04:00 Hgb 10.2 g/dL (11.5-15.3) L 08/12/21 04:00 Hct 30.6 % (37.0-47.0) L 08/12/21 04:00 MCV 86.9 fl (81-99) 08/12/21 04:00 MCH 29.0 pg (28.0-34.0) 08/12/21 04:00 MCHC 33.3 g/dL (30.0-36.0) 08/12/21 04:00 RDW 14.0 % (12.1-15.1) 08/12/21 04:00 Plt Count 330 10^3/cmm (130-400) 08/12/21 04:00 MPV 9.1 fL (7.4-10.4) 08/12/21 04:00 Neut % (Auto) 80.4 % 08/12/21 04:00 Lymph % (Auto) 10.9 % 08/12/21 04:00 [place] % (Auto) 5.8 % 08/12/21 04:00 Eos % (Auto) 1.8 % 08/12/21 04:00 Baso % (Auto) 0.6 % 08/12/21 04:00 Neut # (Auto) 11.60 10^3/uL (1.8-7.7) H 08/12/21 04:00 Lymph # (Auto) 1.6 10^3/uL (0.8-4.8) 08/12/21 04:00 [place] # (Auto) 0.8 10^3/uL (0.2-0.9) 08/12/21 04:00 Eos # (Auto) 0.3 10^3/uL (0.0-0.8) 08/12/21 04:00 Baso # (Auto) 0.1 10^3/uL (0.0-0.1) 08/12/21 04:00 Nucleated RBC % (auto) 0 % 08/12/21 04:00 Nucleated RBCs # 0.0 /100WBC 08/12/21 04:00 Sodium 139 mmol/L (136-145) 08/12/21 04:00 Potassium 2.9 mmol/L (3.5-5.1) L 08/12/21 04:00 Chloride 98 mmol/L (98-107) 08/12/21 04:00 Carbon Dioxide 33 mmol/L (22-29) H 08/12/21 04:00 Anion Gap 10.9 (5-19) 08/12/21 04:00 BUN 17 mg/dL (8-23) 08/12/21 04:00 Creatinine 0.5 mg/dL (0.5-0.9) 08/12/21 04:00 GFR Calculation Not Reportable 08/12/21 04:00 Glucose 103 mg/dL (65-115) 08/12/21 04:00 POC Glucose 105 mg/dL (70-110) 08/12/21 06:34 Calculated Osmolality 290 mOsm/kg (285-295) 08/12/21 04:00 Lactate 1.5 mmol/L (0.5-2.2) 08/05/21 20:56 Calcium 8.3 mg/dL (8.5-10.5) L 08/12/21 04:00 Magnesium 2.4 mg/dL (1.7-2.3) H 08/12/21 04:00 Total Bilirubin 0.8 mg/dL (0.15-1.2) 08/05/21 20:56 AST 11 U/L (0-32) 08/05/21 20:56 ALT < 5 U/L (0-33) 08/05/21 20:56 Alkaline Phosphatase 131 IU/L (35-105) H 08/05/21 20:56 Total Protein 7.6 g/dL (6.6-8.7) 08/05/21 20:56 Albumin 3.4 g/dL (3.5-5.2) L 08/05/21 20:56 Globulin 4.2 g/dL (1.3-4.6) 08/05/21 20:56 Lipase 142 U/L (13-60) H 08/05/21 20:56 Urine Color Yellow (Yellow) 08/05/21 20:18 Urine Appearance Hazy (CLEAR) A 08/05/21 20:18 Urine pH 5 (5-7) 08/05/21 20:18 Ur Specific [place] 1.020 (1.005-1.030) 08/05/21 20:18 Urine Protein Neg (Negative) 08/05/21 20:18 Urine Glucose (UA) Norm (Normal) 08/05/21 20:18 Urine Ketones 1+ (Negative) H 08/05/21 20:18 Urine Blood Neg (Negative) 08/05/21 20:18 Urine Nitrate Negative (Negative) 08/05/21 20:18 Urine Bilirubin 1+ (Negative) H 08/05/21 20:18 Urine Urobilinogen 1 mg/dL (Negative) H 08/05/21 20:18 Ur Leukocyte Esterase Negative (Negative) 08/05/21 20:18 Urine RBC 0-4 /hpf (0-2) H 08/05/21 20:18 Urine WBC 0-4 /hpf (0-5) H 08/05/21 20:18 Ur Squamous Epith Cells 0-4 /hpf (0-5) H 08/05/21 20:18 Amorphous Sediment Not Reportable 08/05/21 20:18 Urine Bacteria 4+ /hpf (NONE) H 08/05/21 20:18 Radiology Impressions Abdomen/Pelvis CT 08/05/21 18:25 IMPRESSION: 1. High-grade obstruction in the mid small bowel. Transition point is located in the deep pelvis adjacent to the uterus. 2. Suspect thickened endometrium. Possible hypertrophy or neoplasm. Recommend nonemergent follow-up ultrasound. 3. Right lower lobe pulmonary opacity. Possible infection. 4. Incidental findings above. ADDENDUM: 08/05/21 1950 THIS REPORT CONTAINS FINDINGS THAT MAY BE CRITICAL TO PATIENT CARE. The findings were verbally communicated via telephone conference with the referring physician at 7:47 PM CDT on 08/05/2021. The findings were acknowledged and understood. Chest X-Ray 08/06/21 15:03 IMPRESSION: 1. Left-sided PICC line probably ends in the region of the medial left subclavian vein. 2. Mild interstitial infiltrate in the right lower lung zone. 3. Prominent pulmonary vita. This is unchanged. Pelvis Ultrasound 08/07/21 05:04 IMPRESSION: 1. Abnormal endometrium as previously described on 06/13/2021. This study was obtained preoperatively. 2. Neither ovary identified. KUB X-Ray 08/12/21 07:43 IMPRESSION: Unchanged abdomen as above. Recent Clincial Data Last Vital Signs Temp 98.3 F 08/12/21 04:33 Pulse 76 08/12/21 04:33 Resp 16 08/12/21 06:23 BP 121/63 08/12/21 04:33 Pulse Ox 94 08/12/21 04:33 Vital Signs Temp Pulse Resp BP Pulse Ox 08/12/21 06:23 16 08/12/21 04:33 98.3 F 76 28 H 121/63 94 08/11/21 23:50 97.9 F 85 13 126/63 93 Intake & Output/Weight 08/10/21 08/11/21 08/12/21 08/13/21 06:59 06:59 06:59 06:59 Intake Total 1973.305 / 2575.603 0097.016 / 3308.016 2489.833 / 2489.833 1000 / 1000 Output Total 1275 / 1275 875 / 875 1530 / 1530 Balance 698.305 / 689.550 0782.016 / 2433.016 959.833 / 762.584 0816 / 1000 Weight 60.056 kg Vitals Last Vital Signs Temp 98.3 F 08/12/21 04:33 Pulse 76 08/12/21 04:33 Resp 16 08/12/21 06:23 BP 121/63 08/12/21 04:33 Pulse Ox 94 08/12/21 04:33 TS Medications Medications Acetaminophen (Acetaminophen 325 Mg Tablet) 650 mg PO Q6H PRN PRN Reason: Mild Pain or Temp >100.4 Al Hydrox/Mg Hydrox/Simethicone (Hppa-Zar-Flwwykocy-Wesley 30 Ml Udc) 30 ml PO Q4H PRN PRN Reason: INDIGESTION Bisacodyl (Bisacodyl 5 Mg Tablet) 10 mg PO DAILY PRN; Protocol PRN Reason: Constipation (see protocol) Dextrose (Dextrose 50% Syringe 50 Ml) 25 ml IVP ONCE PRN; Protocol PRN Reason: hypoglycemia protocol Dextrose (Dextrose 50% Syringe 50 Ml) 50 ml IVP PRN PRN; Protocol PRN Reason: hypoglycemia protocol Dextrose (Dextrose 50% Syringe 50 Ml) 25 ml IVP ONCE PRN; Protocol PRN Reason: hypoglycemia protocol Dextrose (Dextrose 50% Syringe 50 Ml) 50 ml IVP PRN PRN; Protocol PRN Reason: hypoglycemia protocol Diphenhydramine HCl (Diphenhydramine 50 Mg/Ml Sdv 1ml) 12.5 mg IVP Q4H PRN PRN Reason: ALLERGIC REACTION Last Admin: 08/09/21 20:27 Dose: 12.5 mg Documented by: Docusate Sodium (Docusate Sodium 100 Mg Capsule) 100 mg PO BID NIURKA Last Admin: 08/12/21 08:08 Dose: 100 mg Documented by: Enoxaparin Sodium (Enoxaparin 40 Mg/0.4 Ml Syringe) 40 mg SUBCUT Q24H NIURKA Last Admin: 08/11/21 20:41 Dose: 40 mg Documented by: Glucagon (Glucagon 1 Mg/Ml Inj 1 Ml) 1 mg IM ONCE PRN; Protocol PRN Reason: Adult Acute Hypoglycemia Prot. Glucagon (Glucagon 1 Mg/Ml Inj 1 Ml) 1 mg IM ONCE PRN; Protocol PRN Reason: Adult Acute Hypoglycemia Prot. Hydromorphone HCl (Hydromorphone 1 Mg/Ml Inj 1 Ml) 0.2 mg IVP Q4H PRN PRN Reason: PAIN Last Admin: 08/12/21 06:23 Dose: 0.2 mg Documented by: Piperacillin Sod/Tazobactam (Sod 3.375 gm/ Sodium Chloride) 50 mls @ 12.5 mls/hr IV Q8H NIURKA; Protocol Last Infusion: 08/12/21 06:09 Dose: Infused Documented by: Sodium Chloride (Sodium Chloride 0.9%) 1,000 mls @ 100 mls/hr IV .Q10H NIURKA Last Admin: 08/12/21 10:35 Dose: 100 mls/hr Documented by: Dextrose (D5w) 500 mls @ 100 mls/hr IV ONCE PRN; Protocol PRN Reason: Adult Acute Hypoglycemia Prot Sodium Chloride (Sodium Chloride 0.9%) 500 mls @ 500 mls/hr IV .Q1H PRN PRN Reason: urine output Multivitamins 10 ml/ Amino (Acids/Electrolytes) 1,010 mls @ 42 mls/hr IV .Q24H NIURKA Last Admin: 08/11/21 17:18 Dose: 21 mls/hr Documented by: Insulin Glargine (Insulin Glargine 100 Units/1 Ml) 20 unit SUBCUT BEDTIME NIURKA Last Admin: 08/11/21 21:02 Dose: 20 unit Documented by: Insulin Human Lispro (Insulin Lispro 100 Unit/1 Ml) 0 unit SUBCUT WM&BEDTIME [facility]; Protocol Last Admin: 08/12/21 10:05 Dose: Not Given Documented by: Insulin Human Lispro (Insulin Lispro 100 Unit/1 Ml) 0 unit SUBCUT TIDWM [facility]; Protocol Last Admin: 08/12/21 10:06 Dose: Not Given Documented by: Metoclopramide HCl (Metoclopramide 5 Mg/Ml Sdv 2 Ml) 10 mg IVP TID NIURKA Morphine Sulfate (Morphine 4 Mg/Ml Sdv 1 Ml) 2 mg IVP Q4H PRN PRN Reason: SEVERE PAIN Last Admin: 08/06/21 10:40 Dose: 2 mg Documented by: Ondansetron HCl (Ondansetron 2 Mg/Ml Sdv 2 Ml) 4 mg IVP Q8H PRN PRN Reason: vomiting, or N/V if npo Last Admin: 08/11/21 17:15 Dose: 4 mg Documented by: Ondansetron HCl (Ondansetron 2 Mg/Ml Sdv 2 Ml) 4 mg IVP Q6H PRN PRN Reason: NAUSEA AND VOMITING Ondansetron HCl (Ondansetron 2 Mg/Ml Sdv 2 Ml) 4 mg IVP Q4H PRN PRN Reason: NAUSEA Last Admin: 08/10/21 19:18 Dose: 4 mg Documented by: Scopolamine (Scopolamine 1.5 Patch) 1 patch TRANSDERMA Q3D NIURKA Last Admin: 08/10/21 18:14 Dose: 1 patch Documented by: Simethicone (Simethicone 80 Mg Chew) 80 mg PO QID PRN PRN Reason: Gas distention Discontinued Medications Acetaminophen (Acetaminophen 325 Mg Tablet) 650 mg PO Q6H PRN PRN Reason: Mild/Mod Pain Or Temp >/= 101 Hydrocodone Bitart/Acetaminophen (Hydrocodone-Acetaminophen 5-325 Mg Tablet) 1 - 2 tab PO Q6H PRN PRN Reason: MODERATE TO SEVERE PAIN Last Admin: 08/11/21 17:32 Dose: 2 tab Documented by: Albuterol Sulfate (Albuterol 2.5 Mg/0.5 Ml Neb) 2.5 mg INHALATION ONCE PRN PRN Reason: WHEEZING Diphenhydramine HCl (Diphenhydramine 50 Mg/Ml Sdv 1ml) 12.5 mg IVP ONCE PRN PRN Reason: ANESTHESIA Last Admin: 08/07/21 16:09 Dose: 12.5 mg Documented by: Enoxaparin Sodium (Enoxaparin 30 Mg/0.3 Ml Syringe) 30 mg SUBCUT ONCE ONE Stop: 08/07/21 15:17 Last Admin: 08/07/21 15:51 Dose: 30 mg Documented by: Famotidine (Famotidine 20 Mg/2 Ml Inj) 20 mg IVP ONCE PRN PRN Reason: HEARTBURN Fentanyl (Fentanyl 50 Mcg/Ml Inj 2ml) 50 mcg IVP Q10M PRN PRN Reason: Preop Pain Fentanyl (Fentanyl 50 Mcg/Ml Inj 2ml) 100 mcg IVP ONCE PRN PRN Reason: Per anesthesia for block Haloperidol Lactate (Haloperidol Inj 5 Mg/Ml Inj 1 Ml) 5 mg IVP ONCE ONE Stop: 08/10/21 19:36 Last Admin: 08/10/21 19:40 Dose: 5 mg Documented by: Hydromorphone HCl (Hydromorphone 1 Mg/Ml Inj 1 Ml) 0.5 mg IVP ONCE ONE Stop: 08/07/21 15:37 Last Admin: 08/07/21 15:58 Dose: 0.5 mg Documented by: Sodium Chloride (Sodium Chloride 0.9%) 500 mls @ 500 mls/hr IV ONCE ONE Stop: 08/05/21 19:24 Last Admin: 08/05/21 19:28 Dose: 500 mls/hr Documented by: Sodium Chloride (Sodium Chloride 0.9%) 1,000 mls @ 75 mls/hr IV .[id number] [facility] Last Infusion: 08/09/21 04:49 Dose: Infused Documented by: Dextrose (D5w) 500 mls @ 100 mls/hr IV ONCE PRN; Protocol PRN Reason: Adult Acute Hypoglycemia Prot Cefepime HCl 1,000 mg/ Sodium (Chloride) 50 mls @ 100 mls/hr IV Q12H [facility]; Protocol Last Infusion: 08/07/21 10:15 Dose: Infused Documented by: Multivitamins 10 ml/ Amino (Acids/Electrolytes) 1,010 mls @ 42 mls/hr IV .Q24H [facility] Last Infusion: 08/09/21 00:32 Dose: Infused Documented by: Fat Emulsion Intravenous (Intralipid 20%) 125 mls @ 10.417 mls/hr IV Q24H [facility] Last Admin: 08/09/21 00:33 Dose: Not Given Documented by: Potassium Chloride/Sodium Chloride (Sodium Chlor 0.9% + Kcl 20 Meq) 20 meq in 1,000 mls @ 75 mls/hr IV .[id number] [facility] Last Admin: 08/09/21 00:31 Dose: Not Given Documented by: Sodium Chloride (Sodium Chloride 0.9%) 1,000 mls @ 30 mls/hr IV .Q24H [facility] Stop: 08/08/21 15:14 Last Infusion: 08/09/21 00:32 Dose: Infused Documented by: Cefoxitin Sodium 2,000 mg/ (Sodium Chloride) 50 mls @ 100 mls/hr IV [employer]; Protocol Stop: 08/07/21 15:45 Last Infusion: 08/07/21 17:30 Dose: Infused Documented by: Dextrose/Lactated Ringer's (Dextrose 5%-Lactated Ringers) 1,000 mls @ 125 mls/hr IV .Q8H [facility] Last Infusion: 08/09/21 00:32 Dose: Infused Documented by: Insulin Human Regular 10 unit/ (N/A) 0.1 mls @ 0 mls/hr IVP ONCE ONE Stop: 08/08/21 11:51 Last Infusion: 08/08/21 13:01 Dose: Infused Documented by: Fat Emulsion Intravenous (Intralipid 20%) 125 mls @ 10.417 mls/hr IV Q24H [facility] Last Infusion: 08/10/21 05:57 Dose: Infused Documented by: Lidocaine HCl 5 ml/ Potassium (Chloride) 105 mls @ 25 mls/hr IV ONCE ONE Stop: 08/09/21 13:41 Last Infusion: 08/09/21 15:09 Dose: Infused Documented by: Insulin Human Regular 10 unit/ (N/A) 0.1 mls @ 0 mls/hr IVP ONCE ONE Stop: 08/09/21 12:01 Last Infusion: 08/09/21 13:21 Dose: Infused Documented by: Lidocaine HCl 5 ml/ Potassium (Chloride) 105 mls @ 25 mls/hr IV ONCE ONE Stop: 08/11/21 08:47 Last Infusion: 08/11/21 10:02 Dose: Infused Documented by: Lidocaine HCl 5 ml/ Potassium (Chloride) 105 mls @ 25 mls/hr IV ONCE ONE Stop: 08/12/21 09:30 Last Admin: 08/12/21 06:05 Dose: 25 mls/hr Documented by: Lidocaine HCl 5 ml/ Potassium (Chloride) 105 mls @ 50 mls/hr IV ONCE ONE Stop: 08/12/21 09:27 Last Admin: 08/12/21 10:21 Dose: 50 mls/hr Documented by: Ibuprofen (Ibuprofen 800 Mg Tablet) 800 mg PO Q8H [facility] Insulin Glargine (Insulin Glargine 100 Units/1 Ml) 10 unit SUBCUT ONCE ONE Stop: 08/07/21 00:41 Last Admin: 08/07/21 01:12 Dose: 10 unit Documented by: Insulin Glargine (Insulin Glargine 100 Units/1 Ml) 10 unit SUBCUT BEDTIME [facility] Last Admin: 08/08/21 20:53 Dose: 10 unit Documented by: Ipratropium Mutual (Ipratropium 0.5 Mg/2.5 Ml Neb) 0.5 mg INHALATION ONCE PRN PRN Reason: WHEEZING Ketorolac Tromethamine (Ketorolac 30 Mg/Ml Inj) 30 mg IVP Q6H NIURKA Stop: 08/08/21 12:01 Last Admin: 08/08/21 12:33 Dose: Not Given Documented by: Lidocaine/Epinephrine (Lidocaine 2% Epi 20 Ml Inj) Confirm Administered Dose 20 ml .ROUTE .STK-MED ONE Stop: 08/07/21 16:59 Lidocaine/Epinephrine (Lidocaine 2% Epi 20 Ml Inj) 20 ml INJECTION ONCE ONE Stop: 08/07/21 17:45 Last Admin: 08/07/21 17:45 Dose: 8 ml Documented by: Lorazepam (Lorazepam 2 Mg/Ml Inj 1 Ml) 1 mg IVP NOW ONE Stop: 08/05/21 19:11 Last Admin: 08/05/21 19:28 Dose: 1 mg Documented by: Lorazepam (Lorazepam 2 Mg/Ml Inj 1 Ml) 1 mg IVP NOW ONE Stop: 08/05/21 20:54 Last Admin: 08/05/21 22:00 Dose: 1 mg Documented by: Metoclopramide HCl (Metoclopramide 5 Mg/Ml Sdv 2 Ml) 5 mg IVP Q6H PRN PRN Reason: Nausea And Vomiting uncontrolled Last Admin: 08/11/21 03:53 Dose: 5 mg Documented by: Metoclopramide HCl (Metoclopramide 5 Mg/Ml Sdv 2 Ml) 10 mg IVP Q6H PRN PRN Reason: NAUSEA AND VOMITING Midazolam HCl (Midazolam 1 Mg/Ml Inj 2 Ml) 2 mg IVP Q5M PRN PRN Reason: Preop Anxiety Midazolam HCl (Midazolam 1 Mg/Ml Inj 5 Ml) 5 mg IVP ONCE PRN PRN Reason: Per anesthesia for block Ondansetron HCl (Ondansetron 2 Mg/Ml Sdv 2 Ml) 4 mg IVP Q5M PRN PRN Reason: NAUSEA AND VOMITING Last Admin: 08/07/21 15:44 Dose: 4 mg Documented by: Potassium Chloride (Potassium Chloride Oral Liq 20 Meq/15 Ml Udc) 40 meq PO ONCE ONE Stop: 08/10/21 12:09 Last Admin: 08/10/21 13:32 Dose: Not Given Documented by: Potassium Chloride (Potassium Chloride Er 20 Meq Tablet) 40 meq PO ONCE ONE Stop: 08/10/21 13:35 Last Admin: 08/10/21 14:46 Dose: 40 meq Documented by: Propofol (Propofol 10 Mg/Ml Sdv 20 Ml) Confirm Administered Dose 200 mg .ROUTE .STK-MED ONE Stop: 08/07/21 17:01 Scopolamine (Scopolamine 1.5 Patch) 1 patch TRANSDERMA ONCE PRN PRN Reason: Nausea/ Vomiting Prophylaxis Last Admin: 08/07/21 15:46 Dose: 1 patch Documented by: Scopolamine (Scopolamine 1.5 Patch) 1 patch TRANSDERMA ONCE ONE Stop: 08/07/21 15:17 Last Admin: 08/07/21 20:55 Dose: Not Given Documented by: Succinylcholine Chloride (Succinylcholine 20 Mg/Ml Sdv 10ml) Confirm Administered Dose 200 mg .ROUTE .STK-MED ONE Stop: 08/07/21 17:02 Allergies ketorolac [From Toradol] Allergy (Severe, Verified 08/06/21 08:06) see comment feels strange methocarbamol [From Robaxin] Allergy (Intermediate, Verified 08/06/21 08:06) see comment makes her feel strange trazodone Allergy (Intermediate, Verified 08/06/21 08:06) see comment she feels strange cyclobenzaprine [From Flexeril] Allergy (Verified 08/06/21 08:06) see comment makes her feel strange tramadol Allergy (Verified 08/06/21 08:06) see comment feels strange Home Medications Diabetic shoes with 3 pairs of inserts #1 ea 06/28/20 [Rx Confirmed 08/06/21] blood-glucose meter,continuous (Dexcom G6 Tester Regulator) #1 ea 06/16/21 [Rx Confirmed 08/06/21] blood-glucose sensor (Dexcom G6 Sensor) #3 ea 06/16/21 [Rx Confirmed 08/06/21] blood-glucose transmitter (Dexcom G6 Transmitter) #1 ea 06/16/21 [Rx Confirmed 08/06/21] acetaminophen 500 mg tablet (Tylenol Extra Strength) 1,000 mg PO Q6H PRN tab 06/23/21 [History Confirmed 08/06/21] temazepam 30 mg capsule 30 mg PO BEDTIME #7 cap 07/22/21 [Rx Confirmed 08/06/21] alprazolam 0.5 mg tablet (Xanax) 0.5 mg PO Q24H PRN 08/06/21 [History Confirmed 08/06/21] aluminum-mag hydroxide-simethicone 200 mg-200 mg-20 mg/5 mL oral susp 30 ml PO Q4H PRN 08/06/21 [History Confirmed 08/06/21] hydrocodone 5 mg-acetaminophen 325 mg tablet 1 tab PO Q4H PRN 08/06/21 [History Confirmed 08/06/21] insulin glargine-yfgn 100 unit/mL (3 mL) subcutaneous pen 20 unit SUBCUT DAILY 08/06/21 [History Confirmed 08/06/21] insulin lispro 100 unit/mL subcutaneous cartridge See Rx Instructions .ROUTE .COMPLEX 08/06/21 [History Confirmed 08/06/21] mirtazapine 15 mg tablet (Remeron) 15 mg PO BEDTIME 08/06/21 [History Confirmed 08/06/21] ondansetron HCl 4 mg tablet 4 mg PO Q4H PRN 08/06/21 [History Confirmed 08/06/21] polyethylene glycol 3350 17 gram oral powder packet (Miralax) 17 g PO QAM 08/06/21 [History Confirmed 08/06/21] Discharge Plan Discharge Patient Disposition: Home Condition: Stable Prescriptions: No Action acetaminophen [Tylenol Extra Strength] 500 mg tablet 1,000 mg PO Q6H PRN (Reason: pain/temp) 0RF ([facility]) Diabetic shoes with 3 pairs of inserts See Rx Instructions .Route .MEDSUPPLY Qty: 1 0RF Rx Instructions: As directed by [facility]WIGE[facility]O ([facility]) Dexcom G6 Tester Regulator Misc See Rx Instructions .Route Qty: 1 0RF Rx Instructions: As directed ([facility]) Dexcom G6 Sensor Device See Rx Instructions .Route Qty: 3 3RF Rx Instructions: Change every 10 days. ([facility]) Dexcom G6 Transmitter Device See Rx Instructions .Route Qty: 1 3RF Rx Instructions: Change every 90 days. temazepam 30 mg capsule 30 mg PO BEDTIME Qty: 7 0RF Xanax 0.5 mg Tablet 0.5 mg PO Q24H PRN (Reason: Anxiety) 0RF polyethylene glycol 3350 [Miralax] 17 gram Powder In Packet 17 g PO QAM 0RF Rx Instructions: MIX IN 8 OUNCES OF WATER OR JUICE ondansetron HCl [Zofran] 4 mg Tablet 4 mg PO Q4H PRN (Reason: Nausea And Vomiting) 0RF mirtazapine [Remeron] 15 mg Tablet 15 mg PO BEDTIME 0RF Mylanta 200-200-20 mg/5 mL Suspension 30 ml PO Q4H PRN (Reason: Heartburn) 0RF insulin lispro 100 unit/mL Cartridge See Rx Instructions .ROUTE .COMPLEX 0RF Rx Instructions: INJECT PER SLIDING SCALE TID 201-250=2 UNITS 251-300=4 UNITS 301-350=6 UNITS 351-400=8 UNITS insulin glargine-yfgn 100 unit/mL (3 mL) Insulin Pen 20 unit SUBCUT DAILY 0RF hydrocodone-acetaminophen 5-325 mg tablet 1 tab PO Q4H PRN (Reason: pain) 0RF Referrals: Christin Bolaños DO [Primary Care Provider] - Patient Instructions: Opioid Safety Transfer Attestations Time Spent in Transfer Care: less than 30 min Quality Metrics Clinical Quality Measures [ No reported AMI, CVA or VTE this stay] Coding Level of Care Code Acute Gps Field Data Collector for g Fwd Diagnoses Hypokalemia E87.6 Alkalosis E87.3 Hyponatremia E87.1 Diabetes E11.9 Small bowel obstruction K56.609 Nausea & vomiting R11.2 Endometrial thickening on ultrasound R93.89 Adenocarcinoma C80.1 Colon cancer C18.9 Uncontrolled type 2 diabetes mellitus E11.65
[2021-08-13 12:08] LABS: Glucose Point of Care 200 mg/dL (70-110)
--- NOTE | 2021-08-13 13:57 | PC.NURSE ---
Report called to Tonie Cowart RN at [facility]
== END 2021-08-13 15:15 | disposition short-term general hospital (02) | DRG 987 ==
LOC: ER 21:44 → MEDSURG 08-06 03:05
PROVIDERS: Obstetrics & Gynecology; Admitting Provider Internal Medicine; Emergency Provider Emergency Medicine; PCP Family Medicine; Visit Provider Internal Medicine
PROC: (CPT 58120; principal; 2021-08-07 15:40)
DX: K56.609 Unspecified intestinal obstruction, unspecified as to partial versus complete obstruction (principal); J18.9 Pneumonia, unspecified organism; E87.3 Alkalosis; E87.1 Hypo-osmolality and hyponatremia; E44.1 Mild protein-calorie malnutrition; K56.7 Ileus, unspecified; N85.00 Endometrial hyperplasia, unspecified; C80.1 Malignant (primary) neoplasm, unspecified; E86.0 Dehydration; E87.6 Hypokalemia; Z79.4 Long term (current) use of insulin; E11.65 Type 2 diabetes mellitus with hyperglycemia; Z90.49 Acquired absence of other specified parts of digestive tract; Z85.038 Personal history of other malignant neoplasm of large intestine; Z87.891 Personal history of nicotine dependence; N95.0 Postmenopausal bleeding; Z68.22 Body mass index [BMI] 22.0-22.9, adult
CPT/HCPCS: 36415; 36416; 36569; 36592; 51702; 71045; 74018; 74176; 76856; 80048; 80053; 81001; 82947; 82962; 83605; 83690; 83735; 85025; 87086; 88305; 88342; 96361; 96372; 96374; 97110; 97161; 97165; 97530; 99285; J0330; J0692; J0694; J1170; J1200; J1630; J1650; J1815; J1980; J2060; J2270; J2405; J2543; J2704; J2765; J3480; J7030; J7040

== ENCOUNTER 2021-09-19 22:45 | Inpatient (IN) | payer MEDICARE, OTHER, SELFPAY ==
[2021-09-19 22:52] VITALS: BP 102/43; PULSE 86; RESP 13; TEMP 36.4; O2SAT 98; BMI 22.3
--- NOTE | 2021-09-19 23:21 | ED_ITS ---
HPI - General Adult General: Chief complaint: General Medical Stated complaint: UNRESPONSIVE Time Seen by Provider: 09/19/21 22:47 History of Present Illness: Patient is a 75-year-old female presenting today with altered mental status. Patient was recently transferred to a skilled [facility] facility after being discharged from [facility]. Patient was noted to be on arrival alert oriented without any difficulty. Received her nighttime sleeping medication. Whenever she became altered. Patient arousable in the room with physical stimuli. Otherwise will fall asleep. She is noted to always take these medicines for sleep. Review of Systems General: Reports: 10 or more systems reviewed and unremarkable except in HPI and below PFSH ED PFSH: Medical History ARNALDO (acute kidney injury) Ascending cholangitis Closed intertrochanteric fracture Colon cancer Depression with anxiety Diabetes mellitus with ketoacidosis without coma Diabetic neuropathy Gallstone H/O fracture of ankle left History of diabetic ketoacidosis Nail fungus Neuropathy Surgical History H/O partial resection of colon H/O wrist surgery right S/P appendectomy S/P cholecystectomy S/P tonsillectomy Family History Family/Other Diabetes maternal side, female Son Diabetes Father Heart disease Mother Thyroid disease Daughter Thyroid disease Other Hypertension Denies family history of Colon cancer Ovarian cancer Clotting disorder Hypercholesteremia Breast cancer Anesthesia complication Bleeding disorder Uterine cancer Stroke Social History Smoking and tobacco status: former smoker Physical Exam Const: COMMON NORMALS: no acute distress, patient oriented x3 and alert GENERAL APPEARANCE: cooperative ORIENTATION/CONSCIOUSNESS: Yes awake, Yes oriented to person, Yes oriented to place and Yes oriented to time HENMT: COMMON NORMALS: normocephalic, atraumatic, external ears normal, Normal external nose present and moist oral mucous membranes HEAD & SCALP: normal to inspection, normocephalic and atraumatic NOSE: Normal external nose present GENERAL EAR: hearing grossly impaired EXTERNAL EAR: Yes external ears normal Eye: COMMON NORMALS: Equal, round and reactive pupils present, EOMs intact bilaterally, conjunctivae normal and no scleral icterus GENERAL EYE: appearance normal, both eyes and all related structures EYELID: eyelids normal CONJUNCTIVA: Yes conjunctivae normal SCLERA: sclerae normal PUPIL: Yes Equal, round and reactive pupils present Neck/C-Spine: COMMON NORMALS: full ROM, supple and no JVD GENERAL: Yes normal visual inspection Lymph: LYMPHATIC: no lymphadenopathy noted and no lymphedema noted Chest: COMMONS NORMALS: normal inspection of the chest Resp: COMMON NORMALS: normal respiratory effort, No retractions and No use of accessory muscles Cardio: COMMON NORMALS: no JVD, regular rate and regular rhythm RATE: regular rate RHYTHM: regular rhythm GI: COMMON NORMALS: Normal to inspection, nondistended, normoactive bowel sounds present : COMMON NORMALS: Yes no CVA tenderness BLADDER/KIDNEY EXAM: Yes no CVA tenderness Back/Pelvis: COMMON NORMALS: no CVA tenderness and thoracic and lumbar spine normal to inspection Extremity: COMMON NORMALS: normal to inspection, full ROM and capillary refill normal GENERAL: Yes normal exam except as noted Neuro: COMMON NORMALS: patient oriented x3, CN's II-XII intact bilaterally, moves all extremities, no focal motor deficits, no sensory deficits noted and gait normal SENSORIUM/ORIENTATION: Yes alert, Yes oriented to person, Yes oriented to place and Yes oriented to time Psych: COMMON NORMALS: mental status grossly normal, Normal thought process present, cooperative and normal affect THOUGHT PROCESS: Normal thought pr ocess present Skin: COMMON NORMALS: no rashes or lesions noted and no wounds GENERAL SKIN EXAM: no rashes or lesions noted Course Vital Signs: Vital signs: Vital Signs Temperature 97.6 F 09/19/21 22:52 Pulse Rate 74 09/20/21 00:50 Respiratory Rate 24 H 09/20/21 00:50 Blood Pressure 108/49 09/20/21 00:50 Pulse Oximetry 98 09/20/21 00:50 Oxygen Delivery Me thod 09/20/21 00:50 Oxygen Flow Rate 4 09/20/21 00:50 [facility] - General Adult Medical Decision Making Patient is a 75-year-old female presenting today with altered mental status. Altered mental status appears to be transient. Likely related to patient's benzodiazepines. Patient with significant leukocytosis. Urinalysis is highly suggestive of infectious etiology. Patient was bolused 1 L normal saline. Started on IV Zosyn. Lactic acid was ordered. Due to significant weakness and altered mental status will admit to the hospital for IV antibiotics. Patient admitted in stable condition. Medical Records 75-year-old female with altered mental status. CBC with significant leukocytosis. UA with evidence of urinary tract infection. Lab Data : 09/19/21 23:02 09/19/21 23:02 Laboratory Results WBC 22.0 10^3/uL (4.0-10.0) H 09/19/21 23:02 RBC 2.60 10^6/uL (4.1-5.3) L 09/19/21 23:02 Hgb 9.0 g/dL (11.5-15.3) L 09/19/21 23:02 Hct 24.4 % (37.0-47.0) L 09/19/21 23: MCV 93.8 fl (81-99) 09/19/21 23:02 MCH 34.6 pg (28.0-34.0) H 09/19/21 23:02 MCHC 36.9 g/dL (30.0-36.0) H 09/19/21 23:02 RDW 16.0 % (12.1-15.1) H 09/19/21 23:02 Plt Count 472 10^3/cmm (130-400) H 09/19/21 23:02 MPV 9.0 fL (7.4-10.4) 09/19/21 23:02 Neut % (Auto) 86.0 % 09/19/21 23:02 Lymph % (Auto) 7.8 % 09/19/21 23:02 Bonner % (Auto) 4.9 % 09/19/21 23:02 Eos % (Auto) 0.1 % 09/19/21 23:02 Baso % (Auto) 0.5 % 09/19/21 23:02 Neut # (Auto) 18.89 10^3/uL (1.8-7.7) H 09/19/21 23:02 Lymph # (Auto) 1.7 10^3/uL (0.8-4.8) 09/19/21 23:02 Bonner # (Auto) 1.1 10^3/uL (0.2-0.9) H 09/19/21 23:02 Eos # (Auto) 0.0 10^3/uL (0.0-0.8) 09/19/21 23:02 Baso # (Auto) 0.1 10^3/uL (0.0-0.1) 09/19/21 23:02 Nucleated RBC % (auto) 0 % 09/19/21 23:02 Nucleated RBCs # 0.0 /100WBC 09/19/21 23:02 Specimen Type Venous 09/19/21 11:40 Sample Site Na 09/19/21 11:40 Aron Test Na 09/19/21 11:40 VBG pH 7.33 (7.32-7.42) 09/19/21 11:40 VBG pCO2 50.8 mmHg (41-51) 09/19/21 11:40 VBG pO2 86.6 mmHg (25-40) H 09/19/21 11:40 VBG HCO3 26.9 mmol/L (24-28) 09/19/21 11:40 VBG Base Excess 0.6 mmol/L (-3.0-3.0) 09/19/21 11:40 VBG Hematocrit 27.2 % (37-47) L 09/19/21 11:40 O2 Delivery Device Va 09/19/21 11:40 O2 Liters/Min 4.0 % 09/19/21 11:40 FiO2 32.0 % 09/19/21 11:40 Specimen Drawn By areil 09/19/21 11:40 Hadoop Analyst ID [facility] 09/19/21 11:40 Sodium 131 mmol/L (136-145) L 09/19/21 23:02 Potassium 4.8 mmol/L (3.5-5.1) 09/19/21 23:02 Chloride 95 mmol/L (98-107) L 09/19/21 23:02 Carbon Dioxide 25 mmol/L (22-29) 09/19/21 23:02 Anion Gap 15.8 (5-19) 09/19/21 23:02 BUN 16 mg/dL (8-23) 09/19/21 23:02 Creatinine 0.7 mg/dL (0.5-0.9) 09/19/21 23:02 GFR Calculation Not Reportable 09/19/21 23:02 Glucose 221 mg/dL (65-115) H 09/19/21 23:02 POC Glucose 262 mg/dL (70-110) H 09/19/21 23:28 Calculated Osmolality 280 mOsm/kg (285-295) L 09/19/21 23:02 Calcium 8.0 mg/dL (8.5-10.5) L 09/19/21 23:02 Total Bilirubin 0.4 mg/dL (0.15-1.2) 09/19/21 23:02 AST 9 U/L (0-32) 09/19/21 23: ALT 7 U/L (0-33) 09/19/21 23:02 Alkaline Phosphatase 178 IU/L (35-105) H 09/19/21 23:02 Total Protein 6.2 g/dL (6.6-8.7) L 09/19/21 23: Albumin 2.1 g/dL (3.5-5.2) L 09/19/21 23: Globulin 4.1 g/dL (1.3-4.6) 09/19/21 23:02 Urine Color Dark yellow (Yellow) 09/20/21 00:39 Urine Appearance Cloudy (CLEAR) 09/20/21 00:39 Urine pH 6 (5-7) 09/20/21 00:39 Ur Specific [place] 1.015 (1.005-1.030) 09/20/21 00:39 Urine Protein 1+ (Negative) H 09/20/21 00:39 Urine Glucose (UA) Norm (Normal) 09/20/21 00:39 Urine Ketones 1+ (Negative) H 09/20/21 00:39 Urine Blood 3+ (Negative) H 09/20/21 00:39 Urine Nitrate Negative (Negative) 09/20/21 00:39 Urine Bilirubin Neg (Negative) 09/20/21 00:39 Urine Urobilinogen 4 mg/dL (Negative) H 09/20/21 00:39 Ur Leukocyte Esterase 2+ (Negative) H 09/20/21 00:39 Urine RBC 25-40 /hpf (0-2) H 09/20/21 00:39 Urine WBC 55-80 /hpf (0-5) H 09/20/21 00:39 Ur Squamous Epith Cells 5-10 /hpf (0-5) H 09/20/21 00:39 Amorphous Sediment Not Reportable 09/20/21 00:39 Urine Bacteria 4+ /hpf (NONE) H 09/20/21 00:39 Discharge Plan Discharge Patient Disposition: Admitted As Inpatient Clinical Impression: Urinary tract infection, Sepsis, Acute alteration in mental status Condition: Stable Prescriptions: No Action acetaminophen [Tylenol Extra Strength] 500 mg tablet 1,000 mg PO Q6H PRN (Reason: pain/temp) (DME) Diabetic shoes with 3 pairs of inserts See Rx Instructions .Route .MEDSUPPLY Qty: 1 0RF Rx Instructions: As directed by EDWIGE&O ([facility]) Dexcom G6 Environmental Studies Faculty Member Misc See Rx Instructions .Route Qty: 1 0RF Rx Instructions: As directed ([facility]) Dexcom G6 Sensor Device See Rx Instructions .Route Qty: 3 3RF Rx Instructions: Change every 10 days. (DME) Dexcom G6 Transmitter Device See Rx Instructions .Route Qty: 1 3RF Rx Instructions: Change every 90 days. temazepam 30 mg capsule 30 mg PO BEDTIME Qty: 7 0RF Xanax 0.5 mg Tablet 0.5 mg PO Q24H PRN (Reason: Anxiety) polyethylene glycol 3350 [Miralax] 17 gram Powder In Packet 17 g PO QAM Rx Instructions: MIX IN 8 OUNCES OF WATER OR JUICE ondansetron HCl [Zofran] 4 mg Tablet 4 mg PO Q4H PRN (Reason: Nausea And Vomiting) mirtazapine [Remeron] 15 mg Tablet 15 mg PO BEDTIME Mylanta 200-200-20 mg/5 mL Suspension 30 ml PO Q4H PRN (Reason: Heartburn) insulin lispro 100 unit/mL Cartridge See Rx Instructions .ROUTE .COMPLEX Rx Instructions: INJECT PER SLIDING SCALE TID 201-250=2 UNITS 251-300=4 UNITS 301-350=6 UNITS 351-400=8 UNITS insulin glargine-yfgn 100 unit/mL (3 mL) Insulin Pen 20 unit SUBCUT DAILY hydrocodone-acetaminophen 5-325 mg tablet 1 tab PO Q4H PRN (Reason: pain) Referrals: Christin Bolaños DO [Primary Care Provider] - Coding Level of Care Code ED Candy Polisher for g Fwd Exam Comprehensive
[2021-09-19 23:32] LABS: Glucose Point of Care 262 mg/dL (70-110)
[2021-09-19 23:41] LABS: Alanine Aminotransferase 7 U/L (0-33); Albumin Level 2.1 g/dL (3.5-5.2); Alkaline Phosphatase 178 IU/L (35-105); Anion Gap 15.8 (5-19); Aspartate Amino Transferase 9 U/L (0-32); Blood Urea Nitrogen 16 mg/dL (8-23); Carbon Dioxide 25 mmol/L (22-29); Chloride 95 mmol/L (98-107); Globulin 4.1 g/dL (1.3-4.6); Glucose 221 mg/dL (65-115); Osmolality Calculated 280 mOsm/kg (285-295); Potassium 4.8 mmol/L (3.5-5.1); Sodium 131 mmol/L (136-145); Total Bilirubin 0.4 mg/dL (0.15-1.2); Total Protein 6.2 g/dL (6.6-8.7)
[2021-09-19 23:49] LABS: Basophils # 0.1 10^3/uL (0.0-0.1); Basophils % 0.5 %; Eosinophils % 0.1 %; Hematocrit 24.4 % (37.0-47.0); Lymphocytes # 1.7 10^3/uL (0.8-4.8); Lymphocytes % 7.8 %; Mean Corpuscular HGB Conc 36.9 g/dL (30.0-36.0); Mean Corpuscular Hemoglobin 34.6 pg (28.0-34.0); Mean Corpuscular Volume 93.8 fl (81-99); Monocytes # 1.1 10^3/uL (0.2-0.9); Monocytes % 4.9 %; Neutrophils # 18.89 10^3/uL (1.8-7.7); Nucleated Red Blood Cells % 0 %; Platelet Count 472 10^3/cmm (130-400)
[2021-09-20] VITALS (9 sets, daily range): BP systolic 108–134; BP diastolic 49–69; PULSE 3–88; RESP 16–24; TEMP 36.4–37.3; O2SAT 91–98; BMI 20.5
[2021-09-20 00:06] LABS: Base Excess VBG 0.6 mmol/L (-3.0-3.0); HCO3 VBG 26.9 mmol/L (24-28); PCO2 VBG 50.8 mmHg (41-51); PO2 VBG 86.6 mmHg (25-40); pH VBG 7.33 (7.32-7.42)
[2021-09-20 00:07] LABS: Blood Gas Sample Type VENOUS; Oxygen Device NC
[2021-09-20 00:09] LABS: Venous Blood Gas Hematocrit 27.2 % (37-47)
[2021-09-20 00:54] LABS: Urine Appearance Cloudy (CLEAR); Urine Color Dark Yellow (Yellow); pH Urine 6 (5-7)
[2021-09-20 00:55] LABS: Add Urine Microscopic? YES; Bilirubin Urine Neg (Negative); Blood Urine 3+ (Negative); Glucose Urine UA Norm (Normal); Ketones Urine 1+ (Negative); Leukocyte Esterase Urine 2+ (Negative); Nitrate Urine Negative (Negative); Protein Urine 1+ (Negative); Specific Gravity, Urine 1.015 (1.005-1.030); Urobilinogen Urine 4 mg/dL (Negative)
[2021-09-20 00:57] LABS: Add Urine Culture? Yes; Bacteria Urine 4+ /hpf; RBC Urine 25-40 /hpf (0-2); WBC Urine 55-80 /hpf (0-5)
[2021-09-20] MEDS: piperacillin-tazobactam 3.375 GM in sodium chloride 0.9% (plus) 50 ML IV ×4 (01:53→22:01)
--- NOTE | 2021-09-20 01:54 | PC.NURSE ---
Blood cultures not indicated at this time per Physician.
--- NOTE | 2021-09-20 03:25 | PC.NURSE ---
ADMIT NOTE Received to room from ER via haylee. Unable to help move over to bed. Is awake and able to quietly tell me her name and date of . Unable to tell me where she is or what day or month it is. Incont large amt very foul smelling urine on arrival and was cleaned with brief changed. Positioned onto right side. VS check done. Has black unstageable wounds to ends of both R & L great toes. Heels soft Right heel with dry, cracked skin with layer of skin peeling off leaving skin open. Heel boots applied bilat. Optifoam dressing applied to right heel. Has O2 at 3l per NC. VS WNL. Bed alarm on for safety. Received IV Zosyn in the ER per report. Colostomy bag intact to left abdomen
--- NOTE | 2021-09-20 03:27 | P.HP_ITS ---
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 At previous hospital stay on August 13, 2021 she was transferred to [facility] as a direct admit under Dr. Bone break status for biopsy finding of adenocarcinoma unsure if metastatic from colon. We will request records from [place]. Unsure what management was done there. She was discharged to a alf facility and today has presented to the hospital after being sent from there. At the nursing facility patient was alert and oriented when she came from [facility] and received her nighttime sleeping medication. Later she became altered. When your physician saw the patient she does wake up and answer questions but then falls back asleep. When I saw the patient she is unable to provide much history and is quite sleepy. Labs remarkable for WBC 22,000, abnormal urinalysis highly suggestive of infection. Lactic acid ordered. Patient appears quite weak. She did receive 1 L normal saline bolus in ER. Patient also received IV Zosyn x1 Vitals on arrival to ER blood pressure 108/49, respiratory 24, pulse 74, temperature 97.6, pulse ox 98% on 4 L nasal cannula. Medications/Allergies Home Medications Medication Instructions Recorded Confirmed Last Taken Type Diabetic shoes with 3 pairs of #1 ea 06/28/20 08/06/21 Unknown Rx inserts blood-glucose meter,continuous #1 ea 06/16/21 08/06/21 Unknown Rx (Dexcom G6 Electric Hoist Operator) blood-glucose sensor (Dexcom G6 #3 ea 06/16/21 08/06/21 Unknown Rx Sensor) blood-glucose transmitter (Dexcom #1 ea 06/16/21 08/06/21 Unknown Rx G6 Transmitter) acetaminophen 500 mg tablet 1,000 mg PO Q6H PRN pain/temp 06/23/21 08/06/21 Unknown History (Tylenol Extra Strength) temazepam 30 mg capsule 30 mg PO BEDTIME #7 caps 07/22/21 08/06/21 Unknown Rx alprazolam 0.5 mg tablet (Xanax) 0.5 mg PO Q24H PRN Anxiety 08/06/21 08/06/21 Unknown History aluminum-mag hydroxide-simethicone 30 ml PO Q4H PRN Heartburn 08/06/21 08/06/21 Unknown History 200 mg-200 mg-20 mg/5 mL oral susp hydrocodone 5 mg-acetaminophen 325 1 tab PO Q4H PRN pain 08/06/21 08/06/21 Unknown History mg tablet insulin glargine-yfgn 100 unit/mL 20 unit SUBCUT DAILY 08/06/21 08/06/21 Unknown History (3 mL) subcutaneous pen insulin lispro 100 unit/mL See Rx Instructions .Route .COMPLEX 08/06/21 08/06/21 Unknown History subcutaneous cartridge mirtazapine 15 mg tablet (Remeron) 15 mg PO BEDTIME 08/06/21 08/06/21 Unknown History ondansetron HCl 4 mg tablet 4 mg PO Q4H PRN Nausea And Vomiting 08/06/21 08/06/21 Unknown History polyethylene glycol 3350 17 gram 17 g PO QAM 08/06/21 08/06/21 Unknown History oral powder packet (Miralax) Allergies Allergy/AdvReac Type Severity Reaction Status Date / Time ketorolac [From Toradol] Allergy Severe see Verified 08/06/21 08:06 comment methocarbamol [From Robaxin] Allergy Intermediate see Verified 08/06/21 08:06 comment trazodone Allergy Intermediate see Verified 08/06/21 08:06 comment cyclobenzaprine Allergy see Verified 08/06/21 08:06 [From Flexeril] comment tramadol Allergy see Verified 08/06/21 08:06 comment PFSH Acute PFSH: Medical History (Updated 09/20/21 @ 03:45 by Patricia Law MD) Adenocarcinoma ARNALDO (acute kidney injury) Alkalosis Anemia, blood loss Ascending cholangitis Closed intertrochanteric fracture Colon cancer Depression with anxiety Diabetes Diabetes mellitus with ketoacidosis without coma Diabetic neuropathy Endometrial thickening on ultrasound Enlarged uterus Gallstone H/O fracture of ankle left History of diabetic ketoacidosis Hypokalemia Hyponatremia Ileus Nail fungus Nausea & vomiting Neuropathy Postmenopausal bleeding Small bowel obstruction Uncontrolled type 2 diabetes mellitus Surgical History H/O partial resection of colon H/O wrist surgery right S/P appendectomy S/P cholecystectomy S/P tonsillectomy Family History Family/Other Diabetes maternal side, female Son Diabetes Father Heart disease Mother Thyroid disease Daughter Thyroid disease Other Hypertension Denies family history of Colon cancer Ovarian cancer Clotting disorder Hypercholesteremia Breast cancer Anesthesia complication Bleeding disorder Uterine cancer Stroke Social History Smoking and tobacco status: former smoker Vitals/I&O/Wt Last Vital Signs Temp 97.6 F 09/19/21 22:52 Pulse 74 09/20/21 00:50 Resp 24 H 09/20/21 00:50 BP 108/49 09/20/21 00:50 Pulse Ox 98 09/20/21 00:50 O2 Del Method 09/20/21 00:50 O2 Flow Rate 4 09/20/21 00:50 Weight last 48 hrs Weight 58.967 kg Physical Exam Narrative: General: Alert and oriented to self, appears quite sleepy. Does answer some questions and falls right back asleep. HEENT: Normocephalic, atraumatic, EOMI, breathing comfortably on 4 L nasal cannula. Cardio: Regular rate rhythm, normal S1-S2, Respiratory: Clear to auscultation bilaterally no wheezes no rhonchi. GI: Abdomen soft, nontender, bowel sounds + Extremities: no edema, no cyanosis Data : 09/19/21 23:02 09/19/21 23:02 A&P Assessment and plan (1) Urinary tract infection: Status: Acute (2) Sepsis: Status: Acute (3) Acute alteration in mental status: Status: Acute (4) Endometrial thickening on ultrasound: Status: Acute (5) Diabetes: Status: Acute (6) Adenocarcinoma: Status: Acute Plan #Acute metabolic encephalopathy secondary to UTI #History of colon cancer status postresection #Endometrial hyperplasia status post biopsy showing adenocarcinoma. Recently discharged from [facility]. #Diabetes mellitus #History of DKA in the past and cholangitis #Anemia, possible iron deficiency #Severe protein calorie malnutrition #Acute hypoxia, on 4L NC ? We will treat UTI with Zosyn daily. Lactic acid normal. - Check urine culture ? Start IV fluids normal saline 75 cc/h. Patient is status post 1L Normal saline bolus in the ER. - Tylenol for fever, Zofran for nausea ? We will obtain records from [facility] - Patient on 4 L nasal cannula. Unsure if this is a new requirement versus old. At previous hospital stay she was on room air. check chest xray - Sliding scale insulin for diabetes - Check iron studies - Check stool for occult blood - Consult nutrition - Please discuss with family to obtain collateral information - No paperwork available from [facility] to review. They also just received patient and then she got sent here. Full code DVT prophylaxis: SCD Attestations Medical Necessity Statement*: Will cross greater than 2 midnight stay for management of UTI Coding Level of Care Code Acute Industrial Truck Mechanic for Chg Fwd Diagnoses Urinary tract infection N39.0 Sepsis A41.9 Acute alteration in mental status R41.82 Endometrial thickening on ultrasound R93.89 Diabetes E11.9 Adenocarcinoma C80.1
--- NOTE | 2021-09-20 03:49 | XRR_ITS ---
PROCEDURE INFORMATION: Exam: XR Chest Exam date and time: 09/20/2021 3:59 AM Age: 75 years old Clinical indication: Shortness of breath; Prior surgery; Surgery type: Gb; Patient HX: SOB with hypoxia. History of colon cancer. TECHNIQUE: Imaging protocol: Radiologic exam of the chest. Views: 1 view. COMPARISON: CR XR chest 1V portable [id number] 08/06/2021 3:16 PM FINDINGS: Lungs: The lung parenchyma is clear. Pleural spaces: No pneumothorax. No pleural effusion. Heart/Mediastinum: The cardiomediastinal silhouette is within normal limits. Bones/joints: Unremarkable. XR/XR chest 1V portable [id number] IMPRESSION: No acute cardiopulmonary abnormality.
[2021-09-20] MEDS: sodium chloride 0.9% 1,000 ML 75 ML IV ×2 (03:58→17:57)
[2021-09-20 06:52] LABS: Ferritin 344 ng/mL (15-150); Iron 10 ug/dL (37-145); Percent Saturation 6.7 % (20-50); Total Iron Binding Capacity 148 mcg/dl; Unsaturated Iron Binding 138 ug/dL (112-347)
[2021-09-20 07:03] LABS: Glucose Point of Care 202 mg/dL (70-110)
[2021-09-20] MEDS: polyethylene glycol 3350 Pkt 17 gm PO (09:58)
[2021-09-20] MEDS: pantoprazole DR 40 mg Tablet PO (09:58)
--- NOTE | 2021-09-20 10:01 | PC.PHAR ---
Pt resides at [facility] pt has been at [facility] for about 2 months and just returned for a few hours before being sent over to [facility]. Nurse faxed over paperwork with updated medication list from [facility] of changes made to medications. Updated home med list with [facility] medication changes.
--- NOTE | 2021-09-20 10:35 | PC.RESP ---
pt unable to give sputum sample at this time. will try again later
[2021-09-20 11:07] LABS: Glucose Point of Care 210 mg/dL (70-110)
--- NOTE | 2021-09-20 11:21 | PM.MISC ---
Miscellaneous Note Note: Patient is able to tell me her name, She knows the name of the president She tells me that she is in the hospital Very lethargic and fatigued stated that she does not want to eat I have asked nurse to hold her insulin She is verbally redirectable No active signs of stroke Fatigued and lethargic Colostomy bag in place with feculent material Midline abdominal scar with good granulation tissue Abdomen is soft Patient is resting well on 2 to 3 L Plan Requested records from [facility] Metabolic encephalopathy related to UTI dehydration anticipating provement with use of IV fluids and antibiotics We will follow-up with urine cultures Significant leukocytosis, however no signs of sepsis, afebrile Chest x-ray is clear, wean oxygen to room air currently on 3 L for acute hypoxia could be related to hypoventilation or atelectasis Hyperglycemia: Holding insulin because she is not eating well Anemia of chronic disease hemoglobin at 9 Patient is full code Regular diet DVT prophylaxis on board
--- NOTE | 2021-09-20 11:42 | PC.NURSE ---
Called [facility] at [phone] and left message to fax records to [phone] for patient on Wednesday. Dr. Valerio notified.
--- NOTE | 2021-09-20 12:36 | PC.NUTR ---
Received nutrition consult for severe protein/calorie malnutrition. During interview attempt, Pt woke up to my voice and questions, but the only discernable answer was no appetite. She mumbled to my encouragement to drink Glucerna - compliance seems unlikely since she is so drowsy and weak. PPN for 3-5 days could provide a boost of kcals and protein. If medically appropriate, recommend starting PPN @ 12 mls/hr and increasing 10 mls Q8H until 42 mls/hr reached, with 25 gr/125 mls Fat Emulsion, 10 mls Multivitamins per day and standard electrolytes. Details in RD assessment.
[2021-09-20] MEDS: fluconazole 100 mg Tablet 200 MG PO (14:56)
--- NOTE | 2021-09-20 15:10 | PC.NURSE ---
stool collection is from a colostomy bag.
[2021-09-20 16:53] LABS: Glucose Point of Care 239 mg/dL (70-110)
[2021-09-20] MEDS: oxyCODONE-APAP 5-325 mg Tablet 1 TAB PO (16:56)
[2021-09-20 21:06] LABS: Glucose Point of Care 223 mg/dL (70-110)
[2021-09-20] MEDS: insulin lispro 100 unit/1 mL SUBCUT (22:01)
[2021-09-21] VITALS (12 sets, daily range): BP systolic 112–138; BP diastolic 55–84; PULSE 67–89; RESP 14–18; TEMP 36.4–36.7; O2SAT 87–97
[2021-09-21] MEDS: oxyCODONE-APAP 5-325 mg Tablet 1 TAB PO ×4 (03:41→19:44)
[2021-09-21] MEDS: piperacillin-tazobactam 3.375 GM in sodium chloride 0.9% (plus) 50 ML IV ×3 (05:13→23:31)
[2021-09-21 06:26] LABS: Glucose Point of Care 115 mg/dL (70-110)
[2021-09-21] MEDS: sodium chloride 0.9% 1,000 ML 75 ML IV ×2 (06:43→22:05)
[2021-09-21 07:05] LABS: Basophils # 0.1 10^3/uL (0.0-0.1); Basophils % 0.5 %; Eosinophils % 0.1 %; Hematocrit 26.5 % (37.0-47.0); Hemoglobin 8.6 g/dL (11.5-15.3); Lymphocytes % 6.5 %; Mean Corpuscular HGB Conc 32.5 g/dL (30.0-36.0); Mean Corpuscular Hemoglobin 27.7 pg (28.0-34.0); Mean Corpuscular Volume 85.5 fl (81-99); Mean Platelet Volume 9.2 fL (7.4-10.4); Monocytes # 1.5 10^3/uL (0.2-0.9); Neutrophils # 26.63 10^3/uL (1.8-7.7); Nucleated Red Blood Cells % 0 %; Platelet Count 436 10^3/cmm (130-400); Red Cell Distribution Width 15.4 % (12.1-15.1)
[2021-09-21 07:23] LABS: White Blood Count 30.6 10^3/uL (4.0-10.0)
[2021-09-21 07:47] LABS: Alanine Aminotransferase < 5 U/L (0-33); Albumin Level 1.7 g/dL (3.5-5.2); Alkaline Phosphatase 314 IU/L (35-105); Anion Gap 12.3 (5-19); Aspartate Amino Transferase 8 U/L (0-32); Blood Urea Nitrogen 15 mg/dL (8-23); Calcium 7.9 mg/dL (8.5-10.5); Carbon Dioxide 25 mmol/L (22-29); Chloride 103 mmol/L (98-107); Creatinine Clr Calc Pharmacy 52.3651; Glucose 107 mg/dL (65-115); Magnesium 2.1 mg/dL (1.7-2.3); Osmolality Calculated 283 mOsm/kg (285-295); Potassium 4.3 mmol/L (3.5-5.1); Sodium 136 mmol/L (136-145); Total Bilirubin 0.3 mg/dL (0.15-1.2); Total Protein 5.7 g/dL (6.6-8.7)
--- NOTE | 2021-09-21 09:03 | CTR_ITS ---
PROCEDURE INFORMATION: Exam: CT Chest With Contrast; Diagnostic Exam date and time: 09/21/2021 9:30 AM Age: 75 years old Clinical indication: Abdominal pain; Generalized; Chest pressure; Prior surgery; Surgery type: Ostomy; Patient HX: Abdominal cancer ? ? ; additional info: Worsening abd pain, wbc TECHNIQUE: Imaging protocol: Diagnostic computed tomography of the chest with contrast. Radiation optimization: All CT scans at this facility use at least one of these dose optimization techniques: automated exposure control; mA and/or kV adjustment per patient size (includes targeted exams where dose is matched to clinical indication); or iterative reconstruction. Contrast material: OMNI 350; Contrast volume: 80 ml; Contrast route: INTRAVENOUS (IV); COMPARISON: CT chest wo con [id number] 01/01/2021 9:50 AM RADIATION DOSE METRICS: Total DLP (mGy-cm): 715.38 FINDINGS: Thyroid: The bilateral thyroid lobes are unremarkable. Lungs: There is mild paraseptal emphysema bilaterally, most extensively in the upper lung zones. Bilateral posterior pulmonary partial passive atelectasis. A spiculated pleural-based posterior 15.8 x 10.1 x 18.5 mm noncalcified pulmonary nodule is noted in the superior segment of the right lower lobe (LOC 135). A new anterolateral subpleural 3.0 mm noncalcified pulmonary nodule is noted in the anterior segment of the left upper lobe (LOC 115). A 3.2 mm noncalcified pulmonary nodule is noted in the anterior segment of the right upper lobe (LOC 115). Nonspecific bronchovascular bundle nodularity right lower lobe lateral basilar segment redemonstrated, improved (series 4, image 38). Superior segment lingular pulmonary subsegmental atelectasis. Pleural spaces: No pneumothorax identified. Small right pleural effusion. Minimal left pleural effusion. Heart: Dense mitral annular calcification is present. LAD, LCx and RCA calcified coronary atherosclerosis. Mild cardiac left atrial enlargement measuring 4.8 cm AP dimension. Mediastinal space: No mediastinal hematoma identified. Lymph nodes: No enlarged lymph nodes. Vasculature: There is no evidence of aortic pseudoaneurysm or traumatic dissection. Mild aortic arch, branch, and descending thoracic aortic atherosclerotic calcification without ectasia. Mild aortic arch, branch, and descending thoracic aortic atherosclerotic calcification without ectasia. Diaphragm: A moderate hiatal hernia is present above the level of the diaphragm. Bones/joints: No displaced rib fracture demonstrated. Thoracic spine vertebral body marginal osteophytes are noted at multiple levels. Degenerative disk disease is present at mid-thoracic spine disk levels. No acute thoracic spine or sternal fracture identified. Soft tissues: Unremarkable. PROCEDURE INFORMATION: Exam: CT Abdomen And Pelvis With Contrast Exam date and time: 09/21/2021 9:30 AM Age: 75 years old Clinical indication: Abdominal pain; Generalized; Chest pressure; Prior surgery; Surgery type: Ostomy; Patient HX: Abdominal cancer ? ? ; additional info: Worsening abd pain, wbc TECHNIQUE: Imaging protocol: Computed tomography of the abdomen and pelvis with contrast. Radiation optimization: All CT scans at this facility use at least one of these dose optimization techniques: automated exposure control; mA and/or kV adjustment per patient size (includes targeted exams where dose is matched to clinical indication); or iterative reconstruction. Contrast material: OMNI 350; Contrast volume: 80 ml; Contrast route: INTRAVENOUS (IV); COMPARISON: CT abdomen pelvis wo con [id number] 08/05/2021 6:37 PM RADIATION DOSE METRICS: Total DLP (mGy-cm): 715.38 FINDINGS: Liver: Normal. No mass. Gallbladder and bile ducts: The gallbladder is surgically absent, with metallic clips in the gallbladder fossa. No extrahepatic biliary ductal dilatation or calculus. Pancreas: Severe pancreatic atrophy. Spleen: Normal. No splenomegaly. Adrenal glands: Normal. No mass. Kidneys and ureters: Moderate left hydronephrosis, mild left hydroureter. No renal injury identified. Stomach and bowel: Left lower quadrant sigmoid colostomy. Rectal Magdy pouch. Upper pelvic enteric anastomosis. Appendix: No evidence of appendicitis. Intraperitoneal space: No free air. No significant fluid collection. Vasculature: Marked aortic atherosclerotic calcification without aneurysm. The iliac arteries show marked bilateral atherosclerotic calcifications without evidence of aneurysm. Lymph nodes: No enlarged lymph nodes. Urinary bladder: The urinary bladder contains a small amount of gas. Reproductive: Unremarkable as visualized. Bones/joints: Moderate chronic superior L2 vertebral body endplate compression deformity. Mild-moderate anterior L5 vertebral body compression deformity. No acute lumbar spine fracture identified. Bilateral lower lumbar facet primary osteoarthritis. Right sliding screw hip prosthesis with partially imaged interlocking intramedullary chayo. No pelvic or sacral fracture identified. Soft tissues: Nonspecific presacral soft tissue edema. CT/CT chest abd pel w con* IMPRESSION: 1. Small right pleural effusion. 2. Minimal left pleural effusion. 3. Pulmonary emphysema. 4. Noncalcified new right lower lobe pulmonary nodule. Pulmonary neoplasia not excluded. Comparison with prior studies, if available, recommended. followup PET/CT or percutaneous needle biopsy recommended (modified from Jonny et al., Fleischner Society, 2017). 5. Noncalcified new bilateral upper lobe pulmonary nodules. Fleischner Society recommendations withheld pending assessment of the dominant lesion. 6. Nonspecific bronchovascular bundle nodularity right lower lobe lateral basilar segment redemonstrated, improved (series 4, image 38). 7. Coronary atherosclerosis. 8. Cardiac left atrial enlargement. 9. Hiatal hernia. 10. No specific acute injury identified. 11. Please see the abdomen/pelvis CT need of the same date for additional findings. IMPRESSION: 1. Prior cholecystectomy. 2. Left lower quadrant sigmoid colostomy. 3. Upper pelvic enteric anastomosis. 4. Moderate interval left hydronephrosis, mild left hydroureter. No obstructing calculus identified. 5. The urinary bladder contains a small amount of gas. Recommend clinical confirmation of recent bladder catheterization. 6. No acute injury identified.
[2021-09-21 09:15] LABS: LAB Peripheral Smear Sent for Review
[2021-09-21] MEDS: pantoprazole DR 40 mg Tablet PO (09:52)
[2021-09-21] MEDS: polyethylene glycol 3350 Pkt 17 gm PO (09:53)
[2021-09-21] MEDS: iohexol 350 mg/mL 100 mL Btl IV (09:56)
[2021-09-21 10:24] LABS: Basophils # 0.1 10^3/uL (0.0-0.1); Basophils % 0.4 %; Eosinophils % 0.1 %; Hematocrit 33.1 % (37.0-47.0); Hemoglobin 9.9 g/dL (11.5-15.3); Lymphocytes # 1.9 10^3/uL (0.8-4.8); Lymphocytes % 5.5 %; Mean Corpuscular HGB Conc 29.9 g/dL (30.0-36.0); Mean Corpuscular Hemoglobin 27.4 pg (28.0-34.0); Mean Corpuscular Volume 91.7 fl (81-99); Mean Platelet Volume 9.3 fL (7.4-10.4); Monocytes # 1.4 10^3/uL (0.2-0.9); Neutrophils # 30.64 10^3/uL (1.8-7.7); Neutrophils % 88.6 %; Nucleated Red Blood Cells % 0 %; Platelet Count 441 10^3/cmm (130-400); Red Blood Count 3.61 10^6/uL (4.1-5.3); Red Cell Distribution Width 15.4 % (12.1-15.1)
[2021-09-21 10:28] LABS: White Blood Count 34.6 10^3/uL (4.0-10.0)
[2021-09-21 11:08] LABS: Glucose Point of Care 184 mg/dL (70-110)
--- NOTE | 2021-09-21 11:29 | PC.RESP ---
unable to obtain sputum
--- NOTE | 2021-09-21 12:07 | PM.PN ---
Subjective Subjective: Patient has worsening leukocytosis however no fever cultures negative Patient is complaining of hurting all over, anorexia She does not want a PICC line or TPN Also spoke to her daughter Lanie as well Daughter stating that her cancer has metastasized but she is not sure about the exact location however she thinks it is his liver I have requested CT chest abdomen pelvis CT chest is showing spiculated nodule in the lung however no mass in the liver, bilateral pleural effusion Hiatal hernia, Vitals/I&O/Wt Last Vital Signs Temp 98.1 F 09/21/21 07:34 Pulse 88 09/21/21 07:34 Resp 18 09/21/21 10:05 BP 138/55 09/21/21 07:34 Pulse Ox 87 L 09/21/21 11:30 O2 Del Method 09/21/21 11:30 O2 Flow Rate 2 09/21/21 11:30 09/20/21 09/21/21 09/21/21 22:59 06:59 14:59 Intake Total 1150 / 1200 1157.5 / 2357.5 Balance 1150 / 1200 1157.5 / 2357.5 Weight last 48 hrs Weight 54.431 kg Weight 58.967 kg Physical Exam Narrative: Sigmoid colostomy Patient has brown feculent material Abdomen is nontender Patient is dehydrated Malnourished Pale complexion Awake and alert Complaining of pain, hurting all over No signs of stroke Currently on 2 L nasal cannula Muscle mass loss Protein calorie malnourishment Data : 09/21/21 09:52 09/21/21 06:20 Micro: Microbiology 09/20/21 00:39 Urine Culture - Preliminary Urine,Clean Catch Gram Negative Rods 09/20/21 04:53 Blood Culture - Preliminary Blood NEGATIVE TO DATE 09/20/21 19:20 Blood Culture - Preliminary Blood SPECIMEN COLLECTED 09/20/21 15:00 Occult Blood (FIT) - Final Stool Routine Collection A&P Assessment and plan (1) Protein-calorie malnutrition, mild: Status: Acute (2) Adenocarcinoma: Status: Acute (3) Diabetes: Status: Acute (4) Urinary tract infection: Status: Acute (5) Sepsis: Status: Acute (6) Acute alteration in mental status: Status: Acute Plan 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 Patient is complaining of anorexia, hurting all over Muscle mass loss Mild protein calorie malnourishment Appreciate dietary recommendations Patient does not want TPN or PICC line placement for now I requested CT chest 7 pelvis for worsening leukocytosis She has spiculated nodules in her lung concerning for metastatic lesions Currently she is requiring 2 L, she also has emphysematous atelectasis changes, afebrile, cultures negative, Family updated Awaiting records from [facility] DNR/DNI We will discuss further whether family would opt for palliative care Sepsis related to UTI, worsening leukocytosis which I think is related to underlying cancer, I will add vancomycin to her Zosyn he also received 1 dose of fluconazole she is risk of yeast infections Cultures negative to date FOBT positive, hemoglobin stable, blood pressure stable for now discontinued DVT prophylaxis, will use SCDs Poor prognosis Attestations Medical Necessity Statement*: Continue medical management, poor prognosis Time Spent in Patient Care: 35 Coding Level of Care Code Acute [employer] for Chg Fwd Diagnoses Protein-calorie malnutrition, mild E44.1 Adenocarcinoma C80.1 Diabetes E11.9 Urinary tract infection N39.0 Sepsis A41.9 Acute alteration in mental status R41.82
[2021-09-21] MEDS: vancomycin 1,000 MG in sodium chloride 0.9% 250 ML 250 MG IV (13:01)
[2021-09-21] MEDS: insulin lispro 100 unit/1 mL SUBCUT (13:02)
[2021-09-21 17:30] LABS: Glucose Point of Care 138 mg/dL (70-110)
[2021-09-21 21:16] LABS: Glucose Point of Care 203 mg/dL (70-110)
[2021-09-22] VITALS (10 sets, daily range): BP systolic 105–136; BP diastolic 46–61; PULSE 78–89; RESP 14–18; TEMP 36.4–36.6; O2SAT 86–97
[2021-09-22] MEDS: oxyCODONE-APAP 5-325 mg Tablet 1 TAB PO ×4 (00:21→18:10)
[2021-09-22] MEDS: vancomycin 1,000 MG in sodium chloride 0.9% 250 ML 250 MG IV (06:06)
[2021-09-22 06:21] LABS: Basophils # 0.1 10^3/uL (0.0-0.1); Basophils % 0.4 %; Eosinophils % 0.1 %; Hematocrit 26.3 % (37.0-47.0); Hemoglobin 8.4 g/dL (11.5-15.3); Lymphocytes # 1.9 10^3/uL (0.8-4.8); Lymphocytes % 6.4 %; Mean Corpuscular HGB Conc 31.9 g/dL (30.0-36.0); Mean Corpuscular Hemoglobin 27.5 pg (28.0-34.0); Mean Corpuscular Volume 86.2 fl (81-99); Mean Platelet Volume 9.6 fL (7.4-10.4); Monocytes # 1.2 10^3/uL (0.2-0.9); Monocytes % 4.2 %; Neutrophils # 25.72 10^3/uL (1.8-7.7); Neutrophils % 87.6 %; Nucleated Red Blood Cells % 0 %; Platelet Count 376 10^3/cmm (130-400); Red Blood Count 3.05 10^6/uL (4.1-5.3); Red Cell Distribution Width 15.5 % (12.1-15.1); White Blood Count 29.4 10^3/uL (4.0-10.0)
[2021-09-22 06:38] LABS: Alanine Aminotransferase < 5 U/L (0-33); Albumin Level 1.7 g/dL (3.5-5.2); Alkaline Phosphatase 128 IU/L (35-105); Anion Gap 11.7 (5-19); Aspartate Amino Transferase 6 U/L (0-32); Blood Urea Nitrogen 15 mg/dL (8-23); Calcium 7.8 mg/dL (8.5-10.5); Carbon Dioxide 22 mmol/L (22-29); Chloride 107 mmol/L (98-107); Creatinine Clr Calc Pharmacy 52.3651; Globulin 3.9 g/dL (1.3-4.6); Glucose 214 mg/dL (65-115); Osmolality Calculated 291 mOsm/kg (285-295); Potassium 3.7 mmol/L (3.5-5.1); Sodium 137 mmol/L (136-145); Total Bilirubin 0.2 mg/dL (0.15-1.2); Total Protein 5.6 g/dL (6.6-8.7)
[2021-09-22 06:41] LABS: Glucose Point of Care 200 mg/dL (70-110)
[2021-09-22] MEDS: piperacillin-tazobactam 3.375 GM in sodium chloride 0.9% (plus) 50 ML IV ×3 (07:25→21:50)
[2021-09-22] MEDS: pantoprazole DR 40 mg Tablet PO (08:18)
[2021-09-22] MEDS: polyethylene glycol 3350 Pkt 17 gm PO (08:19)
[2021-09-22] MEDS: insulin lispro 100 unit/1 mL SUBCUT ×2 (08:21→12:53)
[2021-09-22] MEDS: sodium chloride 0.9% 1,000 ML 75 ML IV ×2 (08:29→21:47)
--- NOTE | 2021-09-22 09:08 | P.PN_ITS ---
Subjective Subjective: This morning patient has opted for hospice care, Dr. Barrow has been notified She has started eating better She is complaining of back pain I will escalate her pain management Vitals/I&O/Wt Last Vital Signs Temp 97.6 F 09/22/21 07:23 Pulse 89 09/22/21 07:23 Resp 17 09/22/21 07:23 BP 122/60 09/22/21 07:23 Pulse Ox 95 09/22/21 07:23 O2 Del Method 09/22/21 07:23 O2 Flow Rate 2 09/21/21 11:30 09/21/21 09/22/21 09/22/21 22:59 06:59 14:59 Intake Total 1000 / 1300 50 / 1350 1030 / 1030 Output Total 0 / 0 Balance 1000 / 1300 50 / 1350 1030 / 1030 Physical Exam Narrative: Patient was sitting at the bedside Eating breakfast Awake and alert Complaining of back pain No active chest pain or shortness of breath Awake and alert Nonfocal neuro exam Saturating well on room air Colostomy bag in place with fecal matter Abdominal scars with good granulation tissue Data : 09/22/21 06:00 09/22/21 06:00 Micro: Microbiology 09/20/21 19:20 Blood Culture - Preliminary Blood NEGATIVE TO DATE 09/20/21 00:39 Urine Culture - Preliminary Urine,Clean Catch Gram Negative Rods 09/20/21 04:53 Blood Culture - Preliminary Blood NEGATIVE TO DATE A&P Assessment and plan (1) Protein-calorie malnutrition, mild: Status: Acute (2) Adenocarcinoma: Status: Acute (3) Diabetes: Status: Acute (4) Urinary tract infection: Status: Acute (5) Sepsis: Status: Acute (6) Acute alteration in mental status: Status: Acute (7) Pulmonary nodule: Status: Acute Plan Mild protein calorie malnourishment Patient is started eating better She does not want IV nutrition Sepsis related to UTI, leukocytosis likely related to underlying cancer she has been afebrile, cultures negative I would continue broad-spectrum antibiotics for now until the day of discharge Stage IV cancer Adenocarcinoma, status post sigmoidectomy Waiting on records from [facility] Spiculated nodule 15 x 10 x 18 mm defines metastatic cancer, patient does not want chemo or PET scan, she has opted for hospice L3, L5 compression fracture I will add Dilaudid along oxycodone Guarded prognosis DNR/DNI SCDs for DVT prophylaxis Dr. Barrow has been notified who will see this patient after his clinic hours Attestations Medical Necessity Statement*: Hospice care Time Spent in Patient Care: 30 Coding Level of Care Code Acute Risk Control Field Representative for Chg Fwd Diagnoses Protein-calorie malnutrition, mild E44.1 Adenocarcinoma C80.1 Diabetes E11.9 Urinary tract infection N39.0 Sepsis A41.9 Acute alteration in mental status R41.82 Pulmonary nodule R91.1
[2021-09-22 11:14] LABS: Glucose Point of Care 174 mg/dL (70-110)
[2021-09-22] MEDS: HYDROmorphone 1 mg/mL INJ 1 mL 0.2 MG IVP ×2 (15:14→20:20)
[2021-09-22 17:08] LABS: Glucose Point of Care 189 mg/dL (70-110)
[2021-09-22 21:00] LABS: Glucose Point of Care 193 mg/dL (70-110)
[2021-09-23] VITALS (9 sets, daily range): BP systolic 105–145; BP diastolic 58–75; PULSE 72–90; RESP 15–18; TEMP 36.6–36.8; O2SAT 90–95
[2021-09-23] MEDS: vancomycin 1,000 MG in sodium chloride 0.9% 250 ML 250 MG IV (02:10)
[2021-09-23] MEDS: HYDROmorphone 1 mg/mL INJ 1 mL 0.2 MG IVP ×4 (04:31→18:34)
[2021-09-23] MEDS: piperacillin-tazobactam 3.375 GM in sodium chloride 0.9% (plus) 50 ML IV (05:42)
[2021-09-23 06:51] LABS: Glucose Point of Care 210 mg/dL (70-110)
[2021-09-23] MEDS: insulin lispro 100 unit/1 mL SUBCUT ×3 (08:22→23:01)
[2021-09-23] MEDS: polyethylene glycol 3350 Pkt 17 gm PO (08:23)
[2021-09-23] MEDS: pantoprazole DR 40 mg Tablet PO (08:23)
[2021-09-23 10:53] LABS: Glucose Point of Care 164 mg/dL (70-110)
--- NOTE | 2021-09-23 12:03 | PM.PN ---
Subjective Subjective: Patient did speak with Dr. 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 Patient did not have any questions, I did tell her that we might be able to set everything up by tomorrow I will go ahead and discontinue antibiotics Vitals/I&O/Wt Last Vital Signs Temp 97.8 F 09/23/21 08:00 Pulse 72 09/23/21 08:00 Resp 18 09/23/21 08:22 BP 132/63 09/23/21 08:00 Pulse Ox 92 09/23/21 08:00 O2 Del Method 09/23/21 08:00 O2 Flow Rate 2 09/21/21 11:30 09/22/21 09/23/21 09/23/21 22:59 06:59 14:59 Intake Total 1047.5 / 2277.5 300 / 2577.5 50 / 50 Balance 1047.5 / 2177.5 300 / 2477.5 50 / 50 Physical Exam Narrative: Patient is eating slightly better Awake and alert Nonfocal neuro exam Currently on room air Soft abdomen Cachectic Malnourished Lethargic Nonfocal neuro exam No active chest pain No active respiratory distress Data : 09/22/21 06:00 09/22/21 06:00 Micro: Microbiology 09/20/21 00:39 Urine Culture - Final Urine,Clean Catch Escherichia coli A&P Assessment and plan (1) Hospice care: Status: Acute (2) Pulmonary nodule: Status: Acute (3) Protein-calorie malnutrition, mild: Status: Acute (4) Adenocarcinoma: Status: Acute (5) Diabetes: Status: Acute (6) Acute alteration in mental status: Status: Acute Plan Stage IV cancer Spiculated pulm nodule, adenocarcinoma, uterine cancer with colon mets Patient had decided to opt for hospice care at home She has spoken with Dr. Mata as well Compression fracture of her back, currently on long-acting opioids along short acting 1 for breakthrough pain Bowel regimen Discontinue IV antibiotics Might be able to discharge her to home hospice by tomorrow DNR/DNI Patient is tolerating her diet She can have protein shakes, Attestations Medical Necessity Statement*: Discharge tomorrow Time Spent in Patient Care: 30 Coding Level of Care Code Acute [employer] Advisor for g Fwd Diagnoses Hospice care Z51.5 Pulmonary nodule R91.1 Protein-calorie malnutrition, mild E44.1 Adenocarcinoma C80.1 Diabetes E11.9 Acute alteration in mental status R41.82
[2021-09-23] MEDS: sodium chloride 0.9% 1,000 ML 75 ML IV (12:16)
[2021-09-23] MEDS: morphine ER (12 HR) 15 mg Tablet PO (12:23)
[2021-09-23 16:51] LABS: Glucose Point of Care 146 mg/dL (70-110)
--- NOTE | 2021-09-23 16:57 | PC.SOCIAL ---
IMM Update Pg. 2 of IMM Updated. Initialed, dated, and timed, copy placed in chart. Copy provided at bedside.
[2021-09-23 22:52] LABS: Glucose Point of Care 197 mg/dL (70-110)
[2021-09-24] VITALS: BP 106/61; PULSE 77; RESP 14; TEMP 36.2; O2SAT 95
[2021-09-24 00:49] VITALS: RESP 16
[2021-09-24] MEDS: HYDROmorphone 1 mg/mL INJ 1 mL 0.2 MG IVP (00:49)
[2021-09-24] MEDS: sodium chloride 0.9% 1,000 ML 75 ML IV (01:27)
[2021-09-24] MEDS: morphine ER (12 HR) 15 mg Tablet PO (03:45)
[2021-09-24 04:00] VITALS: BP 135/71; PULSE 81; RESP 14; TEMP 36.6; O2SAT 95
[2021-09-24 06:21] LABS: Glucose Point of Care 164 mg/dL (70-110)
[2021-09-24 07:06] VITALS: BP 148/62; PULSE 88; RESP 18; TEMP 36.6; O2SAT 95
[2021-09-24] MEDS: insulin lispro 100 unit/1 mL SUBCUT (08:42)
[2021-09-24] MEDS: polyethylene glycol 3350 Pkt 17 gm PO (08:43)
--- NOTE | 2021-09-24 08:44 | PM.DCS ---
Discharge Providers Date of Admission: 09/20/21 01:42 Date of Discharge: September 24, 2021 Attending Provider at Admission: Patricia Law MD Attending Provider at Discharge: Sara Valerio MD Primary Care Provider: Christin Bolaños DO Diagnoses at Discharge Discharge Diagnosis (1) Hospice care: Status: Acute (2) Pulmonary nodule: Status: Acute (3) Protein-calorie malnutrition, mild: Status: Acute (4) Adenocarcinoma: Status: Acute (5) Diabetes: Status: Acute (6) Acute alteration in mental status: Status: Acute Reason for Visit Reason for Visit: UNRESPONSIVE Hospital Course Hospital Course 75-year female who was recently transferred to [facility] to Dr. Paul davis for her uterine neoplasia management and SBO. 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 She was discharged to a [facility] however she was transferred to the ER same night because of her worsening confusion. In the ER she was diagnosed with metabolic encephalopathy related to UTI. She was given Zosyn. She was given IV fluids. Her confusion and lethargy improved. She remained afebrile with negative cultures. She was requiring frequent opioids because of her compression fractures, stage IV cancer. CT chest abdomen pelvis was requested which showed a spiculated nodule concerning for metastatic lesions. Patient is bedbound not able to ambulate on her own without assistance. Family meeting was conducted. Patient decided to discuss options with Dr. Mata. She finally agreed for home hospice. She is in excruciating pain for above-mentioned reasons. I will give her lidocaine patch, extended release morphine and for breakthrough pain hydrocodone. Senna S bowel regimen. She does carry a guarded prognosis and being discharged to home hospice. For symptomatic relief she will definitely benefit from a Boss catheter placement. We were able to wean her oxygen down to room air. Her p.o. intake has been very poor she is only eating 25 to 30% of her meals. Family updated. 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 cm, hysterectomy, bilateral salpingo-oophorectomy, suture repair of small bowel enterostomy Physical Exam Narrative: Patient is sitting at the bedside Complaining of back pain She is also complaining of abdominal pain Awake and alert In distress because of pain Currently on room air Nonfocal neuro exam Weak and lethargic Muscle mass loss Discharge Data Studies Completed and Pending Completed Studies During Hospitalization Category Date Time Status CT chest abd pel w con* Routine Cat Scan 09/21/21 09:03 Completed XR chest 1V portable [id number] Urgent Exams 09/20/21 03:49 Completed Pending at discharge Category Date Time Status Blood Culture Routine Lab 09/20/21 19:20 Results Sputum Culture and Gram Stain Stat Lab 09/20/21 03:56 Uncollected Radiology Impressions Chest X-Ray 09/20/21 03:49 IMPRESSION: No acute cardiopulmonary abnormality. Chest/Abdomen/Pelvis CT 09/21/21 09:03 IMPRESSION: 1. Small right pleural effusion. 2. Minimal left pleural effusion. 3. Pulmonary emphysema. 4. Noncalcified new right lower lobe pulmonary nodule. Pulmonary neoplasia not excluded. Comparison with prior studies, if available, recommended. followup PET/CT or percutaneous needle biopsy recommended (modified from Jonny et al., Fleischner Society, 2017). 5. Noncalcified new bilateral upper lobe pulmonary nodules. Fleischner Society recommendations withheld pending assessment of the dominant lesion. 6. Nonspecific bronchovascular bundle nodularity right lower lobe lateral basilar segment redemonstrated, improved (series 4, image 38). 7. Coronary atherosclerosis. 8. Cardiac left atrial enlargement. 9. Hiatal hernia. 10. No specific acute injury identified. 11. Please see the abdomen/pelvis CT need of the same date for additional findings. IMPRESSION: 1. Prior cholecystectomy. 2. Left lower quadrant sigmoid colostomy. 3. Upper pelvic enteric anastomosis. 4. Moderate interval left hydronephrosis, mild left hydroureter. No obstructing calculus identified. 5. The urinary bladder contains a small amount of gas. Recommend clinical confirmation of recent bladder catheterization. 6. No acute injury identified. Laboratory Results WBC 29.4 10^3/uL (4.0-10.0) H 09/22/21 06:00 RBC 3.05 10^6/uL (4.1-5.3) L 09/22/21 06:00 Hgb 8.4 g/dL (11.5-15.3) L 09/22/21 06:00 Hct 26.3 % (37.0-47.0) L 09/22/21 06:00 MCV 86.2 fl (81-99) D 09/22/21 06:00 MCH 27.5 pg (28.0-34.0) L 09/22/21 06:00 MCHC 31.9 g/dL (30.0-36.0) D 09/22/21 06:00 RDW 15.5 % (12.1-15.1) H 09/22/21 06:00 Plt Count 376 10^3/cmm (130-400) 09/22/21 06:00 MPV 9.6 fL (7.4-10.4) 09/22/21 06:00 Neut % (Auto) 87.6 % 09/22/21 06:00 Lymph % (Auto) 6.4 % 09/22/21 06:00 Sully % (Auto) 4.2 % 09/22/21 06:00 Eos % (Auto) 0.1 % 09/22/21 06:00 Baso % (Auto) 0.4 % 09/22/21 06:00 Neut # (Auto) 25.72 10^3/uL (1.8-7.7) H 09/22/21 06:00 Lymph # (Auto) 1.9 10^3/uL (0.8-4.8) 09/22/21 06:00 Sully # (Auto) 1.2 10^3/uL (0.2-0.9) H 09/22/21 06:00 Eos # (Auto) 0.0 10^3/uL (0.0-0.8) 09/22/21 06:00 Baso # (Auto) 0.1 10^3/uL (0.0-0.1) 09/22/21 06:00 Nucleated RBC % (auto) 0 % 09/22/21 06:00 Nucleated RBCs # 0.0 /100WBC 09/22/21 06:00 Specimen Type Venous 09/19/21 11:40 Sample Site Na 09/19/21 11:40 Aron Test Na 09/19/21 11:40 VBG pH 7.33 (7.32-7.42) 09/19/21 11:40 VBG pCO2 50.8 mmHg (41-51) 09/19/21 11:40 VBG pO2 86.6 mmHg (25-40) H 09/19/21 11:40 VBG HCO3 26.9 mmol/L (24-28) 09/19/21 11:40 VBG Base Excess 0.6 mmol/L (-3.0-3.0) 09/19/21 11:40 VBG Hematocrit 27.2 % (37-47) L 09/19/21 11:40 O2 Delivery Device Ms 09/19/21 11:40 O2 Liters/Min 4.0 % 09/19/21 11:40 FiO2 32.0 % 09/19/21 11:40 Specimen Dra[address] [facility] 09/19/21 11:40 Head Of Mer[employer]andise Buying ID [facility] 09/19/21 11:40 Sodium 137 mmol/L (136-145) 09/22/21 06:00 Potassium 3.7 mmol/L (3.5-5.1) 09/22/21 06:00 Chloride 107 mmol/L (98-107) 09/22/21 06:00 Carbon Dioxide 22 mmol/L (22-29) 09/22/21 06:00 Anion Gap 11.7 (5-19) 09/22/21 06:00 BUN 15 mg/dL (8-23) 09/22/21 06:00 Creatinine 0.7 mg/dL (0.5-0.9) 09/22/21 06:00 GFR Calculation Not Reportable 09/22/21 06:00 Glucose 214 mg/dL (65-115) H 09/22/21 06:00 POC Glucose 164 mg/dL (70-110) H 09/24/21 06:15 Calculated Osmolality 291 mOsm/kg (285-295) 09/22/21 06:00 Lactate 1.0 mmol/L (0.5-2.2) 09/20/21 01:49 Calcium 7.8 mg/dL (8.5-10.5) L 09/22/21 06:00 Magnesium 2.1 mg/dL (1.7-2.3) 09/21/21 06:20 Iron 10 ug/dL (37-145) L 09/19/21 23:02 Iron Cancelled 09/19/21 23:02 TIBC 148 mcg/dl 09/19/21 23:02 % Saturation 6.7 % (20-50) L 09/19/21 23:02 Unsat Iron Binding 138 ug/dL (112-347) 09/19/21 23:02 Ferritin 344 ng/mL (15-150) H 09/19/21 23:02 Total Bilirubin 0.2 mg/dL (0.15-1.2) 09/22/21 06:00 AST 6 U/L (0-32) 09/22/21 06:00 ALT < 5 U/L (0-33) 09/22/21 06:00 Alkaline Phosphatase 128 IU/L (35-105) H 09/22/21 06:00 Total Protein 5.6 g/dL (6.6-8.7) L 09/22/21 06:00 Albumin 1.7 g/dL (3.5-5.2) L 09/22/21 06:00 Globulin 3.9 g/dL (1.3-4.6) 09/22/21 06:00 Procalcitonin 0.10 ng/mL (0-0.5) 09/19/21 23:02 Urine Color Dark yellow (Yellow) 09/20/21 00:39 Urine Appearance Cloudy (CLEAR) 09/20/21 00:39 Urine pH 6 (5-7) 09/20/21 00:39 Ur Specific Heaters 1.015 (1.005-1.030) 09/20/21 00:39 Urine Protein 1+ (Negative) H 09/20/21 00:39 Urine Glucose (UA) Norm (Normal) 09/20/21 00:39 Urine Ketones 1+ (Negative) H 09/20/21 00:39 Urine Blood 3+ (Negative) H 09/20/21 00:39 Urine Nitrate Negative (Negative) 09/20/21 00:39 Urine Bilirubin Neg (Negative) 09/20/21 00:39 Urine Urobilinogen 4 mg/dL (Negative) H 09/20/21 00:39 Ur Leukocyte Esterase 2+ (Negative) H 09/20/21 00:39 Urine RBC 25-40 /hpf (0-2) H 09/20/21 00:39 Urine WBC 55-80 /hpf (0-5) H 09/20/21 00:39 Ur Squamous Epith Cells 5-10 /hpf (0-5) H 09/20/21 00:39 Amorphous Sediment Not Reportable 09/20/21 00:39 Urine Bacteria 4+ /hpf (NONE) H 09/20/21 00:39 Vitals Last Vital Signs Temp 97.9 F 09/24/21 07:06 Pulse 88 09/24/21 07:06 Resp 18 09/24/21 07:06 BP 148/62 09/24/21 07:06 Pulse Ox 95 09/24/21 07:06 O2 Del Method 09/24/21 07:06 O2 Flow Rate 2 09/21/21 11:30 Discharge Plan Discharge Patient Disposition: Hospice - Medical Facility Condition: Stable Prescriptions: New AsperFlex (lidocaine) 4 % adhesive patch,medicated 1 patch topical Q12H PRN (Reason: pain) Qty: 15 0RF morphine 30 mg tablet extended release 30 mg PO Q12H Qty: 10 0RF Senna-S 8.6-50 mg tablet 1 tab-cap PO DAILY Qty: 10 0RF hydrocodone-acetaminophen 10-325 mg tablet 1 tab PO Q8H PRN (Reason: pain) Qty: 7 0RF Continued acetaminophen 325 mg Tablet 650 mg PO Q6H PRN (Reason: Pain) Lantus U-100 Insulin 100 unit/mL Solution 4 unit SUBCUT BEDTIME temazepam 15 mg Capsule 15 mg PO BEDTIME lorazepam 1 mg Tablet 1 mg PO Q8H PRN (Reason: Anxiety) Eliquis 5 mg Tablet 5 mg PO BID polyethylene glycol 3350 [Miralax] 17 gram Powder In Packet 17 g PO QAM Rx Instructions: MIX IN 8 OUNCES OF WATER OR JUICE insulin lispro 100 unit/mL Cartridge See Rx Instructions .ROUTE .COMPLEX Rx Instructions: INJECT PER SLIDING SCALE TID 201-250=2 UNITS 251-300=4 UNITS 301-350=6 UNITS 351-400=8 UNITS Discontinued melatonin 3 mg Tablet 3 mg PO BEDTIME PRN (Reason: Insomnia) benzonatate 100 mg Capsule 100 mg PO TID PRN (Reason: Cough) simethicone 80 mg Tablet,Chewable 80 mg PO TID PRN (Reason: Gas) No Action (DME) Diabetic shoes with 3 pairs of inserts See Rx Instructions .Route .MEDSUPPLY Qty: 1 0RF Rx Instructions: As directed by [facility] (DME) Dexcom G6 [employer] Misc See Rx Instructions .Route Qty: 1 0RF Rx Instructions: As directed (DME) Dexcom G6 Sensor Device See Rx Instructions .Route Qty: 3 3RF Rx Instructions: Change every 10 days. (DME) Dexcom G6 Transmitter Device See Rx Instructions .Route Qty: 1 3RF Rx Instructions: Change every 90 days. Discharge Orders: Discharge Order (Routine); Ordered 09/24/21 Ordered By: Sara Valerio Referrals: [facility] [Outside] [facility] [Outside] Christin Bolaños DO [Primary Care Provider] - Discharge Attestations Time Spent in Discharge Care*: less than 30 min Quality Metrics Clinical Quality Measures [ No reported AMI, CVA or VTE this stay] Coding Level of Care Code Acute Chg FW DC note Diagnoses Hospice care Z51.5 Pulmonary nodule R91.1 Protein-calorie malnutrition, mild E44.1 Adenocarcinoma C80.1 Diabetes E11.9 Acute alteration in mental status R41.82
[2021-09-24] MEDS: pantoprazole DR 40 mg Tablet PO (08:54)
[2021-09-24 09:47] VITALS: RESP 18; O2SAT 95
[2021-09-24] MEDS: morphine IR 15 mg Tablet PO (09:47)
--- NOTE | 2021-09-24 10:44 | PC.NURSE ---
report called to [facility] at this time
[2021-09-24] MEDS: lidocaine 5% Patch 1 PATCH TOPICAL (10:51)
[2021-09-24 11:10] VITALS: RESP 18; O2SAT 95
== END 2021-09-24 11:11 | disposition hospice, inpatient (51) | DRG 871 ==
LOC: ER 09-20 01:41 → MEDSURG 09-20 02:31
PROVIDERS: Admitting Provider Internal Medicine; Emergency Provider Emergency Medicine; PCP Family Medicine; Visit Provider Internal Medicine
DX: A41.9 Sepsis, unspecified organism (principal); G93.41 Metabolic encephalopathy; C78.5 Secondary malignant neoplasm of large intestine and rectum; N39.0 Urinary tract infection, site not specified; E44.1 Mild protein-calorie malnutrition; C55 Malignant neoplasm of uterus, part unspecified; E11.40 Type 2 diabetes mellitus with diabetic neuropathy, unspecified; F41.8 Other specified anxiety disorders; Z90.49 Acquired absence of other specified parts of digestive tract; Z87.891 Personal history of nicotine dependence; D50.9 Iron deficiency anemia, unspecified; Z68.20 Body mass index [BMI] 20.0-20.9, adult; Z90.710 Acquired absence of both cervix and uterus; Z93.3 Colostomy status; E86.0 Dehydration; D63.8 Anemia in other chronic diseases classified elsewhere; Z66 Do not resuscitate; R19.5 Other fecal abnormalities; Z79.01 Long term (current) use of anticoagulants; Z79.4 Long term (current) use of insulin; G89.3 Neoplasm related pain (acute) (chronic); Z74.01 Bed confinement status; R91.1 Solitary pulmonary nodule
CPT/HCPCS: 36415; 36416; 71045; 71260; 74177; 80053; 80503; 81001; 82274; 82728; 82803; 82962; 83540; 83550; 83605; 83735; 84145; 85025; 87040; 87077; 87086; 87186; 94664; 94760; 96365; 96372; 99285; J1170; J1815; J2543; J3370; J7030; J7050; Q9967